=== PATIENT | male | born 1955 ===

== ENCOUNTER 2016-11-23 12:19 | Inpatient (IN) | payer OTHER ==
[~2016-11-23] VITALS: Ht 167.6 cm; Wt 62.6 kg
[2016-11-23] VITALS (8 sets, daily range): BP systolic 105–144; BP diastolic 29–99; PULSE 47–83; RESP 11–23; O2SAT 96–100
[2016-11-23] MEDS ORDERED: 0.9% Sodium Chloride 1,000 ML IV SCH (12:45)
[2016-11-23] MEDS ORDERED: 0.9% Sodium Chloride 1,000 ML IV ONE (12:45)
[2016-11-23 12:49] LABS: BASOPHILS % (AUTO) 0.2 % (0-3); EOSINOPHILS % (AUTO) 1.6 % (0-5); MONOCYTES % (AUTO) 9.6 % (4-12); Mean Corpuscular Hemoglobin 26.5 pg (27.0-35.0); Mean Corpuscular Volume 84.8 fL (81-100); NEUTROPHILS % (AUTO) 58.6 % (40-74); Platelet Count 324 bil/L (150-400)
[2016-11-23] MEDS ORDERED: Alum-Mag Hydrox-Simeth 30 mL Suspension PO PRN (12:50)
--- NOTE | 2016-11-23 12:51 | ED.REPORT ---
HPI-General Illness Date of Service Nov 23, 2016 ED Provider: Jose Manuel Gray MD Patient is a 61 year old male with a cardiac pacemaker and history of atrial fibrillation on Warfarin, chronic kidney disease, coronary artery disease, hypertension, and hyperlipidemia who presents to the ED via EMS from [facility] with altered mental status onset today at lunch. Per [facility] staff, the patient is usually able to transfer from the bed on his own and interact with staff. However, today he was unable to transfer and had decreased level of consciousness. Patient did not respond on EMS arrival. There is no staff from the facility or paperwork explaining why the patient presents to the ED. The patient is unable to provide any history due to his altered mental status. CPR with limited interventions, see POL. Nursing Notes Stated Complaint: DECREASED LOC Chief Complaint: General Complaint Nursing Notes Reviewed: Yes Allergies: Coded Allergies: atorvastatin (Verified Allergy, Mild, UNKNOWN, 11/23/16) Scheduled Amlodipine (Amlodipine) 5 Mg Tablet 10 MG PO DAILY Ascorbate Calcium (Vitamin C) 500 Mg Tablet 500 MG PO DAILYWM Baclofen (Baclofen) 10 Mg Tablet 20 MG PO BID Cholecalciferol (Vitamin D3) (Vitamin D) 1,000 Unit Tablet 5,000 UNIT PO DAILY Ferrous Sulfate (Iron) 325 Mg Tablet 325 MG PO DAILYWM Folic Acid (Folic Acid) 1 Mg Tablet 1 MG PO DAILY Gabapentin (Gabapentin) 100 Mg Capsule 200 MG PO TID Levothyroxine (Levothyroxine) 50 Mcg Tablet 50 MCG PO DAILY Losartan Potassium (Losartan Potassium) 25 Mg Tablet 25 MG PO DAILY Metoprolol Tartrate (Metoprolol Tartrate) 100 Mg Tablet 100 MG PO BID Morphine Sulfate ER (MS Contin) 15 Mg Tablet.er 45 MG PO BID Multivitamin with Minerals (Totalday Multiple) 1 Each Tablet.er 1 EACH PO DAILY Omeprazole (Omeprazole) 20 Mg Capsule.dr 20 MG PO DAILY Pravastatin (Pravastatin) 40 Mg Tablet 40 MG PO HS Warfarin Sodium (Coumadin) 4 Mg Tablet 4 MG PO DAILY Scheduled PRN Acetaminophen (Acetaminophen) 325 Mg Tablet 650 MG PO QID PRN PRN For Pain Albuterol Sulfate (Ventolin HFA Inhaler) 200 Puff/18 Gm Inhaler 2 PUFF INH QID PRN PRN For Wheezing Bisacodyl (Dulcolax Rectal) 10 Mg Supp.rect 10 MG RC ONCE PRN PRN For Constipation Magnesium Hydroxide (Milk of Magnesia) 400 Mg/5 Ml Oral.susp 30 ML PO ONCE PRN PRN For Constipation Na Phos,M-B/Na Phos,Di-Ba (Fleet Enema) 133 Ml Enema 133 ML RC ONCE PRN PRN For Constipation Nicotine 14 mg/24 hr Patch (Nicotine 14 mg/24 hr Patch) 1 Each Patch.td24 1 PATCH TRANSDERM DAILY PRN PRN smoking cessasion Ondansetron (Zofran) 4 Mg Tablet 4 MG PO TID PRN PRN For Nausea Oxycodone (Roxicodone) 15 Mg Tablet 15 MG PO Q4H PRN PRN For Severe Pain Polyethylene Glycol 3350 (Miralax) 17 Gm Powd.pack 17 GM PO DAILY PRN PRN For Constipation General Time Seen by MD: 12:29 Chief Complaint Altered mental status Hx Obtained From: EMS Unable to Obtain Hx: Mental status Arrived By: Ambulance Sudden in Onset?: No Onset Occurred: 1 - 4 hours ago Symptom Duration: Since onset Recent Healthcare: No recent hospitalization Past Medical History Past Medical History Atrial fibrillation on Warfarin chronic kidney disease, stage 3 hypertension Coronary artery disease hypothyroidism GERD hyperlipidemia cardiac pacemaker peripheral vascular disease atherosclerosis of left leg anemia Past Surgical History Reports: Pacemaker insertion Smoking History Unknown if Ever Smoker Social History Lives at [facility] Other Social History: Lives in [facility], Local resident Ambulatory Status Wheelchair Review of Systems Unable to Obtain ROS Patient condition, Mental status Physical Exam Vital Signs Vital Signs Date Time Temp Pulse Resp B/P Pulse Ox O2 Delivery O2 Flow Rate FiO2 11/23/16 13:30 54 14 133/51 100 Room Air 11/23/16 13:14 51 14 115/50 100 Room Air 11/23/16 12:19 36.6 47 11 105/29 100 Room Air Initial VS: Reviewed Alertness: Positive: Responds to pain stimuli (opens eyes and groans to sternal rub), Somnolent Appearance / Presentation: Positive: Cachectic unable to provide history due to altered mental status appears dehydrated ENT: Airway patent Respiratory / Chest: Breath sounds NL, Breath sounds = bilat, No respiratory distress, No rales, No rhonchi, No wheezing Cardiovascular: Regular rhythm, Heart sounds NL, No gallop, No murmurs, No rubs , Pulses = bilaterally (palpable distal pulses) Heart Rate / Rhythm: Positive: Bradycardia (40-50s) Abdomen: Soft, Non-tender, No guarding Tenderness/Guarding/Rebound: Negative: Rigid to palpation Upper Extremities Upper Extremity / MS: No deformity, Vascular intact Lower Extremity / Pelvis / MS: No deformity, Vascular intact erythematous patches to the bilateral thighs, perfectly rectangular in shape, consistent with contact dermatitis. toes are well perfused. Skin: Warm, Dry Color / Condition: Positive: Jaundice present Rash / Lesion Notes: purpuric rash, nonblanching, to the bilateral lower extremities. overlying bandages. Male Genitourinary: Penis NL (circumcised), No penile discharge, Testes NL (no swelling) Mental Status: Positive: Responds to painful stim, Somnolent no lateralizing posture or neurological deficits. withdraws to painful stimuli bilateral upper extremities. exam limited due to AMS. Interpretation & Diagnostics Interpretation & Diagnostics: Urine Tox: Positive for opiates and oxycodone Lab Results Interpretation Result Diagram: 11/23/16 1244 11/23/16 1244 Test 11/23/16 12:44 11/23/16 12:50 11/23/16 13:26 White Blood Count 9.4th/mm3 (3.8-10.1) Red Blood Count 4.00mil/mm3 (4.40-5.80) Hemoglobin 10.6g/dL (13.8-17.2) Hematocrit 33.9% (41.0-50.0) Mean Corpuscular Volume 84.8fL (81-100) Mean Corpuscular Hemoglobin 26.5pg (27.0-35.0) Mean Corpuscular Hemoglobin Concent 31.3% (32.0-37.0) Red Cell Distribution Width 16.2% (12.3-15.4) Platelet Count 324bil/L (150-400) Neutrophils (%) (Auto) 58.6% (40-74) Lymphocytes (%) (Auto) 29.7% (14-46) Monocytes (%) (Auto) 9.6% (4-12) Eosinophils (%) (Auto) 1.6% (0-5) Basophils (%) (Auto) 0.2% (0-3) Prothrombin Time 23.3sec (8.1-12.5) Prothromb Time International Ratio 2.14ratio Activated Partial Thromboplast Time 32.0sec (22.8-33.0) Sodium Level 141mEq/L (134-144) Potassium Level 4.9mEq/L (3.5-5.2) Chloride Level 102mEq/L (97-108) Carbon Dioxide Level 25mmol/L (18-29) Blood Urea Nitrogen 40mg/dL (8-27) Creatinine 2.33mg/dL (0.76-1.27) Estimat Glomerular Filtration Rate 30mL/min (>59) Glucose Level 99mg/dL (60-99) Calcium Level 9.8mg/dL (8.5-10.1) Magnesium Level 2.0mg/dL (1.6-2.6) Total Bilirubin 0.4mg/dL (0.0-1.2) Aspartate Amino Transf (AST/SGOT) 23U/L (0-50) Alanine Aminotransferase (ALT/SGPT) 16U/L (0-44) Alkaline Phosphatase 87U/L (25-160) Ammonia 19ug/dL (18-53) Troponin T 0.025ug/L (0.0-0.011) Total Protein 6.6g/dL (6.4-8.4) Albumin 3.2g/dL (3.4-5.0) Alcohol, Quantitative < 10mg/dL (0-10) Lactic Acid Level 0.9mmol/L (0.4-2.0) Urine Opiates Screen Positive Urine Methadone Screen Negative Urine Barbiturates Screen Negative Urine Amphetamines Screen Negative Urine Benzodiazepines Screen Negative Urine Cocaine Metabolite Screen Negative Urine Cannabinoids Screen Negative ECG Interpretation ECG Interpretation: Sinus bradycardia, rate 47 normal axis nonspecific IVCD occasional PACs no ST segment elevation no T wave abnormalities no prior EKG for comparison Time: 12:31 Interpreted by: ED physician X-Ray Chest Interpretation Chest Xray Interpretation: IMPRESSION: No acute pulmonary process. Dictated by: Flora Zavala M.D. on 11/23/2016 at 13:18 Approved by: Flora Zavala M.D. on 11/23/2016 at 13:18 View: Portable Interpretation / Wet Read by: Interpret - Radiologist CT Head Interpretation IMPRESSION: No acute intracranial abnormality. Dictated by: Vijay Hatfield M.D. on 11/23/2016 at 13:56 Approved by: Vijay Hatfield M.D. on 11/23/2016 at 13:56 Study: Head CT no contrast Interpretation / Wet Read by: Interpret - Radiologist Re-Eval/Medical Decision Med Decision/Clinical Course Patient is a 61 year old male with a pacemaker and history of atrial fibrillation on Warfarin, chronic kidney disease, coronary artery disease, hypertension, and hyperlipidemia who presents to the ED via EMS from [facility] with altered mental status onset today at lunch. Upon arrival the patient is borderline bradycardic with a heart rate in the high 40s to low 50s with stable blood pressure and mild respiratory depression. He is noted to have pinpoint pupils. Initially he is not accompanied by much information is unclear what his baseline mental status is. CT scan was obtained of the head demonstrated no acute intracranial process. CXR: Obtained, reviewed and interpreted by myself shows no evidence of acute infiltrates, effusions or pneumothorax. Cardiac and mediastinal silhouette normal. No bony or soft tissue abnormalities. Lab studies were notable as below: Urine Tox: Positive for opiates and oxycodone Hematocrit of 33.9. No leukocytosis. Bun of 40 and creatine of 2.3 Troponin of .025. Hypoalbuminemia. No electrolyte abnormalities. Lactate 0.9. Alcohol negative. Opiates positive in Urine drug screen. INR 2.14 Spoke with Michael, the patient's sister [phone] She was able to provide the following detail. History of bad peripheral vascular disease, with open sores, failed surgeries, and skin grafts. He has severe pain associated with legs and may need an amputation. Able to hold a conversation at baseline. Yesterday states that he "thought he was dying". Found unresponsive at lunch. Oxycodone recently increased. Started Gabapentin recently. Given this information and negative workup thus far I opted to administer 0.2 mg of IV Narcan. Thereafter the patient was noted to be significantly more awake and able to hold a conversation. At this time I see no evidence for acute infectious process and his overall presentation seems most consistent with opiate overdose. I considered several causes of the alteration of mental status. We considered major head trauma, intracranial hemorrhage, subdural hematoma, epidural hematoma, brain tumor, cerebral mass lesion, cerebral contusion or stroke. For that reason, we obtained a CT of the head which showed no bleeding or brain abnormalities. We considered electrolyte or metabolic abnormality including hepatic encephalopathy, hyponatremia, acidosis, hypokalemia, hyperkalemia, hyperglycemia, hypoglycemia, and acute renal failure. For that reason, we obtained a bedside glucose test and a metabolic panel which did not show abnormalities that explain the alteration of mental status. We considered infectious etiologies, but the patient has no fever, and the lab tests are not compatible. In addition, there is no evidence of cellulitis, pneumonia, or intra-abdominal infection. Given the patient's acute kidney injury, significant comorbidities and need for monitoring he was admitted to the hospitalist service for close observation overnight. He was transferred in stable condition. Source of Hx: Old records (From [facility]) Time of Eval: 14:16 Patient Status: Condition improved Re-Evaluation/Progress Note: Patient is now awake in the ED after Narcan. Informed the patient of plan for hospital admission. Consultation #1: Call Returned at: 13:43 Note: Spoke with Michael, the patient's sister. See MDM for detail. Informed her of pending hospital admission. All questions addressed. Consultation #2: Referral / Consult Name: Valentino Anna MD Consulted With: Hospitalist Call Returned at: 13:55 Supervisor [employer]: Will see patient, Agrees with eval, Agrees with plan, Accepts admit Note: Spoke with Dr. Anna, hospitalist, about the patient's case. Suggests trying Narcan due to recent Oxycodone increase. He agrees to accept admit. Counseled Regarding: Diagnosis, Lab results, Need for admission Discharge & Departure Primary Impression: Altered mental state Altered mental status type: unspecified Qualified Code: R41.82 - Altered mental status, unspecified Additional Impressions: Dehydration Opiate overdose Encounter type: initial encounter Injury intent: undetermined intent Qualified Code: T40.604A - Poisoning by unspecified narcotics, undetermined, initial encounter Bradycardia Respiratory depression Acute kidney injury Peripheral vascular disease Disposition: ADMITTED TO HOSPITAL Discharge Condition All VS Reviewed: Yes Condition: Stable Crit Care Except Billable Proc Time Spent: 135-164 minutes Services Performed: Patient management by me, Time spent at bedside, Reviewing test results, Reviewing imaging, Discussing patient care, Documentation in record, Time with fam/surrogate Scribe Attestation Portions of this note were transcribed by Candice Bennett. I, Dr. Gray personally performed the history, physical exam and medical decision-making; I reviewed and confirmed the accuracy of the information in the transcribed note. Signed by: Rodo Gamble, 11/23/2016 0255 Jose Manuel Gray MD Nov 23, 2016 12:51 Candice Bennett Nov 23, 2016 12:59
[2016-11-23 13:04] LABS: INR 2.14 ratio
[2016-11-23 13:09] LABS: TROPONIN T 0.025 ug/L (0.0-0.011)
[2016-11-23 13:15] LABS: Ammonia 19 ug/dL (18-53)
--- NOTE | 2016-11-23 13:20 | DRSVH ---
PROCEDURE: X-RAY CHEST ONE VIEW, PORTABLE ([id number]) INDICATIONS: WEAKNESS TECHNIQUE: One view of the chest was acquired. COMPARISON: None. FINDINGS: Surgical changes and devices: Pacemaker. Lungs and pleura: No pleural effusions or pneumothorax. Lungs are clear. Mediastinum: Mediastinal contours appear normal. Heart size is normal. Bones and chest wall: No suspicious bony lesions. Overlying soft tissues appear unremarkable. IMPRESSION: No acute pulmonary process. Dictated by: Flora Zavala M.D. on 11/23/2016 at 13:18 Approved by: Flora Zavala M.D. on 11/23/2016 at 13:18
[2016-11-23] MEDS ORDERED: OXYC15TA45 PO (13:36)
[2016-11-23] MEDS ORDERED: ACET325T51 PO (13:36)
[2016-11-23] MEDS ORDERED: LOSA25TA21 PO (13:36)
[2016-11-23] MEDS ORDERED: POLY17PO6 PO (13:36)
[2016-11-23] MEDS ORDERED: FOLI1TAB18 PO (13:36)
[2016-11-23] MEDS ORDERED: FERR325T39 PO (13:36)
[2016-11-23] MEDS ORDERED: PRAV40TA PO (13:36)
[2016-11-23] MEDS ORDERED: WARF4TAB PO (13:36)
[2016-11-23] MEDS ORDERED: ASCO-294 PO (13:36)
[2016-11-23] MEDS ORDERED: METO100T3 PO (13:36)
[2016-11-23] MEDS ORDERED: AMLO5TAB2 PO (13:36)
[2016-11-23] MEDS ORDERED: GABA-500 PO (13:36)
[2016-11-23] MEDS ORDERED: MAGN400O4 PO (13:36)
[2016-11-23] MEDS ORDERED: ALBU18HF INH (13:36)
[2016-11-23] MEDS ORDERED: MULT-620 PO (13:36)
[2016-11-23] MEDS ORDERED: LEVO50TA6 PO (13:36)
[2016-11-23] MEDS ORDERED: BISA10SU61 RC (13:36)
[2016-11-23] MEDS ORDERED: ONDA4TAB6 PO (13:36)
[2016-11-23] MEDS ORDERED: MS15TCR PO (13:36)
[2016-11-23] MEDS ORDERED: CHOL100043 PO (13:36)
[2016-11-23] MEDS ORDERED: NICO1PAT5 TRANSDERM (13:36)
[2016-11-23] MEDS ORDERED: OMEP20CA11 PO (13:36)
[2016-11-23] MEDS ORDERED: NA P133E23 RC (13:36)
[2016-11-23] MEDS ORDERED: BACL10TA PO (13:36)
[2016-11-23] MEDS ORDERED: Albuterol HFA 60 Puff 8 Gm Inhaler INHALATION PRN (13:55)
[2016-11-23] MEDS ORDERED: Polyethylene Glycol (PEG) 17 Gm Powder PO PRN (13:55)
[2016-11-23] MEDS ORDERED: D5 0.45% NaCl + KCl 20 mEq/L 1,000 ML IV SCH (13:55)
--- NOTE | 2016-11-23 13:57 | DRSVH ---
PROCEDURE: CT BRAIN WITHOUT CONTRAST ([id number]) INDICATIONS: ams TECHNIQUE: Noncontrast 4.5 mm thick angled axial sections acquired from the foramen magnum to the vertex, with c oronal reformats. COMPARISON: None. FINDINGS: Image quality: Excellent. CSF spaces: Basal cisterns are patent. No extra-axial fluid collections. The ventricles are symmet haley in size and shape. Brain: No intracranial bleeds or masses. There is cerebral volume loss for age, with resultant vent ricular and sulcal prominence. There are periventricular and deep white matter chronic small vessel ischemic changes. There is intracranial internal carotid artery atherosclerosis. Skull and face: Calvarium and visualized facial bones appear intact, without suspicious lesions. Sinuses: Visualized sinuses and mastoids are clear. IMPRESSION: No acute intracranial abnormality. Dictated by: Vijay Hatfield M.D. on 11/23/2016 at 13:56 Approved by: Vijay Hatfield M.D. on 11/23/2016 at 13:56
--- NOTE | 2016-11-23 14:01 | PCM.HPMED ---
Subjective Date of Service Nov 23, 2016 Primary Provider: Admitting Physician: Primary Care Physician: Attending Physician: Chief Complaint: Decreased level of consciousness History of Present Illness: Patient is a 61 year old male with a cardiac pacemaker and history of atrial fibrillation on Warfarin, chronic kidney disease, coronary artery disease, hypertension, and hyperlipidemia who presents to the ED via EMS from [facility] with altered mental status onset today. Per [facility] staff, the patient is usually able to transfer from the bed on his own and interact with staff. However, today he was unable to transfer and had decreased level of consciousness. Patient did not respond on EMS arrival. There is no staff from the facility or paperwork explaining why the patient presents to the ED. The patient is unable to provide any history due to his altered mental status. Review of Systems: Even when the patient woke up he could provide no relevant information. When asked about the wounds on his legs did not know he had any. He is oriented 1 Gen.: No fevers chills weight loss weight gain Eyes: no visual disturbances or blurring vision HEENT: No nose/throat drainage, no pain in ears or throat, no hearing loss Lymph: No lymph nodes noted Cardiac: No chest pain, orthopnea, PND, palpitations , pedal edema or dyspnea on exertion Pulmonary: no cough, wheezing or bringing up of sputum GI: No anorexia nausea vomiting blood or black in the stool : no dysuria hematuria urinary frequency or decrease in urine output Musculoskeletal: Joint swelling no joint pain no new muscle aches or back pain Neuro: No syncope, seizures no loss of consciousness no new focal weakness, numbness or tingling Psychiatric: New new anxiety insomnia or depression Endocrine: No new heat or cold intolerances polyuria or polydipsia Hematology: No lymphadenopathy or easy bleeding or bruising noted skin: No new rashes, stasis dermatitis Allergies Coded Allergies: atorvastatin (Verified Allergy, Mild, UNKNOWN, 11/23/16) Home Medications atorvastatin (Verified Allergy, Mild, UNKNOWN, 11/23/16) Scheduled Amlodipine (Amlodipine) 5 Mg Tablet 10 MG PO DAILY Ascorbate Calcium (Vitamin C) 500 Mg Tablet 500 MG PO DAILYWM Baclofen (Baclofen) 10 Mg Tablet 20 MG PO BID Cholecalciferol (Vitamin D3) (Vitamin D) 1,000 Unit Tablet 5,000 UNIT PO DAILY Ferrous Sulfate (Iron) 325 Mg Tablet 325 MG PO DAILYWM Folic Acid (Folic Acid) 1 Mg Tablet 1 MG PO DAILY Gabapentin (Gabapentin) 100 Mg Capsule 200 MG PO TID Levothyroxine (Levothyroxine) 50 Mcg Tablet 50 MCG PO DAILY Losartan Potassium (Losartan Potassium) 25 Mg Tablet 25 MG PO DAILY Metoprolol Tartrate (Metoprolol Tartrate) 100 Mg Tablet 100 MG PO BID Morphine Sulfate ER (MS Contin) 15 Mg Tablet.er 45 MG PO BID Multivitamin with Minerals (Totalday Multiple) 1 Each Tablet.er 1 EACH PO DAILY Omeprazole (Omeprazole) 20 Mg Capsule.dr 20 MG PO DAILY Pravastatin (Pravastatin) 40 Mg Tablet 40 MG PO HS Warfarin Sodium (Coumadin) 4 Mg Tablet 4 MG PO DAILY Scheduled PRN Acetaminophen (Acetaminophen) 325 Mg Tablet 650 MG PO QID PRN PRN For Pain Albuterol Sulfate (Ventolin HFA Inhaler) 200 Puff/18 Gm Inhaler 2 PUFF INH QID PRN PRN For Wheezing Bisacodyl (Dulcolax Rectal) 10 Mg Supp.rect 10 MG RC ONCE PRN PRN For Constipation Magnesium Hydroxide (Milk of Magnesia) 400 Mg/5 Ml Oral.susp 30 ML PO ONCE PRN PRN For Constipation Na Phos,M-B/Na Phos,Di-Ba (Fleet Enema) 133 Ml Enema 133 ML RC ONCE PRN PRN For Constipation Nicotine 14 mg/24 hr Patch (Nicotine 14 mg/24 hr Patch) 1 Each Patch.td24 1 PATCH TRANSDERM DAILY PRN PRN smoking cessasion Ondansetron (Zofran) 4 Mg Tablet 4 MG PO TID PRN PRN For Nausea Oxycodone (Roxicodone) 15 Mg Tablet 15 MG PO Q4H PRN PRN For Severe Pain Polyethylene Glycol 3350 (Miralax) 17 Gm Powd.pack 17 GM PO DAILY PRN PRN For Constipation PMH Review of systems and past medical history is obtained from chart and lifted from the emergency room notes as patient can provide no relevant information. Atrial fibrillation on Warfarin chronic kidney disease, stage 3 hypertension Coronary artery disease hypothyroidism GERD hyperlipidemia cardiac pacemaker peripheral vascular disease atherosclerosis of left leg anemia Past Surgical History Reports: Pacemaker insertion Some sort of skin grafting on legs unknown patient cannot tell us Smoking History Unknown if Ever Smoker Social History Lives at [facility] Other Social History: Lives in [facility], Local resident Ambulatory Status Wheelchair Social History Smoking Status: Unknown if Ever Smoker Exam Vital Signs Vital Sign - Last Date Time Temp Pulse Resp B/P Pulse Ox O2 Delivery O2 Flow Rate FiO2 11/23/16 13:14 51 14 115/50 100 Room Air 11/23/16 12:19 36.6 Exam Gen.- A+ O 1 no apparent distress. Thin male unresponsive in [place] wheezes his eyes closed when I try and pry them open to examine them. But otherwise is unresponsive until we gave him Narcan at which point in time he became more responsive Eyes- open conjunctiva clear, pupils equal nonicteric, pupils were pinpoint bilaterally ENT- ears normal, nose normal Mouth: Patient would not open his mouth Neck- supple/trach midline CVS- RRR no murmur or gallop Lungs CTA, diminished breath sounds GI- NABS/NT soft, flat Musc- moving 4 no obvious deformity Neuro- cranial nerves II through XII intact to gross examination, nonfocal Skin- warm and dry patient has dressings on his legs with evidence of wound healing and scarring from some sort of procedure Psych- patient went from unresponsive and uncooperative in that he would not even open his eyes to opening his eyes and complaining about pain but not knowing where he was or why or anything about his medical history Lab and Diagnostics Result Diagram: 11/23/16 1244 11/23/16 1244 Assessment & Plan First-time visit from 61-year-old male from [facility] comes and obtunded. He gets 0.2 mg of Narcan promptly woke up and was extremely confused and complaining of pain in his ears. Metabolic encephalopathy-likely medication induced combination of opiates he woke up from Narcan, and gabapentin in the setting of renal failure will hold both for now. WISAM/CKD3-if PMH is to be believed he needs a little bit of rehydration and will follow-up creatinine in the morning Anemia-again this is chronic and in the setting of renal failure is already on iron I will pursue this any further other than a hemoglobin in the morning Chronic pain with chronic continuous opiate dependence-as patient wakes up we can resume his MS Contin 45 mg twice a day but at a lesser dose along with his oxycodone 15 mg every 4. I am holding gabapentin as well for now. afib/CAD/HTN/lipid/pacemaker, peripheral vascular disease atherosclerosis of the left leg-continuing warfarin, metoprolol, holding losartan renal failure, continuing atorvastatin, patient subtherapeutic on warfarin pharmacy to manage GERD-continue PPI Hypothyroid-continue Levoxyl at outpatient dose Prophylaxis-DVT -we will place this patient on regular heparin as low molecular weight contraindicated in setting of renal failure until he started therapeutic on warfarin, SCDs are contraindicated. GI patient has ppi Disposition- patient is a full code with limited interventions there is a polst in the chart and comes from [facility] I am not sure how long this patient has been in the critical access hospital but I am sure he will be back given his multiple comorbidities and proximity to this hospital. So at this point in time we are going have admitting him, getting a speech eval for cognition PT just to get his abilities and a wound care evaluation and we will reassess his meds and check labs in the morning and likely he will discharge back there tomorrow unless something comes up. Valentino Anna MD Nov 23, 2016 14:00
--- NOTE | 2016-11-23 15:52 | PCM.CONPHA ---
Subjective Date of Service: Nov 23, 2016 Decreased level of consciousness Reason for Pharmacy Consult: Anticoagulation Management Objective Vital Signs Date Time Temp Pulse Resp B/P Pulse Ox O2 Delivery O2 Flow Rate FiO2 11/23/16 15:21 36.6 83 23 144/99 97 Room Air 11/23/16 15:10 83 23 144/99 97 Room Air 11/23/16 14:15 81 17 122/46 96 Room Air 11/23/16 13:30 54 14 133/51 100 Room Air 11/23/16 13:14 51 14 115/50 100 Room Air 11/23/16 12:19 36.6 47 11 105/29 100 Room Air Weight (Kilograms): 69.09 Height (Feet): 5 Height (Inches): 6 Test 11/23/16 12:44 11/23/16 12:50 11/23/16 13:26 White Blood Count 9.4th/mm3 (3.8-10.1) Red Blood Count 4.00mil/mm3 (4.40-5.80) Hemoglobin 10.6g/dL (13.8-17.2) Hematocrit 33.9% (41.0-50.0) Mean Corpuscular Volume 84.8fL (81-100) Mean Corpuscular Hemoglobin 26.5pg (27.0-35.0) Mean Corpuscular Hemoglobin Concent 31.3% (32.0-37.0) Red Cell Distribution Width 16.2% (12.3-15.4) Platelet Count 324bil/L (150-400) Neutrophils (%) (Auto) 58.6% (40-74) Lymphocytes (%) (Auto) 29.7% (14-46) Monocytes (%) (Auto) 9.6% (4-12) Eosinophils (%) (Auto) 1.6% (0-5) Basophils (%) (Auto) 0.2% (0-3) Prothrombin Time 23.3sec (8.1-12.5) Prothromb Time International Ratio 2.14ratio Activated Partial Thromboplast Time 32.0sec (22.8-33.0) Sodium Level 141mEq/L (134-144) Potassium Level 4.9mEq/L (3.5-5.2) Chloride Level 102mEq/L (97-108) Carbon Dioxide Level 25mmol/L (18-29) Blood Urea Nitrogen 40mg/dL (8-27) Creatinine 2.33mg/dL (0.76-1.27) Estimat Glomerular Filtration Rate 30mL/min (>59) Glucose Level 99mg/dL (60-99) Calcium Level 9.8mg/dL (8.5-10.1) Magnesium Level 2.0mg/dL (1.6-2.6) Total Bilirubin 0.4mg/dL (0.0-1.2) Aspartate Amino Transf (AST/SGOT) 23U/L (0-50) Alanine Aminotransferase (ALT/SGPT) 16U/L (0-44) Alkaline Phosphatase 87U/L (25-160) Ammonia 19ug/dL (18-53) Troponin T 0.025ug/L (0.0-0.011) Total Protein 6.6g/dL (6.4-8.4) Albumin 3.2g/dL (3.4-5.0) Alcohol, Quantitative < 10mg/dL (0-10) Lactic Acid Level 0.9mmol/L (0.4-2.0) Urine Opiates Screen Positive Urine Methadone Screen Negative Urine Barbiturates Screen Negative Urine Amphetamines Screen Negative Urine Benzodiazepines Screen Negative Urine Cocaine Metabolite Screen Negative Urine Cannabinoids Screen Negative Assessment/Plan Assessment/Plan Metabolic encephalopathy, WISAM on CKD; Therapeutic INR 2.14; will continue home dose of 4mg; Daily INR x 7 days Ceasar Altamirano PharmD Nov 23, 2016 15:51
[2016-11-23] MEDS ORDERED: Albuterol 2.5 mg/3 mL Inhalation Solution NEB PRN (16:31)
--- NOTE | 2016-11-23 19:11 | NUR ---
Arrival to 1023 Pt arrival to 1023 at 1645. At this time pt was minimally responsive, only to pain and nonverbal. At 1700 pt was completely nonresponsive despite sternal rubs; 0.2 mg Narcan given at 1700, pt woke up and was agitated and screaming at staff in pain; he looks like he is convulsing; he quickly calmed back down to sleeping. MD notified and aware. Per Dr. Anna, "he can be drowsy and nonresponsive as long as his oxygen saturations are okay". Placed on CPOx, 96% on RA. No tele orders at this time. Pt has wrapped wounds from knee to foot on BLE from previous vascular surgeries. Solano patent and draining to gravity.
--- NOTE | 2016-11-23 19:20 | NUR ---
Contacts Pt has sister Michael Joy listed as contact. Friend Fracisco Fam at bedside attempting to visit pt and requesting pt information. Discussed with Fracisco and Michael that we could not give information until Tigre is alert and oriented and can give permission. Both were agreeable to this.
[2016-11-24 00:20] LABS: APPEARANCE,URINE CLEAR (CLEAR,HAZY); COLOR,URINE STRAW (YELLOW); OCCULT BLOOD,URINE MODERATE (NEGATIVE); PH,URINE 5.5 (5.0-8.0); UROBILINOGEN,URINE NORMAL (NORMAL)
[2016-11-24] MEDS ORDERED: Acetaminophen IV 1,000 MG in IV Premix 1 EACH IV ONE (03:50)
--- NOTE | 2016-11-24 04:20 | NUR ---
Confusion Pt noted be waking up more this am. He is confuse and not able to follow command. He speaks of confused conversation most of the times. Patient c/o pain but not able to use pain score or rate pain. Feldt scale used. Pt gets agitated at times. Md made aware. Po meds are held since pt has been drowsy most of the night and not able to follow command appropriately. Tylenol IV x1 given this am. Md made aware of 1st trop level 0.25 with no new orders noted. No noted c/o chest pain/discomfort or pain. 02sat in high 90s on RA. Continuos pulse oximeter on but pt keeps removing probe often. No desaturations noted.
[2016-11-24] MEDS: Pantoprazole 40 mg ER24 Tablet PO SCH (05:40)
[2016-11-24 06:07] VITALS: BP 124/58; PULSE 100; RESP 17; O2SAT 96
[2016-11-24 07:18] LABS: BASOPHILS % (AUTO) 0.3 % (0-3); EOSINOPHILS % (AUTO) 0.6 % (0-5); MONOCYTES % (AUTO) 6.6 % (4-12); Mean Corpuscular Hemoglobin 26.6 pg (27.0-35.0); Mean Corpuscular Volume 84.6 fL (81-100); NEUTROPHILS % (AUTO) 70.8 % (40-74); Platelet Count 251 bil/L (150-400)
[2016-11-24 07:33] LABS: INR 2.61 ratio
[2016-11-24] MEDS: Ascorbic Acid 500 mg Tablet PO SCH (08:30)
[2016-11-24] MEDS: Acetaminophen IV 1,000 MG in IV Premix 1 EACH IV PRN ×2 (09:27→19:04)
--- NOTE | 2016-11-24 09:31 | NUR ---
Medications Pt is alert to self only this AM and has declined all medications other than IV Tylenol stating "I bet not take anything I'm not sure about." Will notify MD. Continue to monitor pt.
[2016-11-24 09:42] VITALS: BP 133/64; PULSE 74; RESP 20; O2SAT 98
--- NOTE | 2016-11-24 12:10 | PCM.PHAPRO ---
Progress Decreased level of consciousness WARFARIN DOSING PER PHARMACY Indication: A-fib Home dose: 4 mg INR Goal: 2-3 Admit Dx: Metabolic encephalopathy, anemia Lab Date Result Dose INR 11/23/16 2.14 4 mg INR 11/24/16 2.61 Plan: - Pt is currently within therapeutic range - Will give one dose of warfarin 3 mg PO tonight - Pharmacy will continue to monitor INR/CBC/Signs and symptoms of bleeding Maryanne Mclain PharmD Nov 24, 2016 12:10
[2016-11-24 12:42] VITALS: BP 155/69; PULSE 74; RESP 18; O2SAT 100
[2016-11-24] MEDS: HYDROmorphone 1 mg/mL Inj IVPUSH PRN (14:52)
--- NOTE | 2016-11-24 15:14 | PCM.PNMED ---
Subjective Date of Service Nov 24, 2016 Subjective pt still poor historian, oriented to himself, although alert noted severe BLE ulcers s/p debridement, s/p grafts harvested from bilateral anterior thigh pt was mourning intermittently due to pain Exam Vital Signs Vital Sign - Last Date Time Temp Pulse Resp B/P Pulse Ox O2 Delivery O2 Flow Rate FiO2 11/24/16 12:42 36.5 74 18 155/69 100 Room Air 11/23/16 19:35 2.00 11/23/16 17:20 96 Intake and Output 11/23/16 11/23/16 11/24/16 Cumulative From/Thru 15:00 23:00 07:00 11/23/16 12:19 - 11/24/16 06:07 Intake Total 2000 ml 0 ml 1246 ml 3246 ml Output Total 675 ml 800 ml 1475 ml Balance 2000 ml -675 ml 446 ml 1771 ml Intake Oral 0 ml 0 ml 0 ml IV Total 2000 ml 1246 ml 3246 ml Output Urine Total 675 ml 800 ml 1475 ml Exam cachetic middle aged male, distressed due to pain no JVD, MMM, no LAD RRR, nl s1, s2 no mrg CTAB, no w,c S,ND,NT,normoactive BS+ EXT- grafted skin BLE, exposed rt anterior tibial tendon-necrotic, scattered beefy granulation tissues on RLE/LLE pulses 1/2, motor intact on toes IVs and Medications Medications Reviewed: Medications were reviewed in detail Lab and Diagnostics Result Diagram: 11/24/1655 11/24/16 0655 Assessment & Plan 61-year-old male from [facility] p/w being obtunded, He gets 0.2 mg of Narcan promptly woke up and was extremely confused and complaining of pain in his ears. Acute, active #acute encephalopathy, POA, secondary to opioid given for leg pain, reported rapid improvement after Narcan. CTH negative for acute findings. no reported seizure/focal neurologic deficit. -as per sister, pt was AAOx3, observe for now, minimizing opioid -frequent neurocheck, will resume gabapentin small dose given uncontrolled pain -continue 1/2 ns 100cc/hr given poor oral intake #WISAM vs WISAM on CKD, POA, Cr2.33 on adm, today 1.75, improved with hydration, likely prerenal from dehydration -i/ol daily wt, renally adjust meds, avoid renal toxin #severe PVD w/ hx of BLE ulcers s/p debridement, s/p grafts in , followed by plastic surgery at [place]. Last seen 11/16, recommended amputation. As per sister, pt refused it.Unclear interval progression since til this admission, -wound care service recommended podiatry consult. appreciate input, once pt is consentable, likely require amputation per previous recommendation -dressing per wound care service -pain control with tylenol iv standing, dilaudid 0.5mg q4h prn, avoid given concern for AMS Chronic, stable microcytic/hypochromic anemia, unclear onset, h/h stable, transfuse target >7, FU iron panal, close obs for GIB given systemic AC afib, rate controlled, continue coumadin, metoprolol hx of CAD, s/p PPM, not active, HTN/HLD, held losartan, continue statin GERD continue PPI dispo: 2-3more days or more depending on necessity of surgery, likely back to SNF diet:general dvt ppx:systemic AC Full code angus, sister next of kin, will consider palliative care input Time spent 35min Abelardo Cook MD Nov 24, 2016 15:14
[2016-11-24 16:15] LABS: Unsaturated Iron Binding 132.1 ug/dL
--- NOTE | 2016-11-24 16:21 | NUR ---
Confusion Pt continuing to have confusion and increasing agitation over shift. Pt alert to self only and is confused about why he is in pain. Obtained order for IV pain meds for leg pain and one dose given. MD advised to only give if pt is in severe pain because of hx of confusion and decreased kidney function. Pt able to follow simple commands, but will swear and call staff names. Continuing to orient pt to why he is in pain and floating legs. Continue to monitor. Addendum: 11/24/16 at 1732 by FLORA KAMARA RN 1645 Pt having increased agitation and pain, but is confused and refusing IV Tylenol. Crying out in pain, but swearing and making statements like "freaks, you're all freaks and are trying to hurt me." Obtained verbal order for Haldol 5mg PRN agitation, because wound care was coming back. Pt calmed down and would take PO medications and follow commands, so held Haldol for now. Continue to monitor. Addendum: 11/24/16 at 1916 by FLORA KAMARA RN Pt having increased agitation, tried to feed dinner and reached out to grab my air and scratched my wrist. States "you're all out to hurt me and break my arms." When I went back into room with night RN, pt had fork in hand and was trying to stab at us. Security called and Haldol given. Pt calmed down and was apologetic.
[2016-11-24] MEDS ORDERED: Haloperidol 5 mg/mL Inj IV PRN (17:00)
[2016-11-24 17:40] VITALS: BP 158/74; PULSE 93; RESP 18; O2SAT 99
--- NOTE | 2016-11-24 17:40 | NUR ---
Wound Care Wound evaluation received, pt seen at bedside. 61 yo confused male, s/p split thickness skin grafts (STGS) bilateral anterior lower legs and feet performed in [place] by Dr Dubon of plastic surgery in the end of September 2016. Admitted from [facility] with altered mental status onset on 11/23/16. Of note pt also has an unstageable Pressure injury at his right heel (POA) that is 3.5 cm in diameter. STGS harvest sites Left 26 cm x 12 cm Right 25 cm x 25 cm. He has had failure of his STSGs at both left and right leg. Right leg has two anterior failures both with visible tendon in the beds Inferior wound is 9cm x 8cm with a 9cm length of necrotic anterior tibialis tendon protruding from it. Superior wound is 4.5 cm x 4.5cm with 2 cm of exposed possibly viable tendon in the base. Left leg has 2 anterior nunn failures of the STSG. Superior wound is 5cm x 3 cm and hypergranular. Inferior wound is 3cm x 2 cm and hypergranular. Pulses are dopplered at DP on both feet and are biphasic. Redressed all exposed tendon with hydrogel copiously applied, adaptic, Kerlix wrapped and Coban each leg foot to knee. Podiatry consult recommended. Will follow as needed. Keep heels floated, reposition often.
[2016-11-24 19:15] VITALS: BP 168/81; PULSE 85; RESP 20; O2SAT 99
[2016-11-24 19:50] VITALS: PULSE 101; RESP 18; O2SAT 98
--- NOTE | 2016-11-24 21:52 | NUR ---
Confusion Pt. let this RN listen to lung, heart, and bowel sounds, and to look at legs. However, pt. is still on edge, and is still declining turns, and to do a full skin assessment. Pt. is definitely still only alert and oriented to self only. Will continue to monitor.
[2016-11-25] VITALS (7 sets, daily range): BP systolic 170–192; BP diastolic 71–89; PULSE 45–99; RESP 15–18; O2SAT 94–99
[2016-11-25] MEDS: Acetaminophen IV 1,000 MG in IV Premix 1 EACH IV PRN ×2 (02:09→11:36)
--- NOTE | 2016-11-25 03:30 | NUR ---
Confusion is still ongoing Pt. has not slept all night, and has been restless. Pt. is less agitated than earlier. Pt. is still having some auditory hallucinations. For example, this RN came into the room during hourly rounding, and the pt. stated "the IV pump is telling me to lose weight". Will continue to monitor.
[2016-11-25] MEDS: HYDROmorphone 1 mg/mL Inj IVPUSH PRN ×2 (05:41→11:14)
[2016-11-25] MEDS: Pantoprazole 40 mg ER24 Tablet PO SCH (05:46)
[2016-11-25 06:47] LABS: BASOPHILS % (AUTO) 0.1 % (0-3); EOSINOPHILS % (AUTO) 1.3 % (0-5); MONOCYTES % (AUTO) 7.1 % (4-12); Mean Corpuscular Hemoglobin 26.6 pg (27.0-35.0); Mean Corpuscular Volume 81.9 fL (81-100); Platelet Count 261 bil/L (150-400)
[2016-11-25 07:13] LABS: Magnesium 1.6 mg/dL (1.6-2.6); Phosphorus 3.2 mg/dL (2.5-4.9)
[2016-11-25 07:21] LABS: INR 4.49 ratio
[2016-11-25] MEDS: Ascorbic Acid 500 mg Tablet PO SCH (08:36)
--- NOTE | 2016-11-25 14:12 | PCM.CHPPOD ---
Subjective Date of service Nov 25, 2016 History of Present Illness 61-year-old male evaluated at bedside in no apparent distress. This patient is unable to provide any significant medical history however is responsive to conversation. The patient does not remember any previous intervention and states "that he does not know what is going on" when questioned about his medical history. Review of previous surgical notes from [facility] reveals that this patient has undergone full-thickness skin grafts for bilateral lower extremity ulcerations. The patient was sent to schedule the hospital from his local care facility due to mental status change. Allergy Allergies: Coded Allergies: atorvastatin (Verified Allergy, Mild, UNKNOWN, 11/23/16) Medications Acetaminophen (Acetaminophen) 325 Mg Tablet 650 MG PO QID PRN PRN For Pain Albuterol Sulfate (Ventolin HFA Inhaler) 200 Puff/18 Gm Inhaler 2 PUFF INH QID PRN PRN For Wheezing Amlodipine (Amlodipine) 5 Mg Tablet 10 MG PO DAILY Ascorbate Calcium (Vitamin C) 500 Mg Tablet 500 MG PO DAILYWM Baclofen (Baclofen) 10 Mg Tablet 20 MG PO BID Bisacodyl (Dulcolax Rectal) 10 Mg Supp.rect 10 MG RC ONCE PRN PRN For Constipation Cholecalciferol (Vitamin D3) (Vitamin D) 1,000 Unit Tablet 5,000 UNIT PO DAILY Ferrous Sulfate (Iron) 325 Mg Tablet 325 MG PO DAILYWM Folic Acid (Folic Acid) 1 Mg Tablet 1 MG PO DAILY Gabapentin (Gabapentin) 100 Mg Capsule 200 MG PO TID Levothyroxine (Levothyroxine) 50 Mcg Tablet 50 MCG PO DAILY Losartan Potassium (Losartan Potassium) 25 Mg Tablet 25 MG PO DAILY Magnesium Hydroxide (Milk of Magnesia) 400 Mg/5 Ml Oral.susp 30 ML PO ONCE PRN PRN For Constipation Metoprolol Tartrate (Metoprolol Tartrate) 100 Mg Tablet 100 MG PO BID Morphine Sulfate ER (MS Contin) 15 Mg Tablet.er 45 MG PO BID Multivitamin with Minerals (Totalday Multiple) 1 Each Tablet.er 1 EACH PO DAILY Na Phos,M-B/Na Phos,Di-Ba (Fleet Enema) 133 Ml Enema 133 ML RC ONCE PRN PRN For Constipation Nicotine 14 mg/24 hr Patch (Nicotine 14 mg/24 hr Patch) 1 Each Patch.td24 1 PATCH TRANSDERM DAILY PRN PRN smoking cessasion Omeprazole (Omeprazole) 20 Mg Capsule.dr 20 MG PO DAILY Ondansetron (Zofran) 4 Mg Tablet 4 MG PO TID PRN PRN For Nausea Oxycodone (Roxicodone) 15 Mg Tablet 15 MG PO Q4H PRN PRN For Severe Pain Polyethylene Glycol 3350 (Miralax) 17 Gm Powd.pack 17 GM PO DAILY PRN PRN For Constipation Pravastatin (Pravastatin) 40 Mg Tablet 40 MG PO HS Warfarin Sodium (Coumadin) 4 Mg Tablet 4 MG PO DAILY Past Medical History Surgeries: Yes (AICD, embolectomy, stent placement) Medical History: Surgical History: Social History Smoking Status: Unknown if Ever Smoker Podiatry Consult Exam Vital Signs Vital Sign - Last Date Time Temp Pulse Resp B/P Pulse Ox O2 Delivery O2 Flow Rate FiO2 11/25/16 10:36 36.6 76 16 183/87 99 Room Air 11/23/16 19:35 2.00 11/23/16 17:20 96 Intake and Output 11/24/16 11/24/16 11/25/16 Cumulative From/Thru 15:00 23:00 07:00 11/23/16 12:19 - 11/25/16 05:50 Intake Total 1732 ml 1537 ml 6515 ml Output Total 850 ml 1200 ml 3525 ml Balance 882 ml 337 ml 2990 ml Intake Oral 450 ml 472 ml 922 ml IV Total 1282 ml 1065 ml 5593 ml Output Urine Total 850 ml 1200 ml 3525 ml # Bowel Movements 0 0 0 Result Diagram: 11/25/16 0618 11/25/16 0618 Lab Test 11/23/16 12:44 11/23/16 12:50 11/23/16 13:26 11/23/16 23:30 Activated Partial Thromboplast Time 32.0sec (22.8-33.0) Ammonia 19ug/dL (18-53) Troponin T 0.025ug/L (0.0-0.011) Prealbumin 10mg/dL (20-40) Alcohol, Quantitative < 10mg/dL (0-10) Lactic Acid Level 0.9mmol/L (0.4-2.0) Urine Opiates Screen Positive Urine Methadone Screen Negative Urine Barbiturates Screen Negative Urine Amphetamines Screen Negative Urine Benzodiazepines Screen Negative Urine Cocaine Metabolite Screen Negative Urine Cannabinoids Screen Negative Urine Color Straw (YELLOW) Urine Appearance Clear (CLEAR,HAZY) Urine pH 5.5 (5.0-8.0) Urine Specific Sunray 1.020 (1.003-1.035) Urine Protein Negativemg/dL (NEG,TRACE) Urine Glucose (UA) Negativemg/dL (NEGATIVE) Urine Ketones Negativemg/dL (NEGATIVE) Urine Occult Blood Moderate (NEGATIVE) Urine Nitrite Negative (NEGATIVE) Urine Bilirubin Negative (NEGATIVE) Urine Urobilinogen Normalmg/dL (NORMAL) Urine Leukocyte Esterase Small (NEGATIVE) Urine RBC 0-2/hpf (0-2) Urine WBC 0-5/hpf (0-5) Urine Epithelial Cells Occasional/hpf (NONE-MOD) Urine Crystals None seen (NONE SEEN) Urine Bacteria None/hpf (NONE-FEW) Urine Hyaline Casts None/lpf (NONE) Urine Granular Casts None seen (NONE SEEN) Urine Waxy Casts None seen (NONE SEEN) Urine Red Blood Cell Casts None seen (NONE SEEN) Urine White Blood Cell Casts None seen (NONE SEEN) Urine Mucus Present (None Seen) Urine Trichomonas None seen (NONE SEEN) Urine Yeast None (NONE SEEN) Urine Culture Reflexed Indicated Test 11/24/16 06:55 11/25/16 06:18 Reticulocyte Count,Calculated 1.0% (0.6-2.6) Total Iron Binding Capacity 162ug/dL (250-450) Percent Iron Saturation 19%sat (15-50) Unsaturated Iron Binding 132.1ug/dL Ferritin 475ng/mL (30-400) Thyroid Stimulating Hormone (TSH) 1.190uIU/mL (0.450-4.500) Free Thyroxine 1.38ng/dL (0.82-1.77) White Blood Count 8.7th/mm3 (3.8-10.1) Red Blood Count 3.98mil/mm3 (4.40-5.80) Hemoglobin 10.6g/dL (13.8-17.2) Hematocrit 32.6% (41.0-50.0) Mean Corpuscular Volume 81.9fL (81-100) Mean Corpuscular Hemoglobin 26.6pg (27.0-35.0) Mean Corpuscular Hemoglobin Concent 32.5% (32.0-37.0) Red Cell Distribution Width 15.5% (12.3-15.4) Platelet Count 261bil/L (150-400) Neutrophils (%) (Auto) 69.0% (40-74) Lymphocytes (%) (Auto) 22.4% (14-46) Monocytes (%) (Auto) 7.1% (4-12) Eosinophils (%) (Auto) 1.3% (0-5) Basophils (%) (Auto) 0.1% (0-3) Prothrombin Time 49.5sec (8.1-12.5) Prothromb Time International Ratio 4.49ratio Sodium Level 137mEq/L (134-144) Potassium Level 3.3mEq/L (3.5-5.2) Chloride Level 101mEq/L (97-108) Carbon Dioxide Level 21mmol/L (18-29) Blood Urea Nitrogen 22mg/dL (8-27) Creatinine 1.31mg/dL (0.76-1.27) Estimat Glomerular Filtration Rate 59mL/min (>59) Glucose Level 100mg/dL (60-99) Calcium Level 8.5mg/dL (8.5-10.1) Phosphorus Level 3.2mg/dL (2.5-4.9) Magnesium Level 1.6mg/dL (1.6-2.6) Total Bilirubin 0.4mg/dL (0.0-1.2) Aspartate Amino Transf (AST/SGOT) 19U/L (0-50) Alanine Aminotransferase (ALT/SGPT) 14U/L (0-44) Alkaline Phosphatase 86U/L (25-160) Total Protein 5.8g/dL (6.4-8.4) Albumin 2.9g/dL (3.4-5.0) Exam General: Alert, Oriented X3, Cooperative, No Acute Distress Lower Extremities: Bilateral: Extremity warm Lower Extremity Pulses: Palpable: Left Dorsalis Pedis Left Posterior Tibal Right Dorsalis Pedis Right Posterior Tibal Podiatry WOUND : Wound Location/Description This patient has multiple ulcerations bilateral lower extremity Right proximal anterior nunn ulceration full-thickness to subcutaneous tissue with exposed tibialis anterior tendon. This wound measures 4.5 cm x 4.5 cm and is mostly hyper-granular with a 2 cm exposed portion of the tibialis anterior tendon which is of normal color. There is no surrounding erythema no signs of infection Right anterior ankle ulceration full-thickness to subcutaneous tissue with exposed tibialis anterior tendon this wound measures 9 cm x 8 cm with mostly hyper-granular surrounding tissue however the exposed tendon measures approximately 5 cm and appears necrotic there is no surrounding erythema and no malodor no signs of acute infection Multiple areas of healed anterior leg and foot split-thickness skin grafts of the right lower extremity Significant muscular atrophy bilateral lower extremity The left lower extremity has a proximal open nunn ulceration measuring 5 cm x 3 cm and is significantly granular there is no surrounding erythema and no signs of acute infection There is an additional anterior left leg ulceration measuring 3 cm x 2 cm which is also hyper-granular there are no signs of acute infection Assessment & Plan Assessment Bilateral lower extremity ulcerations without notable infection Problems: Plan Detailed examination was performed today of bilateral lower extremity. This patient has severe ulcerations of the right lower extremity which has recently undergone a split-thickness skin graft as well as placement of an Integra bilayer. This patient has multiple areas of exposed tibialis anterior tendon of the right lower extremity. The tibialis anterior tendon overlying his ankle ulceration appears necrotic. However there are no signs of acute infection. The left ankle ulcerations or hyper granular. Continue to follow wound care recommendations and dressing change recommendations provided by the wound care service. This patient would benefit from further debridements of his bilateral lower extremity ulcerations with potential excision of his tibialis anterior tendon of the right lower extremity However due to this patient's current mental status he is unable to provide informed consent at this time to move forward for surgical intervention. We will continue conservative care by the wound care service until such time that his mental status has improved and he Provided consent to proceed with surgery or we can verify that he has transfer power of disability attorney for medical decisions to another individual that me may obtain consent from. If any of his ulcerations appear to become infected this issue will be considered emergent and we will proceed with surgical intervention. Suggest potential vascular consultation, this patient has minimally palpable pulses and severe atrophy of both his legs which is indicative of peripheral arterial disease. I will reevaluate this patient December 08. Please contact podiatry service with any questions or concerns regarding his leg wounds. Rosas Crisostomo DPM Nov 25, 2016 14:12
[2016-11-25 15:14] LABS: INR 4.94 ratio
--- NOTE | 2016-11-25 16:52 | PCM.PNMED ---
Subjective Date of Service Nov 25, 2016 Subjective pt is remarkably lucid, AAOx3, thinks that confusion was from his pain meds controlled pain with tylenol, 0.5mg dilaudid prn seen by today Exam Vital Signs Vital Sign - Last Date Time Temp Pulse Resp B/P Pulse Ox O2 Delivery O2 Flow Rate FiO2 11/25/16 10:36 36.6 76 16 183/87 99 Room Air 11/23/16 19:35 2.00 11/23/16 17:20 96 Intake and Output 11/24/16 11/24/16 11/25/16 Cumulative From/Thru 15:00 23:00 07:00 11/23/16 12:19 - 11/25/16 05:50 Intake Total 1732 ml 1537 ml 6515 ml Output Total 850 ml 1200 ml 3525 ml Balance 882 ml 337 ml 2990 ml Intake Oral 450 ml 472 ml 922 ml IV Total 1282 ml 1065 ml 5593 ml Output Urine Total 850 ml 1200 ml 3525 ml # Bowel Movements 0 0 0 Exam cachetic middle aged male, distressed due to pain no JVD, MMM, no LAD RRR, nl s1, s2 no mrg CTAB, no w,c S,ND,NT,normoactive BS+ EXT- grafted skin BLE, exposed rt anterior tibial tendon-necrotic, scattered beefy granulation tissues on RLE/LLE pulses 1/2, motor intact on toes IVs and Medications Medications Reviewed: Medications were reviewed in detail Lab and Diagnostics Result Diagram: 11/25/1618 11/25/16 0618 Assessment & Plan 61-year-old male from [facility] p/w being obtunded, He gets 0.2 mg of Narcan promptly woke up and was extremely confused and complaining of pain in his ears. Acute, active #acute encephalopathy, POA, secondary to opioid given for leg pain, reported rapid improvement after Narcan. CTH negative for acute findings. no reported seizure/focal neurologic deficit, improved with intermittent delirium. -as per sister, baseline pt was AAOx3, it seems pt is reaching to baseline -frequent neurocheck, will resume gabapentin small dose given uncontrolled pain -continue 1/2 ns 100cc/hr given poor oral intake, s/s eval given poor swallowing reported by RN. #WISAM vs WISAM on CKD, POA, Cr2.33 on adm, today 1.31, improved with hydration, likely prerenal from dehydration -i/ol daily wt, renally adjust meds, avoid renal toxin #severe PVD w/ hx of BLE ulcers s/p debridement, s/p grafts in , followed by plastic surgery at [place]. Last seen 11/16, recommended amputation. As per sister, pt refused it.Unclear interval progression since til this admission, -Appreciate input, no urgent Ix for surgery now -dressing per wound care service -pain control with tylenol iv standing, dilaudid 0.5mg q4h prn, avoid given concern for AMS Chronic, stable microcytic/hypochromic anemia, unclear onset, h/h stable, transfuse target >7, FU iron panal, close obs for GIB given systemic AC afib, rate controlled, continue coumadin, metoprolol hx of CAD, s/p PPM, not active, HTN/HLD, held losartan, continue statin GERD continue PPI dispo: if no urgent surgical indication, stable LE ulcers, likely to d/c back to SNF within 1-2days diet:general dvt ppx:systemic AC Full code angus, sister next of kin, Time spent 35min Abelardo Cook MD Nov 25, 2016 16:51
--- NOTE | 2016-11-25 16:54 | NUR ---
Wound Care Pt will need dressings changed 11/26/16 by nursing. Wound Care will reassess on 11/28/16. Dressing instructions in nursing interventions.
[2016-11-25] MEDS ORDERED: hydrALAZINE 20 mg/mL Inj IV ONE (18:50)
--- NOTE | 2016-11-25 19:18 | NUR ---
Swallowing Difficulty, Elevated Blood Pressure, Mentation Patient had some difficulty with swallowing during the morning med pass and during lunch, with patient gagging and having some emesis. MD made aware, order for swallow evaluation obtained. Patient continues to have elevated blood pressures. MD paged, orders for PRN blood pressure medication given, dose given just prior to change of shift. Patient mostly appropriate during shift, able to answer questions appropriately but often required statements to be repeated. The patient did have occasional nonsensical remarks. Care is ongoing.
[2016-11-26] MEDS: Ondansetron 2 mg/mL 2 mL Inj IVPUSH PRN ×2 (01:33→05:47)
--- NOTE | 2016-11-26 04:13 | NUR ---
Mentation/ Pain Pt. is still confused at times, and may be having visual hallucinations. Pt. has had no complaints of pain so far this shift. Will continue to monitor.
[2016-11-26 05:10] VITALS: BP 188/85; PULSE 87; RESP 16; O2SAT 98
[2016-11-26] MEDS: hydrALAZINE 20 mg/mL Inj IV PRN (05:40)
[2016-11-26] MEDS: Pantoprazole 40 mg ER24 Tablet PO SCH (06:19)
[2016-11-26 06:48] LABS: BASOPHILS % (AUTO) 0 % (0-3); EOSINOPHILS % (AUTO) 0 % (0-5); Mean Corpuscular Hemoglobin 26.7 pg (27.0-35.0); Mean Corpuscular Volume 79.7 fL (81-100); NEUTROPHILS % (AUTO) 79.8 % (40-74); Platelet Count 367 bil/L (150-400)
[2016-11-26 06:57] LABS: INR 3.86 ratio
[2016-11-26 07:03] LABS: Magnesium 1.6 mg/dL (1.6-2.6); Phosphorus 3.7 mg/dL (2.5-4.9)
[2016-11-26] MEDS ORDERED: Magnesium Sulf 2 Gm/50mL Water 2 GM in IV Premix 1 EACH IV ONE (07:20)
[2016-11-26] MEDS ORDERED: Potassium Chloride 20 mEq/15 mL 15mL Oral Soln PO ONE (07:20)
--- NOTE | 2016-11-26 08:56 | PCM.PHAPRO ---
Progress Warfarin Management: -inr is supratherapeutic today at 3.86. will hold dose this evening and monitor daily Magui Franco [facility] Nov 26, 2016 08:56
[2016-11-26] MEDS: Ascorbic Acid 500 mg Tablet PO SCH (09:23)
--- NOTE | 2016-11-26 12:18 | PCM.PNMED ---
Subjective Date of Service Nov 26, 2016 Subjective pt had VH overnight, still mildly confused this morning, but reoriented easily AAOx3 denied pain Exam Vital Signs Vital Sign - Last Date Time Temp Pulse Resp B/P Pulse Ox O2 Delivery O2 Flow Rate FiO2 11/26/16 05:10 36.3 87 16 188/85 98 Room Air 11/23/16 19:35 2.00 11/23/16 17:20 96 Intake and Output 11/25/16 11/25/16 11/26/16 Cumulative From/Thru 15:00 23:00 07:00 11/23/16 12:19 - 11/26/16 06:40 Intake Total 822 ml 1304 ml 8641 ml Output Total 2900 ml 2500 ml 8925 ml Balance -2078 ml -1196 ml -284 ml Intake Oral 822 ml 200 ml 1944 ml IV Total 1104 ml 6697 ml Output Urine Total 2900 ml 2400 ml 8825 ml Emesis 100 ml 100 ml # Bowel Movements 0 0 Exam NAD, comfortable no JVD, MMM, no LAD RRR, nl s1, s2 no mrg coarsBS, diffuse crackles, no wheezing S,ND,NT,normoactive BS+ EXT-dressed bilaterally pulses 1/2, motor intact on toes IVs and Medications Medications Reviewed: Medications were reviewed in detail Lab and Diagnostics Result Diagram: 11/26/16 0611 11/26/16 0611 Assessment & Plan 61-year-old male from [facility] p/w being obtunded, He gets 0.2 mg of Narcan promptly woke up and was extremely confused and complaining of pain in his ears. Acute, active #acute encephalopathy, POA, secondary to opioid given for leg pain, reported rapid improvement after Narcan. CTH negative for acute findings. no reported seizure/focal neurologic deficit, improved with intermittent delirium. -as per sister, baseline pt was AAOx3, it seems pt is reaching to baseline -frequent neurocheck, will resume gabapentin small dose given uncontrolled pain -stopped IVF given lung exam, sounds wet. #severe PVD w/ hx of BLE ulcers s/p debridement, s/p grafts in , followed by plastic surgery at [place]. Last seen 11/16, recommended amputation. As per sister, pt refused it.Unclear interval progression since til this admission, -Appreciate input, no urgent Ix for surgery now -dressing per wound care service -pain control with tylenol iv standing, dilaudid 0.5mg q4h prn, avoid given concern for AMS -wbc increased today, afebrile, yet no other signs of infection, trends wbc for now #HTN/HLD, held losartan on admission, [id number], continue statin, resumed losartan, start HCTZ12.5, hydralazine prn Chronic, stable #WISAM, POA, Cr2.33 on adm, resolved with hydration, likely prerenal from dehydration -i/ol daily wt, renally adjust meds, avoid renal toxin microcytic/hypochromic anemia, unclear onset, likely ACD, h/h stable, transfuse target >7, close obs for GIB given systemic AC afib, rate controlled, continue coumadin, metoprolol hx of CAD, s/p PPM, not active, GERD continue PPI dispo: given no urgent surgical indication, stable LE ulcers, d/c back to SNF tomorrow if MS remains stable diet:general dvt ppx:systemic AC Full code angus, sister next of kin, Time spent 35min Abelardo Cook MD Nov 26, 2016 12:18
[2016-11-26 13:09] VITALS: BP 179/81; PULSE 75
[2016-11-26 15:07] LABS: Transferrin 122 mg/dL (.)
--- NOTE | 2016-11-26 15:52 | NUR ---
NUTRITION ASSESSMENT: ASSESS:61 YO male admitted with acute encephalopathy related to WISAM / dehydration. Pt. with severe PVD w/ hx of BLE ulcers s/p debridement, s/p grafts in , followed by plastic surgery at [place]. Last seen 11/16, recommended amputation. As per sister, pt refused it.Unclear interval progression since 11/16 til this admission. Per surgery, no urgent Ix for surgery now. He has an unstageable pressure injury at his right heel (POA) that is 3.5 cm in diameter. PMHx:Severe PVD, atrial fibrillation on Warfarin, chronic kidney disease stage 3, hypertension, coronary artery disease, hypothyroidism, GERD, hyperlipidemia, cardiac pacemaker, atherosclerosis of left leg, anemia. DIET:General. PO intake 50% trays. LABS: Reviewed. K+ 3.3, Glu 130, PAB 13. MEDICATIONS: Reviewed. Vitamin D3, folate, vitamin C, MVI, synthroid, lopressor. NUTRITION FOCUSED PHYSICAL ASSESSMENT: GI symptoms / stool: No stool.Edward: 17 Skin Integrity: Significant issues related to PVD> ANTHROPOMETRICS: Current Wt: 69.09 kgBMI: 24.0 kg/m2. IBW: 64.55 kg (107% IBW) ESTIMATED NEEDS (WOUNDS): Calories: 2073 - 2418 kcal (30 - 35 kcal / kg BW) Protein: 83 - 104 g protein (1.2 - 1.5 g / kg BW) NUTRITION DIAGNOSIS: 1)Increased nutrient needs related to wounds, as evidenced by recent surgery. INTERVENTION: 1) Will add Ensure to trays to enhance calorie / protein intake. MONITOR/EVALUATE: Diet tolerance, PO intake, labs, GI/nutrition status. Follow up per moderate nutrition risk guidelines.
[2016-11-26 16:15] VITALS: BP 174/88; PULSE 89; RESP 16; O2SAT 98
--- NOTE | 2016-11-26 18:58 | NUR ---
Dressing Change, Mentation, Elevated WBC Dressing changed as directed. No purulent discharge noted. Patient tolerated the dressing change well. Patient continues to have altered mental status. Patient mostly appropriate, but had occasions of answers not appropriate to questions asked. WBC noted to be elevated. MD paged, care is ongoing.
[2016-11-26 19:50] VITALS: BP 177/96; PULSE 93; RESP 20; O2SAT 99
--- NOTE | 2016-11-27 02:13 | NUR ---
AMS Pt continues to be confused and AMS. Questions have to be repeated several times in order for pt to respond. When he does respond he mostly answers "OK". Pt does not answer if he is asked a complex question or a question other than a yes or no. Pt was able to state month and day he was born but not year. When giving medications crushed in applesauce RN had to give pt the spoon which prompted him to take the medication. Although pt would only take two spoonfuls(all of meds) then refused anymore. Pt also refused to turn on backside or turn for Q2 turns. Refused to deep breath for lung sounds. Pt refused to open eyes when asked. Otherwise pt has not attempted to get out of bed and has been appropriate for care. CPOx in use 96-99% on RA. Bilateral LE Dressings in tact and clean. Care continues.
[2016-11-27 05:01] VITALS: BP 178/102; PULSE 82; RESP 20; O2SAT 97
--- NOTE | 2016-11-27 05:18 | NUR ---
BP Paged regarding BP this morning 178/102. HR low 90s.
[2016-11-27 07:17] LABS: BASOPHILS % (AUTO) 0.1 % (0-3); EOSINOPHILS % (AUTO) 0 % (0-5); MONOCYTES % (AUTO) 7.2 % (4-12); Mean Corpuscular Hemoglobin 26.9 pg (27.0-35.0); NEUTROPHILS % (AUTO) 79.9 % (40-74); Platelet Count 358 bil/L (150-400)
[2016-11-27 07:24] LABS: INR 2.64 ratio
[2016-11-27 07:39] LABS: Magnesium 2.1 mg/dL (1.6-2.6); Phosphorus 2.7 mg/dL (2.5-4.9)
--- NOTE | 2016-11-27 09:34 | NUR ---
Patient is tolerating his current general diet without s/s aspiration. Continues to have some confusion secondary to his encephalopathy. ONCOLOGY PHYSICIAN to sign off acutely. May need ONCOLOGY PHYSICIAN services in next level of care for cognitive therapy if confusion does not clear. Please refer to ONCOLOGY PHYSICIAN with new or worsening condition. Addendum: 11/27/16 at 1401 by ANDREAS MAHMOOD Spoke with RN this afternoon. Patient seen by ONCOLOGY PHYSICIAN. See speech note. Downgrade to thin/pureed. No overt s/s aspiration with any texture at this time. Requires 1:1 feed do to lethargy and cognition. ONCOLOGY PHYSICIAN to continue to follow 2-3x a week for diet toleration and cognition
[2016-11-27] MEDS: Ascorbic Acid 500 mg Tablet PO SCH (10:15)
[2016-11-27 10:16] VITALS: BP 173/109; PULSE 95; RESP 18; O2SAT 99
[2016-11-27] MEDS: Pantoprazole 40 mg ER24 Tablet PO SCH (10:17)
--- NOTE | 2016-11-27 11:38 | NUR ---
Social Work: Initial Assessment: Data & Assessment: EMR reviewed. See Initial Assessment. Patient is a 61 y/o male that admitted due to AMS and Dehydration. SW attempted to complete initial assessment with patient but he was unable to hold a conversation due to AMS. central supply worker completed Initial assessment with patient's sister, Michael Joy [phone]. Patient's sister lives in [place]. Patient PCP is TJ Cummins. Patient's insurance is [employer]. Patient's re-admit score is high at 3. Patient does not have VA benefits and does not have Assisted Care Insurance. Prior to admission patient was at [facility]. Patient has a WC. Patient sister states that the patient wants to discharge to a facility in [facility] or near [facility] that is in network with his insurance. Drum Operator notified patient's sister that the patient has a podiatry consult pending tomorrow and he may discharge tomorrow after the evaluation. She voiced understanding. Drum Operator will continue to follow patient. Plan: Patient will discharge when medically ready. Patient has a podiatry consult pending for 11/28/16. It is anticipated that patient will discharge to a SNF in or near [facility] in network with his [employer] insurance. central supply worker will continue to follow. Jamee Koo LMSW, [facility] Addendum: 11/27/16 at 1158 by JAMEE KOO Amended: Links added.
[2016-11-27 14:53] VITALS: BP 166/95; PULSE 80; RESP 17; O2SAT 98
--- NOTE | 2016-11-27 15:55 | DRSVH ---
PROCEDURE: X-RAY CHEST ONE VIEW, PORTABLE ([id number]) INDICATIONS: rule out pneumonia TECHNIQUE: One view of the chest was acquired. COMPARISON: None. FINDINGS: Surgical changes and devices: Pacer defibrillator from the left side is present. Lungs and pleura: No pleural effusions or pneumothorax. Lungs are clear. Mediastinum: Mediastinal contours appear normal. Heart size is normal. Bones and chest wall: No suspicious bony lesions. Overlying soft tissues appear unremarkable. IMPRESSION: Acute disease is not seen in this semiupright portable chest. No changes to suggest pneum onia are seen. Dictated by: Alvin Pierre M.D. on 11/27/2016 at 15:53 Approved by: Alvin Pierre M.D. on 11/27/2016 at 15:53
[2016-11-27 16:23] LABS: APPEARANCE,URINE CLEAR (CLEAR,HAZY); COLOR,URINE YELLOW (YELLOW)
[2016-11-27 16:24] LABS: OCCULT BLOOD,URINE LARGE (NEGATIVE); UROBILINOGEN,URINE NORMAL (NORMAL)
[2016-11-27] MEDS ORDERED: cefTRIAXone Inj 1,000 MG in IV Premix 1 EACH IV ONE (16:40)
--- NOTE | 2016-11-27 16:40 | PCM.PNMED ---
Subjective Date of Service Nov 27, 2016 Subjective 61-year-old resident of [facility] with history of peripheral vascular disease presents with acute encephalopathy seemingly related to opioid analgesia. The patient was minimally verbally responsive. He gave appropriate responses but seems uninterested in talking. He voices no complaints. Exam Vital Signs Vital Sign - Last Date Time Temp Pulse Resp B/P Pulse Ox O2 Delivery O2 Flow Rate FiO2 11/27/16 14:53 37.2 80 17 166/95 98 Room Air 11/23/16 19:35 2.00 11/23/16 17:20 96 Intake and Output 11/26/16 11/26/16 11/27/16 Cumulative From/Thru 15:00 23:00 07:00 11/23/16 12:19 - 11/27/16 06:02 Intake Total 1658 ml 1265 ml 03034 ml Output Total 900 ml 1050 ml 88104 ml Balance 758 ml 215 ml 689 ml Intake Oral 440 ml 200 ml 2584 ml IV Total 1218 ml 1065 ml 8980 ml Output Urine Total 900 ml 1050 ml 13441 ml Emesis 100 ml # Bowel Movements 0 0 Exam General: Chronically ill slightly cachectic but no acute distress HEENT: sclerae anicteric, oral mucosa moist Neck: no apparent JVD Chest: clear to auscultation Cardiac: S1S2, no murmur Abdomen: BS normal, non-tender Extremities: No edema; bilateral bandage stasis dermatitis and ulcerations of lower legs Neuro: Not fully oriented, cranial nerves generally symmetric, uncooperative with motor and coordination exam IVs and Medications Medications Reviewed: Medications were reviewed in detail Lab and Diagnostics Result Diagram: 11/27/1633 11/27/1633 Assessment & Plan 61-year-old male from [facility] p/w being obtunded, He gets 0.2 mg of Narcan promptly woke up and was extremely confused and complaining of pain in his ears. Acute, active # acute encephalopathy, POA, secondary to opioid given for leg pain, reported rapid improvement after Narcan. CT HEAD negative for acute findings. no reported seizure/focal neurologic deficit, improved with intermittent delirium. - per sister, baseline pt was AAOx3, it seems pt is reaching to baseline - frequent neurocheck, - resume gabapentin # Leukocytosis, acute. The patient has had only low-grade fever 37.3. WBC count has risen from 7.9-18.1. No acute eosinophils. No localizing symptoms. No diarrhea. UA after indwelling Solano obtained on 11/27 suggest mild pyuria with significant bacteriuria. Chest x-ray on 11/27 is unremarkable. Blood cultures ordered on 11/27. - Start ceftriaxone for presumed UTI - Follow-up urinary cultures # severe PVD w/ hx of BLE ulcers s/p debridement, s/p grafts in , followed by plastic surgery at [place]. Last seen 11/16, recommended amputation. As per sister, pt refused it.Unclear interval progression since til this admission, -Appreciate input, no urgent Ix for surgery now - dressing per wound care service - pain control with tylenol, gabapentin - Discontinue dilaudid 0.5mg q4h prn, avoid given concern admission for opioid- induced encephalopathy #Poorly controlled hypertension. Held losartan on admission, [id number], continue statin, - resumed losartan, - start HCTZ12.5, changed to Maxzide - hydralazine prn Chronic, stable #WISAM, POA, Cr2.33 on adm, resolved with hydration, likely prerenal from dehydration. Now resolved to 0.97 -i/ol daily wt, renally adjust meds, avoid renal toxin microcytic/hypochromic anemia, unclear onset, likely ACD, h/h stable, transfuse target >7, close obs for GIB given systemic AC afib, rate controlled, continue coumadin, metoprolol hx of CAD, s/p PPM, not active, GERD continue PPI dispo: given no urgent surgical indication, stable LE ulcers, d/c back to SNF switch to appropriate oral antibiotics for urinary tract infection; likely 1 days diet:general dvt ppx:systemic AC Full code angus, sister next of kin, Pain Evaluation: Pain not Controlled Resuscitation Status: CPR: Attempt Resuscitation Time spent 35 minutes Fermin Cobian MD Nov 27, 2016 16:40
--- NOTE | 2016-11-27 17:46 | NUR ---
Patient has not be responsive to questions or cues this shift and yelling to "get away" when attempting to talk to him. RN is aware of his current demeanor. Addendum: 11/27/16 at 1747 by SHELDON OWENS CNA Amended: Links added.
[2016-11-27 18:15] VITALS: BP 161/93; PULSE 61
--- NOTE | 2016-11-27 19:36 | NUR ---
Mentation/Meds Pt sleepy throughout shift and agitated when attempting to wake him up; responds with 'yes' or 'okay'. Responded with okay this AM when asked about medications, pt setup and then irritated that RN was trying to give him meds; wanting to sleep. Most meds crushed in applesauce with ER pills whole - pt playing with whole med and refusing to spit it out or swallow began to swing arm and tell rn to 'go to hell.' call to charge and [employer] CLERK who assisted with getting med out. Pt agitated and saying 'go away and quit it' Pt finally aware enough to understand the command to spit it out and that if he did staff would leave him alone. Pt spit it out. Meds placed in drawer and reattempted to give meds - pt took half bite and then refusing/getting agitated. Unknown as to what exactly pt did take or not as they were crushed or had eventually dissolved in applesauce. MD aware. BP elevated throughout shift, PRN IV Hydralazine ordered. Care continues.
[2016-11-27 19:41] VITALS: BP 176/96; PULSE 88; RESP 20; O2SAT 98
--- NOTE | 2016-11-28 03:52 | NUR ---
Mentation Pt continues to be very somnolent, wakes only with repeated efforts and resists efforts to engage. Able to take and swallow warfarin and blood pressure med at bedtime, crushed in applesauce. Difficult to get pt to swallow this bite, eventually it was observed being swallowed; pt got very agitated and swung with arms at staff, telling staff to leave him alone; withheld other meds. Later, pt did open eyes and engage somewhat more. Solano catheter was removed before shift change, pt is incontinent of urine, voiding adequate amounts. Resists efforts to clean up skin, wearing brief but it does not always stay in place. Hourly rounding ongoing.
[2016-11-28 05:07] VITALS: BP 180/104; PULSE 89; RESP 20; O2SAT 99
[2016-11-28] MEDS: hydrALAZINE 20 mg/mL Inj IV PRN (05:13)
[2016-11-28 06:23] LABS: BASOPHILS % (AUTO) 0.1 % (0-3); EOSINOPHILS % (AUTO) 0 % (0-5); MONOCYTES % (AUTO) 7.4 % (4-12); Mean Corpuscular Volume 80.5 fL (81-100); Platelet Count 323 bil/L (150-400)
[2016-11-28 06:33] VITALS: BP 158/84; PULSE 98
[2016-11-28 06:44] LABS: INR 2.93 ratio
--- NOTE | 2016-11-28 09:04 | NUR ---
Respiratory Pt found laying in bed breathing RA. Sat 100%, HR 98, RR 18, BS clear bilaterally. Pt did not understand availability of Tx. No indications of need at this time.
[2016-11-28] MEDS: cefTRIAXone Inj 1,000 MG in IV Premix 1 EACH IV SCH (09:37)
[2016-11-28] MEDS: Pantoprazole 40 mg ER24 Tablet PO SCH (11:19)
[2016-11-28] MEDS: Ascorbic Acid 500 mg Tablet PO SCH (11:19)
--- NOTE | 2016-11-28 11:26 | PCM.PHAPRO ---
Progress Warfarin Management by Pharmacy: -Indication: afib -Home dose: warfarin 4mg -Goal: 2-3 -Plan: doses of warfarin were held on 11/25 and 11/26. Warfarin 2.5mg was resumed yesterday. Inr increased overnight to 2.93 from 2.64 yesterday. Will hold the dose this evening and re-evaluate in the morning Magui Franco [facility] Nov 28, 2016 11:26
--- NOTE | 2016-11-28 13:23 | NUR ---
Wound Care Pt seen at bedside with Dr Crisostomo today, dressings taken down from francoise ranjith's. Exposed tendon at the right lower leg continue to be desiccated although patient does have active dorsiflexion of the foot yet. All skin grafting is otherwise intact at the left and right lower legs with the exception of 2 open areas at his left ant nunn and the open areas of granulation around the tendon on the right. Some tissue was mechanically debrided from the right lower leg wound today during dressing change. Redressed both legs using hydrogel over all open areas and covering with vaseline gauze then wrapped with webril and coban. Will change dressings in 48 hrs 11/30/16.
[2016-11-28 14:53] VITALS: BP 150/73; PULSE 81; RESP 20; O2SAT 100
--- NOTE | 2016-11-28 14:57 | PCM.PNPOD ---
Subjective Date of Service: Nov 28, 2016 Date of Service: Nov 28, 2016 Visit Information: Reason for Visit Altered Mental Status,Severe Dehydration Surgery/Surgery Date Post-Op Day # Date of Admission: Nov 23, 2016 at 14:10 Hospital Day # Subjective: 61-year-old male evaluated resting comfortably in bed. The patient appears to be more lucid today and is openly conversing regarding his lower extremity ulcerations. This is a significant improvement from his previous evaluation last week. Patient is still a poor historian. He has no new complaints regarding his legs today. Postop General: No Complaints Objective Vital Sign - Last Date Time Temp Pulse Resp B/P Pulse Ox O2 Delivery O2 Flow Rate FiO2 11/28/16 13:59 Room Air 11/28/16 06:33 98 158/84 11/28/16 05:07 37.3 20 99 11/23/16 19:35 2.00 11/23/16 17:20 96 Intake and Output 11/27/16 11/27/16 11/28/16 Cumulative From/Thru 15:00 23:00 07:00 11/23/16 12:19 - 11/28/16 06:20 Intake Total 1064 ml 371 ml 70886 ml Output Total 600 ml 88985 ml Balance 464 ml 371 ml 1524 ml Intake Oral 0 ml 100 ml 2684 ml IV Total 1064 ml 271 ml 81470 ml Output Urine Total 600 ml 94459 ml Emesis 100 ml # Voids 3 3 # Bowel Movements 0 0 Result Diagram: 11/28/16 0600 11/28/16 0600 Lab Test 11/23/16 12:44 11/23/16 12:50 11/23/16 13:26 11/24/16 06:55 Activated Partial Thromboplast Time 32.0sec (22.8-33.0) Ammonia 19ug/dL (18-53) Troponin T 0.025ug/L (0.0-0.011) Alcohol, Quantitative < 10mg/dL (0-10) Lactic Acid Level 0.9mmol/L (0.4-2.0) Urine Opiates Screen Positive Urine Methadone Screen Negative Urine Barbiturates Screen Negative Urine Amphetamines Screen Negative Urine Benzodiazepines Screen Negative Urine Cocaine Metabolite Screen Negative Urine Cannabinoids Screen Negative Reticulocyte Count,Calculated 1.0% (0.6-2.6) Iron Level 30ug/dL (.) Total Iron Binding Capacity 162ug/dL (250-450) Percent Iron Saturation 19%sat (15-50) Unsaturated Iron Binding 132.1ug/dL Transferrin 122mg/dL (.) Transferrin % Saturation 18 (.) Ferritin 475ng/mL (30-400) Thyroid Stimulating Hormone (TSH) 1.190uIU/mL (0.450-4.500) Free Thyroxine 1.38ng/dL (0.82-1.77) Test 11/26/16 06:11 11/27/16 06:33 11/27/16 15:42 11/28/16 06:00 Prealbumin 13mg/dL (20-40) Phosphorus Level 2.7mg/dL (2.5-4.9) Magnesium Level 2.1mg/dL (1.6-2.6) Total Bilirubin 0.6mg/dL (0.0-1.2) Aspartate Amino Transf (AST/SGOT) 13U/L (0-50) Alanine Aminotransferase (ALT/SGPT) 8U/L (0-44) Alkaline Phosphatase 90U/L (25-160) Total Protein 6.4g/dL (6.4-8.4) Albumin 2.9g/dL (3.4-5.0) Urine Color Yellow (YELLOW) Urine Appearance Clear (CLEAR,HAZY) Urine pH 6.0 (5.0-8.0) Urine Specific [place] 1.020 (1.003-1.035) Urine Protein 100mg/dL (NEG,TRACE) Urine Glucose (UA) 100mg/dL (NEGATIVE) Urine Ketones Negativemg/dL (NEGATIVE) Urine Occult Blood Large (NEGATIVE) Urine Nitrite Positive (NEGATIVE) Urine Bilirubin Negative (NEGATIVE) Urine Urobilinogen Normalmg/dL (NORMAL) Urine Leukocyte Esterase Trace (NEGATIVE) Urine RBC >50/hpf (0-2) Urine WBC 6-10/hpf (0-5) Urine Epithelial Cells Few/hpf (NONE-MOD) Urine Crystals None seen (NONE SEEN) Urine Bacteria Many/hpf (NONE-FEW) Urine Hyaline Casts None/lpf (NONE) Urine Granular Casts None seen (NONE SEEN) Urine Waxy Casts None seen (NONE SEEN) Urine Red Blood Cell Casts None seen (NONE SEEN) Urine White Blood Cell Casts None seen (NONE SEEN) Urine Mucus None seen (None Seen) Urine Trichomonas None seen (NONE SEEN) Urine Yeast None (NONE SEEN) Urinalysis Comment None Urine Culture Reflexed Indicated White Blood Count 23.8th/mm3 (3.8-10.1) Red Blood Count 4.82mil/mm3 (4.40-5.80) Hemoglobin 13.0g/dL (13.8-17.2) Hematocrit 38.8% (41.0-50.0) Mean Corpuscular Volume 80.5fL (81-100) Mean Corpuscular Hemoglobin 27.0pg (27.0-35.0) Mean Corpuscular Hemoglobin Concent 33.5% (32.0-37.0) Red Cell Distribution Width 16.2% (12.3-15.4) Platelet Count 323bil/L (150-400) Neutrophils (%) (Auto) 81.0% (40-74) Lymphocytes (%) (Auto) 10.8% (14-46) Monocytes (%) (Auto) 7.4% (4-12) Eosinophils (%) (Auto) 0% (0-5) Basophils (%) (Auto) 0.1% (0-3) Prothrombin Time 32.1sec (8.1-12.5) Prothromb Time International Ratio 2.93ratio Sodium Level 135mEq/L (134-144) Potassium Level 3.4mEq/L (3.5-5.2) Chloride Level 97mEq/L (97-108) Carbon Dioxide Level 22mmol/L (18-29) Blood Urea Nitrogen 23mg/dL (8-27) Creatinine 1.04mg/dL (0.76-1.27) Estimat Glomerular Filtration Rate 77mL/min (>59) Glucose Level 96mg/dL (60-99) Calcium Level 8.7mg/dL (8.5-10.1) Exam General: Alert, Oriented X3, Cooperative, No Acute Distress Lower Extremities: Bilateral: Extremity warm Lower Extremity Pulses: Palpable: Left Dorsalis Pedis Left Posterior Tibal Right Dorsalis Pedis Right Posterior Tibal Podiatry WOUND : Wound Location/Description Full-thickness ulcerations right lower extremity with exposed tendon and Hyper granular surrounding tissue there is no surrounding erythema no malodor minimal serous drainage noted no purulent drainage is noted and there are no signs of acute infection. The left lower extremity dressing is clean dry and intact Assessment & Plan Impression Stable bilateral lower extremity ulcerations without signs of acute infection Problems: Plan Wounds inspected today. I have discussed with the patient that he would benefit from a debridement of his bilateral lower extremity ulcerations with potential debridement of his exposed tibialis anterior tendon. His ankle was placed through range of motion today and the majority of the tendon appears healthy with the exception of the most superficial fibers. We have discussed potential debridement of his tendon and surrounding tissue with a potential wound graft placement. I am going to tentatively schedule him for surgical intervention tomorrow provided he is medically cleared by the hospitalist service to undergo surgical intervention. This patient's acute leukocytosis is most likely unrelated to bilateral lower extremity ulcerations which show no clinical sign of infection. Following surgical debridement of bilateral lower extremity ulcerations this patient will likely be stable for discharge from a podiatry standpoint to outpatient care. Please make nothing by mouth after midnight tonight for surgical intervention tomorrow Podiatry will continue to follow daily while admitted. Rosas Crisostomo DPM Nov 28, 2016 14:57
--- NOTE | 2016-11-28 15:34 | PCM.PNMED ---
Subjective Date of Service Nov 28, 2016 Subjective Pt seen and examined this morning. Patient is arousable and will communicate briefly before becoming non verbal and not following directions. Patient will gradually restart all his medications and possible interactions will be monitored. Exam Vital Signs Vital Sign - Last Date Time Temp Pulse Resp B/P Pulse Ox O2 Delivery O2 Flow Rate FiO2 11/28/16 14:53 36.5 81 20 150/73 100 Room Air 11/23/16 19:35 2.00 11/23/16 17:20 96 Intake and Output 11/27/16 11/27/16 11/28/16 Cumulative From/Thru 15:00 23:00 07:00 11/23/16 12:19 - 11/28/16 06:20 Intake Total 1064 ml 371 ml 92506 ml Output Total 600 ml 38586 ml Balance 464 ml 371 ml 1524 ml Intake Oral 0 ml 100 ml 2684 ml IV Total 1064 ml 271 ml 98426 ml Output Urine Total 600 ml 26224 ml Emesis 100 ml # Voids 3 3 # Bowel Movements 0 0 Exam General: Chronically ill slightly cachectic but no acute distress HEENT: sclerae anicteric, oral mucosa moist Neck: no apparent JVD Chest: clear to auscultation Cardiac: S1S2, no murmur Abdomen: BS normal, non-tender Extremities: No edema; bilateral bandage stasis dermatitis and ulcerations of lower legs Neuro: Not fully oriented, cranial nerves generally symmetric, uncooperative with motor and coordination exam IVs and Medications Medications Reviewed: Medications were reviewed in detail Lab and Diagnostics Result Diagram: 11/28/16 0600 11/28/16 0600 Assessment & Plan 61-year-old male from [facility] p/w being obtunded, He gets 0.2 mg of Narcan promptly woke up and was extremely confused and complaining of pain in his ears. Acute, active # acute encephalopathy, POA, secondary to opioid given for leg pain, reported rapid improvement after Narcan. CT HEAD negative for acute findings. no reported seizure/focal neurologic deficit, improved with intermittent delirium. - per sister, baseline pt was AAOx3, it seems pt is reaching to baseline - frequent neurocheck, - resume gabapentin today # Leukocytosis, acute. The patient has had only low-grade fever 37.3. WBC count has risen from 7.9-18.1. No acute eosinophils. No localizing symptoms. No diarrhea. UA after indwelling Solano obtained on 11/27 suggest mild pyuria with significant bacteriuria. Chest x-ray on 11/27 is unremarkable. Blood cultures ordered on 11/27. - Start ceftriaxone for presumed UTI - Follow-up urinary cultures # severe PVD w/ hx of BLE ulcers s/p debridement, s/p grafts in , followed by plastic surgery at [facility]. Last seen 11/16, recommended amputation. As per sister, pt refused it.Unclear interval progression since til this admission, - dressing per wound care service - pain control with tylenol, gabapentin - Discontinue dilaudid 0.5mg q4h prn, avoid given concern admission for opioid- induced encephalopathy - pt going for debridement tomorrow, will keep npo after midnight #Poorly controlled hypertension. Held losartan on admission, [id number], continue statin, - resumed losartan, - start HCTZ12.5, changed to Maxzide - hydralazine prn Chronic, stable #WISAM, POA, Cr2.33 on adm, resolved with hydration, likely prerenal from dehydration. Now resolved to 0.97 -i/ol daily wt, renally adjust meds, avoid renal toxin microcytic/hypochromic anemia, unclear onset, likely ACD, h/h stable, transfuse target >7, close obs for GIB given systemic AC afib, rate controlled, continue coumadin, metoprolol hx of CAD, s/p PPM, not active, GERD continue PPI dispo: given no urgent surgical indication, stable LE ulcers, d/c back to SNF switch to appropriate oral antibiotics for urinary tract infection; likely 1 days diet:general dvt ppx:systemic AC Full code angus, sister next of kin, Resuscitation Status: CPR: Attempt Resuscitation Dillan Lewis MD Nov 28, 2016 15:34
--- NOTE | 2016-11-28 16:04 | NUR ---
Social Work Continued Discharge Plannning D: EMR reviewed. Pt is on day 5 of hospitalization. Pt is not medically stable at this time. Pt comes from [facility] with Dr. Pineda. SW spoke with Pt's sister, Michael Joy [phone] who reports Pt would like to transfer to a SNF in [place] or the surrounding area to be closer to home and friends. Pt has AMS at this time and unable to communicate. SW explained to Pt's sister that Audit Intern would provide referrals to SNF in the [facility] that are contracted with [facility]. Sister also informed if there are no other accepting facilities at time Pt is ready for discharge he will need to return to [facility]. Sister verbalized understanding. SW will continue to follow. A: Pt who comes from [facility], would like placement in [facility] P: SW anticipates Pt to discharge to SNF, preference for [facility] but Pt's family aware Pt will need to return to [facility] if no other placement found. SW following. MARIIA Bro
--- NOTE | 2016-11-28 17:29 | PCM.HPANE ---
Patient Data Date of Service: Nov 29, 2016 Surgeon Admitting Provider:Valentino Anna MD Attending Provider:Valentino Anna MD Primary Care Physician:Betty Other Provider: Reason for Visit Altered Mental Status,Severe Dehydration Ht/WT & BMI Height (Feet): 5 Height (Inches): 6 Weight (Kilograms): 69.09 Body Mass Index 24.6 Allergies Coded Allergies: atorvastatin (Verified Allergy, Mild, UNKNOWN, 11/23/16) Diabetes History Hx Diabetes?: No MRSA MRSA: No Medications Blood Thinner: Coumadin Hypertension Medication: Yes Home Meds Incl Beta Yazmin: Yes Reported Medications Oxycodone (Roxicodone)15 Mg Zaimnc60 Mg PO Q4H PRN For Severe Pain 11/23/16 Ondansetron (Zofran)4 Mg Tablet4 Mg PO TID PRN For Nausea 11/23/16 Albuterol Sulfate (Ventolin HFA Inhaler)200 Puff/18 Gm Inhaler2 Puff INH QID PRN For Wheezing 11/23/16 Polyethylene Glycol 3350 (Miralax)17 Gm Powd.pack17 Gm PO DAILY PRN For Constipation 11/23/16 Nicotine 14 mg/24 hr Patch 1 Each Patch.td241 Patch TRANSDERM DAILY PRN smoking cessasion 11/23/16 Acetaminophen 325 Mg Aviisa217 Mg PO QID PRN For Pain 11/23/16 Na Phos,M-B/Na Phos,Di-Ba (Fleet Enema)133 Ml Tqrhh552 Ml RC ONCE PRN For Constipation 11/23/16 Bisacodyl (Dulcolax Rectal)10 Mg Supp.rect10 Mg RC ONCE PRN For Constipation 11/23/16 Magnesium Hydroxide (Milk of Magnesia)400 Mg/5 Ml Oral.susp30 Ml PO ONCE PRN For Constipation 11/23/16 Warfarin Sodium (Coumadin)4 Mg Tablet4 Mg PO DAILY 11/23/16 Baclofen 10 Mg Heoswb71 Mg PO BID 11/23/16 Omeprazole 20 Mg Capsule.dr20 Mg PO DAILY 11/23/16 Multivitamin with Minerals (Totalday Multiple)1 Each Tablet.er1 Each PO DAILY 11/23/16 Pravastatin 40 Mg Sgwjwt01 Mg PO HS 11/23/16 Folic Acid 1 Mg Tablet1 Mg PO DAILY 11/23/16 Metoprolol Tartrate 100 Mg Tszxkc272 Mg PO BID 11/23/16 Cholecalciferol (Vitamin D3) (Vitamin D)1,000 Unit Tablet5,000 Unit PO DAILY 11/23/16 Losartan Potassium 25 Mg Ityhoa08 Mg PO DAILY 11/23/16 Amlodipine 5 Mg Isuqux92 Mg PO DAILY 11/23/16 Ascorbate Calcium (Vitamin C)500 Mg Fgriwu214 Mg PO DAILYWM 11/23/16 Ferrous Sulfate (Iron)325 Mg Tdzxqp243 Mg PO DAILYWM 11/23/16 Morphine Sulfate ER (MS Contin)15 Mg Tablet.er45 Mg PO BID 11/23/16 Levothyroxine 50 Mcg Bvldlj59 Mcg PO DAILY 11/23/16 Gabapentin 100 Mg Bndjtjw372 Mg PO TID 11/23/16 History History of ENT Problems?: No Denture Type: Partial- Upper Hx of Heart Problems?: Yes Cardiovascular History: Positive for:: Chest Pain Edema Hypertension Irregular Heartbeat (afib, on coumadin) Pacemaker (AICD defibrillator) Denies:: Congestive Heart Failure Other Cardiac History: CAD, PVD, HLD Hx of Respiratory Problem?: No Respiratory History: Denies:: Tuberculosis Hx Neurologic Problems?: Yes Other Neurological Pertinent: paresthesia of fingers Hx of GI Problems?: Yes Gastrointestinal History: Positive for:: Gastroesphageal Reflux Hiatal Hernia (s/p hernia repair) Hx of Problems?: Yes Genitourinary History: Positive for:: Urinary Tract Infection Other Pertinent History: CKD, stage 3 Male Hx: Denies:: Prostate Problems Scrotal Mass Testicular Surgery Other Skin Pertinent History: also currently present: "redness patches" on bilateral thighs, "pruritic rash" with overlying bandages on bilateral LE Hx Musculoskeletal Problems?: Yes Musculoskeletal History: Positive for:: Back Injury (cervical DDD, chronic back pain) Hx of Psycho/Social Problems?: No Hx Surgeries?: Yes (AICD, embolectomy, stent placement) Hx Any Other Health Problems?: Yes Other History: Positive for:: Hospitalization Thyroid Disease (hypothyroidism) Denies:: Cancer Hx Diabetes: No Smoking Status: Unknown if Ever Smoker Stop/Bang Treated for Sleep Apnea?: No Do You Have a CPAP Machine?: No S-Snoring: Do You Snore Loudly: No T-Tired: feel tired, fatigued: Yes O-Obsered: Observed not breath: No P-Blood Pressure: treated: Yes B- Body Mass Index > 35 kg/m2: No A- Age over 50: Yes N- Neck Large Circumference: No G- Gender Male: Yes LAN Total Score: 3 LAN Risk Assessment: High Risk, =/>3 Yes LAN Category 2: Yes Risk Assessment Category Category 1A: Patient has history of documented sleep apnea, and HAS NOT received any narcotic, sedative or anesthesia administration during this stay. Category 1B: Patient has history of documented sleep apnea, and HAS received any narcotic , sedative or anesthesia administration during this stay Category 2: Patient has SUSPECTED Obstructive Sleep Apnea, and HAS received any narcotic , sedative or anesthesia administration during this stay. Category 3: Patient has SUSPECTED Obstructive Sleep Apnea and HAS NOT received narcotic, sedative or anesthesia administration during this stay. Category 4: Outpatient in Procedural Areas with known sleep apnea or who screen positive for High Risk via the STOP/BANG questionnaire. Exam Exam Vital Signs Vital Signs Date Time Temp Pulse Resp B/P Pulse Ox O2 Delivery O2 Flow Rate FiO2 11/28/16 14:53 36.5 81 20 150/73 100 Room Air 11/28/16 13:59 Room Air Meds/Labs/Diagnostics Admission Meds Current Medications Ceftriaxone Sodium/Dextrose/ Premix (Rocephin Inj/IV Premix) 50 ml @ 100 mls/ hr Q24 IV Last administered on 11/28/16 09:37; Start 11/28/16 at 08:30 Triamterene/HCTZ (Dyazide-25) 1 capsule DAILY PO Last administered on 11/28/16 11:09; Start 11/28/16 at 08:30 Labs Test 11/23/16 12:44 11/23/16 12:50 11/23/16 13:26 11/24/16 06:55 Activated Partial Thromboplast Time 32.0sec (22.8-33.0) Ammonia 19ug/dL (18-53) Troponin T 0.025ug/L (0.0-0.011) Alcohol, Quantitative < 10mg/dL (0-10) Lactic Acid Level 0.9mmol/L (0.4-2.0) Urine Opiates Screen Positive Urine Methadone Screen Negative Urine Barbiturates Screen Negative Urine Amphetamines Screen Negative Urine Benzodiazepines Screen Negative Urine Cocaine Metabolite Screen Negative Urine Cannabinoids Screen Negative Reticulocyte Count,Calculated 1.0% (0.6-2.6) Iron Level 30ug/dL (.) Total Iron Binding Capacity 162ug/dL (250-450) Percent Iron Saturation 19%sat (15-50) Unsaturated Iron Binding 132.1ug/dL Transferrin 122mg/dL (.) Transferrin % Saturation 18 (.) Ferritin 475ng/mL (30-400) Thyroid Stimulating Hormone (TSH) 1.190uIU/mL (0.450-4.500) Free Thyroxine 1.38ng/dL (0.82-1.77) Test 11/26/16 06:11 11/27/16 06:33 11/27/16 15:42 11/28/16 06:00 Prealbumin 13mg/dL (20-40) Phosphorus Level 2.7mg/dL (2.5-4.9) Magnesium Level 2.1mg/dL (1.6-2.6) Total Bilirubin 0.6mg/dL (0.0-1.2) Aspartate Amino Transf (AST/SGOT) 13U/L (0-50) Alanine Aminotransferase (ALT/SGPT) 8U/L (0-44) Alkaline Phosphatase 90U/L (25-160) Total Protein 6.4g/dL (6.4-8.4) Albumin 2.9g/dL (3.4-5.0) Urine Color Yellow (YELLOW) Urine Appearance Clear (CLEAR,HAZY) Urine pH 6.0 (5.0-8.0) Urine Specific [place] 1.020 (1.003-1.035) Urine Protein 100mg/dL (NEG,TRACE) Urine Glucose (UA) 100mg/dL (NEGATIVE) Urine Ketones Negativemg/dL (NEGATIVE) Urine Occult Blood Large (NEGATIVE) Urine Nitrite Positive (NEGATIVE) Urine Bilirubin Negative (NEGATIVE) Urine Urobilinogen Normalmg/dL (NORMAL) Urine Leukocyte Esterase Trace (NEGATIVE) Urine RBC >50/hpf (0-2) Urine WBC 6-10/hpf (0-5) Urine Epithelial Cells Few/hpf (NONE-MOD) Urine Crystals None seen (NONE SEEN) Urine Bacteria Many/hpf (NONE-FEW) Urine Hyaline Casts None/lpf (NONE) Urine Granular Casts None seen (NONE SEEN) Urine Waxy Casts None seen (NONE SEEN) Urine Red Blood Cell Casts None seen (NONE SEEN) Urine White Blood Cell Casts None seen (NONE SEEN) Urine Mucus None seen (None Seen) Urine Trichomonas None seen (NONE SEEN) Urine Yeast None (NONE SEEN) Urinalysis Comment None Urine Culture Reflexed Indicated White Blood Count 23.8th/mm3 (3.8-10.1) Red Blood Count 4.82mil/mm3 (4.40-5.80) Hemoglobin 13.0g/dL (13.8-17.2) Hematocrit 38.8% (41.0-50.0) Mean Corpuscular Volume 80.5fL (81-100) Mean Corpuscular Hemoglobin 27.0pg (27.0-35.0) Mean Corpuscular Hemoglobin Concent 33.5% (32.0-37.0) Red Cell Distribution Width 16.2% (12.3-15.4) Platelet Count 323bil/L (150-400) Neutrophils (%) (Auto) 81.0% (40-74) Lymphocytes (%) (Auto) 10.8% (14-46) Monocytes (%) (Auto) 7.4% (4-12) Eosinophils (%) (Auto) 0% (0-5) Basophils (%) (Auto) 0.1% (0-3) Prothrombin Time 32.1sec (8.1-12.5) Prothromb Time International Ratio 2.93ratio Sodium Level 135mEq/L (134-144) Potassium Level 3.4mEq/L (3.5-5.2) Chloride Level 97mEq/L (97-108) Carbon Dioxide Level 22mmol/L (18-29) Blood Urea Nitrogen 23mg/dL (8-27) Creatinine 1.04mg/dL (0.76-1.27) Estimat Glomerular Filtration Rate 77mL/min (>59) Glucose Level 96mg/dL (60-99) Calcium Level 8.7mg/dL (8.5-10.1) Plan Impression Patient chart reviewed, patient interviewed and anesthestic plan with risks, benefits, and alternatives discussed, and informed consent obtained. ASA Physical Status: ASA3 Severe Disease Anesthetic Plan: GA Other Case postponed and will be staffed with different anesthesiologist. Víctor Aragon MD Nov 28, 2016 17:29 Víctor Aragon MD Nov 28, 2016 17:29
[2016-11-28 19:53] VITALS: PULSE 92; RESP 18; O2SAT 99
--- NOTE | 2016-11-28 20:08 | NUR ---
Mentation On morning meet and greet, pt awake and speaking to staff. Throughout day, pt alert and remembering what staffing/MDs had told patient, asking about family/friends. Pt irritated this AM with having to take medications, but was grudgingly accepting of them - no issues with medications this shift. Pt pleasant, still moments of confusion - difficulty following pt thoughts, but stating and stating what procedure was going to take place, stated his sheet was wet and wanted it changed. In comparison to 11/27/16 where pt wanted to sleep all day and was difficult with his care/meds, pt improved. Pt worked with PT and was up in chair for few hours. Care continues.
[2016-11-28 20:11] VITALS: BP 128/72; PULSE 81; RESP 18; O2SAT 95
[2016-11-29] VITALS (10 sets, daily range): BP systolic 109–160; BP diastolic 59–93; PULSE 50–144; RESP 16–23; O2SAT 98–100
--- NOTE | 2016-11-29 04:44 | NUR ---
Mentation/NPO Per previous shift report patient is more oriented than he has been, this continues through the shift as he does recall conversations with family and doctors. His cousin Fracisco is present at bedside and agrees he is more like his normal self. Pain managed with APAP this shift, NPO at midnight and LR infusion started at 0440 for upcoming debridement surgery. Patient does not sleep well this shift; 20 minutes at a time- Restless and perseverating on upcoming treatments. Will continue to monitor
[2016-11-29] MEDS ORDERED: Lactated Ringer's 1,000 ML IV SCH ×2 (05:00→19:11)
[2016-11-29] MEDS: Pantoprazole 40 mg ER24 Tablet PO SCH (06:30)
[2016-11-29 07:18] LABS: INR 1.83 ratio
--- NOTE | 2016-11-29 08:23 | PCM.PHAPRO ---
Progress Warfarin Management by Pharmacy: -Indication: afib -Home Dose: 4mg -Coag Trends: -Nov 24-Nov 25-Nov 26-Nov 27-Nov 28-Nov 29-Nov 2.14 2.61 4.49 3.86 2.64 2.93 1.83 0.47 1.88 -0.63 -1.22 0.29 -1.1 4 3 HOLD HOLD 2.5 HOLD 2.5MG -Plan: Upon reviewing pt's profile, it appears he did not receive the 4mg dose on 11/23 (not charted). Lab values have been very erratic from supratherapeutic levels for 1 dose of 3mg on 11/24 to subtherapeutic level today of 1.83. Will give a 2.5mg dose of warfarin this evening and continue to follow closely Magui Franco [facility] Nov 29, 2016 08:23
[2016-11-29] MEDS: Ascorbic Acid 500 mg Tablet PO SCH (08:30)
[2016-11-29] MEDS: cefTRIAXone Inj 1,000 MG in IV Premix 1 EACH IV SCH (10:07)
[2016-11-29] MEDS ORDERED: fentaNYL-PF 50 mCg/mL 2 mL Inj ONE (11:09)
--- NOTE | 2016-11-29 11:18 | NUR ---
Faxed referral to [facility], Called and left a message at Mamie @ [place] to get fax #. Also called [facility] they are not currently accepting patient's. Updated [employer]
--- NOTE | 2016-11-29 12:00 | NUR ---
Metoprolol held prior to surgery anesthesia notified, HR 50
[2016-11-29] MEDS ORDERED: SODIUM CHLORIDE PHA MIX 0.9% IV ONE (13:25)
[2016-11-29] MEDS ORDERED: PHYTONADIONE IV ONE (13:25)
[2016-11-29] MEDS ORDERED: Propofol 10,000 mCg/mL 20 mL Inj ONE (14:31)
--- NOTE | 2016-11-29 16:10 | NUR ---
Social Work Continued Discharge Planning D: EMR reviewed. Pt is on day 6 of hospitalization. Pt is not medically stable at this time. Pt comes from [facility] with Dr. Pineda. DIONICIO spoke with Pt's sister, Michael Joy [phone] who reports Pt would like to transfer to a SNF in [place] or the surrounding area to be closer to home and friends. Pt's AMS has improved today and Pt's sister requesting SW speak with Pt directly.. SW explained to Pt's sister that Business Practices Officer would provide referrals to SNF in the [facility] that are contracted with [facility]. SW met with Pt at bedside to discuss d/c planning. Pt's preference is to return home with Home Health Nursing/PT. Pt reports he has a wheelchair, wheelchair accessible van, walker and shower chair. Pt lives with rommmates who can provide support. SW discussed PT's continued recommendation for SNF. SW informed Pt that referrals have been sent to SNF's in the [facility] and they are referring. Pt to undergo surgery this evening with likely another 2-3 day hospital stay. SW will continue to follow for Pt progress and PT recommendation. [facility] has access to Pt at this time. Pt does not have preference for HH and due to Pt's location, SW will make referral to [facility] RN/PT. SW anticipates Pt to discharge home with HH or SNF in [facility] or [facility]. SW following A: Pt who comes from [facility], would like placement in [facility] or Return Home with HH P: DIONICIO met with Pt at bedside to discuss d/c planning. Pt's preference is to return home with Home Health Nursing/PT. Pt reports he has a wheelchair, wheelchair accessible van, walker and shower chair. Pt lives with rommmates who can provide support. SW discussed PT's continued recommendation for SNF. SW informed Pt that referrals have been sent to SNF's in the [facility] and they are referring. Pt to undergo surgery this evening with likely another 2-3 day hospital stay. SW will continue to follow for Pt progress and PT recommendation. [facility] has access to Pt at this time. Pt does not have preference for HH and due to Pt's location, SW will make referral to [facility] RN/PT. SW anticipates Pt to discharge home with HH or SNF in [facility] or [facility]. SW following MARIIA Bro
--- NOTE | 2016-11-29 17:06 | PCM.HPANE ---
Patient Data Surgeon Admitting Provider:Valentino Anna MD Attending Provider:Valentino Anna MD Primary Care Physician:Nopcp Other Provider: Reason for Visit Altered Mental Status,Severe Dehydration Ht/WT & BMI Height (Feet): 5 Height (Inches): 6 Weight (Kilograms): 69.09 Body Mass Index Allergies Coded Allergies: atorvastatin (Verified Allergy, Mild, UNKNOWN, 11/23/16) Diabetes History Hx Diabetes?: No MRSA MRSA: No Medications Blood Thinner: Coumadin Hypertension Medication: Yes Home Meds Incl Beta Yazmin: Yes Reported Medications Oxycodone (Roxicodone)15 Mg Zyvuvg51 Mg PO Q4H PRN For Severe Pain 11/23/16 Ondansetron (Zofran)4 Mg Tablet4 Mg PO TID PRN For Nausea 11/23/16 Albuterol Sulfate (Ventolin HFA Inhaler)200 Puff/18 Gm Inhaler2 Puff INH QID PRN For Wheezing 11/23/16 Polyethylene Glycol 3350 (Miralax)17 Gm Powd.pack17 Gm PO DAILY PRN For Constipation 11/23/16 Nicotine 14 mg/24 hr Patch 1 Each Patch.td241 Patch TRANSDERM DAILY PRN smoking cessasion 11/23/16 Acetaminophen 325 Mg Ndrjqd182 Mg PO QID PRN For Pain 11/23/16 Na Phos,M-B/Na Phos,Di-Ba (Fleet Enema)133 Ml Whhir009 Ml RC ONCE PRN For Constipation 11/23/16 Bisacodyl (Dulcolax Rectal)10 Mg Supp.rect10 Mg RC ONCE PRN For Constipation 11/23/16 Magnesium Hydroxide (Milk of Magnesia)400 Mg/5 Ml Oral.susp30 Ml PO ONCE PRN For Constipation 11/23/16 Warfarin Sodium (Coumadin)4 Mg Tablet4 Mg PO DAILY 11/23/16 Baclofen 10 Mg Ferpfe01 Mg PO BID 11/23/16 Omeprazole 20 Mg Capsule.dr20 Mg PO DAILY 11/23/16 Multivitamin with Minerals (Totalday Multiple)1 Each Tablet.er1 Each PO DAILY 11/23/16 Pravastatin 40 Mg Ncfveq76 Mg PO HS 11/23/16 Folic Acid 1 Mg Tablet1 Mg PO DAILY 11/23/16 Metoprolol Tartrate 100 Mg Ihydnj422 Mg PO BID 11/23/16 Cholecalciferol (Vitamin D3) (Vitamin D)1,000 Unit Tablet5,000 Unit PO DAILY 11/23/16 Losartan Potassium 25 Mg Bgbbge62 Mg PO DAILY 11/23/16 Amlodipine 5 Mg Afkdgd36 Mg PO DAILY 11/23/16 Ascorbate Calcium (Vitamin C)500 Mg Qjkfxz144 Mg PO DAILYWM 11/23/16 Ferrous Sulfate (Iron)325 Mg Zhzfug761 Mg PO DAILYWM 11/23/16 Morphine Sulfate ER (MS Contin)15 Mg Tablet.er45 Mg PO BID 11/23/16 Levothyroxine 50 Mcg Miecxh39 Mcg PO DAILY 11/23/16 Gabapentin 100 Mg Pufobls536 Mg PO TID 11/23/16 History History of ENT Problems?: No Denture Type: Full- Upper Partial- Lower Hx of Heart Problems?: Yes Cardiovascular History: Positive for:: Chest Pain Edema Hypertension Irregular Heartbeat (afib, on coumadin) Pacemaker (AICD defibrillator) Denies:: Congestive Heart Failure Other Cardiac History: CAD, PVD, HLD Hx of Respiratory Problem?: No Respiratory History: Denies:: Tuberculosis Hx Neurologic Problems?: Yes Other Neurological Pertinent: paresthesia of fingers Hx of GI Problems?: Yes Gastrointestinal History: Positive for:: Gastroesphageal Reflux Hiatal Hernia (s/p hernia repair) Hx of Problems?: Yes Genitourinary History: Positive for:: Urinary Tract Infection Other Pertinent History: CKD, stage 3 Male Hx: Denies:: Prostate Problems Scrotal Mass Testicular Surgery Other Skin Pertinent History: also currently present: "redness patches" on bilateral thighs, "pruritic rash" with overlying bandages on bilateral LE Hx Musculoskeletal Problems?: Yes Musculoskeletal History: Positive for:: Back Injury (cervical DDD, chronic back pain) Hx of Psycho/Social Problems?: No Hx Surgeries?: Yes (AICD, embolectomy, stent placement) Hx Any Other Health Problems?: Yes Other History: Positive for:: Hospitalization Thyroid Disease (hypothyroidism) Denies:: Cancer Hx Diabetes: No Smoking Status: Unknown if Ever Smoker Stop/Bang Treated for Sleep Apnea?: No Do You Have a CPAP Machine?: No S-Snoring: Do You Snore Loudly: No T-Tired: feel tired, fatigued: Yes O-Obsered: Observed not breath: No P-Blood Pressure: treated: Yes B- Body Mass Index > 35 kg/m2: No A- Age over 50: Yes N- Neck Large Circumference: No G- Gender Male: Yes LAN Total Score: 3 LAN Risk Assessment: High Risk, =/>3 Yes LAN Category 2: Yes Risk Assessment Category Category 1A: Patient has history of documented sleep apnea, and HAS NOT received any narcotic, sedative or anesthesia administration during this stay. Category 1B: Patient has history of documented sleep apnea, and HAS received any narcotic , sedative or anesthesia administration during this stay Category 2: Patient has SUSPECTED Obstructive Sleep Apnea, and HAS received any narcotic , sedative or anesthesia administration during this stay. Category 3: Patient has SUSPECTED Obstructive Sleep Apnea and HAS NOT received narcotic, sedative or anesthesia administration during this stay. Category 4: Outpatient in Procedural Areas with known sleep apnea or who screen positive for High Risk via the STOP/BANG questionnaire. High Risk, =/>3 Yes Exam Exam Vital Signs Vital Signs Date Time Temp Pulse Resp B/P Pulse Ox O2 Delivery O2 Flow Rate FiO2 11/29/16 13:31 Room Air 11/29/16 12:49 36.5 93 18 116/72 100 Room Air General Appearance: Alert, Oriented X3, Cooperative, No Acute Distress HEENT/AIRWAY: MP 2 Lungs: Clear to Auscultation, Normal Air Movement Heart: Exam Unremarkable, Regular Rate/Rhythm, No Murmurs/Rubs/Gallops Meds/Labs/Diagnostics Admission Meds Current Medications Lactated Ringer's 1,000 ml @ 120 mls/hr Q8H20M IV Last administered on 04:36; Start 11/29/16 at 05:00; Stop 11/29/16 at 13:19; Status DC Phytonadione/ Sodium Chloride (Vitamin K (Adult)/Normal Saline PHARMACY TO MIX) 50.25 ml @ 100.5 mls/ hr ONCE ONCE IV Last administered on 11/29/16 14:25; Start 11/29/16 at 13:25; Stop 11/29/16 at 13:54; Status DC Labs Test 11/23/16 12:44 11/23/16 12:50 11/23/16 13:26 11/24/16 06:55 Activated Partial Thromboplast Time 32.0sec (22.8-33.0) Ammonia 19ug/dL (18-53) Troponin T 0.025ug/L (0.0-0.011) Alcohol, Quantitative < 10mg/dL (0-10) Lactic Acid Level 0.9mmol/L (0.4-2.0) Urine Opiates Screen Positive Urine Methadone Screen Negative Urine Barbiturates Screen Negative Urine Amphetamines Screen Negative Urine Benzodiazepines Screen Negative Urine Cocaine Metabolite Screen Negative Urine Cannabinoids Screen Negative Reticulocyte Count,Calculated 1.0% (0.6-2.6) Iron Level 30ug/dL (.) Total Iron Binding Capacity 162ug/dL (250-450) Percent Iron Saturation 19%sat (15-50) Unsaturated Iron Binding 132.1ug/dL Transferrin 122mg/dL (.) Transferrin % Saturation 18 (.) Ferritin 475ng/mL (30-400) Thyroid Stimulating Hormone (TSH) 1.190uIU/mL (0.450-4.500) Free Thyroxine 1.38ng/dL (0.82-1.77) Test 11/26/16 06:11 11/27/16 06:33 11/27/16 15:42 11/28/16 06:00 Prealbumin 13mg/dL (20-40) Phosphorus Level 2.7mg/dL (2.5-4.9) Magnesium Level 2.1mg/dL (1.6-2.6) Total Bilirubin 0.6mg/dL (0.0-1.2) Aspartate Amino Transf (AST/SGOT) 13U/L (0-50) Alanine Aminotransferase (ALT/SGPT) 8U/L (0-44) Alkaline Phosphatase 90U/L (25-160) Total Protein 6.4g/dL (6.4-8.4) Albumin 2.9g/dL (3.4-5.0) Urine Color Yellow (YELLOW) Urine Appearance Clear (CLEAR,HAZY) Urine pH 6.0 (5.0-8.0) Urine Specific [place] 1.020 (1.003-1.035) Urine Protein 100mg/dL (NEG,TRACE) Urine Glucose (UA) 100mg/dL (NEGATIVE) Urine Ketones Negativemg/dL (NEGATIVE) Urine Occult Blood Large (NEGATIVE) Urine Nitrite Positive (NEGATIVE) Urine Bilirubin Negative (NEGATIVE) Urine Urobilinogen Normalmg/dL (NORMAL) Urine Leukocyte Esterase Trace (NEGATIVE) Urine RBC >50/hpf (0-2) Urine WBC 6-10/hpf (0-5) Urine Epithelial Cells Few/hpf (NONE-MOD) Urine Crystals None seen (NONE SEEN) Urine Bacteria Many/hpf (NONE-FEW) Urine Hyaline Casts None/lpf (NONE) Urine Granular Casts None seen (NONE SEEN) Urine Waxy Casts None seen (NONE SEEN) Urine Red Blood Cell Casts None seen (NONE SEEN) Urine White Blood Cell Casts None seen (NONE SEEN) Urine Mucus None seen (None Seen) Urine Trichomonas None seen (NONE SEEN) Urine Yeast None (NONE SEEN) Urinalysis Comment None Urine Culture Reflexed Indicated White Blood Count 23.8th/mm3 (3.8-10.1) Red Blood Count 4.82mil/mm3 (4.40-5.80) Hemoglobin 13.0g/dL (13.8-17.2) Hematocrit 38.8% (41.0-50.0) Mean Corpuscular Volume 80.5fL (81-100) Mean Corpuscular Hemoglobin 27.0pg (27.0-35.0) Mean Corpuscular Hemoglobin Concent 33.5% (32.0-37.0) Red Cell Distribution Width 16.2% (12.3-15.4) Platelet Count 323bil/L (150-400) Neutrophils (%) (Auto) 81.0% (40-74) Lymphocytes (%) (Auto) 10.8% (14-46) Monocytes (%) (Auto) 7.4% (4-12) Eosinophils (%) (Auto) 0% (0-5) Basophils (%) (Auto) 0.1% (0-3) Sodium Level 135mEq/L (134-144) Potassium Level 3.4mEq/L (3.5-5.2) Chloride Level 97mEq/L (97-108) Carbon Dioxide Level 22mmol/L (18-29) Blood Urea Nitrogen 23mg/dL (8-27) Creatinine 1.04mg/dL (0.76-1.27) Estimat Glomerular Filtration Rate 77mL/min (>59) Glucose Level 96mg/dL (60-99) Calcium Level 8.7mg/dL (8.5-10.1) Test 11/29/16 06:30 Prothrombin Time 19.8sec (8.1-12.5) Prothromb Time International Ratio 1.83ratio Plan Impression Patient chart reviewed, patient interviewed and anesthestic plan with risks, benefits, and alternatives discussed, and informed consent obtained. ASA Physical Status: ASA2 Mod Systemic Disease Anesthetic Plan: GA Bene/Risks/Altern/Consents: Yes HP Complete Prior to Induction: Yes Morgan Murrell MD Nov 29, 2016 17:06
--- NOTE | 2016-11-29 17:28 | PCM.PNMED ---
Subjective Date of Service Nov 29, 2016 Subjective Pt seen and examined, patients mentation is much more improved than previously. Patient is currently alert and oriented and able to converse normally. Patient will be going to the OR today. Exam Vital Signs Vital Sign - Last Date Time Temp Pulse Resp B/P Pulse Ox O2 Delivery O2 Flow Rate FiO2 11/29/16 13:31 Room Air 11/29/16 12:49 36.5 93 18 116/72 100 11/23/16 19:35 2.00 11/23/16 17:20 96 Intake and Output 11/28/16 11/28/16 11/29/16 Cumulative From/Thru 15:00 23:00 07:00 11/23/16 12:19 - 11/29/16 06:53 Intake Total 87 ml 636 ml 491 ml 06978 ml Output Total 650 ml 40907 ml Balance 87 ml 636 ml -159 ml 2088 ml Intake Oral 636 ml 237 ml 3557 ml IV Total 87 ml 254 ml 77977 ml Output Urine Total 650 ml 15159 ml Emesis 100 ml # Voids 3 6 # Bowel Movements 0 0 Lab and Diagnostics Result Diagram: 11/28/16 0600 11/28/16 0600 Assessment & Plan 61-year-old male from [facility] p/w being obtunded, He gets 0.2 mg of Narcan promptly woke up and was extremely confused and complaining of pain in his ears. Acute, active # acute encephalopathy, POA, secondary to opioid given for leg pain, reported rapid improvement after Narcan. CT HEAD negative for acute findings. no reported seizure/focal neurologic deficit, improved with intermittent delirium. - per sister, baseline pt was AAOx3, it seems pt is reaching to baseline - frequent neurocheck, - resume gabapentin today # Leukocytosis, acute. The patient has had only low-grade fever 37.3. WBC count has risen from 7.9-18.1. No acute eosinophils. No localizing symptoms. No diarrhea. UA after indwelling [place] obtained on 11/27 suggest mild pyuria with significant bacteriuria. Chest x-ray on 11/27 is unremarkable. Blood cultures ordered on 11/27. - Start ceftriaxone for presumed UTI - Follow-up urinary cultures # severe PVD w/ hx of BLE ulcers s/p debridement, s/p grafts in Nov/16, followed by plastic surgery at [place]. Last seen 11/16, recommended amputation. As per sister, pt refused it.Unclear interval progression since til this admission, - dressing per wound care service - pain control with tylenol, gabapentin - Discontinue dilaudid 0.5mg q4h prn, avoid given concern admission for opioid- induced encephalopathy - pt going for debridement tomorrow, will keep npo after midnight #Poorly controlled hypertension. Held losartan on admission, [id number], continue statin, - resumed losartan, - start HCTZ12.5, changed to Maxzide - hydralazine prn Chronic, stable #WISAM, POA, Cr2.33 on adm, resolved with hydration, likely prerenal from dehydration. Now resolved to 0.97 -i/ol daily wt, renally adjust meds, avoid renal toxin microcytic/hypochromic anemia, unclear onset, likely ACD, h/h stable, transfuse target >7, close obs for GIB given systemic AC afib, rate controlled, continue coumadin, metoprolol hx of CAD, s/p PPM, not active, GERD continue PPI dispo: given no urgent surgical indication, stable LE ulcers, d/c back to SNF switch to appropriate oral antibiotics for urinary tract infection; likely 1 days diet:general dvt ppx:systemic AC Full code angus, sister next of kin, Resuscitation Status: CPR: Attempt Resuscitation Dillan Lewis MD Nov 29, 2016 17:27
[2016-11-29] MEDS ORDERED: Lactated Ringer's 500 ML IV PRN (19:11)
[2016-11-29] MEDS ORDERED: Phenylephrine 10,000 mCg/mL Inj IVPUSH PRN (19:15)
[2016-11-29] MEDS ORDERED: hydrALAZINE 20 mg/mL Inj IVPUSH PRN (19:15)
[2016-11-29] MEDS ORDERED: Dexamethasone 4 mg/mL Inj IVPUSH PRN (19:15)
[2016-11-29] MEDS ORDERED: Labetalol 5 mg/mL 4 mL Inj IV PRN (19:15)
[2016-11-29] MEDS ORDERED: MetoCLOpramide 5 mg/mL 2 mL Inj IVPUSH PRN (19:15)
[2016-11-29] MEDS ORDERED: EPHEDrine Sulfate 50 mg/mL Inj IVPUSH PRN (19:15)
[2016-11-29] MEDS ORDERED: Ondansetron 2 mg/mL 2 mL Inj IVPUSH PRN (19:15)
[2016-11-29] MEDS ORDERED: Atropine 0.4 mg/mL Inj IVPUSH PRN (19:15)
[2016-11-29] MEDS ORDERED: fentaNYL-PF 50 mCg/mL 2 mL Inj IVPUSH PRN (19:15)
[2016-11-29] MEDS ORDERED: HYDROmorphone 1 mg/mL Inj IVPUSH PRN (19:15)
[2016-11-29] MEDS ORDERED: Bupivacaine-MPF 0.5% W/EPI 30 mL Inj INFILTRATE ONE (19:21)
--- NOTE | 2016-11-29 20:05 | PCM.PODPO ---
Podiatry Operative Report Date of Service: Nov 29, 2016 Date of Service Nov 29, 2016 Pre Operative Diagnosis Bilateral lower extremity ulceration with exposed tendon right lower extremity Post Operative Diagnosis Same as preoperative diagnoses with exposed bone left lower extremity and tendon right lower extremity Procedure Debridement bilateral lower extremity ulceration with application of wound graft right lower extremity Surgeon Surgeon: Rosas Crisostomo DPM Assistants: None Indication for Procedure Full-thickness ulceration with exposed tendon right lower extremity, full- thickness ulceration with exposed bone left lower extremity Findings Exposed bone proximal tibial shaft ulceration left lower extremity healthy underlying tendon deep to superficial necrosis of the right tibialis anterior tendon Details of Procedure Patient was identified in the preoperative holding area and all preoperative comorbidities and allergies were thoroughly discussed. The patient was transported into the operating room and placed on the operating room table in the normal supine position. This patient was then prepped and draped in the normal aseptic technique. A preoperative local block consisting of 18 mL percent Marcaine with epinephrine was given around the proximal right and left anterior leg. Attention was first paid to the anterior nunn of the left leg. The hyper granular wound was noted full-thickness excisional debridement with a large curette and a #10 blade was performed excising tissue down to the level of bone as proximal anterior tibia was exposed in the most superior portion of this ulceration. Following debridement of the anterior left proximal tibial wound the ulceration measured 5 cm x 2 cm x 0.2 cm in depth with exposed bone. Attention was then paid to the distal left anterior tibial wound a large curette was utilized to debride all hyper granular soft tissue down to the level of subcutaneous tissue. No exposed bone was noted in this area. This wound post debridement measured 3 cm x 1.3 cm x 0.2 cm in depth. These wounds were then thoroughly flushed with normal saline. A dressing consisting of Adaptic sterile 4 x 4 gauze soaked with normal saline Kerlix and a Quinten bandage under mild compression was applied to the left lower extremity. Attention was then paid to the right lower extremity. Inspection of the right proximal anterior tibial wound reveals exposed tibialis anterior tendon. A fresh #10 blade was utilized to sharply debride surrounding hyper granular tissue and the superficial necrotic area of the tibialis anterior tendon. Underlying tendon appeared of normal color and was freely mobile when the ankle was placed through range of motion. Full thickness excisional debridement of the ulceration was performed to the level of tendon. Post-debridement this ulceration measures 5 cm x 3.5 cm x 0.3 cm in depth. This wound was copiously flushed with large amounts of normal saline. This wound was then dressed with an [place] ultra tri-layer wound graft covered with Adaptic and fixated in place utilizing large Steri-Strips. Attention was then paid to the distal aspect of the right lower extremity anterior ankle ulceration. Inspection of this ulceration revealed a full- thickness ulcer to the level of tendon with exposed tibialis anterior tendon. The superficial portion of the tendon was necrotic. The remainder of the ulceration appeared hyper granular in nature. Large curette was utilized to remove all hyper granular tissue and healthy bleeding subcutaneous tissue was exposed. A fresh #10 blade was utilized to debride the most superficial portions of the tibialis anterior tendon exposing healthy underlying tendinous tissue. This tendon was freely mobile when the ankle was placed through range of motion. This wound was copiously flushed with large amounts of normal saline the wound was dressed utilizing an [place] tri-layer ultra wound graft which was fixated in place utilizing Adaptic and large Steri-Strips. This wound was then dressed with mineral oil soaked gauze dry sterile gauze Kerlix and a mildly compressive Quinten bandage to the entirety of the right lower extremity. This patient was awoken by anesthesia. No complications occurred during this procedure. The patient was transported out of the operating room into the postanesthesia care unit. Plan of care will be to return to the hospital floors when stable. Grafts, Implants: Grafts-See Implant Record Complications There were no periprocedural complications identified. Condition Stable Anesthetic Administered: GA Catheters: None Output, Estimated Blood Loss: 20 Blood Admin during surgery: No Surgical Cast or Splint: None Surgical Specimen Removed: No Specimen sent to Pathology: No Post Operative Plan Elevate bilateral lower extremity Weightbearing as tolerated bilateral lower extremity with assistance per physical therapy recommendation Restart inpatient medications per hospitalist service recommendation Advance diet as tolerated per hospitalist service recommendation Keep dressings clean dry and intact, dressings are to be changed by podiatry or wound care service only. At no point is the Adaptic layer to be removed as to maintain integrity of the underlying wound graft Patient will likely be stable for discharge within 24-48 hours to outpatient therapy and care. Rosas Crisostomo DPM Nov 29, 2016 20:05
--- NOTE | 2016-11-29 20:07 | PCM.ANEP1 ---
Post Anesthesia Phase 1 PACU Phase 1 Assessment Date of Service: Nov 29, 2016 Vital Signs Vital Signs Date Time Temp Pulse Resp B/P Pulse Ox O2 Delivery O2 Flow Rate FiO2 11/29/16 20:04 108 23 134/93 100 Simple Mask 8 11/29/16 19:59 36.1 144 20 160/84 100 Simple Mask 8 11/29/16 13:31 Room Air 11/29/16 12:49 36.5 93 18 116/72 100 Room Air Anesthetic Administered: GA Level of Alertness: Awake, talking CARRIZALES's with Equal Strength: Yes Pain: No (No c/o ) Pain Scale Score: 7 Nausea or Vomiting: No Oxygen Delivery: Simple Mask Lungs: Clear to Auscultation, Normal Air Movement Morgan Murrell MD Nov 29, 2016 20:07
--- NOTE | 2016-11-29 20:41 | PCM.ANEP2 ---
Post Anesthesia Evaluation ASA/CMS Post Anesthesia VS in Patient's Normal Range?: Yes Resp Stable; Airway Patent?: Yes CV Function & Hydration Stable: Yes Mental Status Recovered?: Yes Pain control Satisfactory?: Yes N/V Control Satisfactory?: Yes Morgan Murrell MD Nov 29, 2016 20:41
--- NOTE | 2016-11-29 23:01 | NUR ---
Return to Unit Repot received at 2023 from [place] 2034 pt back on unit. AOx3, VSS on 2L nc. Report of Afib/flutter, pt has pacer/AICD, IV infusing LR. Pt reports no N/V, SOB, chest pain, dizziness, numbness. BLE wrapped. Pt states he is hungry and ready for dinner, "popeyes chicken". Given tray of pureed foods per diet order, meal is well tolerated and he states this is "the best food he's had here". Pt tolerates PO meds whole 1xtime with H20. Given ensure shake. Pt states he feels well, APAP for pain prevention. Will continue to monitor
[2016-11-30 00:26] VITALS: BP 111/63; PULSE 80; RESP 18; O2SAT 100
[2016-11-30 04:56] VITALS: BP 155/73; PULSE 56; RESP 16; O2SAT 99
[2016-11-30 06:45] LABS: INR 1.18 ratio
[2016-11-30] MEDS: cefTRIAXone Inj 1,000 MG in IV Premix 1 EACH IV SCH (09:08)
[2016-11-30] MEDS: Ascorbic Acid 500 mg Tablet PO SCH (10:24)
[2016-11-30] MEDS: Pantoprazole 40 mg ER24 Tablet PO SCH (10:26)
--- NOTE | 2016-11-30 11:25 | NUR ---
Medications Pt groaned in pain during repositioning. When asked if he was in pain, he stated "yes". Asked if he wanted some tylenol for pain, and pt stated 'yes'. 975 mg APAP obtained and crushed and mixed with applesauce [as pt having difficultly swallowing whole pills]. When spoonful put up to his mouth, he waved it away, stating 'I don't want any". RN informed pt that his pain medications were crushed up in the sauce, pt acknowledged this, but still refused to take meds. Will continue to assess pain and treat as needed.
[2016-11-30 14:43] VITALS: BP 144/79; PULSE 95; RESP 16; O2SAT 100
--- NOTE | 2016-11-30 16:05 | NUR ---
NUTRITION FOLLOW UP: ASSESS: 61 YO male admitted with acute encephalopathy related to WISAM / dehydration. Pt. with severe PVD w/ hx of BLE ulcers. Pt underwent surgery yesterday (11/29) for debridement of wounds. Pressure injury being followed by [facility]. Per notes, pt is more alert and oriented. Pt seen by ST on 11/27, and downgraded diet from general to pureed. PMHx: Severe PVD, atrial fibrillation, CKD stage 3, HTN, CAD, hypothyroidism, GERD, HLD, cardiac pacemaker, atherosclerosis of left leg, anemia. DIET: Pureed per ST (11/27) PO Refused-50%. LABS: K 3.4, Alb 2.9 MEDICATIONS: Vitamin D3, Folate, Vitamin C, MVI, Ferrous Sulfate, Synthroid, Lopressor GI: BMx1 (11/30) SKIN INTEGRITY: Edward 14; unstageable pressure injury on right heal; chronic BLE ulcers ANTHROPOMETRICS: Current Wt: 69.09 kg BMI: 24.6 kg/m2 IBW: 64.55 kg ESTIMATED NEEDS (WOUNDS): Calories: 2075 - 2425 kcal (30 - 35 kcal / kg BW) Protein: 83 - 104 g (1.2 - 1.5 g / kg BW) NUTRITION DIAGNOSIS: 1) Increased nutrient needs related to increased demand for nutrients per disease process as evidenced by current skin issues. ---PERSISTS INTERVENTION: 1) Will continue Ensure on B tray. 2) Will add Magic Cups on L&D trays. MONITOR/EVALUATE: Diet adv/karishma, PO intake, labs, GI/nutrition status. Follow up per moderate nutrition risk guidelines. Addendum: 11/30/16 at [address] Auxiliary student documentation reviewed. I agree with above documentation. Charlotte De La Rosa, TAMIKO, CD
--- NOTE | 2016-11-30 18:05 | PCM.PNMED ---
Subjective Date of Service Nov 30, 2016 Subjective Patient seen and examined. Patient has no complaints today. Patient tolerated the procedure well, and has had no complications surrounding it. Exam Vital Signs Vital Sign - Last Date Time Temp Pulse Resp B/P Pulse Ox O2 Delivery O2 Flow Rate FiO2 11/30/16 14:43 36.0 95 16 144/79 100 Room Air 11/29/16 20:44 2.00 Intake and Output 11/29/16 11/29/16 11/30/16 Cumulative From/Thru 15:00 23:00 07:00 11/23/16 12:19 - 11/30/16 06:04 Intake Total 825 ml 840 ml 83587 ml Output Total 120 ml 49589 ml Balance 705 ml 840 ml 3633 ml Intake Oral 0 ml 3557 ml IV Total 825 ml 840 ml 12709 ml Output Urine Total 100 ml 85212 ml Emesis 100 ml Estimated Blood Loss 20 ml 20 ml # Voids 4 10 # Bowel Movements 0 0 Exam General: Generally well appearing male HEENT: sclerae anicteric, oral mucosa moist Neck: no apparent JVD Chest: clear to auscultation Cardiac: S1S2, no murmur Abdomen: BS active, non-tender, not bloated or tympanitic Extremities: No edema Neuro: A&O, cranial nerves symmetric, motor strength and coordination normal Lab and Diagnostics Result Diagram: 11/28/16 0600 11/28/16 0600 Assessment & Plan 61-year-old male from [facility] p/w being obtunded, He gets 0.2 mg of Narcan promptly woke up and was extremely confused and complaining of pain in his ears. Acute, active # acute encephalopathy, POA, secondary to opioid given for leg pain, reported rapid improvement after Narcan. CT HEAD negative for acute findings. no reported seizure/focal neurologic deficit, improved with intermittent delirium. - per sister, baseline pt was AAOx3, it seems pt is reaching to baseline - frequent neurocheck, - resume gabapentin today # Leukocytosis, acute. The patient has had only low-grade fever 37.3. WBC count has risen from 7.9-18.1. No acute eosinophils. No localizing symptoms. No diarrhea. UA after indwelling Solano obtained on 11/27 suggest mild pyuria with significant bacteriuria. Chest x-ray on 11/27 is unremarkable. Blood cultures ordered on 11/27. - Start ceftriaxone for presumed UTI - Follow-up urinary cultures # severe PVD w/ hx of BLE ulcers s/p debridement, s/p grafts in , followed by plastic surgery at [place]. Last seen 11/16, recommended amputation. As per sister, pt refused it.Unclear interval progression since til this admission, - dressing per wound care service - pain control with tylenol, gabapentin - Discontinue dilaudid 0.5mg q4h prn, avoid given concern admission for opioid- induced encephalopathy - pt going for debridement tomorrow, will keep npo after midnight #Poorly controlled hypertension. Held losartan on admission, [id number], continue statin, - resumed losartan, - start HCTZ12.5, changed to Maxzide - hydralazine prn Chronic, stable #WISAM, POA, Cr2.33 on adm, resolved with hydration, likely prerenal from dehydration. Now resolved to 0.97 -i/ol daily wt, renally adjust meds, avoid renal toxin microcytic/hypochromic anemia, unclear onset, likely ACD, h/h stable, transfuse target >7, close obs for GIB given systemic AC afib, rate controlled, continue coumadin, metoprolol hx of CAD, s/p PPM, not active, GERD continue PPI dispo: given no urgent surgical indication, stable LE ulcers, d/c back to SNF switch to appropriate oral antibiotics for urinary tract infection; likely 1 days diet:general dvt ppx:systemic AC Full code angus, sister next of kin, Resuscitation Status: CPR: Attempt Resuscitation Dillan Lewis MD Nov 30, 2016 18:05
[2016-11-30 19:50] VITALS: BP 98/64; PULSE 71; RESP 20; O2SAT 96
[2016-11-30 20:59] VITALS: BP 123/74
[2016-12-01 04:23] VITALS: BP 132/77; PULSE 66; RESP 18; O2SAT 99
[2016-12-01] MEDS: Pantoprazole 40 mg ER24 Tablet PO SCH (05:54)
[2016-12-01 06:18] LABS: INR 1.05 ratio
--- NOTE | 2016-12-01 06:42 | NUR ---
Mentation Remains alert and confused but cooperative with care. Has not appeared to be sedated and responds to questions but not always with the appropriate response.
[2016-12-01] MEDS ORDERED: 0.9% Sodium Chloride 250 ML ONE (08:12)
[2016-12-01] MEDS: cefTRIAXone Inj 1,000 MG in IV Premix 1 EACH IV SCH (08:15)
--- NOTE | 2016-12-01 08:26 | NUR ---
Discussed with RN this am and visualized patient. Patient has cleared and is safe for thin/regular diet. Downgrade as needed per RN judgement. BONE WORKER to sign off as patient has normal swallowing function. Please reconsult if needed.
[2016-12-01] MEDS: Ascorbic Acid 500 mg Tablet PO SCH ×2 (08:30→14:28)
[2016-12-01 08:45] VITALS: PULSE 77; RESP 18; O2SAT 99
[2016-12-01 08:48] LABS: BASOPHILS % (AUTO) 0.1 % (0-3); EOSINOPHILS % (AUTO) 1.3 % (0-5); MONOCYTES % (AUTO) 7.7 % (4-12); Mean Corpuscular Hemoglobin 26.7 pg (27.0-35.0); Mean Corpuscular Volume 84.6 fL (81-100); NEUTROPHILS % (AUTO) 71.8 % (40-74); Platelet Count 309 bil/L (150-400)
--- NOTE | 2016-12-01 11:18 | PCM.PHAPRO ---
Progress Warfarin Management by Pharmacy: -Indication: afib -Inr Goal: 2-3 -Home Dose: warfarin 4mg daily -Drug Interaction: pt has been started on Cipro 500mg bid for uti -Plt 309, Inr 1.05, H/H 10.9/34.5 on 12/01 today -Plan: warfarin is being resumed this evening. last dose was given on 11/27, warfarin 2.5mg. doses were held for debridement that occured on 11/29. will begin with 4mg dose this evening and close monitoring as pt's inr values have been erratic and cipro has been started Magui Franco [facility] Dec 01, 2016 11:18
--- NOTE | 2016-12-01 11:51 | NUR ---
Social Work Continued Discharge Planning: SW met with patient at bedside to discuss discharge plan. Patient advised of no other SNF acceptance and need to reconsider SNF transfer back to [facility]. Patient aware and in agreement to transfer back to [facility] today if INR therapeutic. [facility] who states that patient accepted back and bed to be available today pending medical clearance. SW catalog library assistant aware to follow up with [facility] for authorization. SW to follow. PLAN: Transfer back to [facility], pending INR and clinical course. SW to follow. Bed available for return Marina CHIANG Addendum: 12/01/16 at 1629 by MARIA ELENA SKAGGS Patient insurance termed Nov 20 and patient has no payer at this time. SW contacted patient sister Michael regarding above. SW left message for RCA regarding possible Medicaid assistance. [facility] updated and states she to discuss with clinical director regarding alterative plans. SW to follow. Marina CHIANG
--- NOTE | 2016-12-01 12:01 | NUR ---
Called Noemí Sandoval CM at [facility] and she is now reviewing for transfer back to [facility]. Updated PARTS INTERPRETER
[2016-12-01 13:08] VITALS: BP 176/94; PULSE 85; RESP 15; O2SAT 98
--- NOTE | 2016-12-01 14:06 | PCM.PNPOD ---
Subjective Date of Service: Dec 01, 2016 Date of Service: Dec 01, 2016 Visit Information: Reason for Visit Altered Mental Status,Severe Dehydration Surgery/Surgery Date Post-Op Day # Date of Admission: Nov 23, 2016 at 14:10 Hospital Day # Subjective: 61-year-old male evaluated while resting comfortably at bedside. Patient is 2 days status post washout and debridement and bilateral lower extremity ulceration with application of wound graft to the right lower extremity. Patient is lucid today and states that he has no new complaints. His dressings are clean dry and intact Postop General: No Complaints Gastrointestinal: Good Appetite Objective Vital Sign - Last Date Time Temp Pulse Resp B/P Pulse Ox O2 Delivery O2 Flow Rate FiO2 12/01/16 13:08 36.5 85 15 176/94 98 Room Air 11/29/16 20:44 2.00 Intake and Output 11/30/16 11/30/16 12/01/16 Cumulative From/Thru 15:00 23:00 07:00 11/23/16 12:19 - 12/01/16 06:04 Intake Total 300 ml 233 ml 400 ml 76364 ml Output Total 500 ml 21920 ml Balance -200 ml 233 ml 400 ml 4066 ml Intake Oral 200 ml 233 ml 400 ml 4390 ml IV Total 100 ml 0 ml 62107 ml Output Urine Total 500 ml 32386 ml Emesis 100 ml Estimated Blood Loss 20 ml # Voids 3 3 3 19 # Bowel Movements 1 1 2 Result Diagram: 12/01/16 0800 11/28/16 0600 Lab Test 11/23/16 12:44 11/23/16 12:50 11/23/16 13:26 11/24/16 06:55 Activated Partial Thromboplast Time 32.0sec (22.8-33.0) Ammonia 19ug/dL (18-53) Troponin T 0.025ug/L (0.0-0.011) Alcohol, Quantitative < 10mg/dL (0-10) Lactic Acid Level 0.9mmol/L (0.4-2.0) Urine Opiates Screen Positive Urine Methadone Screen Negative Urine Barbiturates Screen Negative Urine Amphetamines Screen Negative Urine Benzodiazepines Screen Negative Urine Cocaine Metabolite Screen Negative Urine Cannabinoids Screen Negative Reticulocyte Count,Calculated 1.0% (0.6-2.6) Iron Level 30ug/dL (.) Total Iron Binding Capacity 162ug/dL (250-450) Percent Iron Saturation 19%sat (15-50) Unsaturated Iron Binding 132.1ug/dL Transferrin 122mg/dL (.) Transferrin % Saturation 18 (.) Ferritin 475ng/mL (30-400) Thyroid Stimulating Hormone (TSH) 1.190uIU/mL (0.450-4.500) Free Thyroxine 1.38ng/dL (0.82-1.77) Test 11/26/16 06:11 11/27/16 06:33 11/27/16 15:42 11/28/16 06:00 Prealbumin 13mg/dL (20-40) Phosphorus Level 2.7mg/dL (2.5-4.9) Magnesium Level 2.1mg/dL (1.6-2.6) Total Bilirubin 0.6mg/dL (0.0-1.2) Aspartate Amino Transf (AST/SGOT) 13U/L (0-50) Alanine Aminotransferase (ALT/SGPT) 8U/L (0-44) Alkaline Phosphatase 90U/L (25-160) Total Protein 6.4g/dL (6.4-8.4) Albumin 2.9g/dL (3.4-5.0) Urine Color Yellow (YELLOW) Urine Appearance Clear (CLEAR,HAZY) Urine pH 6.0 (5.0-8.0) Urine Specific [place] 1.020 (1.003-1.035) Urine Protein 100mg/dL (NEG,TRACE) Urine Glucose (UA) 100mg/dL (NEGATIVE) Urine Ketones Negativemg/dL (NEGATIVE) Urine Occult Blood Large (NEGATIVE) Urine Nitrite Positive (NEGATIVE) Urine Bilirubin Negative (NEGATIVE) Urine Urobilinogen Normalmg/dL (NORMAL) Urine Leukocyte Esterase Trace (NEGATIVE) Urine RBC >50/hpf (0-2) Urine WBC 6-10/hpf (0-5) Urine Epithelial Cells Few/hpf (NONE-MOD) Urine Crystals None seen (NONE SEEN) Urine Bacteria Many/hpf (NONE-FEW) Urine Hyaline Casts None/lpf (NONE) Urine Granular Casts None seen (NONE SEEN) Urine Waxy Casts None seen (NONE SEEN) Urine Red Blood Cell Casts None seen (NONE SEEN) Urine White Blood Cell Casts None seen (NONE SEEN) Urine Mucus None seen (None Seen) Urine Trichomonas None seen (NONE SEEN) Urine Yeast None (NONE SEEN) Urinalysis Comment None Urine Culture Reflexed Indicated Sodium Level 135mEq/L (134-144) Potassium Level 3.4mEq/L (3.5-5.2) Chloride Level 97mEq/L (97-108) Carbon Dioxide Level 22mmol/L (18-29) Blood Urea Nitrogen 23mg/dL (8-27) Creatinine 1.04mg/dL (0.76-1.27) Estimat Glomerular Filtration Rate 77mL/min (>59) Glucose Level 96mg/dL (60-99) Calcium Level 8.7mg/dL (8.5-10.1) Test 12/01/16 05:45 12/01/16 08:00 Prothrombin Time 11.3sec (8.1-12.5) Prothromb Time International Ratio 1.05ratio White Blood Count 10.3th/mm3 (3.8-10.1) Red Blood Count 4.08mil/mm3 (4.40-5.80) Hemoglobin 10.9g/dL (13.8-17.2) Hematocrit 34.5% (41.0-50.0) Mean Corpuscular Volume 84.6fL (81-100) Mean Corpuscular Hemoglobin 26.7pg (27.0-35.0) Mean Corpuscular Hemoglobin Concent 31.6% (32.0-37.0) Red Cell Distribution Width 16.0% (12.3-15.4) Platelet Count 309bil/L (150-400) Neutrophils (%) (Auto) 71.8% (40-74) Lymphocytes (%) (Auto) 18.6% (14-46) Monocytes (%) (Auto) 7.7% (4-12) Eosinophils (%) (Auto) 1.3% (0-5) Basophils (%) (Auto) 0.1% (0-3) Exam General: Alert, Oriented X3, Cooperative, No Acute Distress Lungs: Clear to Auscultation, Normal Air Movement Lower Extremities: Bilateral: Extremity warm Lower Extremity Pulses: Palpable: Left Dorsalis Pedis Left Posterior Tibal Right Dorsalis Pedis Right Posterior Tibal Podiatry WOUND : Wound Location/Description Full-thickness ulcerations right lower extremity with intact wound graft no exposed bone or tendon no surrounding erythema no malodor no signs of acute infection Left lower extremity dressing is clean dry and intact without noted strikethrough. Surgical Cast or Splint: None Assessment & Plan Impression Stable status post bilateral lower extremity washout debridement with right lower extremity wound graft. Problems: Plan Patient appears to be stable at this time. Wet-to-dry sterile gauze dressing was applied and bilateral lower extremity these dressings are to remain clean dry and intact and to be changed by the wound care service or podiatry only. This patient is stable for discharge to outpatient care. He will necessitate wound care follow-up within 1 week of discharge. No antibiotics are necessary for treatment of his lower extremity ulcerations. Podiatry will continue to follow this patient while he is admitted every 48-72 hours for dressing changes. Rosas Crisostomo DPM Dec 01, 2016 14:06
--- NOTE | 2016-12-01 17:40 | PCM.PNMED ---
Subjective Date of Service Dec 01, 2016 Subjective Patient seen and examined. Wound examined with podiatry. Patient has no complaints today, however patient is having acute mental status changes again that wax and wane. Patient was in good spirits however patient would repeat the same sentence over and over again. Patient answers questions appropriately however does not have coherent line of thought. Exam Vital Signs Vital Sign - Last Date Time Temp Pulse Resp B/P Pulse Ox O2 Delivery O2 Flow Rate FiO2 12/01/16 13:08 36.5 85 15 176/94 98 Room Air 11/29/16 20:44 2.00 Intake and Output 11/30/16 11/30/16 12/01/16 Cumulative From/Thru 15:00 23:00 07:00 11/23/16 12:19 - 12/01/16 06:04 Intake Total 300 ml 233 ml 400 ml 90916 ml Output Total 500 ml 39841 ml Balance -200 ml 233 ml 400 ml 4066 ml Intake Oral 200 ml 233 ml 400 ml 4390 ml IV Total 100 ml 0 ml 22268 ml Output Urine Total 500 ml 95780 ml Emesis 100 ml Estimated Blood Loss 20 ml # Voids 3 3 3 19 # Bowel Movements 1 1 2 Exam General: Somewhat ill-appearing man in no acute distress HEENT: sclerae anicteric, oral mucosa moist Neck: no JVD Chest: clear to auscultation Cardiac: S1S2, II/ SE murmur with prosthetic S2 Abdomen: BS normal, non-tender, incision line with minimal tenderness Extremities: No acute asymmetry or focal swelling Neuro: A&O, cranial nerves symmetric, motor strength and coordination grossly normal Lab and Diagnostics Result Diagram: 12/01/16 0800 11/28/16 0600 Assessment & Plan 61-year-old male from [facility] p/w being obtunded, He gets 0.2 mg of Narcan promptly woke up and was extremely confused and complaining of pain in his ears. Acute, active # acute encephalopathy, POA, secondary to opioid given for leg pain, reported rapid improvement after Narcan. CT HEAD negative for acute findings. no reported seizure/focal neurologic deficit, improved with intermittent delirium. - per sister, baseline pt was AAOx3, it seems pt is reaching to baseline - frequent neurocheck, - avoid sedating medication and use narcotics infrequently # Leukocytosis, acute. The patient has had only low-grade fever 37.3. WBC count has risen from 7.9-18.1. No acute eosinophils. No localizing symptoms. No diarrhea. UA after indwelling Solano obtained on 11/27 suggest mild pyuria with significant bacteriuria. Chest x-ray on 11/27 is unremarkable. Blood cultures ordered on 11/27. - Start cipro for presumed uti # severe PVD w/ hx of BLE ulcers s/p debridement, s/p grafts in , followed by plastic surgery at [place]. Last seen 11/16, recommended amputation. As per sister, pt refused it.Unclear interval progression since til this admission, - dressing per wound care service - pain control with tylenol, gabapentin - Discontinue dilaudid 0.5mg q4h prn, avoid given concern admission for opioid- induced encephalopathy - pt tolerated the procedure well - wound changes by podiatry only #Poorly controlled hypertension. Held losartan on admission, [id number], continue statin, - resumed losartan, - start HCTZ12.5, changed to Maxzide - hydralazine prn #afib on coumadin - restared the coumadin today -currently awaiting for therapeutic inr Chronic, stable #WISAM, POA, Cr2.33 on adm, resolved with hydration, likely prerenal from dehydration. Now resolved to 0.97 -i/ol daily wt, renally adjust meds, avoid renal toxin microcytic/hypochromic anemia, unclear onset, likely ACD, h/h stable, transfuse target >7, close obs for GIB given systemic AC afib, rate controlled, continue coumadin, metoprolol hx of CAD, s/p PPM, not active, GERD continue PPI dispo: given no urgent surgical indication, stable LE ulcers, d/c back to SNF diet:general dvt ppx:systemic AC Full code angus, sister next of kin, Resuscitation Status: CPR: Attempt Resuscitation Dillan Lewis MD Dec 01, 2016 17:40
[2016-12-01 20:08] VITALS: BP 166/95; PULSE 74; RESP 16; O2SAT 100
[2016-12-02 04:14] VITALS: BP 127/78; PULSE 60; RESP 16; O2SAT 98
--- NOTE | 2016-12-02 04:48 | NUR ---
LOC Patient alert to self, however answers questions inappropriately. Appetite inadequate, ate less than 50% of dinner tray. Appears comfortable. Bed in low position, wheels locked. Call light within reach, intentional rounding every hour.
[2016-12-02 06:39] LABS: INR 1.08 ratio
[2016-12-02 08:07] LABS: BASOPHILS % (AUTO) 0.2 % (0-3); EOSINOPHILS % (AUTO) 1.4 % (0-5); MONOCYTES % (AUTO) 9.1 % (4-12); Mean Corpuscular Hemoglobin 26.8 pg (27.0-35.0); Mean Corpuscular Volume 84.1 fL (81-100); NEUTROPHILS % (AUTO) 68.4 % (40-74); Platelet Count 401 bil/L (150-400)
[2016-12-02] MEDS: Pantoprazole 40 mg ER24 Tablet PO SCH (09:01)
[2016-12-02] MEDS: Ascorbic Acid 500 mg Tablet PO SCH (10:41)
--- NOTE | 2016-12-02 12:42 | NUR ---
COGNITION Patient would not answer questions to assess orientation or LOC. Took 2 attempts for AM medications to be taken with applesauce. Full bed change done with help of WATCH REPAIR TECHNICIAN. Ate 25% of breakfast with set up assistance, WATCH REPAIR TECHNICIAN present in room during meal for safety, patient would close eyes with food in mouth. Bilateral anival wrap compression dressings in place to BLE, C/D/I. Continue to monitor.
--- NOTE | 2016-12-02 13:24 | NUR ---
Checked account notes and RCA is aware of patient and is screening for LILLIAN. Updated WEB DESIGN INTERN and WEB DESIGN INTERN detail supervisor.
[2016-12-02 13:30] VITALS: BP 160/84; PULSE 72; RESP 15; O2SAT 99
--- NOTE | 2016-12-02 14:49 | NUR ---
NUTRITION FOLLOW UP: ASSESS: 61 YO male admitted with acute encephalopathy related to WISAM / dehydration. Pt. with severe PVD w/ hx of BLE ulcers. Pt underwent surgery (11/29) for debridement of wounds. Pressure injury being followed by [facility]. Pt continues to have AMS. ST has placed pt on General, non-select diet and have signed off. Pts PO intake continues to vary due to mentation. PO 0-75%. Pt has not had a new wt since admit. PMHx: Severe PVD, atrial fibrillation, CKD stage 3, HTN, CAD, hypothyroidism, GERD, HLD, cardiac pacemaker, atherosclerosis of left leg, anemia. DIET: General. PO 0-75% LABS: Reviewed. Bun 30, metallurgical specialist 1.29, Glu 114 MEDICATIONS: Reviewed. Vitamin D3, Folate, Vitamin C, MVI, Ferrous Sulfate, Synthroid, Lopressor GI: BMx1 (12/02) SKIN INTEGRITY: Edward 14; unstageable pressure injury on right heal; chronic BLE ulcers ANTHROPOMETRICS: Current Wt: 69.09 kg BMI: 24.6 kg/m2 IBW: 64.55 kg. No new wt since admit. ESTIMATED NEEDS (WOUNDS): Calories: 2075 - 2425 kcal (30 - 35 kcal / kg BW) Protein: 83 - 104 g (1.2 - 1.5 g / kg BW) NUTRITION DIAGNOSIS: 1) Increased nutrient needs related to increased demand for nutrients per disease process as evidenced by current skin issues. ---PERSISTS 2) Inadequate oral intake related in AMS as evidence by variable PO intake of 0-75% of meals and RN reporting that pt is falling asleep while eating. INTERVENTION: 1) Will continue Ensure on B tray and Magic cup on L and D tray 2) New wt was requested per RN MONITOR/EVALUATE: Diet karishma, PO intake, new wt, labs, GI/nutrition status. Follow up per moderate nutrition risk guidelines.
--- NOTE | 2016-12-02 14:54 | NUR ---
Weight was obtained by using the Doc lift scale, bed was zeroed at that time without the scd machine on. Addendum: 12/02/16 at 1456 by SHELDON OWENS CNA Amended: Links added.
--- NOTE | 2016-12-02 17:06 | PCM.PNMED ---
Subjective Date of Service Dec 02, 2016 Subjective denies any pain or discomfort Exam Vital Signs Vital Sign - Last Date Time Temp Pulse Resp B/P Pulse Ox O2 Delivery O2 Flow Rate FiO2 12/02/16 13:30 36.7 72 15 160/84 99 Room Air 11/29/16 20:44 2.00 Intake and Output 12/01/16 12/01/16 12/02/16 Cumulative From/Thru 15:00 23:00 07:00 11/23/16 12:19 - 12/02/16 06:32 Intake Total 72 ml 454 ml 200 ml 26022 ml Output Total 09017 ml Balance 72 ml 454 ml 200 ml 4792 ml Intake Oral 454 ml 200 ml 5044 ml IV Total 72 ml 07615 ml Output Urine Total 09794 ml Emesis 100 ml Estimated Blood Loss 20 ml # Voids 1 2 22 # Bowel Movements 1 1 4 Exam pleasantly confused and disoriented x 3 General: Alert, Cooperative, No Acute Distress Eyes: PERRLA, EOMI, Scleral Anicteric Mouth: Mucous Membr Moist/[place] Neck: Supple Chest & Lungs: Clear to auscultation & percussion Cardiovascular: Regular Rate/Rhythm Abdomen: Non-tender, Non-distended, Normoactive bowel tones, Soft Extremities: No cyanosis/clubbing/edma bilat Neurological: Grossly Neurologically Intact, Normal Speech IVs and Medications Medications Reviewed: Medications were reviewed in detail Lab and Diagnostics Result Diagram: 12/02/16 0545 12/02/16 0545 Assessment & Plan 61-year-old male from [facility] p/w being obtunded, He gets 0.2 mg of Narcan promptly woke up and was extremely confused and complaining of pain in his ears. Acute, active # acute encephalopathy, POA, suspected secondary to opioid given for leg pain, reported rapid improvement after Narcan. - CT HEAD negative for acute findings. - no reported seizure/focal neurologic deficit, improved with intermittent delirium. - per sister, baseline pt was AAOx3 - check MRI brain to r/o other etiology for ongoing confusion and if MRI negative consider official neurology consult. - avoid sedating medication and use narcotics infrequently - c/w supportive care # Leukocytosis, acute sin 11/26/16. no present on admission. - UA after indwelling Solano obtained on 11/27 positive for pseudomonas UTI. - c/w Cipro started on 11/30 after pt initially treated with Ceftriaxone # severe PVD w/ hx of BLE ulcers s/p debridement, s/p grafts in , followed by plastic surgery at [place]. Last seen 11/16, recommended amputation. As per sister, pt refused it. Unclear interval progression since till this admission, - dressing per wound care service - pain control with tylenol, gabapentin - Discontinue dilaudid 0.5mg q4h prn, avoid given concern admission for opioid- induced encephalopathy - pt tolerated the procedure well - wound changes by podiatry only # Poorly controlled hypertension. Held losartan on admission, [id number] - resumed losartan, - start HCTZ12.5, changed to Maxzide - hydralazine prn # a-fib on Coumadin - c/w Coumadin and metoprolol - f/u daily INR (currently sub-therapeutic) - will start heparin SC today (12/02/16) for DVT prophylaxis while INR subtherapeutic. pt reportedly has not been on any anticoagulation since admission! #WISAM, POA, Cr 2.33 on adm, resolved with hydration but now worse today - give IVF and f/u - avoid renal toxin # Stable bilateral lower extremity ulcerations without signs of acute infection. poa - appreciate podiatry consult. will f/u w/ recs Chronic, stable # microcytic/hypochromic anemia, unclear onset, likely ACD, h/h stable, - transfuse target >7, close obs for GIB given systemic AC hx of CAD, s/p PPM, not active, GERD continue PPI Dispo: several days pending insurance issues and other medical issues noted above Resuscitation Status: CPR: Attempt Resuscitation Time spent 35 min Sean Bassett Dec 02, 2016 17:06
--- NOTE | 2016-12-02 18:04 | NUR ---
MRI UNABLE TO BE COMPLETED Due to pacemaker present. notified by Lexity.
[2016-12-02 20:31] VITALS: BP 175/80; PULSE 74; RESP 16; O2SAT 100
[2016-12-03 00:17] VITALS: BP 127/93; PULSE 74; RESP 16; O2SAT 99
[2016-12-03] MEDS: Heparin 5,000 Unit/mL Inj SUBQ SCH ×3 (00:35→18:31)
--- NOTE | 2016-12-03 00:52 | NUR ---
IV ACCESS Patient pulled out IV, notified. Per , no need to replace IV at this time, will reassess need for IV access with abimael WILDER.
[2016-12-03 05:06] VITALS: BP 137/92; PULSE 99; RESP 16; O2SAT 100
[2016-12-03 07:30] LABS: Mean Corpuscular Hemoglobin 26.6 pg (27.0-35.0); Mean Corpuscular Volume 83.2 fL (81-100)
[2016-12-03 07:35] LABS: INR 1.07 ratio
[2016-12-03 07:46] VITALS: PULSE 97; RESP 16; O2SAT 99
[2016-12-03 09:06] VITALS: BP 154/89; PULSE 93; RESP 15; O2SAT 100
[2016-12-03] MEDS: Ascorbic Acid 500 mg Tablet PO SCH (12:16)
[2016-12-03] MEDS: Pantoprazole 40 mg ER24 Tablet PO SCH (12:17)
[2016-12-03 13:58] VITALS: BP 131/78; PULSE 78; RESP 18; O2SAT 99
--- NOTE | 2016-12-03 14:12 | NUR ---
COGNITION Patient's level of alertness is much different than yesterday. Alert and oriented to person and knows he's in the hospital but unsure of exact location and time. Asked appropriate questions about type of medications and his blood pressure. Took medications without difficulty today in applesauce, had to spread AM medications out. Was able to use call light and ask for bedpan and urinal. Eating independently with set up assistance only. Bedrest in place and mejia alarm. BLE compression wraps in place, C/D/I.
--- NOTE | 2016-12-03 18:06 | PCM.PNMED ---
Subjective Date of Service Dec 03, 2016 Subjective improved mentation from yesterday per RN worse Cr dark diarrhea soiled the bed able to read talk on the phone answer most questions appropirately Exam Vital Signs Vital Sign - Last Date Time Temp Pulse Resp B/P Pulse Ox O2 Delivery O2 Flow Rate FiO2 12/03/16 13:58 36.8 78 18 131/78 99 Room Air 11/29/16 20:44 2.00 Intake and Output 12/02/16 12/02/16 12/03/16 Cumulative From/Thru 15:00 23:00 07:00 11/23/16 12:19 - 12/03/16 05:07 Intake Total 220 ml 17066 ml Output Total 40090 ml Balance 220 ml 5012 ml Intake Oral 220 ml 5264 ml IV Total 83738 ml Output Urine Total 30706 ml Emesis 100 ml Estimated Blood Loss 20 ml # Voids 2 24 # Bowel Movements 2 6 Exam NAD A andO to place CTAB RRR soft +BS wrapped legs diarrhea soiled the bed Lab and Diagnostics Result Diagram: 12/03/16 0629 12/03/16 0629 Assessment & Plan 61-year-old male from [facility] p/w being obtunded, He gets 0.2 mg of Narcan promptly woke up and was extremely confused and complaining of pain in his ears, found to have pseudomonas UTI also, treated w/ ciprofloxacin. Acute, active new diarrhea, dark --pending cdiff, and fecal occult on cipro for uti # acute encephalopathy, resolved POA, suspected secondary to opioid given for leg pain, reported rapid improvement after Narcan. waxes and wanes per staffing associate - CT HEAD negative for acute findings. no MRI due to pacer - no reported seizure/focal neurologic deficit, improved with intermittent delirium. - per sister, baseline pt was AAOx3 # pseudomonas UTI. Leukocytosis, resolved 12/03/2016. . - indwelling [place] 11/27 UA positive - Cipro started 11/30 after initial Ceftriaxone # Poorly controlled hypertension. resolved recurrent WISAM due to antiHTN, initial WISAM had resolved with hydration - resumed losartan, - started HCTZ12.5, changed to Maxzide, then stopped on12/03/2016 due to rising Cr - hydralazine prn # severe PVD w/ hx of BLE ulcers s/p debridement, s/p grafts in , followed by plastic surgery at [place]. Last seen 11/16, recommended amputation. As per sister, pt refused it. Unclear interval progression since till this admission, - dressing per wound care service - pain control with tylenol, gabapentin - Discontinue dilaudid 0.5mg q4h prn, avoid given concern admission for opioid- induced encephalopathy - wound changes by podiatry only # a-fib on Coumadin - c/w Coumadin and metoprolol - f/u daily INR (currently sub-therapeutic) - started heparin SC (12/02/16) for DVT prophylaxis while INR subtherapeutic. # Stable bilateral lower extremity ulcerations without signs of acute infection. poa - appreciate podiatry consult. will f/u w/ recs Chronic, stable # microcytic/hypochromic anemia, unclear onset, likely ACD, h/h stable, - transfuse target >7, close obs for GIB given systemic AC hx of CAD, s/p PPM, not active, GERD continue PPI Dispo: several days pending insurance issues and other medical issues noted above Resuscitation Status: CPR: Attempt Resuscitation Jj Carey MD Dec 03, 2016 18:06
[2016-12-03 19:52] VITALS: BP 185/89; PULSE 100; RESP 18; O2SAT 99
[2016-12-04] VITALS (9 sets, daily range): BP systolic 152–184; BP diastolic 93–101; PULSE 70–102; RESP 16–20; O2SAT 98–100
--- NOTE | 2016-12-04 00:15 | NUR ---
PSYCH; appropriate. Took meds with applesauce without problems.
[2016-12-04] MEDS: Heparin 5,000 Unit/mL Inj SUBQ SCH ×3 (00:30→18:06)
--- NOTE | 2016-12-04 01:58 | NUR ---
PSYCH; numerous requests this night. C/o nausea but refused offer of more nausea rx. States feels restless. No specific c/o voiced.
[2016-12-04 02:17] LABS: APPEARANCE,URINE CLEAR (CLEAR,HAZY); COLOR,URINE YELLOW (YELLOW); OCCULT BLOOD,URINE SMALL (NEGATIVE); PH,URINE 6.5 (5.0-8.0); UROBILINOGEN,URINE NORMAL (NORMAL)
[2016-12-04] MEDS: Pantoprazole 40 mg ER24 Tablet PO SCH (04:06)
[2016-12-04 08:04] LABS: INR 1.06 ratio
[2016-12-04] MEDS: Ascorbic Acid 500 mg Tablet PO SCH (08:04)
--- NOTE | 2016-12-04 08:53 | PCM.PNMED ---
Subjective Date of Service Dec 04, 2016 Subjective Patient resting in bed and has no complaints. He denies loose stool today. Denies any nausea today. Exam Vital Signs Vital Sign - Last Date Time Temp Pulse Resp B/P Pulse Ox O2 Delivery O2 Flow Rate FiO2 12/04/16 08:16 99 179/101 12/04/16 06:19 36.4 20 100 Room Air 11/29/16 20:44 2.00 Intake and Output 12/03/16 12/03/16 12/04/16 Cumulative From/Thru 15:00 23:00 07:00 11/23/16 12:19 - 12/04/16 06:19 Intake Total 1547 ml 550 ml 59802 ml Output Total 200 ml 810 ml 47530 ml Balance 1347 ml -260 ml 6099 ml Intake Oral 1547 ml 550 ml 7361 ml IV Total 15449 ml Output Urine Total 200 ml 660 ml 01698 ml Emesis 150 ml 250 ml Estimated Blood Loss 20 ml # Voids 3 4 31 # Bowel Movements 4 2 12 Exam Constitutional: Middle-aged man in no acute distress. Does have significantly blunted affect however Head: Normocephalic atraumatic Chest: Clear to auscultation Cor: Regular rate and rhythm S1-S2 Abdomen: Soft nontender bowel sounds present Extremities: Bilateral lower extremities have dressings present secondary to chronic ulcers IVs and Medications Medications Reviewed: Medications were reviewed in detail Lab and Diagnostics Laboratory Tests 72 Hours Test 12/02/16 05:45 12/03/16 06:29 12/04/16 01:40 12/04/16 06:23 White Blood Count 11.8th/mm3 (3.8-10.1) 9.6th/mm3 (3.8-10.1) Red Blood Count 4.22mil/mm3 (4.40-5.80) 4.59mil/mm3 (4.40-5.80) Hemoglobin 11.3g/dL (13.8-17.2) 12.2g/dL (13.8-17.2) Hematocrit 35.5% (41.0-50.0) 38.2% (41.0-50.0) Mean Corpuscular Volume 84.1fL (81-100) 83.2fL (81-100) Mean Corpuscular Hemoglobin 26.8pg (27.0-35.0) 26.6pg (27.0-35.0) Mean Corpuscular Hemoglobin Concent 31.8% (32.0-37.0) 31.9% (32.0-37.0) Red Cell Distribution Width 15.6% (12.3-15.4) 15.6% (12.3-15.4) Platelet Count 401bil/L (150-400) 417bil/L (150-400) Neutrophils (%) (Auto) 68.4% (40-74) Lymphocytes (%) (Auto) 20.5% (14-46) Monocytes (%) (Auto) 9.1% (4-12) Eosinophils (%) (Auto) 1.4% (0-5) Basophils (%) (Auto) 0.2% (0-3) Prothrombin Time 11.6sec (8.1-12.5) 11.5sec (8.1-12.5) 11.4sec (8.1-12.5) Prothromb Time International Ratio 1.08ratio 1.07ratio 1.06ratio Sodium Level 138mEq/L (134-144) 136mEq/L (134-144) 134mEq/L (134-144) Potassium Level 3.5mEq/L (3.5-5.2) 4.1mEq/L (3.5-5.2) 4.2mEq/L (3.5-5.2) Chloride Level 98mEq/L (97-108) 96mEq/L (97-108) 92mEq/L (97-108) Carbon Dioxide Level 26mmol/L (18-29) 24mmol/L (18-29) 25mmol/L (18-29) Blood Urea Nitrogen 30mg/dL (8-27) 34mg/dL (8-27) 48mg/dL (8-27) Creatinine 1.29mg/dL (0.76-1.27) 1.54mg/dL (0.76-1.27) 2.12mg/dL (0.76-1.27) Estimat Glomerular Filtration Rate 60mL/min (>59) 49mL/min (>59) 34mL/min (>59) Glucose Level 114mg/dL (60-99) 160mg/dL (60-99) 122mg/dL (60-99) Calcium Level 9.1mg/dL (8.5-10.1) 9.5mg/dL (8.5-10.1) 9.9mg/dL (8.5-10.1) Magnesium Level 2.0mg/dL (1.6-2.6) Procalcitonin 0.11ng/mL (See Comment) Urine Color Yellow (YELLOW) Urine Appearance Clear (CLEAR,HAZY) Urine pH 6.5 (5.0-8.0) Urine Specific [place] 1.020 (1.003-1.035) Urine Protein 30mg/dL (NEG,TRACE) Urine Glucose (UA) Negativemg/dL (NEGATIVE) Urine Ketones Negativemg/dL (NEGATIVE) Urine Occult Blood Small (NEGATIVE) Urine Nitrite Negative (NEGATIVE) Urine Bilirubin Negative (NEGATIVE) Urine Urobilinogen Normalmg/dL (NORMAL) Urine Leukocyte Esterase Negative (NEGATIVE) Urine RBC 11-50/hpf (0-2) Urine WBC 6-10/hpf (0-5) Urine Epithelial Cells Occasional/hpf (NONE-MOD) Urine Crystals None seen (NONE SEEN) Urine Bacteria None/hpf (NONE-FEW) Urine Hyaline Casts None/lpf (NONE) Urine Granular Casts None seen (NONE SEEN) Urine Waxy Casts None seen (NONE SEEN) Urine Red Blood Cell Casts None seen (NONE SEEN) Urine White Blood Cell Casts None seen (NONE SEEN) Urine Mucus None seen (None Seen) Urine Trichomonas None seen (NONE SEEN) Urine Yeast None (NONE SEEN) Urine Culture Reflexed Indicated Result Diagram: 12/03/16 0629 12/04/16 0623 Assessment & Plan 61-year-old male from [facility] p/w being obtunded, He gets 0.2 mg of Narcan promptly woke up and was extremely confused and complaining of pain in his ears, found to have pseudomonas UTI also, treated w/ ciprofloxacin. Acute, active new diarrhea, dark --pending cdiff, and fecal occult on cipro for uti # acute encephalopathy, resolved POA, suspected secondary to opioid given for leg pain, reported rapid improvement after Narcan. waxes and wanes per residential treatment staff - CT HEAD negative for acute findings. no MRI due to pacer - no reported seizure/focal neurologic deficit, improved with intermittent delirium. - per sister, baseline pt was AAOx3 # pseudomonas UTI. Leukocytosis, resolved 12/03/2016. . - indwelling [place] 11/27 UA positive - Cipro started 11/30 after initial Ceftriaxone # Poorly controlled hypertension. resolved recurrent WISAM due to antiHTN, initial WISAM had resolved with hydration - resumed losartan, - started HCTZ12.5, changed to Maxzide, then stopped on12/03/2016 due to rising Cr,Cr still rising so will DC losartan today and monitor - hydralazine prn,norvasc 10 mg daily # severe PVD w/ hx of BLE ulcers s/p debridement, s/p grafts in , followed by plastic surgery at [place]. Last seen 11/16, recommended amputation. As per sister, pt refused it. Unclear interval progression since till this admission, - dressing per wound care service - pain control with tylenol, gabapentin - Discontinue dilaudid 0.5mg q4h prn, avoid given concern admission for opioid- induced encephalopathy - wound changes by podiatry only - Note from podiatry: Impression Stable status post bilateral lower extremity washout debridement with right lower extremity wound graft. Problems: Plan Patient appears to be stable at this time. Wet-to-dry sterile gauze dressing was applied and bilateral lower extremity these dressings are to remain clean dry and intact and to be changed by the wound care service or podiatry only. This patient is stable for discharge to outpatient care. He will necessitate wound care follow-up within 1 week of discharge. No antibiotics are necessary for treatment of his lower extremity ulcerations. Podiatry will continue to follow this patient while he is admitted every 48-72 hours for dressing changes. Rosas Crisostomo DPM Dec 01, 2016 14:06 <Electronically signed by Rosas Crisostomo DPM> 12/01/16 1406 # a-fib on Coumadin - c/w Coumadin and metoprolol - f/u daily INR (currently sub-therapeutic) - started heparin SC (12/02/16) for DVT prophylaxis while INR subtherapeutic. # Diarrhea ,acute -Had loose stool yesterday as documented in progress note -C Diff screen pending -Will add probiotics to regimen # Stable bilateral lower extremity ulcerations without signs of acute infection. poa - appreciate podiatry consult. will f/u w/ recs Chronic, stable # microcytic/hypochromic anemia, unclear onset, likely ACD, h/h stable, - transfuse target >7, close obs for GIB given systemic AC hx of CAD, s/p PPM, not active, GERD continue PPI Dispo: several days pending insurance issues and other medical issues noted above Pain Evaluation: Adequate Pain Control Resuscitation Status: CPR: Attempt Resuscitation Time spent 30 minutes Gail Mauricio MD Dec 04, 2016 08:53
--- NOTE | 2016-12-04 14:29 | NUR ---
Social Work: Continued Discharge Planning D: Pt discussed in morning rounds. Pt is not medically stable at this time. Pt with new diarrhea with a CDIFF culture pending. Pt continues to be treated for UTI. Per bedside RN, pt's mentation waxes and wanes with periods of complete lucidity and others with orientation to location or situation. Per EMR review, pt came from [facility] however per notes pt's insurance has termed as of the 20 of November. [employer] referenced [employer] notes, per Registration's communication with , notes do not suggest pt's insurance has lapsed. Pt was admitted on 11/23/2016. UR RN spoke with [facility] who still see's that the pt still has an active policy. A: Pt who will require SNF for improved mobility and training along with wound care. P: Case Management to follow up with [facility] and [facility] [place] on Monday to discuss insurance coverage for skilled rehab. [facility] previously accepted pt. Pt will likely need new PT order/evaluation for Authorization. MARIIA Haider
--- NOTE | 2016-12-04 17:14 | PCM.PNPOD ---
Subjective Date of Service: Dec 04, 2016 Date of Service: Dec 04, 2016 Visit Information: Reason for Visit Altered Mental Status,Severe Dehydration Surgery/Surgery Date Post-Op Day # Date of Admission: Nov 23, 2016 at 14:10 Hospital Day # Subjective: 61 year old male status post bilateral wound debridement with wound graft placement right anterior leg and ankle. Patient denies any new issues or complaints. dressing are clean dry and intact without any noted strikethrough. Postop General: No Complaints Gastrointestinal: Good Appetite Objective Vital Sign - Last Date Time Temp Pulse Resp B/P Pulse Ox O2 Delivery O2 Flow Rate FiO2 12/04/16 16:37 36.5 87 18 160/98 99 Room Air 11/29/16 20:44 2.00 Intake and Output 12/03/16 12/03/16 12/04/16 Cumulative From/Thru 15:00 23:00 07:00 11/23/16 12:19 - 12/04/16 06:19 Intake Total 1547 ml 550 ml 04700 ml Output Total 200 ml 810 ml 84487 ml Balance 1347 ml -260 ml 6099 ml Intake Oral 1547 ml 550 ml 7361 ml IV Total 52714 ml Output Urine Total 200 ml 660 ml 64283 ml Emesis 150 ml 250 ml Estimated Blood Loss 20 ml # Voids 3 4 31 # Bowel Movements 4 2 12 Result Diagram: 12/03/16 0629 12/04/16 0623 Lab Test 11/23/16 12:44 11/23/16 12:50 11/23/16 13:26 11/24/16 06:55 Activated Partial Thromboplast Time 32.0sec (22.8-33.0) Ammonia 19ug/dL (18-53) Troponin T 0.025ug/L (0.0-0.011) Alcohol, Quantitative < 10mg/dL (0-10) Lactic Acid Level 0.9mmol/L (0.4-2.0) Urine Opiates Screen Positive Urine Methadone Screen Negative Urine Barbiturates Screen Negative Urine Amphetamines Screen Negative Urine Benzodiazepines Screen Negative Urine Cocaine Metabolite Screen Negative Urine Cannabinoids Screen Negative Reticulocyte Count,Calculated 1.0% (0.6-2.6) Iron Level 30ug/dL (.) Total Iron Binding Capacity 162ug/dL (250-450) Percent Iron Saturation 19%sat (15-50) Unsaturated Iron Binding 132.1ug/dL Transferrin 122mg/dL (.) Transferrin % Saturation 18 (.) Ferritin 475ng/mL (30-400) Thyroid Stimulating Hormone (TSH) 1.190uIU/mL (0.450-4.500) Free Thyroxine 1.38ng/dL (0.82-1.77) Test 11/26/16 06:11 11/27/16 06:33 11/27/16 15:42 12/02/16 05:45 Prealbumin 13mg/dL (20-40) Phosphorus Level 2.7mg/dL (2.5-4.9) Total Bilirubin 0.6mg/dL (0.0-1.2) Aspartate Amino Transf (AST/SGOT) 13U/L (0-50) Alanine Aminotransferase (ALT/SGPT) 8U/L (0-44) Alkaline Phosphatase 90U/L (25-160) Total Protein 6.4g/dL (6.4-8.4) Albumin 2.9g/dL (3.4-5.0) Urinalysis Comment None Neutrophils (%) (Auto) 68.4% (40-74) Lymphocytes (%) (Auto) 20.5% (14-46) Monocytes (%) (Auto) 9.1% (4-12) Eosinophils (%) (Auto) 1.4% (0-5) Basophils (%) (Auto) 0.2% (0-3) Magnesium Level 2.0mg/dL (1.6-2.6) Test 12/03/16 06:29 12/04/16 01:40 12/04/16 06:23 White Blood Count 9.6th/mm3 (3.8-10.1) Red Blood Count 4.59mil/mm3 (4.40-5.80) Hemoglobin 12.2g/dL (13.8-17.2) Hematocrit 38.2% (41.0-50.0) Mean Corpuscular Volume 83.2fL (81-100) Mean Corpuscular Hemoglobin 26.6pg (27.0-35.0) Mean Corpuscular Hemoglobin Concent 31.9% (32.0-37.0) Red Cell Distribution Width 15.6% (12.3-15.4) Platelet Count 417bil/L (150-400) Procalcitonin 0.11ng/mL (See Comment) Urine Color Yellow (YELLOW) Urine Appearance Clear (CLEAR,HAZY) Urine pH 6.5 (5.0-8.0) Urine Specific [place] 1.020 (1.003-1.035) Urine Protein 30mg/dL (NEG,TRACE) Urine Glucose (UA) Negativemg/dL (NEGATIVE) Urine Ketones Negativemg/dL (NEGATIVE) Urine Occult Blood Small (NEGATIVE) Urine Nitrite Negative (NEGATIVE) Urine Bilirubin Negative (NEGATIVE) Urine Urobilinogen Normalmg/dL (NORMAL) Urine Leukocyte Esterase Negative (NEGATIVE) Urine RBC 11-50/hpf (0-2) Urine WBC 6-10/hpf (0-5) Urine Epithelial Cells Occasional/hpf (NONE-MOD) Urine Crystals None seen (NONE SEEN) Urine Bacteria None/hpf (NONE-FEW) Urine Hyaline Casts None/lpf (NONE) Urine Granular Casts None seen (NONE SEEN) Urine Waxy Casts None seen (NONE SEEN) Urine Red Blood Cell Casts None seen (NONE SEEN) Urine White Blood Cell Casts None seen (NONE SEEN) Urine Mucus None seen (None Seen) Urine Trichomonas None seen (NONE SEEN) Urine Yeast None (NONE SEEN) Urine Culture Reflexed Indicated Prothrombin Time 11.4sec (8.1-12.5) Prothromb Time International Ratio 1.06ratio Sodium Level 134mEq/L (134-144) Potassium Level 4.2mEq/L (3.5-5.2) Chloride Level 92mEq/L (97-108) Carbon Dioxide Level 25mmol/L (18-29) Blood Urea Nitrogen 48mg/dL (8-27) Creatinine 2.12mg/dL (0.76-1.27) Estimat Glomerular Filtration Rate 34mL/min (>59) Glucose Level 122mg/dL (60-99) Calcium Level 9.9mg/dL (8.5-10.1) Exam General: Alert, Oriented X3, Cooperative, No Acute Distress Lungs: Clear to Auscultation, Normal Air Movement Lower Extremities: Bilateral: Extremity warm Lower Extremity Pulses: Palpable: Left Dorsalis Pedis Left Posterior Tibal Right Dorsalis Pedis Right Posterior Tibal Podiatry WOUND : Wound Location/Description left anterior proximal leg ulceration full thickness to subcutaneous tissue, expose anterior tibia, surrounding tissue is granular. no mal odor. no signs of infection. wound measures 4.5 cm x 3cm x .2 cm distal left anterior leg ulcer without exposed bone or tendon. no mal odor. no signs of infection. wound is 100% granular. right anterior leg wound with graft intact and in place. no surrounding erythema no signs of infection. Surgical Cast or Splint: None Assessment & Plan Impression Bilateral anterior leg ulcer without signs of infection. Problems: Plan Wound dressings changed today. no signs of infection no mal odor. Wound dressing applied consisting of moist to dry sterile saline, ABD pads, Kerlix and a mildly compressive anival bandage. Stable for discharge to outpatient care from podiatric standpoint. podiatry will continue to follow every 48-72 hrs while admitted. if discharged patient will need to follow up within 5 days at the wound care center. Rosas Crisostomo DPM Dec 04, 2016 17:14
--- NOTE | 2016-12-04 19:33 | NUR ---
Mentation Pt alert to self only during shift and became agitated when questioned about what year it is stating "aren't we pretending it's 1965, so just write that on the board." Pt was able to take all medications crushed in applesauce and eat meals without coughing. All other behavior appropriate.
[2016-12-05] MEDS: Heparin 5,000 Unit/mL Inj SUBQ SCH ×4 (00:46→17:40)
[2016-12-05 00:50] VITALS: BP 143/84; PULSE 95; RESP 16; O2SAT 99
--- NOTE | 2016-12-05 03:04 | NUR ---
Mental status Patient oriented to self only. Patient confused about where he is. Patient taking PO medications crushed with applesauce. Has trouble swallowing pills whole. Patient has had three large BM's so far this shift. Patient has been compliant with care.
[2016-12-05 05:00] VITALS: BP 137/90; PULSE 94; RESP 16; O2SAT 100
[2016-12-05] MEDS: Pantoprazole 40 mg ER24 Tablet PO SCH ×2 (06:06→06:24)
--- NOTE | 2016-12-05 06:30 | NUR ---
Medication refusal Patient refused his 0630 Protonix 40mg and 0700 Ciprofloxacin 500mg this morning. Tried multiple times to explain the importance of the medications to the patient and tried to give patient time to see if he might change his mind, but patient continued to refuse medication after several attempts.
[2016-12-05 06:46] LABS: INR 1.21 ratio
[2016-12-05] MEDS: Ascorbic Acid 500 mg Tablet PO SCH ×2 (08:30→09:27)
[2016-12-05 09:02] LABS: BASOPHILS % (AUTO) 0.1 % (0-3); EOSINOPHILS % (AUTO) 0.3 % (0-5); MONOCYTES % (AUTO) 7.6 % (4-12); Mean Corpuscular Hemoglobin 26.5 pg (27.0-35.0); Mean Corpuscular Volume 83.6 fL (81-100); NEUTROPHILS % (AUTO) 78.5 % (40-74); Platelet Count 490 bil/L (150-400)
--- NOTE | 2016-12-05 10:36 | NUR ---
Refused Medications Patient refused all morning medications after nurse informed patient of all medications, scanned and crushed medications. Nurse explained the importance of morning medications. Patient still refused. Call light and tray table within reach. Will continue to monitor patient hourly.
--- NOTE | 2016-12-05 11:39 | PCM.PHAPRO ---
Progress Warfarin Management by Pharmacy: -Indication: afib -Home Dose: warfarin 4mg -Inr Goal: 2-3 -Plan: pt refused dose on 12/02 but did take warfarin 3mg on 12/03 and 4mg on . inr remains subtherapeutic today at 1.21 pt is still receiving cipro 500mg po bid which can increase the inr. will give dose of warfarin 4mg this evening and follow Magui Franco [facility] Dec 05, 2016 11:38
--- NOTE | 2016-12-05 12:15 | PCM.PNMED ---
Subjective Date of Service Dec 05, 2016 Subjective Patient, confused, flat affect but denies pain or discomfort. Continues to therapy with ciprofloxacin, had been refusing medications today. Saw podiatry for wound care of anterior lower extremity lesions yesterday Exam Vital Signs Vital Sign - Last Date Time Temp Pulse Resp B/P Pulse Ox O2 Delivery O2 Flow Rate FiO2 12/05/16 05:00 36.9 94 16 137/90 100 Room Air 11/29/16 20:44 2.00 Intake and Output 12/04/16 12/04/16 12/05/16 Cumulative From/Thru 15:00 23:00 07:00 11/23/16 12:19 - 12/05/16 06:52 Intake Total 520 ml 50 ml 53310 ml Output Total 510 ml 73726 ml Balance 10 ml 50 ml 6159 ml Intake Oral 520 ml 50 ml 7931 ml IV Total 80595 ml Output Urine Total 510 ml 37498 ml Emesis 250 ml Estimated Blood Loss 20 ml # Voids 4 2 37 # Bowel Movements 4 3 19 Exam Constitutional: Middle-aged man in no acute distress. Does have significantly blunted affect however Head: Normocephalic atraumatic Chest: Clear to auscultation Cor: Regular rate and rhythm S1-S2 Abdomen: Soft nontender bowel sounds present Extremities: Bilateral lower extremities have dressings present secondary to chronic ulcers IVs and Medications Medications Reviewed: Medications were reviewed in detail Lab and Diagnostics Result Diagram: 12/05/1652712/05/16527 Assessment & Plan 61-year-old male from [facility] p/w being obtunded, He gets 0.2 mg of Narcan promptly woke up and was extremely confused and complaining of pain in his ears, found to have pseudomonas UTI also, treated w/ ciprofloxacin. # Acute, active new diarrhea, dark - Hemoccult positive Negative cdiff, on cipro for uti # acute encephalopathy, resolved POA, suspected secondary to opioid given for leg pain, reported rapid improvement after Narcan. waxes and wanes per staff anesthetist - CT HEAD negative for acute findings. no MRI due to pacer - no reported seizure/focal neurologic deficit, improved with intermittent delirium. - per sister, baseline pt was AAOx3 # pseudomonas UTI. Leukocytosis, resolved 12/03/2016 --> now increased to 18, afebrile without active etiology of infection - Negative C. difficile, will repeat UA and order chest x-ray - indwelling [place] 11/27 UA positive - Cipro started 11/30 after initial Ceftriaxone, patient refused dose today December 05, will try to convince patient # Poorly controlled hypertension. resolved recurrent WISAM due to antiHTN, initial WISAM had resolved with hydration - resumed losartan, - started HCTZ12.5, changed to Maxzide, then stopped on12/03/2016 due to rising Cr,Cr still rising so will DC losartan today and monitor - hydralazine prn,norvasc 10 mg daily # severe PVD w/ hx of BLE ulcers s/p debridement, s/p grafts in , followed by plastic surgery at [place]. Last seen 11/16, recommended amputation. As per sister, pt refused it. Unclear interval progression since till this admission, - dressing per wound care service - pain control with tylenol, gabapentin - Discontinue dilaudid 0.5mg q4h prn, avoid given concern admission for opioid- induced encephalopathy - wound changes by podiatry only - Note from podiatry: Impression Stable status post bilateral lower extremity washout debridement with right lower extremity wound graft. Problems: Plan Patient appears to be stable at this time. Wet-to-dry sterile gauze dressing was applied and bilateral lower extremity these dressings are to remain clean dry and intact and to be changed by the wound care service or podiatry only. This patient is stable for discharge to outpatient care. He will necessitate wound care follow-up within 1 week of discharge. No antibiotics are necessary for treatment of his lower extremity ulcerations. Podiatry will continue to follow this patient while he is admitted every 48-72 hours for dressing changes. # a-fib on Coumadin - c/w Coumadin and metoprolol - f/u daily INR (currently sub-therapeutic) - started heparin SC (12/02/16) for DVT prophylaxis while INR subtherapeutic. Chronic, stable # microcytic/hypochromic anemia, unclear onset, likely ACD, h/h stable, - transfuse target >7, close obs for GIB given systemic AC hx of CAD, s/p PPM, not active, GERD continue PPI Dispo: several days pending insurance issues and other medical issues noted above Pain Evaluation: Adequate Pain Control VTE Prophylaxis: Sub-Q Heparin (Unfractionated) Resuscitation Status: CPR: Attempt Resuscitation Time spent 35 minutes spent evaluation and management including [id number] counseling greater than 50% a time. Ortiz Garcia DO Dec 05, 2016 12:15
[2016-12-05 12:55] VITALS: BP 168/99; PULSE 107; RESP 16; O2SAT 100
--- NOTE | 2016-12-05 12:55 | DRSVH ---
PROCEDURE: X-RAY CHEST ONE VIEW, PORTABLE ([id number]) INDICATIONS: leukocytosis, encephalopathy TECHNIQUE: One view of the chest was acquired. COMPARISON: [facility], CR, XR CHEST 1VW (PORTABLE), 11/27/2016, 15:17. FINDINGS: Surgical changes and devices: Stable positioning of left chest AICD. Lungs and pleura: No pleural effusions or pneumothorax. Lungs are clear. Mediastinum: Mediastinal contours appear normal. Heart size is normal. Bones and chest wall: No suspicious bony lesions. Overlying soft tissues appear unremarkable. IMPRESSION: No acute cardiopulmonary disease. Dictated by: Migel Dunaway RR Interpreted: Alvin Pierre MD on 12/05/2016 at 12:54 Transcribed by: CARRIE on 12/05/2016 at 12:54 Approved by: Alvin Pierre M.D. on 12/09/2016 at 11:34
--- NOTE | 2016-12-05 14:59 | NUR ---
Social Work Continued Discharge Planning: SW spoke to RCA kelly Marks regarding patient insurance. Per RCA, patient insurance has termed and patient active with [facility] from 11/20/16-02/17/19. DIONICIO spoke to [facility] of [place] rep Collins who was advised of active insurance with [facility]. Per Karina, she to verify with director to determine if insurance accepted. If accepted, [facility] to accept patient back upon discharge. Per report in rounds, repeat labs to take place. SW to follow. PLAN: Return back to [facility] under [facility], pending clinical course Marina CHIANG
[2016-12-05 20:20] VITALS: BP 138/78; PULSE 74; RESP 18; O2SAT 96
[2016-12-06] MEDS: Heparin 5,000 Unit/mL Inj SUBQ SCH ×2 (00:58→21:07)
--- NOTE | 2016-12-06 04:49 | NUR ---
Restlessness and unable/unwilling to cooperate w/ nursing care. Refused all medications orally this shift. Was able to admin the SQ heparin ordered Q8/hrs. Refused to take any PO at all. Continue incontinent. [place] w/ her and updated as able. Note to APPLICATIONS TRAINER re; transfer to SNF and family need to discuss prior. Note to MD to call re; pt. condition and update. Continue current care plan.
[2016-12-06 04:56] VITALS: BP 149/81; PULSE 56; RESP 20; O2SAT 99
[2016-12-06 06:02] LABS: BASOPHILS % (AUTO) 0.2 % (0-3); EOSINOPHILS % (AUTO) 0.1 % (0-5); MONOCYTES % (AUTO) 7.6 % (4-12); Mean Corpuscular Volume 83.7 fL (81-100); NEUTROPHILS % (AUTO) 72.6 % (40-74); Platelet Count 377 bil/L (150-400)
[2016-12-06 06:10] LABS: INR 1.24 ratio
[2016-12-06] MEDS: Pantoprazole 40 mg ER24 Tablet PO SCH (06:30)
[2016-12-06] MEDS: Ascorbic Acid 500 mg Tablet PO SCH (08:30)
--- NOTE | 2016-12-06 08:54 | PCM.PHAPRO ---
Progress Warfarin Management by Pharmacy: -Indication: afib -Home Dose: warfarin 4mg -Inr Goal: 2-3 -Plan: pt refused dose on 12/02 but did take warfarin 3mg on 12/03 and 4mg on . Again, pt refused last evening's dose on 12/05 for warfarin 4mg. difficult to manage with refusals. inr today is 1.24. will give warfarin 4mg this evening and follow. pt still receiving cipro that can increase the inr. H/H 11.3/35, PLT 377 Magui Franco [facility] Dec 06, 2016 08:54
--- NOTE | 2016-12-06 09:54 | PCM.PNMED ---
Subjective Date of Service Dec 06, 2016 Subjective Patient remains confused but alert. Does not answer questions appropriately. Denies any nausea vomiting or pain. Exam Vital Signs Vital Sign - Last Date Time Temp Pulse Resp B/P Pulse Ox O2 Delivery O2 Flow Rate FiO2 12/06/16 04:56 37.1 56 20 149/81 99 Room Air Intake and Output 12/05/16 12/05/16 12/06/16 Cumulative From/Thru 15:00 23:00 07:00 11/23/16 12:19 - 12/06/16 04:56 Intake Total 100 ml 200 ml 56416 ml Output Total 616 ml 51151 ml Balance 100 ml -416 ml 5843 ml Intake Oral 100 ml 200 ml 8231 ml IV Total 07224 ml Output Urine Total 616 ml 75676 ml Emesis 250 ml Estimated Blood Loss 20 ml # Voids 1 4 42 # Bowel Movements 2 2 23 Exam Constitutional: Alert and confused middle-aged male Head: Normocephalic atraumatic Chest: Clear to auscultation Cor: Regular rate and rhythm S1-S2 without murmur Abdomen: Soft nontender bowel sounds present Extremities: Lower legs and feet are bilaterally covered with dressings per podiatry Lab and Diagnostics Laboratory Tests 72 Hours Test 12/04/16 01:40 12/04/16 06:23 12/05/16 05:28 12/06/16 05:40 Urine Color Yellow (YELLOW) Urine Appearance Clear (CLEAR,HAZY) Urine pH 6.5 (5.0-8.0) Urine Specific [place]wood 1.020 (1.003-1.035) Urine Protein 30mg/dL (NEG,TRACE) Urine Glucose (UA) Negativemg/dL (NEGATIVE) Urine Ketones Negativemg/dL (NEGATIVE) Urine Occult Blood Small (NEGATIVE) Urine Nitrite Negative (NEGATIVE) Urine Bilirubin Negative (NEGATIVE) Urine Urobilinogen Normalmg/dL (NORMAL) Urine Leukocyte Esterase Negative (NEGATIVE) Urine RBC 11-50/hpf (0-2) Urine WBC 6-10/hpf (0-5) Urine Epithelial Cells Occasional/hpf (NONE-MOD) Urine Crystals None seen (NONE SEEN) Urine Bacteria None/hpf (NONE-FEW) Urine Hyaline Casts None/lpf (NONE) Urine Granular Casts None seen (NONE SEEN) Urine Waxy Casts None seen (NONE SEEN) Urine Red Blood Cell Casts None seen (NONE SEEN) Urine White Blood Cell Casts None seen (NONE SEEN) Urine Mucus None seen (None Seen) Urine Trichomonas None seen (NONE SEEN) Urine Yeast None (NONE SEEN) Urine Culture Reflexed Indicated Prothrombin Time 11.4sec (8.1-12.5) 13.0sec (8.1-12.5) 13.3sec (8.1-12.5) Prothromb Time International Ratio 1.06ratio 1.21ratio 1.24ratio Sodium Level 134mEq/L (134-144) 139mEq/L (134-144) 139mEq/L (134-144) Potassium Level 4.2mEq/L (3.5-5.2) 5.1mEq/L (3.5-5.2) 4.5mEq/L (3.5-5.2) Chloride Level 92mEq/L (97-108) 97mEq/L (97-108) 99mEq/L (97-108) Carbon Dioxide Level 25mmol/L (18-29) 27mmol/L (18-29) 25mmol/L (18-29) Blood Urea Nitrogen 48mg/dL (8-27) 48mg/dL (8-27) 58mg/dL (8-27) Creatinine 2.12mg/dL (0.76-1.27) 1.96mg/dL (0.76-1.27) 2.72mg/dL (0.76-1.27) Estimat Glomerular Filtration Rate 34mL/min (>59) 37mL/min (>59) 25mL/min (>59) Glucose Level 122mg/dL (60-99) 112mg/dL (60-99) 105mg/dL (60-99) Calcium Level 9.9mg/dL (8.5-10.1) 10.5mg/dL (8.5-10.1) 10.0mg/dL (8.5-10.1) White Blood Count 18.4th/mm3 (3.8-10.1) 16.3th/mm3 (3.8-10.1) Red Blood Count 5.06mil/mm3 (4.40-5.80) 4.18mil/mm3 (4.40-5.80) Hemoglobin 13.4g/dL (13.8-17.2) 11.3g/dL (13.8-17.2) Hematocrit 42.3% (41.0-50.0) 35.0% (41.0-50.0) Mean Corpuscular Volume 83.6fL (81-100) 83.7fL (81-100) Mean Corpuscular Hemoglobin 26.5pg (27.0-35.0) 27.0pg (27.0-35.0) Mean Corpuscular Hemoglobin Concent 31.7% (32.0-37.0) 32.3% (32.0-37.0) Red Cell Distribution Width 15.9% (12.3-15.4) 15.8% (12.3-15.4) Platelet Count 490bil/L (150-400) 377bil/L (150-400) Neutrophils (%) (Auto) 78.5% (40-74) 72.6% (40-74) Lymphocytes (%) (Auto) 13.1% (14-46) 18.8% (14-46) Monocytes (%) (Auto) 7.6% (4-12) 7.6% (4-12) Eosinophils (%) (Auto) 0.3% (0-5) 0.1% (0-5) Basophils (%) (Auto) 0.1% (0-3) 0.2% (0-3) Result Diagram: 12/06/16 0540 12/06/16 0540 Assessment & Plan 61-year-old male from [facility] p/w being obtunded, He gets 0.2 mg of Narcan promptly woke up and was extremely confused and complaining of pain in his ears, found to have pseudomonas UTI also, treated w/ ciprofloxacin. # Acute, active new diarrhea, dark - Hemoccult positive Negative cdiff, on cipro for uti```````````````` # acute encephalopathy, resolved POA, suspected secondary to opioid given for leg pain, reported rapid improvement after Narcan. waxes and wanes per director of staff development - CT HEAD negative for acute findings. no MRI due to pacer - no reported seizure/focal neurologic deficit, improved with intermittent delirium. - per sister, baseline pt was AAOx3 # pseudomonas UTI. Leukocytosis, resolved 12/03/2016 --> now increased to 18, afebrile without active etiology of infection - Negative C. difficile, will repeat UA and order chest x-ray - indwelling [place] 11/27 UA positive - Cipro started 11/30 after initial Ceftriaxone, patient refused dose today December 05, will try to convince patient # Poorly controlled hypertension. resolved recurrent WISAM due to antiHTN, initial WISAM had resolved with hydration - resumed losartan, - started HCTZ12.5, changed to Maxzide, then stopped on12/03/2016 due to rising Cr,Cr still rising so will DC losartan today and monitor - hydralazine prn,norvasc 10 mg daily # severe PVD w/ hx of BLE ulcers s/p debridement, s/p grafts in , followed by plastic surgery at [place]. Last seen 11/16, recommended amputation. As per sister, pt refused it. Unclear interval progression since till this admission, - dressing per wound care service - pain control with tylenol, gabapentin - Discontinue dilaudid 0.5mg q4h prn, avoid given concern admission for opioid- induced encephalopathy - wound changes by podiatry only - Note from podiatry: Impression Stable status post bilateral lower extremity washout debridement with right lower extremity wound graft. Problems: Plan Patient appears to be stable at this time. Wet-to-dry sterile gauze dressing was applied and bilateral lower extremity these dressings are to remain clean dry and intact and to be changed by the wound care service or podiatry only. This patient is stable for discharge to outpatient care. He will necessitate wound care follow-up within 1 week of discharge. No antibiotics are necessary for treatment of his lower extremity ulcerations. Podiatry will continue to follow this patient while he is admitted every 48-72 hours for dressing changes. # a-fib on Coumadin - c/w Coumadin and metoprolol - f/u daily INR (currently sub-therapeutic) - started heparin SC (12/02/16) for DVT prophylaxis while INR subtherapeutic. Chronic, stable # microcytic/hypochromic anemia, unclear onset, likely ACD, h/h stable, - transfuse target >7, close obs for GIB given systemic AC hx of CAD, s/p PPM, not active, GERD continue PPI Dispo: several days pending insurance issues and other medical issues noted above VTE Prophylaxis: Sub-Q Heparin (Unfractionated) Resuscitation Status: CPR: Attempt Resuscitation Time spent 30 minutes Gail Mauricio MD Dec 06, 2016 09:54
--- NOTE | 2016-12-06 13:05 | NUR ---
Social Work Continued Discharge Planning: DIONICIO spoke to [facility] rep Karina, who states that patient accepted with newly established insurance of [employer] . Per RCA, patient current with [facility] until 02-17-19. Patient no longer active with [employer] insurance at this time. [facility] of KRYSTLE Collins states that she to begin initiation of insurance auth for return back. DIONICIO spoke to patient sister Michael, and updated her on discharge plan of care. SW to follow. PLAN: Accepted back for return to [facility] of , pending insurance auth from [employer] (auth initiated). DIONICIO to follow. Marina CHIANG
[2016-12-06 14:13] VITALS: BP 121/81; PULSE 90; RESP 18; O2SAT 98
--- NOTE | 2016-12-06 19:52 | NUR ---
Mentation, Refusal of Medications, Turning Patient continues to have fluctuating mental status, with confusion alternating with appropriate conversation. Patient continues to refuse most medications and declines turning attempts by staff. Patient is able to reposition on own and does so frequently. Care is ongoing.
[2016-12-06 20:30] VITALS: BP 145/89; PULSE 104; RESP 16; O2SAT 100
[2016-12-06 20:50] VITALS: PULSE 86; RESP 16; O2SAT 98
--- NOTE | 2016-12-07 04:15 | NUR ---
Activity Pt Alert/oriented to self only. Able and willing to follow commands, however pt does go off on tangents where he makes no sense, for example talking about knowing this nurse's family (whom he has not met) and different jobs they have etc. Pt continues to be incontinent of urine, wearing brief and allowing turning. Redness on bottom blanches, calmoseptine applied. Quinten wrap dressings bilaterally to LE are CDI. Pt was able to take his HS meds with applesauce. Per pharmacy, Bacid not available housewide and they should have more later today. Pt has been awake most of the night and talking on his personal cell phone. Addendum: 12/07/16 at 0424 by GETACHEW MENJIVAR RN [place] alarm on for safety
[2016-12-07 05:00] VITALS: BP 152/96; PULSE 92; RESP 16; O2SAT 99
[2016-12-07] MEDS: Pantoprazole 40 mg ER24 Tablet PO SCH (05:58)
[2016-12-07 06:43] LABS: BASOPHILS % (AUTO) 0.1 % (0-3); EOSINOPHILS % (AUTO) 0.3 % (0-5); MONOCYTES % (AUTO) 7.1 % (4-12); Mean Corpuscular Hemoglobin 26.6 pg (27.0-35.0); NEUTROPHILS % (AUTO) 72.4 % (40-74); Platelet Count 362 bil/L (150-400)
[2016-12-07 06:56] LABS: INR 1.31 ratio
[2016-12-07] MEDS ORDERED: 0.9% Sodium Chloride 500 ML IV ONE (07:20)
--- NOTE | 2016-12-07 07:26 | PCM.PNMED ---
Subjective Date of Service Dec 07, 2016 Subjective Patient is in bed watching TV currently. Has no complaints. Exam Vital Signs Vital Sign - Last Date Time Temp Pulse Resp B/P Pulse Ox O2 Delivery O2 Flow Rate FiO2 12/07/16 05:00 36.8 92 16 152/96 99 Room Air Intake and Output 12/06/16 12/06/16 12/07/16 Cumulative From/Thru 15:00 23:00 07:00 11/23/16 12:19 - 12/06/16 18:38 Intake Total 640 ml 42557 ml Output Total 70623 ml Balance 640 ml 6483 ml Intake Oral 640 ml 8871 ml IV Total 16598 ml Output Urine Total 14830 ml Emesis 250 ml Estimated Blood Loss 20 ml # Voids 2 44 # Bowel Movements 23 Exam Constitutional: Alert and confused middle-aged male Head: Normocephalic atraumatic Chest: Clear to auscultation Cor: Regular rate and rhythm S1-S2 without murmur Abdomen: Soft nontender bowel sounds present Extremities: Lower legs and feet are bilaterally covered with dressings per podiatry Lab and Diagnostics Laboratory Tests 72 Hours Test 12/05/16 05:28 12/06/16 05:40 12/07/16 06:00 White Blood Count 18.4th/mm3 (3.8-10.1) 16.3th/mm3 (3.8-10.1) 12.2th/mm3 (3.8-10.1) Red Blood Count 5.06mil/mm3 (4.40-5.80) 4.18mil/mm3 (4.40-5.80) 4.43mil/mm3 (4.40-5.80) Hemoglobin 13.4g/dL (13.8-17.2) 11.3g/dL (13.8-17.2) 11.8g/dL (13.8-17.2) Hematocrit 42.3% (41.0-50.0) 35.0% (41.0-50.0) 37.2% (41.0-50.0) Mean Corpuscular Volume 83.6fL (81-100) 83.7fL (81-100) 84.0fL (81-100) Mean Corpuscular Hemoglobin 26.5pg (27.0-35.0) 27.0pg (27.0-35.0) 26.6pg (27.0-35.0) Mean Corpuscular Hemoglobin Concent 31.7% (32.0-37.0) 32.3% (32.0-37.0) 31.7% (32.0-37.0) Red Cell Distribution Width 15.9% (12.3-15.4) 15.8% (12.3-15.4) 16.1% (12.3-15.4) Platelet Count 490bil/L (150-400) 377bil/L (150-400) 362bil/L (150-400) Neutrophils (%) (Auto) 78.5% (40-74) 72.6% (40-74) 72.4% (40-74) Lymphocytes (%) (Auto) 13.1% (14-46) 18.8% (14-46) 19.7% (14-46) Monocytes (%) (Auto) 7.6% (4-12) 7.6% (4-12) 7.1% (4-12) Eosinophils (%) (Auto) 0.3% (0-5) 0.1% (0-5) 0.3% (0-5) Basophils (%) (Auto) 0.1% (0-3) 0.2% (0-3) 0.1% (0-3) Prothrombin Time 13.0sec (8.1-12.5) 13.3sec (8.1-12.5) 14.1sec (8.1-12.5) Prothromb Time International Ratio 1.21ratio 1.24ratio 1.31ratio Sodium Level 139mEq/L (134-144) 139mEq/L (134-144) Potassium Level 5.1mEq/L (3.5-5.2) 4.5mEq/L (3.5-5.2) Chloride Level 97mEq/L (97-108) 99mEq/L (97-108) Carbon Dioxide Level 27mmol/L (18-29) 25mmol/L (18-29) Blood Urea Nitrogen 48mg/dL (8-27) 58mg/dL (8-27) Creatinine 1.96mg/dL (0.76-1.27) 2.72mg/dL (0.76-1.27) Estimat Glomerular Filtration Rate 37mL/min (>59) 25mL/min (>59) Glucose Level 112mg/dL (60-99) 105mg/dL (60-99) Calcium Level 10.5mg/dL (8.5-10.1) 10.0mg/dL (8.5-10.1) Result Diagram: 12/07/16 0600 12/06/16 0540 Assessment & Plan 61-year-old male from [facility] p/w being obtunded, He gets 0.2 mg of Narcan promptly woke up and was extremely confused and complaining of pain in his ears, found to have pseudomonas UTI also, treated w/ ciprofloxacin. # Acute, activenew diarrhea, dark - Hemoccult positive Negative cdiff, on cipro for uti``` No further evidence of loose stool. # History of recent dehydration There does appear to be a trend of increasing BUN and creatinine over the past 2 days and today's labs are pending. We will go ahead and give him a bolus of IV 500 mils of normal saline and readdress after that goes in. # acute encephalopathy, resolved POA, suspected secondary to opioid given for leg pain, reported rapid improvement after Narcan. waxes and wanes per balance staff inspector - CT HEAD negative for acute findings. no MRI due to pacer - no reported seizure/focal neurologic deficit, improved with intermittent delirium. - per sister, baseline pt was AAOx3 # pseudomonas UTI. Leukocytosis, resolved 12/03/2016 --> now increased to 18, afebrile without active etiology of infection - Negative C. difficile, will repeat UA and order chest x-ray - indwelling [place] 11/27 UA positive - Cipro started 11/30 after initial Ceftriaxone, patient refused dose today December 05, will try to convince patient # Poorly controlled hypertension. resolved recurrent WISAM due to antiHTN, initial WISAM had resolved with hydration - resumed losartan, - started HCTZ12.5, changed to Maxzide, then stopped on12/03/2016 due to rising Cr,Cr still rising so will DC losartan today and monitor - hydralazine prn,norvasc 10 mg daily # severe PVD w/ hx of BLE ulcers s/p debridement, s/p grafts in , followed by plastic surgery at [place]. Last seen 11/16, recommended amputation. As per sister, pt refused it. Unclear interval progression since till this admission, - dressing per wound care service - pain control with tylenol, gabapentin - Discontinue dilaudid 0.5mg q4h prn, avoid given concern admission for opioid- induced encephalopathy - wound changes by podiatry only - Note from podiatry: Impression Stable status post bilateral lower extremity washout debridement with right lower extremity wound graft. Problems: Plan Patient appears to be stable at this time. Wet-to-dry sterile gauze dressing was applied and bilateral lower extremity these dressings are to remain clean dry and intact and to be changed by the wound care service or podiatry only. This patient is stable for discharge to outpatient care. He will necessitate wound care follow-up within 1 week of discharge. No antibiotics are necessary for treatment of his lower extremity ulcerations. Podiatry will continue to follow this patient while he is admitted every 48-72 hours for dressing changes. # a-fib on Coumadin - c/w Coumadin and metoprolol - f/u daily INR (currently sub-therapeutic) - started heparin SC (12/02/16) for DVT prophylaxis while INR subtherapeutic. Chronic, stable # microcytic/hypochromic anemia, unclear onset, likely ACD, h/h stable, - transfuse target >7, close obs for GIB given systemic AC hx of CAD, s/p PPM, not active, GERD continue PPI Dispo: several days pending insurance issues and other medical issues noted above VTE Prophylaxis: Sub-Q Heparin (Unfractionated) Resuscitation Status: CPR: Attempt Resuscitation Time spent 30 minutes Gail Mauricio MD Dec 07, 2016 07:26
--- NOTE | 2016-12-07 08:55 | PCM.CONPHA ---
Assessment/Plan Assessment/Plan Warfarin Management by Pharmacy: -Indication: afib -Home Dose: warfarin 4mg -Inr Goal: 2-3 -Plan: will continue with warfarin 4mg this evening. pt has been sporadic taking the medication but inr is slowly progressing and is 1.31 this morning. still receiving cipro that can increase inr Magui Franco [facility] Dec 07, 2016 08:55
[2016-12-07] MEDS: Heparin 5,000 Unit/mL Inj SUBQ SCH ×2 (10:27→21:06)
[2016-12-07] MEDS: Ascorbic Acid 500 mg Tablet PO SCH (10:29)
[2016-12-07] MEDS: 0.9% Sodium Chloride 1,000 ML IV SCH ×2 (13:24→21:07)
[2016-12-07 13:57] LABS: APPEARANCE,URINE HAZY (CLEAR,HAZY); COLOR,URINE STRAW (YELLOW)
[2016-12-07 13:58] LABS: OCCULT BLOOD,URINE MODERATE (NEGATIVE); UROBILINOGEN,URINE NORMAL (NORMAL)
--- NOTE | 2016-12-07 14:01 | NUR ---
NUTRITION FOLLOW UP: ASSESS: 61 YO male admitted with acute encephalopathy related to WISAM / dehydration. Pt. with severe PVD w/ hx of BLE ulcers. Pt underwent surgery (11/29) for debridement of wounds. Pt continues to have fluctuating mental status and pt PO intake continues to vary due to mentation. PMHx: Severe PVD, atrial fibrillation, CKD stage 3, HTN, CAD, hypothyroidism, GERD, HLD, cardiac pacemaker, atherosclerosis of left leg, anemia. DIET: General. PO 0-100% of meals with PO avg of 33% x 5 days. LABS: Reviewed. BUN 57, Cr 2.56, Alb 3.4. MEDICATIONS: Reviewed. GI: BM x 1 (12/06) SKIN INTEGRITY: Edward 14; unstageable pressure injury on right heel; chronic BLE ulcers ANTHROPOMETRICS: Current Wt: 51.7 kg. kg Admit wt: 69 kg. However, pt bed was zeroed and pt was weighed in a bed sling on 12/02 and wt was 54.3 kg so likely current wt is more accurate than admit wt. IBW: 64.55 kg. RE-ESTIMATED NEEDS BASED OF NEW WTS: (WOUNDS, BMI 18.4, STAGE III CKD): Calories: 1518-2055 kcal (30-40 kcal / kg BW of 54.3 kg.) Protein: 55-80 g (1.0-1.5 g/kg BW of 54.3 kg) NUTRITION DIAGNOSIS: 1) Increased nutrient needs related to increased demand for nutrients per disease process as evidenced by current skin issues. ---PERSISTS 2) Inadequate oral intake related in fluctuating mental status as evidence by variable PO intake of 0-100% (PO intake AVG 33% x 5 days) of meals and RN reporting that pt is falling asleep while eating--PERSISTS. INTERVENTION: 1) Will continue to send Ensure on all trays and Magic cup on L and D tray. MONITOR/EVALUATE: Diet karishma, PO intake, labs, GI/nutrition status. Follow per moderate nutrition risk guidelines.
--- NOTE | 2016-12-07 14:05 | NUR ---
Behavior Pt alert and oriented x3 with moments of confusion and stating things that have not happened; random; Correctly stated birthday, date, place. Pt pleasant this morning. Pt with hx of being difficult, uncooperative with care - ie refusing medications. Received order for NS bolus - pt without IV access. Pt took AM medications without issue - did not refuse any medication. Spoke with pt re: need to have IV access in place d/t dehydration. Pt spoke about being dehydrated when he first came in and was willing to have IV placed - pleasant and seemed unphased to have IV placed. Pt received 500ml NS bolus - received order for continuous IVF, pt agreeable. Liu mejia sleeve over top. Pt also took post meal Bacid without issue. This RN stated, "thank you sir," to which he replied, "thank you helen." No issues thus far - pt wanting to go home, stating wanting to work with PT. Awaiting PT this afternoon. Care continues.
[2016-12-07 15:08] VITALS: BP 113/73; PULSE 84; RESP 17; O2SAT 98
--- NOTE | 2016-12-07 18:40 | NUR ---
Social Work Continued Discharge Planning: DIONICIO spoke to [facility] rep Karina, who states that patient accepted with newly established insurance of [employer] . Patient current with [facility] until 02-17-19. Patient no longer active with [employer] insurance at this time. [facility] of rep Karina aware of potential discharge for tomorrow and auth pending. DIONICIO spoke to patient sister Michael, and updated her on discharge plan of care for preperation tomorrow for transfer pending auth. SW to follow. PLAN: Accepted back for return to [facility] of , pending insurance auth from [facility] (auth initiated and pending). DIONICIO to follow. Marina CHIANG
[2016-12-07 20:35] VITALS: BP 112/74; PULSE 90; RESP 18; O2SAT 100
[2016-12-08 05:10] VITALS: BP 120/77; PULSE 65; RESP 18; O2SAT 99
[2016-12-08] MEDS: 0.9% Sodium Chloride 1,000 ML IV SCH ×3 (05:25→20:45)
--- NOTE | 2016-12-08 05:42 | NUR ---
Pain/Mentation pt denies pain but keeps yelling out occasionally, swearing and rubbing his legs, Tylenol given x2, effective, pt calm afterwards. Pt is able to have conversation which is not always meaningful, but is mostly pleasant and cooperative.
[2016-12-08 07:19] LABS: BASOPHILS % (AUTO) 0.2 % (0-3); EOSINOPHILS % (AUTO) 0.6 % (0-5); MONOCYTES % (AUTO) 6.8 % (4-12); Mean Corpuscular Volume 85.7 fL (81-100); NEUTROPHILS % (AUTO) 67.8 % (40-74); Platelet Count 266 bil/L (150-400)
[2016-12-08 07:26] LABS: INR 1.41 ratio
[2016-12-08 08:00] VITALS: PULSE 70; RESP 16; O2SAT 98
--- NOTE | 2016-12-08 08:34 | PCM.PHAPRO ---
Progress Warfarin Management by Pharmacy: -Indication: afib -Home Dose: warfarin 4mg -Inr Goal: 2-3 -Coag Trends: Inr 12/05 1.21 warfarin 4mg ordered but pt refused Inr 12/06 1.24 warfarin 4mg Inr 12/07 1.31 warfarin 4mg Inr 12/08 1.41 -Plan: will continue with warfarin 4mg this evening. pt has been sporadic taking the medication, but is progressing H/H 09/19.8 and Platelets 266. still receiving cipro 500mg po bid Magui Franco [facility] Dec 08, 2016 08:34
--- NOTE | 2016-12-08 12:40 | NUR ---
Social Work Continued Discharge Planning: SW received a call from [facility] reporting that the patient's insurance denied SNF, but gave a number for the patient's physician to call and do a [id number]. SW notified patient's physician, Dr. Mauricio, of [facility] and provided her with the number to call [phone]. SW will continue to follow for discharge planning. Ana Rosa Cannon, RACQUEL, ACM
[2016-12-08] MEDS: Pantoprazole 40 mg ER24 Tablet PO SCH (13:32)
[2016-12-08] MEDS: Ascorbic Acid 500 mg Tablet PO SCH (13:32)
[2016-12-08] MEDS: Heparin 5,000 Unit/mL Inj SUBQ SCH ×2 (13:34→22:36)
--- NOTE | 2016-12-08 13:53 | PCM.PNMED ---
Subjective Date of Service Dec 08, 2016 Subjective Patient lying in bed and physical therapy here to get patient up the bedside. He has no complaints. Flat affect. Exam Vital Signs Vital Sign - Last Date Time Temp Pulse Resp B/P Pulse Ox O2 Delivery O2 Flow Rate FiO2 12/08/16 08:00 70 16 98 Room Air 12/08/16 05:10 36.6 120/77 Intake and Output 12/07/16 12/07/16 12/08/16 Cumulative From/Thru 14:59 22:59 06:59 11/23/16 12:19 - 12/08/16 05:30 Intake Total 1121 ml 1297 ml 1399 ml 01761 ml Output Total 200 ml 600 ml 45137 ml Balance 921 ml 697 ml 1399 ml 9500 ml Intake Oral 600 ml 736 ml 48099 ml IV Total 521 ml 561 ml 1399 ml 97089 ml Output Urine Total 200 ml 600 ml 74040 ml Emesis 250 ml Estimated Blood Loss 20 ml # Voids 2 46 # Bowel Movements 0 23 Exam Head: Normocephalic atraumatic Chest: Clear to auscultation Abdomen: Soft nontender bowel sounds present Extremities exam bilateral feet are wrapped secondary to ulcers no tib-fib edema noted Lab and Diagnostics Laboratory Tests 72 Hours Test 12/06/16 05:40 12/07/16 06:00 12/07/16 12:51 12/08/16 06:40 White Blood Count 16.3th/mm3 (3.8-10.1) 12.2th/mm3 (3.8-10.1) 9.4th/mm3 (3.8-10.1) Red Blood Count 4.18mil/mm3 (4.40-5.80) 4.43mil/mm3 (4.40-5.80) 3.71mil/mm3 (4.40-5.80) Hemoglobin 11.3g/dL (13.8-17.2) 11.8g/dL (13.8-17.2) 10.0g/dL (13.8-17.2) Hematocrit 35.0% (41.0-50.0) 37.2% (41.0-50.0) 31.8% (41.0-50.0) Mean Corpuscular Volume 83.7fL (81-100) 84.0fL (81-100) 85.7fL (81-100) Mean Corpuscular Hemoglobin 27.0pg (27.0-35.0) 26.6pg (27.0-35.0) 27.0pg (27.0-35.0) Mean Corpuscular Hemoglobin Concent 32.3% (32.0-37.0) 31.7% (32.0-37.0) 31.4% (32.0-37.0) Red Cell Distribution Width 15.8% (12.3-15.4) 16.1% (12.3-15.4) 15.9% (12.3-15.4) Platelet Count 377bil/L (150-400) 362bil/L (150-400) 266bil/L (150-400) Neutrophils (%) (Auto) 72.6% (40-74) 72.4% (40-74) 67.8% (40-74) Lymphocytes (%) (Auto) 18.8% (14-46) 19.7% (14-46) 24.3% (14-46) Monocytes (%) (Auto) 7.6% (4-12) 7.1% (4-12) 6.8% (4-12) Eosinophils (%) (Auto) 0.1% (0-5) 0.3% (0-5) 0.6% (0-5) Basophils (%) (Auto) 0.2% (0-3) 0.1% (0-3) 0.2% (0-3) Prothrombin Time 13.3sec (8.1-12.5) 14.1sec (8.1-12.5) 15.2sec (8.1-12.5) Prothromb Time International Ratio 1.24ratio 1.31ratio 1.41ratio Sodium Level 139mEq/L (134-144) 140mEq/L (134-144) 144mEq/L (134-144) Potassium Level 4.5mEq/L (3.5-5.2) 4.4mEq/L (3.5-5.2) 3.7mEq/L (3.5-5.2) Chloride Level 99mEq/L (97-108) 99mEq/L (97-108) 110mEq/L (97-108) Carbon Dioxide Level 25mmol/L (18-29) 26mmol/L (18-29) 22mmol/L (18-29) Blood Urea Nitrogen 58mg/dL (8-27) 57mg/dL (8-27) 45mg/dL (8-27) Creatinine 2.72mg/dL (0.76-1.27) 2.56mg/dL (0.76-1.27) 1.99mg/dL (0.76-1.27) Estimat Glomerular Filtration Rate 25mL/min (>59) 27mL/min (>59) 36mL/min (>59) Glucose Level 105mg/dL (60-99) 95mg/dL (60-99) 91mg/dL (60-99) Calcium Level 10.0mg/dL (8.5-10.1) 9.6mg/dL (8.5-10.1) 8.6mg/dL (8.5-10.1) Total Bilirubin 0.6mg/dL (0.0-1.2) 0.4mg/dL (0.0-1.2) Aspartate Amino Transf (AST/SGOT) 22U/L (0-50) 16U/L (0-50) Alanine Aminotransferase (ALT/SGPT) 18U/L (0-44) 14U/L (0-44) Alkaline Phosphatase 93U/L (25-160) 70U/L (25-160) Total Protein 6.5g/dL (6.4-8.4) 5.0g/dL (6.4-8.4) Albumin 3.4g/dL (3.4-5.0) 2.9g/dL (3.4-5.0) Urine Color Straw (YELLOW) Urine Appearance Hazy (CLEAR,HAZY) Urine pH 6.0 (5.0-8.0) Urine Specific [place] 1.015 (1.003-1.035) Urine Protein 100mg/dL (NEG,TRACE) Urine Glucose (UA) Negativemg/dL (NEGATIVE) Urine Ketones Negativemg/dL (NEGATIVE) Urine Occult Blood Moderate (NEGATIVE) Urine Nitrite Negative (NEGATIVE) Urine Bilirubin Negative (NEGATIVE) Urine Urobilinogen Normalmg/dL (NORMAL) Urine Leukocyte Esterase Negative (NEGATIVE) Urine RBC 11-50/hpf (0-2) Urine WBC 11-50/hpf (0-5) Urine Epithelial Cells Occasional/hpf (NONE-MOD) Urine Crystals Oxalic acid crystals (NONE Urine Bacteria Few/hpf (NONE-FEW) Urine Hyaline Casts None/lpf (NONE) Urine Granular Casts None seen (NONE SEEN) Urine Waxy Casts None seen (NONE SEEN) Urine Red Blood Cell Casts None seen (NONE SEEN) Urine White Blood Cell Casts None seen (NONE SEEN) Urine Mucus Present (None Seen) Urine Trichomonas None seen (NONE SEEN) Urine Yeast None (NONE SEEN) Urinalysis Comment None Urine Culture Reflexed Indicated Result Diagram: 12/08/1663912/08/16639 Assessment & Plan 61-year-old male from [facility] p/w being obtunded, He gets 0.2 mg of Narcan promptly woke up and was extremely confused and complaining of pain in his ears, found to have pseudomonas UTI also, treated w/ ciprofloxacin. # Acute, activenew diarrhea, dark - Hemoccult positive Negative cdiff, on cipro for uti``` No further evidence of loose stool. # History of recent dehydration There does appear to be a trend of increasing BUN and creatinine over the past 2 days and today's labs are pending. We will go ahead and give him a bolus of IV 500 mils of normal saline and readdress after that goes in. # acute encephalopathy, resolved POA, suspected secondary to opioid given for leg pain, reported rapid improvement after Narcan. waxes and wanes per event staff member - CT HEAD negative for acute findings. no MRI due to pacer - no reported seizure/focal neurologic deficit, improved with intermittent delirium. - per sister, baseline pt was AAOx3 # pseudomonas UTI. Leukocytosis, resolved 12/03/2016 --> now increased to 18, afebrile without active etiology of infection - Negative C. difficile, will repeat UA and order chest x-ray - indwelling [place] 11/27 UA positive - Cipro started 11/30 after initial Ceftriaxone, patient refused dose today December 05, will try to convince patient # Poorly controlled hypertension. resolved recurrent WISAM due to antiHTN, initial WISAM had resolved with hydration - resumed losartan, - started HCTZ12.5, changed to Maxzide, then stopped on12/03/2016 due to rising Cr,Cr still rising so will DC losartan today and monitor - hydralazine prn,norvasc 10 mg daily # severe PVD w/ hx of BLE ulcers s/p debridement, s/p grafts in , followed by plastic surgery at [place]. Last seen 11/16, recommended amputation. As per sister, pt refused it. Unclear interval progression since till this admission, - dressing per wound care service - pain control with tylenol, gabapentin - Discontinue dilaudid 0.5mg q4h prn, avoid given concern admission for opioid- induced encephalopathy - wound changes by podiatry only - Note from podiatry: Impression Stable status post bilateral lower extremity washout debridement with right lower extremity wound graft. Problems: Plan Patient appears to be stable at this time. Wet-to-dry sterile gauze dressing was applied and bilateral lower extremity these dressings are to remain clean dry and intact and to be changed by the wound care service or podiatry only. This patient is stable for discharge to outpatient care. He will necessitate wound care follow-up within 1 week of discharge. No antibiotics are necessary for treatment of his lower extremity ulcerations. Podiatry will continue to follow this patient while he is admitted every 48-72 hours for dressing changes. # a-fib on Coumadin - c/w Coumadin and metoprolol - f/u daily INR (currently sub-therapeutic) - started heparin SC (12/02/16) for DVT prophylaxis while INR subtherapeutic. # Placement Put a phone call to [facility] Appe[facility] and left message for them to call me back regarding this as their way times were too long per their was message Chronic, stable # microcytic/hypochromic anemia, unclear onset, likely ACD, h/h stable, - transfuse target >7, close obs for GIB given systemic AC hx of CAD, s/p PPM, not active, GERD continue PPI Dispo: several days pending insurance issues and other medical issues noted above VTE Prophylaxis: Sub-Q Heparin (Unfractionated) Resuscitation Status: CPR: Attempt Resuscitation Time spent 30 minutes Gail Mauricio MD Dec 08, 2016 13:53
[2016-12-08 14:02] VITALS: BP 177/91; PULSE 83; RESP 18; O2SAT 93
--- NOTE | 2016-12-08 19:13 | NUR ---
late meds Reported that pt up all night until supervisor laundry, sleeping soundly, difficult to arouse; let pt sleep. Pt finally awake, visiting with friends at 1300, AM meds given at that time. Pt alert and answering most questions appropriately, but continues to state things that have not happened/are not true. Has been pleasant this shift, accepted his medications. Care continues.
[2016-12-08 19:31] VITALS: BP 147/80; PULSE 67; RESP 18; O2SAT 99
[2016-12-09] MEDS: Pantoprazole 40 mg ER24 Tablet PO SCH (06:30)
--- NOTE | 2016-12-09 06:36 | NUR ---
behavior pt took his night meds and allowed nurse to give him his heparin shot without issue. however as the night went on pt became more difficult. he refused brief changes even when soaking wet and struck out at staff when they attempt to change him. he cried out in pain and said he wanted tylenol but when the nurse brought him tylenol he said "I know you didn't crush it up enough, those peices are how they try and kill you" and he would not take the medication even though nurse assured him she had crushed the pills completely. whenever nurse checked on pt he would only answer her questions with "go away" "the savanah going to kill you better go away". he allowed minimal assessments but appears to be resting in bed in no apparent distress. VSS. care continues.
[2016-12-09 06:37] LABS: BASOPHILS % (AUTO) 0.2 % (0-3); MONOCYTES % (AUTO) 6.9 % (4-12); Mean Corpuscular Hemoglobin 26.7 pg (27.0-35.0); Mean Corpuscular Volume 85.9 fL (81-100); NEUTROPHILS % (AUTO) 61.1 % (40-74); Platelet Count 261 bil/L (150-400)
[2016-12-09 06:45] LABS: INR 1.57 ratio
[2016-12-09] MEDS: 0.9% Sodium Chloride 1,000 ML IV SCH ×2 (08:50→20:18)
[2016-12-09 09:45] VITALS: BP 154/71; PULSE 77; RESP 20; O2SAT 97
--- NOTE | 2016-12-09 11:35 | NUR ---
Spoke with Karina international marketing coordinator at [facility] and she did receive denial from [employer]. There is an opportunity for Peer to Peer by this can be done at [phone]. Updated [employer] and [employer] supervisor [employer]
--- NOTE | 2016-12-09 13:18 | PCM.PNMED ---
Subjective Date of Service Dec 09, 2016 Subjective He denies any chest pain or bowel pain nausea vomiting or diarrhea. He continues to be confused. He is not hallucinating. He cannot say what year it is, or where he is, R1 per day he has. He denies headache. Exam Vital Signs Vital Sign - Last Date Time Temp Pulse Resp B/P Pulse Ox O2 Delivery O2 Flow Rate FiO2 12/09/16 09:45 36.6 77 20 154/71 97 Room Air Intake and Output 12/08/16 12/08/16 12/09/16 Cumulative From/Thru 15:00 23:00 07:00 11/23/16 12:19 - 12/09/16 06:49 Intake Total 100 ml 2819 ml 200 ml 28819 ml Output Total 450 ml 57818 ml Balance -350 ml 2819 ml 200 ml 28218 ml Intake Oral 100 ml 1300 ml 200 ml 85157 ml IV Total 1519 ml 92674 ml Output Urine Total 450 ml 57460 ml Emesis 250 ml Estimated Blood Loss 20 ml # Voids 1 3 3 53 # Bowel Movements 2 2 27 Exam Alert, oriented 1. No acute distress. Fluent speech. Anicteric sclera Neck supple. Lungs are clear with normal effort. Heart is regular without murmur gallop or rub. Abdomen is soft nondistended Extremities are free of edema good pedal pulses. Both eyes have areas of erythema and rectangular area. She moves arms and legs spontaneously. No facial droop. IVs and Medications Medications Reviewed: Medications were reviewed in detail Lab and Diagnostics Result Diagram: 12/09/16 0512/09/16 0520 Assessment & Plan 61-year-old male from [facility] p/w being obtunded, He gets 0.2 mg of Narcan promptly woke up and was extremely confused and complaining of pain in his ears, found to have pseudomonas UTI also, treated w/ ciprofloxacin. 1. acute septic encephalopathy, POA, suspected secondary to opioid given for leg pain, reported rapid improvement after Narcan. waxes and wanes per staffing program manager. The patient continues to still have profound encephalopathy. - CT HEAD negative for acute findings. no MRI due to pacer - no reported seizure/focal neurologic deficit, improved with intermittent delirium. - per sister, baseline pt was AAOx3 2. pseudomonas UTI. Leukocytosis, resolved 12/03/2016 --> now increased to 18, afebrile without active etiology of infection - Negative C. difficile, will repeat UA and order chest x-ray - indwelling [place] 11/27 UA positive - Cipro started 11/30 after initial Ceftriaxone, patient refused dose today December 05, will try to convince patient. Continue to administer Cipro. 3. Poorly controlled hypertension. resolved recurrent WISAM due to antiHTN, initial WISAM had resolved with hydration - resumed losartan, - started HCTZ12.5, changed to Maxzide, then stopped on12/03/2016 due to rising Cr,Cr still rising so will DC losartan today and monitor - hydralazine prn,norvasc 10 mg daily 4. severe PVD w/ hx of BLE ulcers s/p debridement, s/p grafts in , followed by plastic surgery at [place]. Last seen 11/16, recommended amputation. As per sister, pt refused it. Unclear interval progression since till this admission, - dressing per wound care service - pain control with tylenol, gabapentin - Discontinue dilaudid 0.5mg q4h prn, avoid given concern admission for opioid- induced encephalopathy - wound changes by podiatry only - Note from podiatry: Impression Stable status post bilateral lower extremity washout debridement with right lower extremity wound graft. Problems: Plan Patient appears to be stable at this time. Wet-to-dry sterile gauze dressing was applied and bilateral lower extremity these dressings are to remain clean dry and intact and to be changed by the wound care service or podiatry only. This patient is stable for discharge to outpatient care. He will necessitate wound care follow-up within 1 week of discharge. No antibiotics are necessary for treatment of his lower extremity ulcerations. Podiatry will continue to follow this patient while he is admitted every 48-72 hours for dressing changes. # a-fib on Coumadin - c/w Coumadin and metoprolol - f/u daily INR (currently sub-therapeutic) - started heparin SC (12/02/16) for DVT prophylaxis while INR subtherapeutic. # Placement Put a phone call to [facility] and left message for them to call me back regarding this as their way times were too long per their was message Chronic, stable # microcytic/hypochromic anemia, unclear onset, likely ACD, h/h stable, - transfuse target >7, close obs for GIB given systemic AC hx of CAD, s/p PPM, not active, GERD continue PPI Dispo: several days pending insurance issues and other medical issues noted above Pain Evaluation: Adequate Pain Control VTE Prophylaxis: Sub-Q Heparin (Unfractionated) Resuscitation Status: CPR: Attempt Resuscitation Time spent 25 minutes Yg Burgess MD Dec 09, 2016 13:18
[2016-12-09 14:10] VITALS: BP 149/81; PULSE 83; RESP 22; O2SAT 100
[2016-12-09] MEDS: Ascorbic Acid 500 mg Tablet PO SCH (14:32)
[2016-12-09] MEDS: Heparin 5,000 Unit/mL Inj SUBQ SCH ×2 (14:33→21:20)
--- NOTE | 2016-12-09 20:03 | NUR ---
Meds/Behavior Pt Alert and oriented while also continuing to be in his own world. Answering questions correctly and then asking and stating things that are not true/have not happened. Pt alert and this RN believes he does know what he is saying, was joking and being sarcastic with staff. Pt did refuse his AM medications and stated he wanted to wait but did let this RN hang a new IVF NS bag. In afternoon, pt accepting of AM meds and also stated wanting pain medication when offered to him. Meds crushed and mixed with pudding. Pt reached out and grabbed for med cup - took medication by himself with supervision, no issue. care continues.
[2016-12-09 21:41] VITALS: BP 155/69; PULSE 68; RESP 20; O2SAT 100
--- NOTE | 2016-12-10 02:31 | NUR ---
Behavior/Incontinence Patient pleasant and mostly cooperative this shift. Accepted HS medications and took most of them, except for the last bite of meds/ left. Brief in place for B/B incontinence. Patient noted to have urinated on the floor stating, "There was no urinal and I had to go. I tried to miss the bed and get the floor to make less of a mess." Urinal at bedside and patient educated on use. [place] alarm in place for safety.
[2016-12-10 06:07] VITALS: BP 164/75; PULSE 72; RESP 20; O2SAT 97
[2016-12-10 06:48] LABS: BASOPHILS % (AUTO) 0.2 % (0-3); EOSINOPHILS % (AUTO) 0.9 % (0-5); MONOCYTES % (AUTO) 6.1 % (4-12); Mean Corpuscular Hemoglobin 26.6 pg (27.0-35.0); Mean Corpuscular Volume 85.2 fL (81-100); NEUTROPHILS % (AUTO) 65.1 % (40-74); Platelet Count 268 bil/L (150-400)
[2016-12-10 07:00] LABS: INR 1.43 ratio
--- NOTE | 2016-12-10 08:19 | NUR ---
pt states that his lower partials seem to be missing. I checked everywhere as well as all the carts on the floor and called the kitchen. Addendum: 12/10/16 at 0820 by JATIN JARAMILLO CNA Amended: Links added.
[2016-12-10 08:41] VITALS: PULSE 75; RESP 16; O2SAT 98
[2016-12-10] MEDS: Ascorbic Acid 500 mg Tablet PO SCH (11:40)
[2016-12-10] MEDS: Pantoprazole 40 mg ER24 Tablet PO SCH (11:40)
[2016-12-10] MEDS: Heparin 5,000 Unit/mL Inj SUBQ SCH ×2 (11:54→22:46)
[2016-12-10 12:10] VITALS: BP 127/74; PULSE 74
--- NOTE | 2016-12-10 12:27 | PCM.PNPOD ---
Subjective Date of Service: Dec 10, 2016 Date of Service: Dec 10, 2016 Visit Information: Reason for Visit Altered Mental Status,Severe Dehydration Surgery/Surgery Date Post-Op Day # Date of Admission: Nov 23, 2016 at 14:10 Hospital Day # Subjective: 61 year old male evaluated resting comfortably in bed in [facility]. bilateral leg dressings are clean and dry with no noted strikethrough. Postop General: No Complaints Objective Vital Sign - Last Date Time Temp Pulse Resp B/P Pulse Ox O2 Delivery O2 Flow Rate FiO2 12/10/16 12:10 74 127/74 12/10/16 08:41 16 98 Room Air 12/10/16 06:07 36.4 Intake and Output 12/09/16 12/09/16 12/10/16 Cumulative From/Thru 15:00 23:00 07:00 11/23/16 12:19 - 12/10/16 07:00 Intake Total 1413 ml 1850 ml 1162 ml 03747 ml Output Total 805 ml 33405 ml Balance 1413 ml 1850 ml 357 ml 41505 ml Intake Oral 874 ml 756 ml 23878 ml IV Total 1413 ml 976 ml 406 ml 36872 ml Output Urine Total 805 ml 98521 ml Emesis 250 ml Estimated Blood Loss 20 ml # Voids 2 6 61 # Bowel Movements 2 5 34 Result Diagram: 12/10/16 0558 12/10/16 0558 Lab Test 11/23/16 12:44 11/23/16 12:50 11/23/16 13:26 11/24/16 06:55 Activated Partial Thromboplast Time 32.0sec (22.8-33.0) Ammonia 19ug/dL (18-53) Troponin T 0.025ug/L (0.0-0.011) Alcohol, Quantitative < 10mg/dL (0-10) Lactic Acid Level 0.9mmol/L (0.4-2.0) Urine Opiates Screen Positive Urine Methadone Screen Negative Urine Barbiturates Screen Negative Urine Amphetamines Screen Negative Urine Benzodiazepines Screen Negative Urine Cocaine Metabolite Screen Negative Urine Cannabinoids Screen Negative Reticulocyte Count,Calculated 1.0% (0.6-2.6) Iron Level 30ug/dL (.) Total Iron Binding Capacity 162ug/dL (250-450) Percent Iron Saturation 19%sat (15-50) Unsaturated Iron Binding 132.1ug/dL Transferrin 122mg/dL (.) Transferrin % Saturation 18 (.) Ferritin 475ng/mL (30-400) Thyroid Stimulating Hormone (TSH) 1.190uIU/mL (0.450-4.500) Free Thyroxine 1.38ng/dL (0.82-1.77) Test 11/26/16 06:11 11/27/16 06:33 12/02/16 05:45 12/03/16 06:29 Prealbumin 13mg/dL (20-40) Phosphorus Level 2.7mg/dL (2.5-4.9) Magnesium Level 2.0mg/dL (1.6-2.6) Procalcitonin 0.11ng/mL (See Comment) Test 12/07/16 12:51 12/10/16 05:58 Urine Color Straw (YELLOW) Urine Appearance Hazy (CLEAR,HAZY) Urine pH 6.0 (5.0-8.0) Urine Specific [place] 1.015 (1.003-1.035) Urine Protein 100mg/dL (NEG,TRACE) Urine Glucose (UA) Negativemg/dL (NEGATIVE) Urine Ketones Negativemg/dL (NEGATIVE) Urine Occult Blood Moderate (NEGATIVE) Urine Nitrite Negative (NEGATIVE) Urine Bilirubin Negative (NEGATIVE) Urine Urobilinogen Normalmg/dL (NORMAL) Urine Leukocyte Esterase Negative (NEGATIVE) Urine RBC 11-50/hpf (0-2) Urine WBC 11-50/hpf (0-5) Urine Epithelial Cells Occasional/hpf (NONE-MOD) Urine Crystals Oxalic acid crystals (NONE Urine Bacteria Few/hpf (NONE-FEW) Urine Hyaline Casts None/lpf (NONE) Urine Granular Casts None seen (NONE SEEN) Urine Waxy Casts None seen (NONE SEEN) Urine Red Blood Cell Casts None seen (NONE SEEN) Urine White Blood Cell Casts None seen (NONE SEEN) Urine Mucus Present (None Seen) Urine Trichomonas None seen (NONE SEEN) Urine Yeast None (NONE SEEN) Urinalysis Comment None Urine Culture Reflexed Indicated White Blood Count 8.5th/mm3 (3.8-10.1) Red Blood Count 3.72mil/mm3 (4.40-5.80) Hemoglobin 9.9g/dL (13.8-17.2) Hematocrit 31.7% (41.0-50.0) Mean Corpuscular Volume 85.2fL (81-100) Mean Corpuscular Hemoglobin 26.6pg (27.0-35.0) Mean Corpuscular Hemoglobin Concent 31.2% (32.0-37.0) Red Cell Distribution Width 15.9% (12.3-15.4) Platelet Count 268bil/L (150-400) Neutrophils (%) (Auto) 65.1% (40-74) Lymphocytes (%) (Auto) 27.5% (14-46) Monocytes (%) (Auto) 6.1% (4-12) Eosinophils (%) (Auto) 0.9% (0-5) Basophils (%) (Auto) 0.2% (0-3) Prothrombin Time 15.4sec (8.1-12.5) Prothromb Time International Ratio 1.43ratio Sodium Level 140mEq/L (134-144) Potassium Level 4.1mEq/L (3.5-5.2) Chloride Level 106mEq/L (97-108) Carbon Dioxide Level 23mmol/L (18-29) Blood Urea Nitrogen 25mg/dL (8-27) Creatinine 1.40mg/dL (0.76-1.27) Estimat Glomerular Filtration Rate 55mL/min (>59) Glucose Level 88mg/dL (60-99) Calcium Level 8.6mg/dL (8.5-10.1) Total Bilirubin 0.4mg/dL (0.0-1.2) Aspartate Amino Transf (AST/SGOT) 16U/L (0-50) Alanine Aminotransferase (ALT/SGPT) 16U/L (0-44) Alkaline Phosphatase 66U/L (25-160) Total Protein 5.0g/dL (6.4-8.4) Albumin 2.8g/dL (3.4-5.0) Exam General: Alert, Oriented X3, Cooperative, No Acute Distress Lungs: Clear to Auscultation, Normal Air Movement Lower Extremities: Bilateral: Extremity warm Lower Extremity Pulses: Palpable: Left Dorsalis Pedis Left Posterior Tibal Right Dorsalis Pedis Right Posterior Tibal Podiatry WOUND : Wound Location/Description right proximal leg ulceration full thickness to tendon with exposed TA tendon. surrounding wound is 100% granular no mal odor no signs of infection, minimal sanguinous drainage. anterior right ankle ulceration with exposed TA tendon surrounding tissue is 100 % granular. no mal odor no signs of infection. TA tendon shows areas of superficial necrosis. minimal active rom of the right ankle. left anterior nunn ulceration with minimal exposed bone. surrounding wound is 100% granular. no mal odor. no signs of infection. Surgical Cast or Splint: None Assessment & Plan Impression stable bilateral lower extremity wounds without signs of infection. Problems: Plan Patient is doing well today. His wounds appear to be improving nicely. He will require additional debridement next week with possible resection of the TA tendon as it appears to be necrosing further. This patient has very little active motion of his right ankle. Resection of his TA tendon will lead to a drop foot however he will easily be managed with bracing and resection of the tendon will likely lead to wound healing. A moist to dry dressing was applied today. next dressing change in 5-7 days. patient is stable for transition to outpatient care from podiatry standpoint. VTE Prophylaxis: Sub-Q Heparin (Unfractionated) Rosas Crisostomo DPM Dec 10, 2016 12:27
[2016-12-10 14:52] VITALS: BP 132/77; PULSE 68; RESP 18; O2SAT 100
--- NOTE | 2016-12-10 16:02 | PCM.PNMED ---
Subjective Date of Service Dec 10, 2016 Subjective Patient stated "I do not believe your doctor" "You are here to amputate my legs" alert, not hallucinating, orientedx3 As per sister on the phone, patient does have underlying cognitive dysfunction, which has been wax and wane during hospitalization Informed with sister about current plan Exam Vital Signs Vital Sign - Last Date Time Temp Pulse Resp B/P Pulse Ox O2 Delivery O2 Flow Rate FiO2 12/10/16 14:52 36.2 68 18 132/77 100 Room Air Intake and Output 12/09/16 12/09/16 12/10/16 Cumulative From/Thru 15:00 23:00 07:00 11/23/16 12:19 - 12/10/16 07:00 Intake Total 1413 ml 1850 ml 1162 ml 27798 ml Output Total 805 ml 06195 ml Balance 1413 ml 1850 ml 357 ml 18760 ml Intake Oral 874 ml 756 ml 80729 ml IV Total 1413 ml 976 ml 406 ml 22252 ml Output Urine Total 805 ml 36003 ml Emesis 250 ml Estimated Blood Loss 20 ml # Voids 2 6 61 # Bowel Movements 2 5 34 Exam NAD, comfortably laying down on the bed no JVD, MMM, no LAD RRR, nl s1, s2 no mrg CTAB, no w,c S,ND,NT,normoactive BS+ Bilateral lower extremities, sterilely dressed IVs and Medications Medications Reviewed: Medications were reviewed in detail Lab and Diagnostics Result Diagram: 12/10/16 0558 12/10/16 0558 Assessment & Plan 61-year-old male from [facility] p/w being obtunded, He gets 0.2 mg of Narcan promptly woke up and was extremely confused and complaining of pain in his ears, found to have pseudomonas UTI also, treated w/ ciprofloxacin. Today, pt clinically remained stable, plan is to finish abx for 3more days 14days course for pseudomonas UTI, optimizing dispo: back to SNF 1. acute septic encephalopathy, POA, suspected secondary to opioid given for leg pain, reported rapid improvement after Narcan. waxes and wanes per staff psychologist. The patient continues to still have profound encephalopathy. - CT HEAD negative for acute findings. no MRI due to pacer - no reported seizure/focal neurologic deficit, improved with intermittent delirium. - per sister, baseline pt was AAOx3 2. pseudomonas UTI. Leukocytosis, resolved 12/03/2016 --> now increased to 18, afebrile without active etiology of infection - Negative C. difficile, will repeat UA and order chest x-ray - indwelling [place] 11/27 UA positive - Cipro started 11/30 after initial Ceftriaxone, patient refused dose today December 05, will try to convince patient. Continue to administer Cipro. 3. Poorly controlled hypertension. resolved recurrent WISAM due to antiHTN, initial WISAM had resolved with hydration - resumed losartan, - started HCTZ12.5, changed to Maxzide, then stopped on12/03/2016 due to rising Cr,Cr still rising so will DC losartan today and monitor - hydralazine prn,norvasc 10 mg daily 4. severe PVD w/ hx of BLE ulcers s/p debridement, s/p grafts in , followed by plastic surgery at [place]. Last seen 11/16, recommended amputation. As per sister, pt refused it. Unclear interval progression since till this admission, - dressing per wound care service - pain control with tylenol, gabapentin - Discontinue dilaudid 0.5mg q4h prn, avoid given concern admission for opioid- induced encephalopathy - wound changes by podiatry only - Note from podiatry: Impression Stable status post bilateral lower extremity washout debridement with right lower extremity wound graft. Problems: Plan Patient appears to be stable at this time. Wet-to-dry sterile gauze dressing was applied and bilateral lower extremity these dressings are to remain clean dry and intact and to be changed by the wound care service or podiatry only. This patient is stable for discharge to outpatient care. He will necessitate wound care follow-up within 1 week of discharge. No antibiotics are necessary for treatment of his lower extremity ulcerations. Podiatry will continue to follow this patient while he is admitted every 48-72 hours for dressing changes. # a-fib on Coumadin - c/w Coumadin and metoprolol - f/u daily INR (currently sub-therapeutic) - started heparin SC (12/02/16) for DVT prophylaxis while INR subtherapeutic. # Placement Put a phone call to [facility] Appe[facility] and left message for them to call me back regarding this as their way times were too long per their was message Chronic, stable # microcytic/hypochromic anemia, unclear onset, likely ACD, h/h stable, - transfuse target >7, close obs for GIB given systemic AC hx of CAD, s/p PPM, not active, GERD continue PPI Dispo: medicably stable, Likely until Monday given as pt rejected for SNF, will contact [phone] for insurance peer to peer review VTE Prophylaxis: Sub-Q Heparin (Unfractionated) Resuscitation Status: CPR: Attempt Resuscitation Time spent 35 minutes Abelardo Cook MD Dec 10, 2016 16:02
[2016-12-10] MEDS: 0.9% Sodium Chloride 1,000 ML IV SCH (17:36)
--- NOTE | 2016-12-10 17:58 | NUR ---
Activity Pt still having confusion and is alert to self and place only. Asked multiple times for things for "Fracisco, she's had 50 surgeries." Pt agreeable to care today and took all medications crushed in applesauce. Lower partial dentures missing. Pt used urinal and bedpan during shift without incidence. No c/o pain other than when checking feet during assessments. [place] in place.
[2016-12-10 22:14] VITALS: BP 140/83; PULSE 72; RESP 20; O2SAT 100
[2016-12-11] MEDS: Pantoprazole 40 mg ER24 Tablet PO SCH (04:57)
[2016-12-11 05:57] VITALS: BP 136/88; PULSE 63; RESP 21; O2SAT 99
[2016-12-11 06:31] LABS: BASOPHILS % (AUTO) 0.4 % (0-3); EOSINOPHILS % (AUTO) 1.1 % (0-5); MONOCYTES % (AUTO) 8.3 % (4-12); Mean Corpuscular Hemoglobin 26.8 pg (27.0-35.0); Mean Corpuscular Volume 84.6 fL (81-100); NEUTROPHILS % (AUTO) 54.5 % (40-74); Platelet Count 235 bil/L (150-400)
[2016-12-11 06:42] LABS: INR 1.33 ratio
--- NOTE | 2016-12-11 06:44 | NUR ---
Mentation Pt alert and oriented, answering questions correctly but then stating nonsense. Occasionally stating the wrong year and talking about historical people as though they are friends of his. Pt took medications without issue, even stated, "You don't have to smash them, I can just swallow them with water...It's only one pill, right?" I replied that it was more than just pain medication that I was giving him and counted out ~11 pills, to which pt stated, 'just smash them.' In AM, pt did swallow his extended release medication whole with water and the rest he took crushed to make it easier than taking multiple pills. Pt continues to have diarrhea but has been calling and requesting bedpan; also using urinal at bedside; one or two episodes of incontinence. Brief remains in place. With medication admin at ~0500, this RN requested pt . Pt answered correctly and then stated, "We're at [facility]. Nigel Burroughs is president." When prompted on the year, month and day, pt thought about it and replied, "November, ...and it's the , and that's! not on the board." The white board had not yet been updated. No issues with behavior this shift, pleasant and cooperative with care. Care continues.
[2016-12-11 06:50] LABS: Magnesium 1.6 mg/dL (1.6-2.6); Phosphorus 2.5 mg/dL (2.5-4.9)
--- NOTE | 2016-12-11 10:21 | NUR ---
patient refusing care reattempting frequently. Addendum: 12/11/16 at 1021 by SHELDON OWENS CNA Amended: Links added.
--- NOTE | 2016-12-11 11:07 | PCM.PNMED ---
Subjective Date of Service Dec 11, 2016 Subjective Patient is alert and oriented Stated that "You again, there is a girl who likes you Song", teasing and verbally abusive towards me, which seemed unchanged from yesterday Exam Vital Signs Vital Sign - Last Date Time Temp Pulse Resp B/P Pulse Ox O2 Delivery O2 Flow Rate FiO2 12/11/16 05:57 36.7 63 21 136/88 99 Room Air Intake and Output 12/10/16 12/10/16 12/11/16 Cumulative From/Thru 15:00 23:00 07:00 11/23/16 12:19 - 12/11/16 07:00 Intake Total 1322 ml 994 ml 43878 ml Output Total 650 ml 950 ml 20869 ml Balance 672 ml 44 ml 13545 ml Intake Oral 720 ml 400 ml 90836 ml IV Total 602 ml 594 ml 28980 ml Output Urine Total 650 ml 950 ml 41962 ml Emesis 250 ml Estimated Blood Loss 20 ml # Voids 4 65 # Bowel Movements 3 5 42 Exam NAD, comfortably laying down on the bed no JVD, MMM, no LAD RRR, nl s1, s2 no mrg CTAB, no w,c S,ND,NT,normoactive BS+ Bilateral lower extremities, sterilely dressed IVs and Medications Medications Reviewed: Medications were reviewed in detail Lab and Diagnostics Result Diagram: 12/11/1661712/11/16617 Assessment & Plan 61-year-old male from [facility] p/w being obtunded, He gets 0.2 mg of Narcan promptly woke up and was extremely confused and complaining of pain in his ears, found to have pseudomonas UTI also, treated w/ ciprofloxacin. Today, pt clinically remained stable, plan is to finish abx for 2more days 14days course for pseudomonas UTI, optimizing dispo 1. acute septic encephalopathy, POA, suspected secondary to opioid given for leg pain, reported rapid improvement after Narcan. waxes and wanes per hotel staff member. The patient continues to still have profound encephalopathy. - CT HEAD negative for acute findings. no MRI due to pacer - no reported seizure/focal neurologic deficit, improved with intermittent delirium. - per sister, baseline pt was AAOx3 2. pseudomonas UTI. Leukocytosis, resolved 12/03/2016 --> now increased to 18, afebrile without active etiology of infection - Negative C. difficile, will repeat UA and order chest x-ray - indwelling [place] 11/27 UA positive - Cipro started 11/30 after initial Ceftriaxone, patient refused dose today December 05, will try to convince patient. Continue to administer Cipro. 3. Poorly controlled hypertension. resolved recurrent WISAM due to antiHTN, initial WISAM had resolved with hydration - resumed losartan, - started HCTZ12.5, changed to Maxzide, then stopped on12/03/2016 due to rising Cr,Cr still rising so will DC losartan today and monitor - hydralazine prn,norvasc 10 mg daily 4. severe PVD w/ hx of BLE ulcers s/p debridement, s/p grafts in , followed by plastic surgery at [place]. Last seen 11/16, recommended amputation. As per sister, pt refused it. Unclear interval progression since till this admission, - dressing per wound care service - pain control with tylenol, gabapentin - Discontinue dilaudid 0.5mg q4h prn, avoid given concern admission for opioid- induced encephalopathy - wound changes by podiatry only - as per Podiatry, stable for OP follow up # a-fib on Coumadin - c/w Coumadin and metoprolol - f/u daily INR (currently sub-therapeutic) - started heparin SC (12/02/16) for DVT prophylaxis while INR subtherapeutic. # Placement Put a phone call to [facility] and left message for them to call me back regarding this as their way times were too long per their was message Chronic, stable # microcytic/hypochromic anemia, unclear onset, likely ACD, h/h stable, - transfuse target >7, close obs for GIB given systemic AC hx of CAD, s/p PPM, not active, GERD continue PPI Dispo: medicably stable,pt was rejected for custodial SNF by insurance, custodial seems like best option for patient at this point, appreciate SW input. VTE Prophylaxis: Sub-Q Heparin (Unfractionated) Resuscitation Status: CPR: Attempt Resuscitation Time spent 35min Abelardo Cook MD Dec 11, 2016 11:07
--- NOTE | 2016-12-11 11:53 | NUR ---
Care Pt less agreeable to care this AM declining to be changed when brief was wet and had BM. Sheets are loose and bunched up around him, but he tells us to "go away" when asked if he wants it fixed. Declined AM meds when asked, will attempt again later. Pt was agreeable to me assessing him. Pt alert to self only this AM. Addendum: 12/11/16 at 1605 by FLORA KAMARA RN Pt agreeable to taking meds after multiple attempts. aware.
--- NOTE | 2016-12-11 13:20 | NUR ---
IV Entered room and pt had pulled out IV and bedding was saturated around pt. Pt also had a wet and stooled brief that he had declined to be changed earlier by FRAME OPENER. Pt still didn't want to be changed and stated "I only want a warm blanket." Explained that we had to clean him up to get him warm. Pt was not happy, but let us clean him up. Bottom and scrotum both have blanchable redness and calmoseptine was applied. Paged and no new IV ordered for now. Will encourage pt to increase PO intake. Stool culture also ordered because of diarrhea pt is having. Addendum: 12/11/16 at 1325 by FLORA KAMARA RN also notified that pt would not take morning medications.
[2016-12-11] MEDS: Ascorbic Acid 500 mg Tablet PO SCH (15:54)
[2016-12-11] MEDS: Heparin 5,000 Unit/mL Inj SUBQ SCH ×2 (15:55→22:37)
[2016-12-11 16:02] VITALS: BP 166/74; PULSE 84
--- NOTE | 2016-12-11 16:35 | PCM.PHAPRO ---
Progress Date of Service: Dec 11, 2016 Warfarin Dosing Indication: Afib Home Dose: 4mg daily Anticoagulation Trends: INR 2.14 2.61 4.49 3.86 2.64 2.93 1.83 1.18 1.05 1.08 1.07 1.06 1.21 1.24 1.31 1.41 1.57 1. 43 1.33 Warf Dose 4 3 HOLD HOLD 2.5 HOLD HELD HELD 4MG 3 3 4 4MG 4MG 4MG 4MG 4MG 5MG 7.5MG GOAL INR: 2-3 Summary: INR falling, increased dose of 7.5mg today. Pharmacy will continue to follow daily. Thank you for consulting pharmacy in the care of this patient. Petros Mireles Dec 11, 2016 16:35
--- NOTE | 2016-12-11 16:41 | NUR ---
BP Pt's afternoon BP for me was 166/74 and for DUKEY RIDER 40 minutes later was 172/81. Pt took AM BP meds very late at 1600 after declining them all day. pagedarian and there are orders for meds if systolic is over 180. Will recheck BP in one hour. Addendum: 12/11/16 at 1817 by FLORA KAMARA RN New BP at 1800 was 152/80.
[2016-12-11 16:43] VITALS: BP 172/81; PULSE 78; RESP 16; O2SAT 100
[2016-12-11 18:14] VITALS: BP 152/80
[2016-12-11 20:36] VITALS: BP 145/76; PULSE 71; RESP 18; O2SAT 100
[2016-12-11] MEDS: 0.9% Sodium Chloride 1,000 ML IV SCH (23:54)
[2016-12-12 04:02] VITALS: BP 183/78; PULSE 68; RESP 18; O2SAT 94
[2016-12-12 04:43] VITALS: BP 160/88
[2016-12-12] MEDS: Pantoprazole 40 mg ER24 Tablet PO SCH (05:48)
--- NOTE | 2016-12-12 06:40 | NUR ---
Restless slept poorly, constantly on light overnight. Incont of BM - patients hands dirty from handling his stool. Cleaned and repositioned but then undresses and takes off his briefs again.
[2016-12-12 07:06] LABS: INR 1.51 ratio
[2016-12-12] MEDS: Ascorbic Acid 500 mg Tablet PO SCH (08:19)
[2016-12-12] MEDS: Heparin 5,000 Unit/mL Inj SUBQ SCH ×2 (08:20→20:25)
[2016-12-12 08:22] VITALS: BP 165/77; PULSE 73
[2016-12-12 11:15] VITALS: PULSE 64; RESP 16; O2SAT 100
[2016-12-12 11:26] VITALS: BP 149/76; PULSE 67; RESP 18; O2SAT 100
--- NOTE | 2016-12-12 13:42 | NUR ---
NUTRITION FOLLOW UP: ASSESS: 61 YO male admitted with acute encephalopathy related to WISAM / dehydration. Pt. with severe PVD w/ hx of BLE ulcers. Pt underwent surgery (11/29) for debridement of wounds. Pt po intake has improved over the past 5 days with pt eating 50-100% of most meals with a PO intake avg. of 50% x 5 days. PMHx: Severe PVD, atrial fibrillation, CKD stage 3, HTN, CAD, hypothyroidism, GERD, HLD, cardiac pacemaker, atherosclerosis of left leg, anemia. DIET: General. PO 25-100% of meals with PO avg of 50% x 5 days. LABS: Reviewed. BUN 28, Cr 1.47, Ca 8.4, Alb 2.5. MEDICATIONS: Reviewed. GI: BM x 2 (12/12) SKIN INTEGRITY: Edward 14; unstageable pressure injury on right heel; chronic BLE ulcers, wound care following. ANTHROPOMETRICS: Current Wt: 54.9 kg. kg Admit wt: 69 kg. However, pt bed was zeroed and pt was weighed in a bed sling on 12/02 and wt was 54.3 kg so likely current wt is more accurate than admit wt. IBW: 64.55 kg. RE-ESTIMATED NEEDS BASED OF NEW WTS: (WOUNDS, BMI, STAGE III CKD): Calories: 2013-5033 kcal (30-40 kcal / kg BW of 54.3 kg.) Protein: 55-80 g (1.0-1.5 g/kg BW of 54.3 kg) NUTRITION DIAGNOSIS: 1) Increased nutrient needs related to increased demand for nutrients per disease process as evidenced by current skin issues. ---PERSISTS 2) Inadequate oral intake related in fluctuating mental status as evidence by variable PO intake of 25-100% (PO intake AVG 50% x 5 days) of meals and RN reporting that pt is falling asleep while eating--PERSISTS. INTERVENTION: 1) Will continue to send Ensure on all trays and Magic cup on L and D tray. MONITOR/EVALUATE: Diet tolerance, PO intake, labs, GI/nutrition status. Follow per moderate nutrition risk guidelines.
--- NOTE | 2016-12-12 15:49 | NUR ---
Social Work: Continued discharge Planning Solution Specialist spoke with patient's sister and notified her that the patient was being referred to [facility] for possible placement to a AF. Patient's sister requested a neuro consult. SW will notify patient's attending physician. SW will continue to work with patient to assist with DC planning. Ana Rosa Cannon LMSW, ACMorgan
--- NOTE | 2016-12-12 17:08 | NUR ---
Activity Pt was a little agitated saying he needs to leave and get his hair cut and take care of bills. Re-oriented pt that he is in the hospital and that we are working on his placement for when he goes home. Pt doesn't understand and says that "everyone has money coming in but him." Asked pt if he was worried about money and he says that he "needs to go" and has "bills to pay." Asked pt to stay until we find him placement in a new home. Pt is being compliant so far. Pt is up to the chair for a bit this afternoon. Care continues.
--- NOTE | 2016-12-12 19:39 | PCM.PNMED ---
Subjective Date of Service Dec 12, 2016 Subjective denies any pain or discomfort Exam Vital Signs Vital Sign - Last Date Time Temp Pulse Resp B/P Pulse Ox O2 Delivery O2 Flow Rate FiO2 12/12/16 11:26 36.5 67 18 149/76 100 Room Air Intake and Output 12/11/16 12/11/16 12/12/16 Cumulative From/Thru 15:00 23:00 07:00 11/23/16 12:19 - 12/12/16 05:34 Intake Total 682 ml 772 ml 58476 ml Output Total 600 ml 47903 ml Balance 682 ml 172 ml 49228 ml Intake Oral 400 ml 772 ml 26007 ml IV Total 282 ml 63154 ml Output Urine Total 600 ml 57262 ml Emesis 250 ml Estimated Blood Loss 20 ml # Voids 4 69 # Bowel Movements 2 2 46 Exam General: Alert, Cooperative, No Acute Distress. Oriented x 3 Eyes: PERRLA, EOMI, Scleral Anicteric Mouth: Mucous Membr Moist/[place] Neck: Supple Chest & Lungs: Clear to auscultation bilat Cardiovascular: Regular Rate/Rhythm Abdomen: Non-tender, Non-distended, Normoactive bowel tones, Soft Extremities: No cyanosis/clubbing. both legs in dressing Neurological: Grossly Neurologically Intact, Normal Speech IVs and Medications Medications Reviewed: Medications were reviewed in detail Lab and Diagnostics Result Diagram: 12/11/1661712/11/16617 Assessment & Plan 61-year-old male from [facility] p/w being obtunded, He gets 0.2 mg of Narcan promptly woke up and was extremely confused and complaining of pain in his ears, found to have pseudomonas UTI # acute septic encephalopathy, POA, suspected secondary to opioid given for leg pain, reported rapid improvement after Narcan. waxes and wanes per staffing director. - CT HEAD negative for acute findings. no MRI due to pacer - no reported seizure/focal neurologic deficit, improved with intermittent delirium. - per sister, baseline pt was AAOx3 - currently patient is oriented x 3 # acute pseudomonas UTI. not poa. - Leukocytosis, resolved 12/03/2016 - Cipro started 11/30 after initial Ceftriaxone - Continue to administer Cipro to finish 14 day course # Poorly controlled hypertension - c/w Norvasc and metoprolol and titrate - Losartan and diuretics stopped due to WISAM - hydralazine prn # severe PVD w/ hx of BLE ulcers s/p debridement, s/p grafts in , followed by plastic surgery at [place]. Last seen 11/16, recommended amputation. As per sister, pt refused it. Unclear interval progression since till this admission - appreciate podiatry consult. will f/u w/ recs - dressing per wound care service - as per Podiatry, stable for OP follow up # a-fib on Coumadin - c/w Coumadin and metoprolol - f/u daily INR (currently sub-therapeutic) - started heparin SC (12/02/16) for DVT prophylaxis while INR subtherapeutic. # microcytic/hypochromic anemia, unclear onset, likely ACD, h/h stable, - transfuse target >7, close obs for GIB given systemic AC # history of CAD, s/p PPM, not active - meds as noted above # GERD - continue PPI Dispo: medicably stable,pt was [facility] for [facility] by insurance, intermediate seems like best option for patient at this point, appreciate SW input. VTE Prophylaxis: Sub-Q Heparin (Unfractionated) Resuscitation Status: CPR: Attempt Resuscitation Time spent 30 min Sean Bassett Dec 12, 2016 19:39
[2016-12-12 20:07] VITALS: BP 128/62; PULSE 70; RESP 20; O2SAT 100
--- NOTE | 2016-12-13 04:11 | NUR ---
Confusion/Hygiene Seems un aware of personal body function, noncompliant with anali light , confused about where he is and why he is in hospital. Non compliant with IV , non compliant on telemetry , loses track of "important " possessions, lost check book. States he will take medications but then chews the tablets before swallowing. Friends cut his hair but made a mess while doing it . Not on telemetry, on room air.
[2016-12-13 04:21] VITALS: BP 176/84; PULSE 73; RESP 18; O2SAT 95
[2016-12-13] MEDS: Pantoprazole 40 mg ER24 Tablet PO SCH (06:30)
[2016-12-13 06:52] LABS: Magnesium 1.7 mg/dL (1.6-2.6)
[2016-12-13 07:19] LABS: INR 1.87 ratio
[2016-12-13 08:30] VITALS: PULSE 77; RESP 16; O2SAT 98
[2016-12-13] MEDS: Ascorbic Acid 500 mg Tablet PO SCH (10:42)
[2016-12-13] MEDS: Heparin 5,000 Unit/mL Inj SUBQ SCH ×2 (10:43→20:57)
[2016-12-13 15:29] VITALS: BP 126/64; PULSE 70; RESP 19; O2SAT 100
--- NOTE | 2016-12-13 19:00 | PCM.PNMED ---
Subjective Date of Service Dec 13, 2016 Subjective denies any pain or discomfort Exam Vital Signs Vital Sign - Last Date Time Temp Pulse Resp B/P Pulse Ox O2 Delivery O2 Flow Rate FiO2 12/13/16 15:29 70 19 126/64 100 Room Air 12/13/16 04:21 36.0 Intake and Output 12/12/16 12/12/16 12/13/16 Cumulative From/Thru 15:00 23:00 07:00 11/23/16 12:19 - 12/13/16 06:26 Intake Total 1547 ml 450 ml 78441 ml Output Total 525 ml 300 ml 61110 ml Balance 1022 ml 150 ml 43302 ml Intake Oral 1547 ml 450 ml 95403 ml IV Total 0 ml 65502 ml Output Urine Total 525 ml 200 ml 10650 ml Urine/Stool Mix 100 ml 100 ml Emesis 250 ml Estimated Blood Loss 20 ml # Voids 69 # Bowel Movements 3 1 50 Exam General: Alert, Cooperative, No Acute Distress. Oriented x 3 Eyes: PERRLA, EOMI, Scleral Anicteric Mouth: Mucous Membr Moist/[place] Neck: Supple Chest & Lungs: Clear to auscultation bilat Cardiovascular: Regular Rate/Rhythm Abdomen: Non-tender, Non-distended, Normoactive bowel tones, Soft Extremities: No cyanosis/clubbing. both legs in dressing Neurological: Grossly Neurologically Intact, Normal Speech IVs and Medications Medications Reviewed: Medications were reviewed in detail Lab and Diagnostics Result Diagram: 12/11/1618 12/13/16 0533 Assessment & Plan 61-year-old male from [facility] p/w being obtunded, He gets 0.2 mg of Narcan promptly woke up and was extremely confused and complaining of pain in his ears, found to have pseudomonas UTI # acute septic encephalopathy, POA, suspected secondary to opioid given for leg pain, reported rapid improvement after Narcan. waxes and wanes per staffing consultant. - CT HEAD negative for acute findings. no MRI due to pacer - no reported seizure/focal neurologic deficit, improved with intermittent delirium. - per sister, baseline pt was AAOx3 - currently patient is oriented x 3 # acute pseudomonas UTI. not poa. - Leukocytosis, resolved 12/03/2016 - Cipro started 11/30 after initial Ceftriaxone - Continue to administer Cipro to finish 14 day course # Poorly controlled hypertension - c/w Norvasc and metoprolol and titrate - Losartan and diuretics stopped due to WISAM - hydralazine prn # severe PVD w/ hx of BLE ulcers s/p debridement, s/p grafts in , followed by plastic surgery at [place]. Last seen 11/16, recommended amputation. As per sister, pt refused it. Unclear interval progression since till this admission - appreciate podiatry consult. will f/u w/ recs - dressing per wound care service - as per Podiatry, stable for OP follow up # a-fib on Coumadin - c/w Coumadin and metoprolol - f/u daily INR (currently sub-therapeutic) - started heparin SC (12/02/16) for DVT prophylaxis while INR subtherapeutic. # microcytic/hypochromic anemia, unclear onset, likely ACD, h/h stable, - transfuse target >7, close obs for GIB given systemic AC # history of CAD, s/p PPM, not active - meds as noted above # GERD - continue PPI Dispo: medicably stable,pt was [facility] for [facility] by insurance, skilled nursing seems like best option for patient at this point, appreciate SW input. VTE Prophylaxis: Sub-Q Heparin (Unfractionated) Resuscitation Status: CPR: Attempt Resuscitation Sean Bassett Dec 13, 2016 18:59
[2016-12-13 19:51] VITALS: BP 137/79; PULSE 80; RESP 16; O2SAT 97
--- NOTE | 2016-12-13 19:57 | NUR ---
Behavior Pt agitated d/t not being able to find checkbook. Friend Fracisco had brought it in previously and then per NOC RN report, friend present last night and gave pt haircut - perhaps had taken checkbook back home. Pt yelling and cursing intermittently as if someone present in room with him, calling people liars and thieves. At one point accused CANOE MAKER of taking checkbook - but then stating she (Fracisco and her friends) took it. When pt agitated, was throwing blankets on floor and demanding new ones, continuously pressing call light button when he did not need anything or staff had just left room and lifting up his hips to purposely set off bed alarm. This evening, pt still irritated, but calmed at this time. Call light remains in reach, alarm on. Addendum: 12/13/16 at 2000 by JOHNNY BUSTAMANTE RN No medical issues this shift.
[2016-12-14 04:03] VITALS: BP 137/73; PULSE 64; RESP 18; O2SAT 100
--- NOTE | 2016-12-14 05:08 | NUR ---
incontinence pt was incontinent of multiple BMs this shift. he uses the urinal independently but does not call to tell staff he needs to have a BM. BMs were not as loose as they have been before, more leonor like in consistency but still very frequent. when pt has a BM he does not alert staff he instead takes off his brief and all of his blankets including his bottom sheet and pillow cases and throws them off the bed. pts bottom and michelle area is red and painful. staff does frequent rounding to check and see if pt needs changed to try and prevent stool from sitting on the skin and has been applying barrier creams. care continues
[2016-12-14] MEDS: Pantoprazole 40 mg ER24 Tablet PO SCH (06:12)
[2016-12-14 06:39] LABS: INR 1.66 ratio
[2016-12-14] MEDS: Ascorbic Acid 500 mg Tablet PO SCH (09:04)
[2016-12-14] MEDS: Heparin 5,000 Unit/mL Inj SUBQ SCH ×2 (09:07→22:45)
--- NOTE | 2016-12-14 12:53 | PCM.PHAPRO ---
Progress Date of Service: Dec 14, 2016 Warfarin Dosing Indication: Afib Home Dose: 4mg daily Anticoagulation Trends: Dec 10-Dec 11-Dec 12-Dec 13-Dec 14-Nov 1.57 1. 43 1.33 1.51 1.87 1.66 ~ ~ #VALUE! #VALUE! 0.18 0.36 -0.21 4MG 5MG 7.5MG 5 MG 5MG ~ Summary: INR falling, increased dose of 7.5mg today. Pharmacy will continue to follow daily. Thank you for consulting pharmacy in the care of this patient. THANKS! Bettie Clark PharmD Dec 14, 2016 12:53
[2016-12-14 13:37] VITALS: BP 110/63; PULSE 73; RESP 16; O2SAT 100
--- NOTE | 2016-12-14 16:41 | PCM.PNMED ---
Subjective Date of Service Dec 14, 2016 Subjective reports bilateral leg/ankle discomfort Exam Vital Signs Vital Sign - Last Date Time Temp Pulse Resp B/P Pulse Ox O2 Delivery O2 Flow Rate FiO2 12/14/16 15:35 Supplement Oxygen 12/14/16 13:37 36.6 73 16 110/63 100 Intake and Output 12/13/16 12/13/16 12/14/16 Cumulative From/Thru 15:00 23:00 07:00 11/23/16 12:19 - 12/14/16 06:16 Intake Total 600 ml 240 ml 10059 ml Output Total 400 ml 400 ml 02632 ml Balance 200 ml -160 ml 30007 ml Intake Oral 600 ml 240 ml 43111 ml IV Total 94176 ml Output Urine Total 400 ml 400 ml 85765 ml Urine/Stool Mix 100 ml Emesis 250 ml Estimated Blood Loss 20 ml # Voids 3 1 73 # Bowel Movements 4 3 57 Exam General: Alert, Cooperative, No Acute Distress. Oriented x 3 Eyes: PERRLA, EOMI, Scleral Anicteric Mouth: Mucous Membr Moist/[place] Neck: Supple Chest & Lungs: Clear to auscultation bilat Cardiovascular: Regular Rate/Rhythm Abdomen: Non-tender, Non-distended, Normoactive bowel tones, Soft Extremities: No cyanosis/clubbing. both legs in dressing Neurological: Grossly Neurologically Intact, Normal Speech IVs and Medications Medications Reviewed: Medications were reviewed in detail Lab and Diagnostics Result Diagram: 12/11/1618 12/13/16 0533 Assessment & Plan 61-year-old male from [facility] p/w being obtunded, He gets 0.2 mg of Narcan promptly woke up and was extremely confused and complaining of pain in his ears, found to have pseudomonas UTI # acute septic encephalopathy, POA, suspected secondary to opioid given for leg pain, reported rapid improvement after Narcan. waxes and wanes per catering staff member. - CT HEAD negative for acute findings. no MRI due to pacer - no reported seizure/focal neurologic deficit, improved with intermittent delirium. - per sister, baseline pt was AAOx3 - currently patient is oriented x 3 # acute pseudomonas UTI. not poa. - Leukocytosis, resolved 12/03/2016 - Cipro started 11/30 after initial Ceftriaxone - Stop Cipro after 12/14 to finish 14 day course # Poorly controlled hypertension - c/w Norvasc and metoprolol and titrate - Losartan and diuretics stopped due to WISAM - hydralazine prn # severe PVD w/ hx of BLE ulcers s/p debridement, s/p grafts in , followed by plastic surgery at [facility]. Last seen 11/16, recommended amputation. As per sister, pt refused it. Unclear interval progression since till this admission - appreciate podiatry consult. will f/u w/ recs - dressing per wound care service - as per Podiatry, stable for OP follow up - will discuss with podiatry for possible reevaluation as inpatient # a-fib on Coumadin - c/w Coumadin and metoprolol - f/u daily INR (currently sub-therapeutic) - started heparin SC (12/02/16) for DVT prophylaxis while INR subtherapeutic. # microcytic/hypochromic anemia, unclear onset, likely ACD, h/h stable, - transfuse target >7, close obs for GIB given systemic AC # history of CAD, s/p PPM, not active - meds as noted above # GERD - continue PPI Dispo: pt was rejected for [facility] by insurance, [facility] seems like best option for patient at this point, appreciate SW input. VTE Prophylaxis: Sub-Q Heparin (Unfractionated) Resuscitation Status: CPR: Attempt Resuscitation Sean Bassett Dec 14, 2016 16:41
[2016-12-14] MEDS ORDERED: Warfarin 5 MG, Warfarin 2.5 MG PO ONE ×2 (17:00)
--- NOTE | 2016-12-14 17:46 | NUR ---
RACHEL wraps bilateral legs Paged Dr Batres supervisor education r/t bilateral lower legs RAHCEL wraps and supervisor education stated," RACHEL wraps are changed by me once weekly."
[2016-12-14 19:23] VITALS: BP 125/74; PULSE 69; RESP 18; O2SAT 97
--- NOTE | 2016-12-15 | NUR ---
medical billing service pts night time medications were given late as pt refused to take them multiple times. he seemed agitated and in pain but refused to any tylenol. he was upset and swearing because he wanted someone to go get him a pizza. pt was given snacks and given space to calm down. later on nurse approached patient again and he took all of his meds including tylenol without incident
--- NOTE | 2016-12-15 03:54 | NUR ---
activity pt has had multiple loose stools. tonight patient is being very compliant with calling staff for help when he has a loose stool. he has even put himself on a bedpan several times. if he doesn't make it to the bedpan he has attempted to not make a mess with his stool or throw his brief on the ground. he said "I tried to keep it all on the mat for you and save the sheets". nurse has made sure to praise pt and express appreciate for working with staff and being complaint with calling for help. care continues
[2016-12-15 04:57] VITALS: BP 144/71; PULSE 64; RESP 16; O2SAT 98
[2016-12-15] MEDS: Pantoprazole 40 mg ER24 Tablet PO SCH (05:57)
[2016-12-15 06:15] LABS: Mean Corpuscular Hemoglobin 26.5 pg (27.0-35.0); Mean Corpuscular Volume 87.2 fL (81-100)
[2016-12-15 06:44] LABS: INR 1.72 ratio
[2016-12-15] MEDS: Ascorbic Acid 500 mg Tablet PO SCH (09:06)
[2016-12-15] MEDS: Heparin 5,000 Unit/mL Inj SUBQ SCH ×2 (09:10→20:36)
--- NOTE | 2016-12-15 11:28 | PCM.PHAPRO ---
Progress Date of Service: Dec 15, 2016 Warfarin Dosing Indication: Afib Home Dose: 4mg daily Anticoagulation Trends: Dec 13-Dec 14-Dec 15-Nov 1.51 1.87 1.66 1.72 0.18 0.36 -0.21 0.06 5 MG 5MG 7.5MG 7.5 Summary: INR rising slowly, will give another one time dose of 7.5mg today. Pharmacy will continue to follow daily. Thank you for consulting pharmacy in the care of this patient. THANKS! Betite Clark PharmD Dec 15, 2016 11:28
--- NOTE | 2016-12-15 12:06 | NUR ---
Evaluation completed. Please go to "Notes" then click on "Assessments and Notes" (bottom left corner of screen). Then select appropriate discipline tab on top of screen.
[2016-12-15 13:11] VITALS: BP 114/67; PULSE 81; RESP 18; O2SAT 100
--- NOTE | 2016-12-15 15:58 | NUR ---
Incontinence, Mentation, Refusal of Care Patient incontinent of urine this shift. Patient able to alert staff when incontinent. Patient encouraged to try to use call light when needing to void in order to have assistance with urinal/bedpan. Patient alert and oriented to self and place. Patient largely appropriate, but has occasional remarks that are not fitting with conversation. Patient declines staff skin check, offers to turn. Patient does reposition self frequently. Care is ongoing.
[2016-12-15] MEDS ORDERED: Warfarin 5 MG, Warfarin 2.5 MG PO ONE ×2 (17:00)
--- NOTE | 2016-12-15 17:12 | PCM.PNMED ---
Subjective Date of Service Dec 15, 2016 Subjective denies any new issues/complaints Exam Vital Signs Vital Sign - Last Date Time Temp Pulse Resp B/P Pulse Ox O2 Delivery O2 Flow Rate FiO2 12/15/16 13:11 36.9 81 18 114/67 100 Room Air Intake and Output 12/14/16 12/14/16 12/15/16 Cumulative From/Thru 15:00 23:00 07:00 11/23/16 12:19 - 12/15/16 05:23 Intake Total 1060 ml 565 ml 89325 ml Output Total 1000 ml 590 ml 52562 ml Balance 60 ml -25 ml 37696 ml Intake Oral 1060 ml 565 ml 10374 ml IV Total 04535 ml Output Urine Total 1000 ml 590 ml 65316 ml Urine/Stool Mix 100 ml Emesis 250 ml Estimated Blood Loss 20 ml # Voids 73 # Bowel Movements 1 7 65 Exam General: Alert, Cooperative, No Acute Distress. Oriented x 3 Eyes: PERRLA, EOMI, Scleral Anicteric Mouth: Mucous Membr Moist/[place] Neck: Supple Chest & Lungs: Clear to auscultation bilat Cardiovascular: Regular Rate/Rhythm Abdomen: Non-tender, Non-distended, Normoactive bowel tones, Soft Extremities: No cyanosis/clubbing. both legs in dressing Neurological: Grossly Neurologically Intact, Normal Speech IVs and Medications Medications Reviewed: Medications were reviewed in detail Lab and Diagnostics Result Diagram: 12/15/16 0600 12/15/16 0600 Assessment & Plan 61-year-old male from [facility] [address] p/w being obtunded, He gets 0.2 mg of Narcan promptly woke up and was extremely confused and complaining of pain in his ears, found to have pseudomonas UTI # acute septic encephalopathy, POA, suspected secondary to opioid given for leg pain, reported rapid improvement after Narcan. waxes and wanes per waitstaff. - CT HEAD negative for acute findings. no MRI due to pacer - no reported seizure/focal neurologic deficit, improved with intermittent delirium. - per sister, baseline pt was AAOx3 - currently patient is oriented x 3 # acute pseudomonas UTI. not poa. - Leukocytosis, resolved 12/03/2016 - Cipro started 11/30 after initial Ceftriaxone and stopped Cipro on 12/15/16 to finish 14 day course # Poorly controlled hypertension - c/w Norvasc and metoprolol and titrate - Losartan and diuretics stopped due to WISAM - hydralazine prn # severe PVD w/ hx of BLE ulcers s/p debridement, s/p grafts in , followed by plastic surgery at [facility]. Last seen 11/16, recommended amputation. As per sister, pt refused it. Unclear interval progression since till this admission - appreciate podiatry consult. will f/u w/ recs - dressing per podiatry - discussed with Podiatry on 12/15/16 who will f/u pt on weekly basis while in hospital # a-fib on Coumadin - c/w Coumadin and metoprolol - f/u daily INR (currently sub-therapeutic) - started heparin SC (12/02/16) for DVT prophylaxis while INR subtherapeutic. # microcytic/hypochromic anemia, unclear onset, likely ACD, h/h stable, - transfuse target >7, close obs for GIB given systemic AC # history of CAD, s/p PPM, not active - meds as noted above # GERD - continue PPI Dispo: pt was rejected for [facility] SN[facility] by insurance, [facility] seems like best option for patient at this point, appreciate SW input. VTE Prophylaxis: Sub-Q Heparin (Unfractionated) Resuscitation Status: CPR: Attempt Resuscitation Sean Bassett Dec 15, 2016 17:12
[2016-12-15 19:24] VITALS: BP 137/73; PULSE 72; RESP 16; O2SAT 100
--- NOTE | 2016-12-16 03:15 | NUR ---
Activity/Mentation Pt. refuses q2h turns despite education. Heels floated. Pt. has had one semi formed BM this evening via bedpan. Pt. has had some periods of confusion. Pt. is alert and oriented to self and place only at this time. Will continue to monitor.
[2016-12-16 04:02] VITALS: BP 168/88; PULSE 60; RESP 16; O2SAT 100
[2016-12-16 05:32] VITALS: PULSE 60; RESP 16; O2SAT 99
[2016-12-16] MEDS: Pantoprazole 40 mg ER24 Tablet PO SCH (06:10)
[2016-12-16 06:45] LABS: INR 2.34 ratio
[2016-12-16] MEDS: Ascorbic Acid 500 mg Tablet PO SCH (08:10)
[2016-12-16] MEDS: Heparin 5,000 Unit/mL Inj SUBQ SCH ×2 (08:14→21:57)
--- NOTE | 2016-12-16 09:08 | NUR ---
NUTRITION FOLLOW UP: ASSESS: 61 YO male admitted with acute encephalopathy related to WISAM / dehydration. Pt. with severe PVD w/ hx of BLE ulcers. Pt underwent surgery (11/29) for debridement of wounds. Per Podiatry, wounds are improving. Pt's PO intake continues to improve to ~75-100% of meals and his wt is increasing as well. PMHx: Severe PVD, atrial fibrillation, CKD stage 3, HTN, CAD, hypothyroidism, GERD, HLD, cardiac pacemaker, atherosclerosis of left leg, anemia. DIET: General. PO 75-100% of meals LABS: Reviewed. BUN 34, [place] [place] 1.32 MEDICATIONS: Reviewed. GI: BM x 2 (12/16) SKIN INTEGRITY: Edward 19; unstageable pressure injury on right heel; chronic BLE ulcers, wounds are improving ANTHROPOMETRICS: Current Wt: 56.5 kg. kg, BMI 20.1kg/m2 Admit wt: 69 kg. However, pt bed was zeroed and pt was weighed in a bed sling on 12/02 and wt was 54.3 kg so likely current wt is more accurate than admit wt. IBW: 64.55 kg. RE-ESTIMATED NEEDS BASED OF NEW WTS: (WOUNDS, BMI, STAGE III CKD): Calories: 1055-8377 kcal (30-40 kcal / kg BW of 54.3 kg.) Protein: 55-80 g (1.0-1.5 g/kg BW of 54.3 kg) NUTRITION DIAGNOSIS: 1) Increased nutrient needs related to increased demand for nutrients per disease process as evidenced by current skin issues. ---PERSISTS 2) Inadequate oral intake related in fluctuating mental status as evidence by variable PO intake of 25-100% (PO intake AVG 50% x 5 days) of meals and RN reporting that pt is falling asleep while eating--IMPROVING INTERVENTION: 1) Will continue to send Ensure on all trays and Magic cup on L and D tray. MONITOR/EVALUATE: Diet tolerance, PO intake, labs, GI/nutrition status. Follow per moderate nutrition risk guidelines.
--- NOTE | 2016-12-16 11:01 | NUR ---
Respiratory Pt assessed, found lying in bed, talking on phone, breathing RA. Sat 96%, HR 65, RR 16, BS clear bilaterally. No indication for Tx, Pt states never is SOB or wheezy. Pt aware Tx is available.
--- NOTE | 2016-12-16 11:02 | PCM.PHAPRO ---
Progress Date of Service: Dec 16, 2016 Warfarin Dosing Indication: Afib Home Dose: 4mg daily Anticoagulation Trends: Dec 13-Dec 14-Dec 15-Dec 16-Nov 1.51 1.87 1.66 1.72 2.34 0.18 0.36 -0.21 0.06 0.62 5 MG 5MG 7.5MG 7.5 ~ Summary: INR finally within range. Patient seems to need a higher dose on Coumadin will give a OT dose of 6 mg tonight to see how INR changes. Pharmacy will continue to follow daily. Thank you for consulting pharmacy in the care of this patient. THANKS! Bettie Clark PharmD Dec 16, 2016 11:02
[2016-12-16 13:56] VITALS: BP 118/76; PULSE 75; RESP 16; O2SAT 99
--- NOTE | 2016-12-16 13:58 | NUR ---
Social Work Continued Discharge Planning: SW following for placement. Patient payer as [employer] insurance. Patient from [facility] previous to admission. Patient attended facility under [facility], which was recently termed and switched to [facility] [employer]. [facility] has denied patient for SNF placement return back to [facility]. Patient has 8 siblings and sister Michael [phone] has been actively calling regarding plan of care. Patient has previous marriage per sister and is legally . Patient sister resides in [place]. 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 Per patient's sister, patient has no home and has always resided with individual whom he cared for. Patient was alert and oriented and functioning independently prior to admit per sister. Per patient's sister, patient mentation was normal and she has experienced a change in mental status with current hospitalization. Patient sister states that patient mental status has severely changed from prior baseline. OT completed SLUME eval and patient scored 13/30 with notation of dementia. Psych ordered and eval pending. Sw received phone call from JALEN Rowan who states that patient assigned to [facility]yle[facility] Wolfgang, who is currently off this week and to assess for [facility] placement. Patient discharged from PT services on 12/08 due to refusal to participate. Previous PT notes reflect CBA into stance and min assist to return to bed. PT notes reflect no further therapy attempt due to refusal to ambulate. Patient agitated and throwing blankets on floor. SW will continue to follow. PLAN: [facility] pending accepting facility. Psych eval pending. PT signed off due to lack of participation. From [facility] and denied by [facility]. SW to follow. Marina CHIANG
--- NOTE | 2016-12-16 18:07 | PCM.PNPOD ---
Subjective Date of Service: Dec 16, 2016 Date of Service: Dec 15, 2016 Visit Information: Reason for Visit Altered Mental Status,Severe Dehydration Surgery/Surgery Date Post-Op Day # Date of Admission: Nov 23, 2016 at 14:10 Hospital Day # Subjective: 61-year-old male evaluated resting comfortably at bedside in no acute distress. Patient recently underwent bilateral lower extremity washout and debridement with wound graft placement. Patient has no new complaints or issues today. Postop General: No Complaints Gastrointestinal: Good Appetite Pain Management: PO Objective Vital Sign - Last Date Time Temp Pulse Resp B/P Pulse Ox O2 Delivery O2 Flow Rate FiO2 12/16/16 13:56 36.2 75 16 118/76 99 Room Air Intake and Output 12/15/16 12/15/16 12/16/16 Cumulative From/Thru 15:00 23:00 07:00 11/23/16 12:19 - 12/16/16 06:46 Intake Total 800 ml 1426 ml 82158 ml Output Total 500 ml 1300 ml 25506 ml Balance 300 ml 126 ml 85049 ml Intake Oral 800 ml 1426 ml 09706 ml IV Total 04602 ml Output Urine Total 500 ml 1300 ml 17175 ml Urine/Stool Mix 100 ml Emesis 250 ml Estimated Blood Loss 20 ml # Voids 1 74 # Bowel Movements 2 1 68 Result Diagram: 12/15/16 0600 12/15/16 0600 Lab Test 11/23/16 12:44 11/23/16 12:50 11/23/16 13:26 11/24/16 06:55 Activated Partial Thromboplast Time 32.0sec (22.8-33.0) Ammonia 19ug/dL (18-53) Troponin T 0.025ug/L (0.0-0.011) Alcohol, Quantitative < 10mg/dL (0-10) Lactic Acid Level 0.9mmol/L (0.4-2.0) Urine Opiates Screen Positive Urine Methadone Screen Negative Urine Barbiturates Screen Negative Urine Amphetamines Screen Negative Urine Benzodiazepines Screen Negative Urine Cocaine Metabolite Screen Negative Urine Cannabinoids Screen Negative Reticulocyte Count,Calculated 1.0% (0.6-2.6) Iron Level 30ug/dL (.) Total Iron Binding Capacity 162ug/dL (250-450) Percent Iron Saturation 19%sat (15-50) Unsaturated Iron Binding 132.1ug/dL Transferrin 122mg/dL (.) Transferrin % Saturation 18 (.) Ferritin 475ng/mL (30-400) Thyroid Stimulating Hormone (TSH) 1.190uIU/mL (0.450-4.500) Free Thyroxine 1.38ng/dL (0.82-1.77) Test 11/26/16 06:11 12/03/16 06:29 12/07/16 12:51 12/11/16 06:18 Prealbumin 13mg/dL (20-40) Procalcitonin 0.11ng/mL (See Comment) Urine Color Straw (YELLOW) Urine Appearance Hazy (CLEAR,HAZY) Urine pH 6.0 (5.0-8.0) Urine Specific [place] 1.015 (1.003-1.035) Urine Protein 100mg/dL (NEG,TRACE) Urine Glucose (UA) Negativemg/dL (NEGATIVE) Urine Ketones Negativemg/dL (NEGATIVE) Urine Occult Blood Moderate (NEGATIVE) Urine Nitrite Negative (NEGATIVE) Urine Bilirubin Negative (NEGATIVE) Urine Urobilinogen Normalmg/dL (NORMAL) Urine Leukocyte Esterase Negative (NEGATIVE) Urine RBC 11-50/hpf (0-2) Urine WBC 11-50/hpf (0-5) Urine Epithelial Cells Occasional/hpf (NONE-MOD) Urine Crystals Oxalic acid crystals (NONE Urine Bacteria Few/hpf (NONE-FEW) Urine Hyaline Casts None/lpf (NONE) Urine Granular Casts None seen (NONE SEEN) Urine Waxy Casts None seen (NONE SEEN) Urine Red Blood Cell Casts None seen (NONE SEEN) Urine White Blood Cell Casts None seen (NONE SEEN) Urine Mucus Present (None Seen) Urine Trichomonas None seen (NONE SEEN) Urine Yeast None (NONE SEEN) Urinalysis Comment None Urine Culture Reflexed Indicated Neutrophils (%) (Auto) 54.5% (40-74) Lymphocytes (%) (Auto) 35.4% (14-46) Monocytes (%) (Auto) 8.3% (4-12) Eosinophils (%) (Auto) 1.1% (0-5) Basophils (%) (Auto) 0.4% (0-3) Phosphorus Level 2.5mg/dL (2.5-4.9) Total Bilirubin 0.3mg/dL (0.0-1.2) Aspartate Amino Transf (AST/SGOT) 17U/L (0-50) Alanine Aminotransferase (ALT/SGPT) 16U/L (0-44) Alkaline Phosphatase 57U/L (25-160) Total Protein 4.8g/dL (6.4-8.4) Albumin 2.5g/dL (3.4-5.0) Test 12/13/16 05:33 12/15/16 06:00 12/16/16 06:12 Magnesium Level 1.7mg/dL (1.6-2.6) White Blood Count 6.8th/mm3 (3.8-10.1) Red Blood Count 3.43mil/mm3 (4.40-5.80) Hemoglobin 9.1g/dL (13.8-17.2) Hematocrit 29.9% (41.0-50.0) Mean Corpuscular Volume 87.2fL (81-100) Mean Corpuscular Hemoglobin 26.5pg (27.0-35.0) Mean Corpuscular Hemoglobin Concent 30.4% (32.0-37.0) Red Cell Distribution Width 17.1% (12.3-15.4) Platelet Count 264bil/L (150-400) Sodium Level 143mEq/L (134-144) Potassium Level 3.9mEq/L (3.5-5.2) Chloride Level 107mEq/L (97-108) Carbon Dioxide Level 26mmol/L (18-29) Blood Urea Nitrogen 34mg/dL (8-27) Creatinine 1.32mg/dL (0.76-1.27) Estimat Glomerular Filtration Rate 58mL/min (>59) Glucose Level 79mg/dL (60-99) Calcium Level 8.8mg/dL (8.5-10.1) Prothrombin Time 25.5sec (8.1-12.5) Prothromb Time International Ratio 2.34ratio Exam General: Alert, Oriented X3, Cooperative, No Acute Distress Lungs: Clear to Auscultation, Normal Air Movement Lower Extremities: Bilateral: Extremity warm Lower Extremity Pulses: Palpable: Left Dorsalis Pedis Left Posterior Tibal Right Dorsalis Pedis Right Posterior Tibal Podiatry WOUND : Wound Location/Description Right anterior leg ulceration full-thickness to subcutaneous tissue with exposed tendon that there is no exposed bone no malodor no surrounding erythema. The wound bed consisted mostly hyper-granular tissue with a small area of exposed tibialis anterior tendon which is notably less exposed than previous evaluation. There is mild serosanguineous drainage no signs of acute infection. Right anterior ankle ulceration full-thickness to subcutaneous tissue with exposed tibialis anterior tendon extending from the proximal extensor retinaculum to its insertion. The superficial portion of the extensor tendon is appearing necrotic however there is no malodor and no signs of acute infection the patient has minimal range of motion of his right ankle to approximately 5 of dorsiflexion and the tendon is noted to be working with range of motion. The majority of this wound that is hyper-granular there is no surrounding erythema no malodoror acute infection there is a minimal amount of serosanguineous drainage. Right posterior heel ulceration full-thickness to subcutaneous tissue without exposed bone or tendon the wound is 100% fibrotic no surrounding erythema no signs of infection. This wound measures 1.5 cm x 1.5 cm x 0.2 cm Left anterior leg ulceration full-thickness to subcutaneous tissue without exposed bone or tendon there is no malodor no signs of acute infection no surrounding erythema the majority of this wound is hyper-granular in nature. This wound measures 3.5 cm x 2.8 cm x 0.1 cm in depth Surgical Cast or Splint: None Assessment & Plan Impression Stable bilateral lower extremity ulcerations without signs of infection Problems: Plan Dressings changed today and wounds were inspected. At this time the patient appears to be very stable. Silver Aquasol was applied with Adaptic 4 x 4's and an Unnas boot. Patient appears to be doing quite stable. At some point this patient would benefit from additional debridement however this can be performed on an outpatient basis or at bedside and does not require repeat surgical intervention. This patient will likely require complete excision of his distal tibialis anterior tendon as it is superficially necrotic and surrounding muscular atrophy without extensive fatty tissue is going to make it very difficult to heal this tenting tendon prior to it becoming completely necrotic. This patient is stable for transition to outpatient therapy with visits at the wound care center weekly No antibiotics necessary for lower extremity wounds Continue dressing changes per wound care service every 5-7 days Podiatry will continue to follow weekly as necessary. VTE Prophylaxis: Sub-Q Heparin (Unfractionated) Rosas Crisostomo DPM Dec 16, 2016 18:07
--- NOTE | 2016-12-16 18:20 | PCM.PNMED ---
Subjective Date of Service Dec 16, 2016 Subjective denies any new issues/complaints Exam Vital Signs Vital Sign - Last Date Time Temp Pulse Resp B/P Pulse Ox O2 Delivery O2 Flow Rate FiO2 12/16/16 13:56 36.2 75 16 118/76 99 Room Air Intake and Output 12/15/16 12/15/16 12/16/16 Cumulative From/Thru 15:00 23:00 07:00 11/23/16 12:19 - 12/16/16 06:46 Intake Total 800 ml 1426 ml 17505 ml Output Total 500 ml 1300 ml 31859 ml Balance 300 ml 126 ml 27144 ml Intake Oral 800 ml 1426 ml 46130 ml IV Total 46435 ml Output Urine Total 500 ml 1300 ml 69184 ml Urine/Stool Mix 100 ml Emesis 250 ml Estimated Blood Loss 20 ml # Voids 1 74 # Bowel Movements 2 1 68 Exam General: Alert, Cooperative, No Acute Distress. Oriented x 3 Eyes: PERRLA, EOMI, Scleral Anicteric Mouth: Mucous Membr Moist/[place] Neck: Supple Chest & Lungs: Clear to auscultation bilat Cardiovascular: Regular Rate/Rhythm Abdomen: Non-tender, Non-distended, Normoactive bowel tones, Soft Extremities: No cyanosis/clubbing. both legs in dressing Neurological: Grossly Neurologically Intact, Normal Speech IVs and Medications Medications Reviewed: Medications were reviewed in detail Lab and Diagnostics Result Diagram: 12/15/16 0600 12/15/16 0600 Assessment & Plan 61-year-old male from [facility] p/w being obtunded, He gets 0.2 mg of Narcan promptly woke up and was extremely confused and complaining of pain in his ears, found to have pseudomonas UTI # acute septic encephalopathy, POA, suspected secondary to opioid given for leg pain, reported rapid improvement after Narcan. waxes and wanes per housekeeping staff. - CT HEAD negative for acute findings. no MRI due to pacer - no reported seizure/focal neurologic deficit, improved with intermittent delirium. - per sister, baseline pt was AAOx3 - currently patient is oriented x 3 # acute pseudomonas UTI. not poa. - Leukocytosis, resolved 12/03/2016 - Cipro started 11/30 after initial Ceftriaxone and stopped Cipro on 12/15/16 to finish 14 day course # Poorly controlled hypertension - c/w Norvasc and metoprolol and titrate - Losartan and diuretics stopped due to WISAM - hydralazine prn # severe PVD w/ hx of BLE ulcers s/p debridement, s/p grafts in , followed by plastic surgery at [place]. Last seen 11/16, recommended amputation. As per sister, pt refused it. Unclear interval progression since till this admission - appreciate podiatry consult. will f/u w/ recs - dressing per podiatry - discussed with Podiatry on 12/15/16 who will f/u pt on weekly basis while in hospital # a-fib on Coumadin - c/w Coumadin and metoprolol - f/u daily INR (currently sub-therapeutic) - started heparin SC (12/02/16) for DVT prophylaxis while INR subtherapeutic. # microcytic/hypochromic anemia, unclear onset, likely ACD, h/h stable, - transfuse target >7, close obs for GIB given systemic AC # history of CAD, s/p PPM, not active - meds as noted above # GERD - continue PPI Dispo: pt was rejected for assisted SNF by insurance, [facility] for patient at this point, appreciate SW input. VTE Prophylaxis: Sub-Q Heparin (Unfractionated) Resuscitation Status: CPR: Attempt Resuscitation Sean Bassett Dec 16, 2016 18:20
[2016-12-16 19:40] VITALS: BP 128/76; PULSE 78; RESP 16; O2SAT 100
--- NOTE | 2016-12-16 19:52 | NUR ---
Mentation, Bowel Movement Patient continues to be mostly appropriate, with some confused moments of speech inappropriate to conversation. Patient able to use urinal and bedpan today, with one soft formed stool. Patient declines Q2 turns, preferring to turn self. Heels floated as patient allows. Care is ongoing.
[2016-12-17 05:17] VITALS: BP 146/67; PULSE 65; RESP 16; O2SAT 100
[2016-12-17 06:20] LABS: INR 2.85 ratio
--- NOTE | 2016-12-17 06:51 | NUR ---
Mentation / Incontinence Periods of confusion with orientation. Pt has been oriented to self and place throughout the night. At times answers questions in no regards to what the subject is about. Using urinal most of the time although is incontinent at times. BMs are loose but formed. Care continues
[2016-12-17] MEDS: Ascorbic Acid 500 mg Tablet PO SCH (07:54)
[2016-12-17] MEDS: Pantoprazole 40 mg ER24 Tablet PO SCH (07:57)
[2016-12-17] MEDS: Heparin 5,000 Unit/mL Inj SUBQ SCH ×2 (08:00→23:31)
--- NOTE | 2016-12-17 08:21 | PCM.PHAPRO ---
Progress Warfarin Dosing Dec 16-Dec 17-Nov INR 1.72 2.34 2.85 CHANGE 0.06 0.62 0.51 DOSE 7.5 6 mg 3 mg Baldo Espinoza Dec 17, 2016 08:21
[2016-12-17 08:32] VITALS: PULSE 67; RESP 16; O2SAT 99
[2016-12-17 15:27] VITALS: BP 126/78; PULSE 70; RESP 16; O2SAT 100
--- NOTE | 2016-12-17 16:16 | PCM.PNMED ---
Subjective Date of Service Dec 17, 2016 Subjective denies any new issues/complaints Exam Vital Signs Vital Sign - Last Date Time Temp Pulse Resp B/P Pulse Ox O2 Delivery O2 Flow Rate FiO2 12/17/16 15:27 36.6 70 16 126/78 100 Room Air Intake and Output 12/16/16 12/16/16 12/17/16 Cumulative From/Thru 15:00 23:00 07:00 11/23/16 12:19 - 12/17/16 06:03 Intake Total 400 ml 237 ml 14810 ml Output Total 875 ml 500 ml 99537 ml Balance -475 ml -263 ml 53121 ml Intake Oral 400 ml 237 ml 14859 ml IV Total 30088 ml Output Urine Total 875 ml 500 ml 63503 ml Urine/Stool Mix 100 ml Emesis 250 ml Estimated Blood Loss 20 ml # Voids 74 # Bowel Movements 1 2 71 Exam General: Alert, Cooperative, No Acute Distress. Oriented x 3 Eyes: PERRLA, EOMI, Scleral Anicteric Mouth: Mucous Membr Moist/[place] Neck: Supple Chest & Lungs: Clear to auscultation bilat Cardiovascular: Regular Rate/Rhythm Abdomen: Non-tender, Non-distended, Normoactive bowel tones, Soft Extremities: No cyanosis/clubbing. both legs in dressing Neurological: Grossly Neurologically Intact, Normal Speech IVs and Medications Medications Reviewed: Medications were reviewed in detail Lab and Diagnostics Result Diagram: 12/15/16 0600 12/15/16 0600 Assessment & Plan 61-year-old male from [facility] p/w being obtunded, He gets 0.2 mg of Narcan promptly woke up and was extremely confused and complaining of pain in his ears, found to have pseudomonas UTI # acute septic encephalopathy, POA, suspected secondary to opioid given for leg pain, reported rapid improvement after Narcan. waxes and wanes per staff services manager. - CT HEAD negative for acute findings. no MRI due to pacer - no reported seizure/focal neurologic deficit, improved with intermittent delirium. - per sister, baseline pt was AAOx3 - currently patient is oriented x 3 # acute pseudomonas UTI. not poa. - Leukocytosis, resolved 12/03/2016 - Cipro started 11/30 after initial Ceftriaxone and stopped Cipro on 12/15/16 to finish 14 day course # Poorly controlled hypertension - c/w Norvasc and metoprolol and titrate - Losartan and diuretics stopped due to WISAM - hydralazine prn # severe PVD w/ hx of BLE ulcers s/p debridement, s/p grafts in , followed by plastic surgery at [place]. Last seen 11/16, recommended amputation. As per sister, pt refused it. Unclear interval progression since till this admission - appreciate podiatry consult. will f/u w/ recs - dressing per podiatry - discussed with Podiatry on 12/15/16 who will f/u pt on weekly basis while in hospital # a-fib on Coumadin - c/w Coumadin and metoprolol - f/u daily INR (currently sub-therapeutic) - started heparin SC (12/02/16) for DVT prophylaxis while INR subtherapeutic. # microcytic/hypochromic anemia, unclear onset, likely ACD, h/h stable, - transfuse target >7, close obs for GIB given systemic AC # history of CAD, s/p PPM, not active - meds as noted above # GERD - continue PPI Dispo: pt was [facility] for [facility] by insurance, [facility] seems like best option for patient at this point, appreciate SW input. VTE Prophylaxis: Sub-Q Heparin (Unfractionated) Resuscitation Status: CPR: Attempt Resuscitation Sean Bassett Dec 17, 2016 16:16
[2016-12-17 21:55] VITALS: BP 131/79; PULSE 86; RESP 16; O2SAT 100
--- NOTE | 2016-12-18 02:44 | NUR ---
mentation asked patient "where are you?" patient unsure. reoriented to time and place. denies pain at this time. reviewed fall precautions care ongoing.
[2016-12-18 04:42] VITALS: BP 154/70; PULSE 70; RESP 18; O2SAT 94
[2016-12-18 07:59] LABS: INR 2.25 ratio
[2016-12-18] MEDS: Heparin 5,000 Unit/mL Inj SUBQ SCH ×2 (08:23→20:30)
[2016-12-18] MEDS: Ascorbic Acid 500 mg Tablet PO SCH (08:25)
[2016-12-18] MEDS: Pantoprazole 40 mg ER24 Tablet PO SCH (08:27)
--- NOTE | 2016-12-18 08:45 | PCM.PHAPRO ---
Progress Warfarin Dosing DATE Dec 15-Dec 16-Dec 17-Dec 18-Nov INR 1.66 1.72 2.34 2.85 2.25 CHANGE -0.21 0.06 0.62 0.51 -0.6 DOSE 7.5MG 7.5 6 mg 3 mg 6 Baldo Espinoza Dec 18, 2016 08:45
[2016-12-18 15:11] VITALS: BP 109/70; PULSE 80; RESP 18; O2SAT 99
--- NOTE | 2016-12-18 16:01 | PCM.PNMED ---
Subjective Date of Service Dec 18, 2016 Subjective denies any new issues/complaints Exam Vital Signs Vital Sign - Last Date Time Temp Pulse Resp B/P Pulse Ox O2 Delivery O2 Flow Rate FiO2 12/18/16 15:11 36.5 80 18 109/70 99 Room Air Intake and Output 12/17/16 12/17/16 12/18/16 Cumulative From/Thru 15:00 23:00 07:00 11/23/16 12:19 - 12/18/16 04:42 Intake Total 300 ml 200 ml 43750 ml Output Total 400 ml 19220 ml Balance -100 ml 200 ml 69945 ml Intake Oral 300 ml 200 ml 39275 ml IV Total 41170 ml Output Urine Total 400 ml 86118 ml Urine/Stool Mix 100 ml Emesis 250 ml Estimated Blood Loss 20 ml # Voids 2 76 # Bowel Movements 1 Exam General: Alert, Cooperative, No Acute Distress. Oriented x 3 Eyes: PERRLA, EOMI, Scleral Anicteric Mouth: Mucous Membr Moist/[place] Neck: Supple Chest & Lungs: Clear to auscultation bilat Cardiovascular: Regular Rate/Rhythm Abdomen: Non-tender, Non-distended, Normoactive bowel tones, Soft Extremities: No cyanosis/clubbing. both legs in dressing Neurological: Grossly Neurologically Intact, Normal Speech IVs and Medications Medications Reviewed: Medications were reviewed in detail Lab and Diagnostics Result Diagram: 12/15/16 0600 12/15/16 0600 Assessment & Plan 61-year-old male from [facility] p/w being obtunded, He gets 0.2 mg of Narcan promptly woke up and was extremely confused and complaining of pain in his ears, found to have pseudomonas UTI # acute septic encephalopathy, POA, suspected secondary to opioid given for leg pain, reported rapid improvement after Narcan. waxes and wanes per cruise staff member. - CT HEAD negative for acute findings. no MRI due to pacer - no reported seizure/focal neurologic deficit, improved with intermittent delirium. - per sister, baseline pt was AAOx3 - currently patient is oriented x 3 # ? underlying psychiatric disorder - psych consulted. will f/u w/ recs # acute pseudomonas UTI. not poa. - Leukocytosis, resolved 12/03/2016 - Cipro started 11/30 after initial Ceftriaxone and stopped Cipro on 12/15/16 to finish 14 day course # Poorly controlled hypertension - c/w Norvasc and metoprolol and titrate - Losartan and diuretics stopped due to WISAM - hydralazine prn # severe PVD w/ hx of BLE ulcers s/p debridement, s/p grafts in , followed by plastic surgery at [place]. Last seen 11/16, recommended amputation. As per sister, pt refused it. Unclear interval progression since till this admission - appreciate podiatry consult. will f/u w/ recs - dressing per podiatry - discussed with Podiatry on 12/15/16 who will f/u pt on weekly basis while in hospital # a-fib on Coumadin - c/w Coumadin and metoprolol - f/u daily INR (currently sub-therapeutic) - started heparin SC (12/02/16) for DVT prophylaxis while INR subtherapeutic. # microcytic/hypochromic anemia, unclear onset, likely ACD, h/h stable, - transfuse target >7, close obs for GIB given systemic AC # history of CAD, s/p PPM, not active - meds as noted above # GERD - continue PPI Dispo: pt was rejected for half-way SNF by insurance, longterm seems like best option for patient at this point, appreciate SW input. VTE Prophylaxis: Sub-Q Heparin (Unfractionated) Resuscitation Status: CPR: Attempt Resuscitation Sean Bassett Dec 18, 2016 16:01
--- NOTE | 2016-12-18 18:20 | NUR ---
Mentation LOC improved from yesterday. patient able to identify his name, location and the current month. he's been using the call rausch effectively making his needs known. still has episodes of confusion, forgetfulness. still incontinent to bowel and bladder. Appetite good, eating the majority of every meal. continue to monitor.
[2016-12-18 20:01] VITALS: PULSE 89; RESP 16; O2SAT 100
[2016-12-18 21:25] VITALS: BP 113/69; PULSE 82; RESP 16; O2SAT 99
--- NOTE | 2016-12-18 23:40 | NUR ---
mentation alert this shift. communicating but confused about his status. repositioned q 2 h. no c/o
[2016-12-19 05:00] VITALS: BP 131/76; PULSE 67; RESP 16; O2SAT 100
[2016-12-19 06:46] LABS: INR 2.13 ratio
[2016-12-19 07:50] VITALS: PULSE 70; RESP 16; O2SAT 99
[2016-12-19] MEDS: Ascorbic Acid 500 mg Tablet PO SCH (07:57)
[2016-12-19] MEDS: Heparin 5,000 Unit/mL Inj SUBQ SCH (07:58)
[2016-12-19] MEDS: Pantoprazole 40 mg ER24 Tablet PO SCH (08:07)
--- NOTE | 2016-12-19 11:29 | PCM.PHAPRO ---
Progress Warfarin Management by Pharmacy: -Indication: afib -Home Dose: warfarin 4mg -Inr Goal: 2-3 -Plan: Inr remains therapeutic at 2.13. Will dc the heparin subq now and continue with a dose of warfarin 5mg this evening Magui Franco [facility] Dec 19, 2016 11:29
[2016-12-19 13:28] VITALS: BP 112/69; PULSE 55; RESP 17; O2SAT 100
--- NOTE | 2016-12-19 16:45 | NUR ---
Social Work: Continued discharge planning SW spoke with patient's sister to discuss discharge planning. SW notified patient sister that patient had a pending JALEN evaluation and a pending psych. evaluation. Patient's sister voiced understanding and stated that she wasn't sure if she wanted the patient to discharge to a AFH, but she needed to discuss the option of the patient moving into a home of his own with a 24-hour caregiver. Patient sister will follow uip with patient and other siblings and notify SW of the outcome. Patient JALEN worker Rylee will evaluate him on 12/20/16 @ 1pm. SW will continue to follow. Davis Oseguera, RACQUEL,ACM
--- NOTE | 2016-12-19 18:00 | NUR ---
Mentation patient more alert this morning. able to answer questions related to person, place and time. then this afternoon he thought he was in [place] and talked about leaving to go "buy an house and boat so I can [place]". able to reorient. patient has been using call light appropriately. continue with plan of care.
--- NOTE | 2016-12-19 18:33 | PCM.PNMED ---
Subjective Date of Service Dec 19, 2016 Subjective denies any new issues/complaints Exam Vital Signs Vital Sign - Last Date Time Temp Pulse Resp B/P Pulse Ox O2 Delivery O2 Flow Rate FiO2 12/19/16 13:28 36.8 55 17 112/69 100 Room Air Intake and Output 12/18/16 12/18/16 12/19/16 Cumulative From/Thru 15:00 23:00 07:00 11/23/16 12:19 - 12/19/16 06:52 Intake Total 600 ml 0 ml 39784 ml Output Total 250 ml 1000 ml 60250 ml Balance 350 ml -1000 ml 66631 ml Intake Oral 600 ml 0 ml 50380 ml IV Total 57378 ml Output Urine Total 250 ml 1000 ml 92694 ml Urine/Stool Mix 100 ml Emesis 250 ml Estimated Blood Loss 20 ml # Voids 1 77 # Bowel Movements 2 1 76 Exam General: Alert, Cooperative, No Acute Distress. Oriented x 3 Eyes: PERRLA, EOMI, Scleral Anicteric Mouth: Mucous Membr Moist/[place] Neck: Supple Chest & Lungs: Clear to auscultation bilat Cardiovascular: Regular Rate/Rhythm Abdomen: Non-tender, Non-distended, Normoactive bowel tones, Soft Extremities: No cyanosis/clubbing. both legs in dressing Neurological: Grossly Neurologically Intact, Normal Speech IVs and Medications Medications Reviewed: Medications were reviewed in detail Lab and Diagnostics Result Diagram: 12/15/16 0600 12/19/16 0530 Assessment & Plan 61-year-old male from [facility] p/w being obtunded, He gets 0.2 mg of Narcan promptly woke up and was extremely confused and complaining of pain in his ears, found to have pseudomonas UTI # acute septic encephalopathy, POA, suspected secondary to opioid given for leg pain, reported rapid improvement after Narcan. waxes and wanes per staff genetic counselor. - CT HEAD negative for acute findings. no MRI due to pacer - no reported seizure/focal neurologic deficit, improved with intermittent delirium. - per sister, baseline pt was AAOx3 # ? underlying psychiatric disorder - psych consulted. will f/u w/ recs # acute pseudomonas UTI. not poa. - Leukocytosis, resolved 12/03/2016 - Cipro started 11/30 after initial Ceftriaxone and stopped Cipro on 12/15/16 to finish 14 day course # Poorly controlled hypertension - c/w Norvasc and metoprolol and titrate - Losartan and diuretics stopped due to WISAM - hydralazine prn # severe PVD w/ hx of BLE ulcers s/p debridement, s/p grafts in , followed by plastic surgery at [place]. Last seen 11/16, recommended amputation. As per sister, pt refused it. Unclear interval progression since till this admission - appreciate podiatry consult. will f/u w/ recs - dressing per podiatry - discussed with Podiatry on 12/15/16 who will f/u pt on weekly basis while in hospital # a-fib on Coumadin - c/w Coumadin and metoprolol - f/u daily INR (currently sub-therapeutic) - started heparin SC (12/02/16) for DVT prophylaxis while INR subtherapeutic. # microcytic/hypochromic anemia, unclear onset, likely ACD, h/h stable, - transfuse target >7, close obs for GIB given systemic AC # history of CAD, s/p PPM, not active - meds as noted above # GERD - continue PPI Dispo: pt was rejected for [facility] SNF by insurance, long-term seems like best option for patient at this point, appreciate SW input. VTE Prophylaxis: Sub-Q Heparin (Unfractionated) Resuscitation Status: CPR: Attempt Resuscitation Sean Bassett Dec 19, 2016 18:33
[2016-12-19 20:20] VITALS: PULSE 74; RESP 16; O2SAT 100
[2016-12-19 20:40] VITALS: BP 115/70; PULSE 88; RESP 20; O2SAT 96
--- NOTE | 2016-12-20 06:29 | NUR ---
Activity No significant mentation changes overnight, pt complained of ankle pain 7/10 and took Tylenol per eMAR. No further complaints. Pt turned with brief changes. Pt able to use urinal at times.
[2016-12-20 07:21] VITALS: BP 162/73; PULSE 64; RESP 16; O2SAT 100
[2016-12-20 07:49] LABS: INR 2.04 ratio
--- NOTE | 2016-12-20 08:00 | PCM.PHAPRO ---
Progress Warfarin Management: -Inr remains therapeutic today, 2.04. Will give warfarin 7mg this evening and follow Magui Franco [facility] Dec 20, 2016 08:00
[2016-12-20 08:19] VITALS: PULSE 81; RESP 16; O2SAT 97
[2016-12-20] MEDS: Pantoprazole 40 mg ER24 Tablet PO SCH (08:24)
[2016-12-20] MEDS: Ascorbic Acid 500 mg Tablet PO SCH (09:41)
--- NOTE | 2016-12-20 14:11 | PCM.PNMED ---
Subjective Date of Service Dec 20, 2016 Subjective Has no complaints. Has a blunted affect. Exam Vital Signs Vital Sign - Last Date Time Temp Pulse Resp B/P Pulse Ox O2 Delivery O2 Flow Rate FiO2 12/20/16 08:19 81 16 97 Room Air 12/20/16 07:21 36.9 162/73 Intake and Output 12/19/16 12/19/16 12/20/16 Cumulative From/Thru 15:00 23:00 07:00 11/23/16 12:19 - 12/19/16 20:48 Intake Total 1120 ml 67561 ml Output Total 600 ml 51115 ml Balance 520 ml 73938 ml Intake Oral 1120 ml 49085 ml IV Total 99287 ml Output Urine Total 600 ml 31170 ml Urine/Stool Mix 100 ml Emesis 250 ml Estimated Blood Loss 20 ml # Voids 1 78 # Bowel Movements 2 78 Exam Head: Normocephalic atraumatic Chest: Clear to auscultation Cor: Regular rate and rhythm S1-S2 Abdomen: Soft nontender bowel sounds present Extremities: Currently has lower extremities wrapped postoperatively Lab and Diagnostics Laboratory Tests 72 Hours Test 12/18/16 07:21 12/19/16 05:30 12/20/16 07:15 Prothrombin Time 24.5sec (8.1-12.5) 23.1sec (8.1-12.5) 22.2sec (8.1-12.5) Prothromb Time International Ratio 2.25ratio 2.13ratio 2.04ratio Sodium Level 144mEq/L (134-144) Potassium Level 4.5mEq/L (3.5-5.2) Chloride Level 104mEq/L (97-108) Carbon Dioxide Level 26mmol/L (18-29) Blood Urea Nitrogen 46mg/dL (8-27) Creatinine 1.43mg/dL (0.76-1.27) Estimat Glomerular Filtration Rate 53mL/min (>59) Glucose Level 93mg/dL (60-99) Calcium Level 9.0mg/dL (8.5-10.1) Result Diagram: 12/15/16 0600 12/19/16 0530 Assessment & Plan 61-year-old male from [facility] p/w being obtunded, He gets 0.2 mg of Narcan promptly woke up and was extremely confused and complaining of pain in his ears, found to have pseudomonas UTI # acute septic encephalopathy, POA, suspected secondary to opioid given for leg pain, reported rapid improvement after Narcan. waxes and wanes per staff scientist. - CT HEAD negative for acute findings. no MRI due to pacer - no reported seizure/focal neurologic deficit, improved with intermittent delirium. - per sister, baseline pt was AAOx3 -Appreciate psychiatry consultation. We will check vitamin B12 and folate and RPR as they recommended. # ? underlying psychiatric disorder - psych consulted. will f/u w/ recs -See above. Does not appear to be any obvious psychiatric disorder. Cool a possible Korsakoff's but patient has no history of EtOH abuse. # acute pseudomonas UTI. not poa. - Leukocytosis, resolved 12/03/2016 - Cipro started 11/30 after initial Ceftriaxone and stopped Cipro on 12/15/16 to finish 14 day course -Currently resolved # Poorly controlled hypertension - c/w Norvasc and metoprolol and titrate - Losartan and diuretics stopped due to WISAM - hydralazine prn # severe PVD w/ hx of BLE ulcers s/p debridement, s/p grafts in , followed by plastic surgery at [place]. Last seen 11/16, recommended amputation. As per sister, pt refused it. Unclear interval progression since till this admission - appreciate podiatry consult. will f/u w/ recs - dressing per podiatry - discussed with Podiatry on 12/15/16 who will f/u pt on weekly basis while in hospital # a-fib on Coumadin - c/w Coumadin and metoprolol - f/u daily INR (currently sub-therapeutic) - started heparin SC (12/02/16) for DVT prophylaxis while INR subtherapeutic. -Currently off of subcutaneous heparin and is currently therapeutic with INR and is managed by pharmacy. # microcytic/hypochromic anemia, unclear onset, likely ACD, h/h stable, - transfuse target >7, close obs for GIB given systemic AC # history of CAD, s/p PPM, not active - meds as noted above # GERD - continue PPI Dispo: pt was rejected for [facility] SNF by insurance, long term seems like best option for patient at this point, appreciate SW input. VTE Prophylaxis: Sub-Q Heparin (Unfractionated) VTE Mechanical Devices: Venous Foot Pump Resuscitation Status: CPR: Attempt Resuscitation Time spent 30 minutes Gail Mauricio MD Dec 20, 2016 14:11
[2016-12-20 14:33] VITALS: BP 118/69; PULSE 78; RESP 16; O2SAT 96
--- NOTE | 2016-12-20 14:33 | NUR ---
Social Work Continued Discharge Planning: SW met with [facility] JALEN rep Rylee Goss, who states that she assessed patient at bedside but patient refused to sign consent to initiate assessment for AFH placement. Rep states that she will initiate assessment with information provided by sister Michael. [facility] rep Rylee provided SW with AFH list in addition. Rylee discussed difficulties in placement and determining a home to accept patient due to current clinical status. Pych eval pending at this time. [place] [facility] SW to follow. PLAN: Difficult discharge placement. DIONICIO following. JALEN following for AFH placement. Marina CHIANG
--- NOTE | 2016-12-20 17:19 | NUR ---
PAIN C/o pain with movement or touch to bilateral LE Medicated with tylenol 975mg, crushed with pudding. Worked well for pain relief, patient resting/dosing off in between meals
--- NOTE | 2016-12-20 19:34 | CONS ---
[address] [address] CONSULTATION REPORT PATIENT: NICOL HURT : 1955 MR#: [id number] ADMIT: 11/23/2016 JOB ID: [id number] DATE OF SERVICE: 12/20/2016 IDENTIFYING DATA: The patient is a 61-year-old male with a cardiac pacemaker and history of atrial fibrillation on warfarin with chronic kidney disease, coronary artery disease, hypertension, hyperlipidemia, reflux, peripheral vascular disease, atherosclerosis, and anemia, who presented to the emergency department on November 23, 2016, from [facility] with altered mental status. It was suspected that he had opioids given for leg pain causing acute septic encephalopathy. REFERRAL INFORMATION: The patient refer was referred by Dr. Bassett due to concern for possible underlying psychiatric issue given waxing and waning level of consciousness and mental status. CHIEF COMPLAINT: "I am a little under the weather." HISTORY OF PRESENT ILLNESS: The patient has had multiple medical issues primarily related to atherosclerosis and peripheral vascular disease as well as atrial fibrillation. Laboratory studies were notable for a brain CT on November 23, 2016 that showed cerebral volume loss for age with resultant ventricular and sulcal prominence. There were also noted periventricular and deep white matter chronic small vessel ischemic changes. They also noted intracranial internal carotid artery atherosclerosis. He is still presenting with anemia and elevated BUN and creatinine. His admission urine tox screen was positive for opiates, but otherwise negative, and alcohol was less than 10. A urinalysis from December 07, 2016 was within normal limits except for urine RBCs and WBCs of 11-50 and occasional epithelial cells and oxalic acid crystals with few bacteria. There is urine mucus present. Culture was indicated but showed no growth. The patient reports that he is feeling "pretty good now." He states that he would like to "go sailing along [facility]." He believes he is currently in his home in [facility] [place] and when asked where he might be, in a bedroom, kitchen, or dining room, he stated, "both." He denies a history of mental health, in particular depression, mynor, obsessive-compulsive symptoms, symptoms of panic or anxiety disorder. He reports his sleep as "real good." His appetite is good, although he ate a minimal portion of his meal, and his energy is "real good." PAST PSYCHIATRIC HISTORY: The patient denies a history of inpatient or outpatient psychiatric treatment or psychiatric medications. He denies a past history of suicide attempt, self-injurious behavior, or family psychiatric history of mental illness, suicide, substance abuse, or medical illnesses. SUBSTANCE USE HISTORY: The patient denies alcohol, marijuana, cocaine, amphetamines, or heroin use. SOCIAL HISTORY: The patient reports he was born in [place], [place] and raised in [place], [place]. He has 11 siblings and is the 6th child. He has a 12th grade education and no college. He is once and reports being for 30 or 40 years. He reports having one child age 20-something and is unclear when they were born and does not know when he was or last saw his . He reports having a good childhood. He reports being in the [employer] for six years and was an E4, but was dishonorably discharged, but cannot explain why. 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 He currently states he is living on [facility] in his house. He is currently actually residing at [facility]. He denies a history of physical, sexual, or emotional abuse. He denies any legal history. PAST MEDICAL HISTORY: According to the most recent progress notes, acute encephalopathy, history of acute Pseudomonas UTI now resolved, poorly controlled hypertension, severe peripheral vascular disease, atrial fibrillation on Coumadin, microcytic hypochromic anemia, history of CAD status post PPM not active, and gastroesophageal reflux disease. CURRENT MEDICATIONS: 1. Lactobacillus acidophilus two tablets p.c. and h.s. 2. Vitamin D3 5000 units p.o. daily. 3. Folic acid 1 mg daily. 4. Ascorbic acid 500 mg daily. 5. Multivitamin with mineral daily. 6. Acetaminophen 975 mg q.6 h. for pain. 7. Amlodipine 10 mg daily. 8. Metoprolol 100 mg twice a day. 9. Baclofen 20 mg twice a day. 10. Ferrous sulfate 325 mg daily with meal. 11. Levothyroxine 50 mcg at 6:30. 12. Pantoprazole 40 mg at 6:30. 13. Pravastatin sodium 40 mg at bedtime. 14. Ondansetron 4 mg as needed for nausea. The patient has not used since December 03, 2016. 15. Haldol lactate 5 mg q.8 h. p.r.n. anxiety or agitation. Not used since November 24, 2016. ALLERGIES: Atorvastatin. LABORATORY FINDINGS: CBC with RBC of 3.43, hemoglobin 9.1, hematocrit 29.9, MCH 36.5, MCHC 30.4, RDW 17.1 on December 15, 2016. Basic metabolic panel from December 19, 2016 within normal limits except for a BUN of 46 and creatinine of 1.43. Liver function tests within normal limits December 11, 2016. Ammonia level 19 from November 23, 2016. TSH 1.190 and free T4 1.38 from November 24, 2016. Urine tox screen positive for opiates. Negative otherwise, with negative alcohol. Coagulation screen: PT of 22.2, INR 2.04. Last urine as noted above. MENTAL STATUS EXAMINATION: Appearance: The patient is a somewhat unkempt appearing male wearing hospital issue clothing. Behavior: The patient is somewhat cooperative, although appears distracted during the interview and requires repeat questions. He demonstrates psychomotor retardation. Mood: "Good." Affect: "Flat." Speech with some latency and poverty of speech noted. Content of thought: He denies suicidal or homicidal ideation, auditory or visual hallucinations, telepathy, anxiety, or depression. Thought processes: Demonstrates poverty of speech but responds to questions in a linear fashion. Insight: Poor. Judgment: Poor. Memory: Patient unable to repeat three objects at 0 minutes. The patient did have 2/3 object recall at 0 minutes. The patient was unable to proceed further with neurocognitive testing stating "don't really matter" and stopped answering questions. Intelligence: Appears to be in the average range based upon history and current vocabulary, but difficult to assess due to cognitive impairment. He was alert and oriented to Tuesday, 1955. He reported it was springtime and the president was [employer]. Sensorium: Overall impaired, with evidence of cognitive impairment. IMPRESSION: The patient is a 61-year-old male with multiple medical issues with cognitive impairment and apparent waxing and waning level of impairment, although it appears that he has presented with confabulation prior to this interview. He is exhibiting significant confabulation and does appear to have some form of neurocognitive disorder in the absence of any acute medical illness explaining the current findings. He does demonstrate findings on his head CT which would suggest a vascular form of neurocognitive disorder, particularly in the presence of the decreased level of consciousness. Although he has been receiving multivitamins and folate, reversible forms of dementia should be assessed including RPR, B12 and folate levels. His last urinalysis was December 07, 2016, and this could be recheck to that whether he has had any return of urinary tract infection. If his entire workup is negative, he may benefit from amantadine. He does not appear to be currently exhibiting psychotic symptoms and no other acute psychiatric symptoms. PROVISIONAL DIAGNOSES: [place] I: Neurocognitive disorder, major, vascular, provisional. [place] II: Deferred. [place] III: See past medical history. [place] IV: Unclear. [place] V: Global Assessment of Functioning 35. PLAN: 1. Would check RPR, folate and B12 levels, and consider rechecking a UA. 2. If the workup is negative the patient may benefit from memantine for vascular major neurocognitive disorder, provisional. 3. The patient does not appear to have acute agitation at this time, although should this occur he would likely benefit from perhaps a lower dose of antipsychotic such as Risperdal 0.5 mg, although this is not indicated at this time. Appreciate this consultation. Please feel free to contact Psychiatry for further recommendations. HEMALATHAD
[2016-12-20 21:18] VITALS: BP 146/81; PULSE 90; RESP 16; O2SAT 99
[2016-12-21 05:32] VITALS: BP 156/83; PULSE 64; RESP 22; O2SAT 100
--- NOTE | 2016-12-21 05:35 | NUR ---
Activity Pt reporting increased pain to legs bilaterally 6-06/29, taking Tylenol 975 mg PO x2 this shift. Pt oriented to self and time, not always place and alert, only dozing off for an hour at the beginning of shift and has been awake since. Using call liqht appropriately, had medium soft formed BM with bedpan and using urinal.
[2016-12-21] MEDS: Pantoprazole 40 mg ER24 Tablet PO SCH (06:14)
[2016-12-21 07:24] LABS: INR 2.15 ratio
[2016-12-21 07:46] VITALS: PULSE 70; RESP 20; O2SAT 98
[2016-12-21 08:12] LABS: Vitamin B12 593 pg/mL (211-946)
--- NOTE | 2016-12-21 08:22 | PCM.PHAPRO ---
Progress Warfarin Management: -inr remains therapeutic at 2.15. will give warfarin 6mg this evening and follow Magui Franco [facility] Dec 21, 2016 08:22
[2016-12-21] MEDS: Ascorbic Acid 500 mg Tablet PO SCH (10:14)
--- NOTE | 2016-12-21 10:24 | PCM.PNMED ---
Subjective Date of Service Dec 21, 2016 Subjective Patient is currently resting in bed and is quite alert and asking questions. Exam Vital Signs Vital Sign - Last Date Time Temp Pulse Resp B/P Pulse Ox O2 Delivery O2 Flow Rate FiO2 12/21/16 07:46 70 20 98 Room Air 12/21/16 05:32 36.8 156/83 Intake and Output 12/20/16 12/20/16 12/21/16 Cumulative From/Thru 15:00 23:00 07:00 11/23/16 12:19 - 12/21/16 05:32 Intake Total 626 ml 840 ml 1080 ml 30358 ml Output Total 750 ml 500 ml 800 ml 09950 ml Balance -124 ml 340 ml 280 ml 00057 ml Intake Oral 626 ml 840 ml 1080 ml 50804 ml IV Total 23930 ml Output Urine Total 750 ml 500 ml 800 ml 07666 ml Urine/Stool Mix 100 ml Emesis 250 ml Estimated Blood Loss 20 ml # Voids 2 1 81 # Bowel Movements 3 1 1 83 Exam Exam Head: Normocephalic atraumatic Chest: Clear to auscultation Cor: Regular rate and rhythm S1-S2 Abdomen: Soft nontender bowel sounds present Extremities: Currently has lower extremities wrapped postoperatively Lab and Diagnostics Laboratory Tests 72 Hours Test 12/19/16 05:30 12/20/16 07:15 12/20/16 14:30 12/21/16 06:37 Prothrombin Time 23.1sec (8.1-12.5) 22.2sec (8.1-12.5) 23.4sec (8.1-12.5) Prothromb Time International Ratio 2.13ratio 2.04ratio 2.15ratio Sodium Level 144mEq/L (134-144) Potassium Level 4.5mEq/L (3.5-5.2) Chloride Level 104mEq/L (97-108) Carbon Dioxide Level 26mmol/L (18-29) Blood Urea Nitrogen 46mg/dL (8-27) Creatinine 1.43mg/dL (0.76-1.27) Estimat Glomerular Filtration Rate 53mL/min (>59) Glucose Level 93mg/dL (60-99) Calcium Level 9.0mg/dL (8.5-10.1) Vitamin B12 Level 593pg/mL (211-946) Folate > 19.9ng/mL (>3.0) Rapid Plasma Reagin Non reactive (Non Reactive) Result Diagram: 12/15/16 0600 12/19/16 0530 Assessment & Plan 61-year-old male from [facility] p/w being obtunded, He gets 0.2 mg of Narcan promptly woke up and was extremely confused and complaining of pain in his ears, found to have pseudomonas UTI # acute septic encephalopathy, POA, suspected secondary to opioid given for leg pain, reported rapid improvement after Narcan. waxes and wanes per staff antisubmarine officer. - CT HEAD negative for acute findings. no MRI due to pacer - no reported seizure/focal neurologic deficit, improved with intermittent delirium. - per sister, baseline pt was AAOx3 -Appreciate psychiatry consultation. We will check vitamin B12 and folate and RPR as they recommended. These did return this morning and are normal. # ? underlying psychiatric disorder - psych consulted. will f/u w/ recs -See above. Does not appear to be any obvious psychiatric disorder. [place] a possible Korsakoff's but patient has no history of EtOH abuse. # acute pseudomonas UTI. not poa. - Leukocytosis, resolved 12/03/2016 - Cipro started 11/30 after initial Ceftriaxone and stopped Cipro on 12/15/16 to finish 14 day course -Currently resolved # Poorly controlled hypertension - c/w Norvasc and metoprolol and titrate - Losartan and diuretics stopped due to WISAM - hydralazine prn # severe PVD w/ hx of BLE ulcers s/p debridement, s/p grafts in , followed by plastic surgery at [place]. Last seen 11/16, recommended amputation. As per sister, pt refused it. Unclear interval progression since till this admission - appreciate podiatry consult. will f/u w/ recs - dressing per podiatry - discussed with Podiatry on 12/15/16 who will f/u pt on weekly basis while in hospital # a-fib on Coumadin - c/w Coumadin and metoprolol - f/u daily INR (currently sub-therapeutic) - started heparin SC (12/02/16) for DVT prophylaxis while INR subtherapeutic. -Currently off of subcutaneous heparin and is currently therapeutic with INR and is managed by pharmacy. # microcytic/hypochromic anemia, unclear onset, likely ACD, h/h stable, - transfuse target >7, close obs for GIB given systemic AC # history of CAD, s/p PPM, not active - meds as noted above # GERD - continue PPI Dispo: pt was rejected for alf SNF by insurance, prison seems like best option for patient at this point, appreciate SW input. VTE Prophylaxis: Sub-Q Heparin (Unfractionated) VTE Mechanical Devices: Venous Foot Pump Resuscitation Status: CPR: Attempt Resuscitation Time spent 30 minutes Gail Mauricio MD Dec 21, 2016 10:24
[2016-12-21 13:16] VITALS: BP 130/78; PULSE 65; RESP 18; O2SAT 97
[2016-12-21] MEDS ORDERED: Alum-Mag Hydrox-Simeth 30 mL Suspension PO PRN (14:00)
[2016-12-21] MEDS ORDERED: Polyethylene Glycol (PEG) 17 Gm Powder PO PRN (14:00)
--- NOTE | 2016-12-21 15:15 | NUR ---
NUTRITION FOLLOW UP: ASSESS: 61 YO male admitted with UTI, acute encephalopathy related to WISAM / dehydration. Pt. with severe PVD w/ hx of BLE ulcers. Pt underwent surgery (11/29) for debridement of wounds. Per Podiatry, wounds are improving. Pt continues to have good PO intake. PMHx: Severe PVD, atrial fibrillation, CKD stage 3, HTN, CAD, hypothyroidism, GERD, HLD, cardiac pacemaker, atherosclerosis of left leg, anemia. DIET: Heart healthy. PO 75-100% of meals LABS: Reviewed. MEDICATIONS: Reviewed. GI: BM x 1 (12/21) SKIN INTEGRITY: Edward 19; unstageable pressure injury on right heel; chronic BLE ulcers, wounds are improving ANTHROPOMETRICS: Current Wt: 57.6kg. kg. Admit wt: 69 kg. However, pt bed was zeroed and pt was weighed in a bed sling on 12/02 and wt was 54.3 kg so likely current wt is more accurate than admit wt. IBW: 64.55 kg. RE-ESTIMATED NEEDS BASED OF NEW WTS: (WOUNDS, BMI, STAGE III CKD): Calories: 9963-2511 kcal (30-40 kcal / kg BW of 54.3 kg.) Protein: 55-80 g (1.0-1.5 g/kg BW of 54.3 kg) NUTRITION DIAGNOSIS: 1) Increased nutrient needs related to increased demand for nutrients per disease process as evidenced by current skin issues. ---PERSISTS 2) Inadequate oral intake related in fluctuating mental status as evidence by variable PO intake of 25-100% (PO intake AVG 50% x 5 days) of meals and RN reporting that pt is falling asleep while eating--RESOLVED. INTERVENTION: 1) Will continue to send Ensure on all trays and Magic cup on L and D tray. MONITOR/EVALUATE: Diet tolerance, PO intake, labs, GI/nutrition status. Follow per low nutrition risk guidelines.
[2016-12-21 20:14] VITALS: BP 123/78; PULSE 81; RESP 20; O2SAT 99
[2016-12-21 20:20] VITALS: PULSE 75; RESP 18; O2SAT 98
[2016-12-22 04:18] VITALS: BP 160/81; PULSE 64; RESP 18; O2SAT 100
--- NOTE | 2016-12-22 05:27 | NUR ---
Activity/ BM Pt. had 3 large semiformed BMs so far this shift. Pt. declines q2 turns, except lets turning for brief changes. Pt.'s heels are floated. Will continue to monitor.
[2016-12-22] MEDS: Pantoprazole 40 mg ER24 Tablet PO SCH (06:14)
[2016-12-22 08:06] VITALS: PULSE 63; RESP 16; O2SAT 98
[2016-12-22] MEDS: Ascorbic Acid 500 mg Tablet PO SCH (10:27)
[2016-12-22 15:10] VITALS: BP 153/83; PULSE 81; RESP 14; O2SAT 100
--- NOTE | 2016-12-22 15:20 | PCM.PNMED ---
Subjective Date of Service Dec 22, 2016 Subjective Patient resting comfortably. Exam Vital Signs Vital Sign - Last Date Time Temp Pulse Resp B/P Pulse Ox O2 Delivery O2 Flow Rate FiO2 12/22/16 15:10 36.5 81 14 153/83 100 Room Air Intake and Output 12/21/16 12/21/16 12/22/16 Cumulative From/Thru 15:00 23:00 07:00 11/23/16 12:19 - 12/22/16 06:23 Intake Total 1080 ml 637 ml 29776 ml Output Total 1100 ml 875 ml 23447 ml Balance -20 ml -238 ml 83630 ml Intake Oral 1080 ml 637 ml 46004 ml IV Total 48102 ml Output Urine Total 1100 ml 875 ml 66422 ml Urine/Stool Mix 100 ml Emesis 250 ml Estimated Blood Loss 20 ml # Voids 1 82 # Bowel Movements 2 3 88 Exam Constitutional: Middle-aged man who looks older than his stated age in no acute distress Head: Normocephalic dramatic Chest: Clear to auscultation Cor: Regular rate and rhythm S1-S2 Abdomen: Soft nontender bowel sounds present Lab and Diagnostics Result Diagram: 12/19/16 0530 Assessment & Plan 61-year-old male from [facility] p/w being obtunded, He gets 0.2 mg of Narcan promptly woke up and was extremely confused and complaining of pain in his ears, found to have pseudomonas UTI # acute septic encephalopathy, POA, suspected secondary to opioid given for leg pain, reported rapid improvement after Narcan. waxes and wanes per staffing recruiter. - CT HEAD negative for acute findings. no MRI due to pacer - no reported seizure/focal neurologic deficit, improved with intermittent delirium. - per sister, baseline pt was AAOx3 -Appreciate psychiatry consultation. We will check vitamin B12 and folate and RPR as they recommended. These did return this morning and are normal. # ? underlying psychiatric disorder - psych consulted. will f/u w/ recs -See above. Does not appear to be any obvious psychiatric disorder. [place] a possible Korsakoff's but patient has no history of EtOH abuse. # acute pseudomonas UTI. not poa. - Leukocytosis, resolved 12/03/2016 - Cipro started 11/30 after initial Ceftriaxone and stopped Cipro on 12/15/16 to finish 14 day course -Currently resolved # Poorly controlled hypertension - c/w Norvasc and metoprolol and titrate - Losartan and diuretics stopped due to WISAM - hydralazine prn # severe PVD w/ hx of BLE ulcers s/p debridement, s/p grafts in , followed by plastic surgery at [place]. Last seen 11/16, recommended amputation. As per sister, pt refused it. Unclear interval progression since till this admission - appreciate podiatry consult. will f/u w/ recs - dressing per podiatry - discussed with Podiatry on 12/15/16 who will f/u pt on weekly basis while in hospital # a-fib on Coumadin - c/w Coumadin and metoprolol - f/u daily INR (currently sub-therapeutic) - started heparin SC (12/02/16) for DVT prophylaxis while INR subtherapeutic. -Currently off of subcutaneous heparin and is currently therapeutic with INR and is managed by pharmacy. 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 VTE Prophylaxis: Sub-Q Heparin (Unfractionated) VTE Mechanical Devices: Venous Foot Pump Resuscitation Status: CPR: Attempt Resuscitation Time spent 20 minutes Gail Mauricio MD Dec 22, 2016 15:20
[2016-12-22 16:46] LABS: INR 2.3 ratio
--- NOTE | 2016-12-22 17:25 | PCM.PHAPRO ---
Progress Date of Service: Dec 22, 2016 Warfarin management per pharmacy Indication: atrial fibrillation INR goal: 2-3 Home dose: 4 mg daily INR 1.66 1.72 2.34 2.85 2.25 2.13 2.04 2.15 2.3 CHANGE -0.21 0.06 0.62 0.51 -0.6 -0.12 -0.09 0.11 0.15 DOSE 7.5MG 7.5 6 mg 3 mg 6 5MG 7MG 6mg XXX INR is therapeutic. Give warfarin 6 mg PO today. Pharmacy to continue to monitor. Thank you, Eric Xie Pharmacist Eric Xie Dec 22, 2016 17:25
--- NOTE | 2016-12-22 18:33 | NUR ---
Skin P: Previously blanchable redness on coccyx appears to be non blanchable as of 12/21. Mepilex in place and pt active in bed. Message relayed to wound care and no changes made for dressing. Pt wiggles out of q2hr turns which have proven to be ineffective. I: Pt transferred to P500/SPRING bed to prevent further breakdown of skin. E: Pt is now comfortable in bed and tolerated transfer well. Message left for Tigre Serrano with WC to follow up tomorrow. Addendum: 12/22/16 at 1909 by SANDRO SIM RN Afshin alarm Wheeler bed alarm not used with transfer to specialty bed. Metal sensors are hard and defeat the purpose of the specialty bed. Bed alarm in use, [employer] DEVELOPER's and charge weigher notified
--- NOTE | 2016-12-22 19:09 | NUR ---
Lab PT/INR not drawn by lab at 0500 per orders. Pharmacy following up for Warfarin dosing and requested new draw at lunch. Lab arrived during pt care around 1500 and was asked by me to wait as we were almost done. Lab was not outside the room afterwards. Pharmacy again called to follow up and was told that on both occasions the pt had refused. RN was not notified of this. A final call from pharmacy and RN to lab before 1700 resulted in RN receiving consent from pt and lab successfully getting lab draw. Warfarin dose will be late this evening waiting for results and pharmacy to do their part. NOC RN aware.
[2016-12-22 19:52] VITALS: BP 145/79; PULSE 88; RESP 16; O2SAT 100
[2016-12-23 03:49] VITALS: BP 177/81; PULSE 85; RESP 18; O2SAT 100
--- NOTE | 2016-12-23 05:24 | NUR ---
Activity Pt. is still incontinent at times. Pt. uses call light for needs. Will continue to monitor.
[2016-12-23] MEDS: Pantoprazole 40 mg ER24 Tablet PO SCH (06:15)
[2016-12-23 07:47] LABS: INR 2.43 ratio
[2016-12-23 08:18] VITALS: BP 171/97; PULSE 96; RESP 16; O2SAT 99
[2016-12-23] MEDS: Ascorbic Acid 500 mg Tablet PO SCH (08:36)
--- NOTE | 2016-12-23 10:16 | PCM.PHAPRO ---
Progress Date of Service: Dec 23, 2016 Warfarin dosing A/ INR is therapeutic at 2.43 P/ Continue with 6mg today and follow daily. Petros Mireles Dec 23, 2016 10:16
--- NOTE | 2016-12-23 12:11 | PCM.PNMED ---
Subjective Date of Service Dec 23, 2016 Subjective Patient alert and resting in bed. He says he feels hungry. Exam Vital Signs Vital Sign - Last Date Time Temp Pulse Resp B/P Pulse Ox O2 Delivery O2 Flow Rate FiO2 12/23/16 08:18 36.8 96 16 171/97 99 Room Air Intake and Output 12/22/16 12/22/16 12/23/16 Cumulative From/Thru 15:00 23:00 07:00 11/23/16 12:19 - 12/23/16 05:40 Intake Total 874 ml 647 ml 06300 ml Output Total 650 ml 460 ml 08077 ml Balance 224 ml 187 ml 33064 ml Intake Oral 874 ml 647 ml 33823 ml IV Total 71539 ml Output Urine Total 650 ml 460 ml 67744 ml Urine/Stool Mix 100 ml Emesis 250 ml Estimated Blood Loss 20 ml # Voids 82 # Bowel Movements 2 1 91 Exam Constitutional: Middle-aged man who looks older than his stated age. Head: Normocephalic atraumatic Chest: Clear to auscultation Cor: Regular rate and rhythm S1-S2 Abdomen: Soft nontender bowel sounds present Extremities bilateral lower extremities are dressed area Lab and Diagnostics Laboratory Tests 72 Hours Test 12/20/16 14:30 12/21/16 06:37 12/22/16 16:27 12/23/16 06:30 Vitamin B12 Level 593pg/mL (211-946) Folate > 19.9ng/mL (>3.0) Rapid Plasma Reagin Non reactive (Non Reactive) Prothrombin Time 23.4sec (8.1-12.5) 25.0sec (8.1-12.5) 26.5sec (8.1-12.5) Prothromb Time International Ratio 2.15ratio 2.30ratio 2.43ratio Result Diagram: 12/19/16 0530 Assessment & Plan 61-year-old male from [facility] p/w being obtunded, He gets 0.2 mg of Narcan promptly woke up and was extremely confused and complaining of pain in his ears, found to have pseudomonas UTI # acute septic encephalopathy, POA, suspected secondary to opioid given for leg pain, reported rapid improvement after Narcan. waxes and wanes per staffing coordinator. - CT HEAD negative for acute findings. no MRI due to pacer - no reported seizure/focal neurologic deficit, improved with intermittent delirium. - per sister, baseline pt was AAOx3 -Appreciate psychiatry consultation. We will check vitamin B12 and folate and RPR as they recommended. These did return normal. # ? underlying psychiatric disorder - psych consulted. will f/u w/ recs -See above. Does not appear to be any obvious psychiatric disorder. [place] a possible Korsakoff's but patient has no history of EtOH abuse. # acute pseudomonas UTI. not poa. - Leukocytosis, resolved 12/03/2016 - Cipro started 11/30 after initial Ceftriaxone and stopped Cipro on 12/15/16 to finish 14 day course -Currently resolved # Poorly controlled hypertension - c/w Norvasc and metoprolol and titrate - Losartan and diuretics stopped due to WISAM - hydralazine prn -We will initiate amlodipine 5 mg by mouth daily # severe PVD w/ hx of BLE ulcers s/p debridement, s/p grafts in , followed by plastic surgery at [place]. Last seen 11/16, recommended amputation. As per sister, pt refused it. Unclear interval progression since till this admission - appreciate podiatry consult. will f/u w/ recs - dressing per podiatry - discussed with Podiatry on 12/15/16 who will f/u pt on weekly basis while in hospital # a-fib on Coumadin - c/w Coumadin and metoprolol - f/u daily INR (currently sub-therapeutic) - started heparin SC (12/02/16) for DVT prophylaxis while INR subtherapeutic. -Currently off of subcutaneous heparin and is currently therapeutic with INR and is managed by pharmacy. # microcytic/hypochromic anemia, unclear onset, likely ACD, h/h stable, - transfuse target >7, close obs for GIB given systemic AC # history of CAD, s/p PPM, not active - meds as noted above # GERD - continue PPI Dispo: pt was rejected for long term care social worker SNF by insurance, [facility] seems like best option for patient at this point, appreciate SW input. VTE Prophylaxis: Sub-Q Heparin (Unfractionated) VTE Mechanical Devices: Venous Foot Pump Resuscitation Status: CPR: Attempt Resuscitation Time spent 30 minutes Gail Mauricio MD Dec 23, 2016 12:11
[2016-12-23 12:58] VITALS: BP 143/79; PULSE 118; RESP 18; O2SAT 98
[2016-12-23 16:05] VITALS: BP 145/72; PULSE 104; RESP 18; O2SAT 98
--- NOTE | 2016-12-23 19:23 | NUR ---
BP/SKIN/BM P-Patient am BP 176/67. Reported non blanching Coccyx. Patient experiencing diarrhea yesterday. I- MD made aware of BP and new orders received. Mepilex removed and coccyx assessed. Probiotic given, Bedpan used for BM's. E-Patient last two BP's 140's/80's. Coccyx now blanchable and new Mepilex applied. Patient had BM x5 soft and loose today.
[2016-12-23 20:45] VITALS: BP 118/71; PULSE 97; RESP 20; O2SAT 98
--- NOTE | 2016-12-24 01:46 | NUR ---
Update on BP/BM BP is doing good this shift. Last one 118/71. Pt. has at least had one BM using bedpan. Pt. is able to stay continent so far, and use the urinal. Pt. is still refusing q2 turns at this time. However, pt. is allowing heels to be floated. Will continue to monitor.
[2016-12-24 05:19] VITALS: BP 130/86; PULSE 93; RESP 20; O2SAT 98
[2016-12-24] MEDS: Pantoprazole 40 mg ER24 Tablet PO SCH (06:42)
[2016-12-24 07:27] LABS: INR 2.41 ratio
--- NOTE | 2016-12-24 07:59 | PCM.PHAPRO ---
Progress Warfarin Management by Pharmacy: -Inr remains therapeutic today at 2.41. will continue with warfarin 6mg this evening Magui Franco [facility] Dec 24, 2016 07:59
--- NOTE | 2016-12-24 10:48 | PCM.PNMED ---
Subjective Date of Service Dec 24, 2016 Subjective - Pt is resting comfortably in bed. - No new complaints. Exam Vital Signs Vital Sign - Last Date Time Temp Pulse Resp B/P Pulse Ox O2 Delivery O2 Flow Rate FiO2 12/24/16 05:19 36.7 93 20 130/86 98 Room Air Intake and Output 12/23/16 12/23/16 12/24/16 Cumulative From/Thru 14:59 22:59 06:59 11/23/16 12:19 - 12/24/16 04:43 Intake Total 1124 ml 84391 ml Output Total 1000 ml 29748 ml Balance 124 ml 58909 ml Intake Oral 1124 ml 27803 ml IV Total 42370 ml Output Urine Total 1000 ml 26657 ml Urine/Stool Mix 100 ml Emesis 250 ml Estimated Blood Loss 20 ml # Voids 82 # Bowel Movements 4 95 Exam Constitutional: Middle-aged man who looks older than his stated age. Head: Normocephalic atraumatic Chest: Clear to auscultation Cor: Regular rate and rhythm S1-S2 Abdomen: Soft nontender bowel sounds present Extremities bilateral lower extremities are dressed area IVs and Medications Medications Reviewed: Medications were reviewed in detail Lab and Diagnostics Result Diagram: 12/19/16 0530 Assessment & Plan 61-year-old male from [facility] p/w being obtunded, He gets 0.2 mg of Narcan promptly woke up and was extremely confused and complaining of pain in his ears, found to have pseudomonas UTI acute septic encephalopathy, POA, suspected secondary to opioid given for leg pain, reported rapid improvement after Narcan. waxes and wanes per staff pharmacist hospital. - CT HEAD negative for acute findings. no MRI due to pacer - no reported seizure/focal neurologic deficit, improved with intermittent delirium. - per sister, baseline pt was AAOx3 -Appreciate psychiatry consultation. We will check vitamin B12 and folate and RPR as they recommended. These did return normal. ? underlying psychiatric disorder - psych consulted. will f/u w/ recs -See above. Does not appear to be any obvious psychiatric disorder. [place] a possible Korsakoff's but patient has no history of EtOH abuse. acute pseudomonas UTI. not poa. - Leukocytosis, resolved 12/03/2016 - Cipro started 11/30 after initial Ceftriaxone and stopped Cipro on 12/15/16 to finish 14 day course -Currently resolved Poorly controlled hypertension - c/w Norvasc and metoprolol and titrate - Losartan and diuretics stopped due to WISAM - hydralazine prn - on amlodipine 5 mg by mouth daily severe PVD w/ hx of BLE ulcers s/p debridement, s/p grafts in , followed by plastic surgery at [place]. Last seen 11/16, recommended amputation. As per sister, pt refused it. Unclear interval progression since till this admission - appreciate podiatry consult. will f/u w/ recs - dressing per podiatry - discussed with Podiatry on 12/15/16 who will f/u pt on weekly basis while in hospital a-fib on Coumadin - c/w Coumadin and metoprolol - f/u daily INR (currently sub-therapeutic) - started heparin SC (12/02/16) for DVT prophylaxis while INR subtherapeutic. -Currently off of subcutaneous heparin and is currently therapeutic with INR and is managed by pharmacy. microcytic/hypochromic anemia, unclear onset, likely ACD, h/h stable, - transfuse target >7, close obs for GIB given systemic AC history of CAD, s/p PPM, not active - meds as noted above GERD - continue PPI Dispo: pt was rejected for retirement SNF by insurance, [facility] seems like best option for patient at this point, appreciate SW input. VTE Prophylaxis: Sub-Q Heparin (Unfractionated) VTE Mechanical Devices: Venous Foot Pump Resuscitation Status: CPR: Attempt Resuscitation Júnior Evans MD Dec 24, 2016 10:48
[2016-12-24 12:41] VITALS: BP 127/78; PULSE 95; RESP 20; O2SAT 100
--- NOTE | 2016-12-24 17:58 | NUR ---
Shift: Pt refuses offered turns, does reposition self in bed some. VSS, RA O2 sats 98%. Reports generalized pain, but declines offered tylenol. Anticipate discharge after placement issues resolved. Care ongoing.
[2016-12-24 20:48] VITALS: BP 134/81; PULSE 88; RESP 18; O2SAT 99
--- NOTE | 2016-12-25 04:07 | NUR ---
Activity Patient refuses Q2hour turns, but does move around somewhat independently in bed. Cooperative with assessments and medication administrations. No c/o or s/sx of pain or discomfort. Will continue Q1hour rounding.
[2016-12-25 04:50] VITALS: BP 132/78; PULSE 86; RESP 18; O2SAT 99
[2016-12-25] MEDS: Pantoprazole 40 mg ER24 Tablet PO SCH (05:35)
--- NOTE | 2016-12-25 09:20 | PCM.PNMED ---
Subjective Date of Service Dec 25, 2016 Subjective - Pt seen and examined this morning. - He is resting comfortable in bed. Denies any complaints. Exam Vital Signs Vital Sign - Last Date Time Temp Pulse Resp B/P Pulse Ox O2 Delivery O2 Flow Rate FiO2 12/25/16 04:50 37.0 86 18 132/78 99 Room Air Intake and Output 12/24/16 12/24/16 12/25/16 Cumulative From/Thru 15:00 23:00 07:00 11/23/16 12:19 - 12/25/16 06:19 Intake Total 937 ml 796 ml 1100 ml 62730 ml Output Total 2125 ml 600 ml 775 ml 29961 ml Balance -1188 ml 196 ml 325 ml 22856 ml Intake Oral 937 ml 796 ml 1100 ml 62216 ml IV Total 36510 ml Output Urine Total 2125 ml 600 ml 775 ml 30956 ml Urine/Stool Mix 100 ml Emesis 250 ml Estimated Blood Loss 20 ml # Voids 9 4 95 # Bowel Movements 2 1 98 Exam Constitutional: Middle-aged man who looks older than his stated age. Head: Normocephalic atraumatic Chest: Clear to auscultation Cor: Regular rate and rhythm S1-S2 Abdomen: Soft nontender bowel sounds present Extremities bilateral lower extremities are dressed area IVs and Medications Medications Reviewed: Medications were reviewed in detail Lab and Diagnostics Result Diagram: 12/19/16 0530 Assessment & Plan 61-year-old male from [facility] p/w being obtunded, He gets 0.2 mg of Narcan promptly woke up and was extremely confused and complaining of pain in his ears, found to have pseudomonas UTI acute septic encephalopathy, POA, suspected secondary to opioid given for leg pain, reported rapid improvement after Narcan. waxes and wanes per entry level staff accountant. - CT HEAD negative for acute findings. no MRI due to pacer - no reported seizure/focal neurologic deficit, improved with intermittent delirium. - per sister, baseline pt was AAOx3 - Appreciate psychiatry consultation. We will check vitamin B12 and folate and RPR as they recommended. These did return normal. ? underlying psychiatric disorder - psych consulted. will f/u w/ recs - See above. Does not appear to be any obvious psychiatric disorder. [place] a possible Korsakoff's but patient has no history of EtOH abuse. acute pseudomonas UTI. not poa. - Leukocytosis, resolved 12/03/2016 - Cipro started 11/30 after initial Ceftriaxone and stopped Cipro on 12/15/16 to finish 14 day course - Currently resolved Poorly controlled hypertension - c/w Norvasc and metoprolol and titrate - Losartan and diuretics stopped due to WISAM - hydralazine prn - on amlodipine 5 mg by mouth daily severe PVD w/ hx of BLE ulcers s/p debridement, s/p grafts in , followed by plastic surgery at [place]. Last seen 11/16, recommended amputation. As per sister, pt refused it. Unclear interval progression since till this admission - appreciate podiatry consult. will f/u w/ recs - dressing per podiatry - discussed with Podiatry on 12/15/16 who will f/u pt on weekly basis while in hospital a-fib on Coumadin - c/w Coumadin and metoprolol - f/u daily INR (currently sub-therapeutic) - started heparin SC (12/02/16) for DVT prophylaxis while INR subtherapeutic. - Currently off of subcutaneous heparin and is currently therapeutic with INR and is managed by pharmacy. microcytic/hypochromic anemia, unclear onset, likely ACD, h/h stable, - transfuse target >7, close obs for GIB given systemic AC history of CAD, s/p PPM, not active - meds as noted above GERD - continue PPI Dispo: [facility], [facility] seems like best option for patient at this point, appreciate SW input. VTE Prophylaxis: Sub-Q Heparin (Unfractionated) VTE Mechanical Devices: Venous Foot Pump Resuscitation Status: CPR: Attempt Resuscitation Júnior Evans MD Dec 25, 2016 09:20
[2016-12-25 09:51] LABS: INR 2.46 ratio
[2016-12-25 12:47] VITALS: BP 135/57; PULSE 98; RESP 18; O2SAT 98
--- NOTE | 2016-12-25 14:43 | NUR ---
Mentation Patient alert but is forgetful , not always oriented. patient asking if Eugene received his breakfast also this am. Pt is using call been appropriately asking to use bedpan and has had bm x2 thus far. meplilex noted to sacral area. Pt moves self around bed so refuses for staff to turn him q 2 otherwise patient has been cooperative with care.
[2016-12-25 19:49] VITALS: BP 154/68; PULSE 105; RESP 20; O2SAT 99
[2016-12-26 04:30] VITALS: BP 135/63; PULSE 79; RESP 18; O2SAT 99
--- NOTE | 2016-12-26 05:50 | NUR ---
Pain/activity Pt reported 8/10 pain to legs and Tylenol 975 mg PO given. Pt with no other complaints throughout the shift. Pt has been A/O x3 overnight, using bedpan and urinal. Reminding pt to turn himself and pt allowed staff to turn him on his side as well. Mepilex intact, redness blanches underneath.
[2016-12-26 06:21] LABS: INR 2.4 ratio
[2016-12-26] MEDS: Pantoprazole 40 mg ER24 Tablet PO SCH (08:04)
--- NOTE | 2016-12-26 10:17 | PCM.PNPOD ---
Subjective Date of Service: Dec 26, 2016 Date of Service: Dec 26, 2016 Visit Information: Reason for Visit Altered Mental Status,Severe Dehydration Surgery/Surgery Date Post-Op Day # Date of Admission: Nov 23, 2016 at 14:10 Hospital Day # Subjective: 61-year-old male evaluated while resting comfortably in bed in no acute distress. Patient has a history of bilateral lower extremity ulcerations with exposed bone and tendon. Patient appears alert awake and orientated 3 today he denies any new issues at this time. Postop General: No Complaints Gastrointestinal: Good Appetite Objective Vital Sign - Last Date Time Temp Pulse Resp B/P Pulse Ox O2 Delivery O2 Flow Rate FiO2 12/26/16 04:30 36.7 79 18 135/63 99 Room Air Intake and Output 12/25/16 12/25/16 12/26/16 Cumulative From/Thru 15:00 23:00 07:00 11/23/16 12:19 - 12/26/16 05:18 Intake Total 1436 ml 826 ml 39310 ml Output Total 1225 ml 1025 ml 16750 ml Balance 211 ml -199 ml 58320 ml Intake Oral 1436 ml 826 ml 08639 ml IV Total 02076 ml Output Urine Total 1225 ml 1025 ml 72165 ml Urine/Stool Mix 100 ml Emesis 250 ml Estimated Blood Loss 20 ml # Voids 95 # Bowel Movements 2 1 101 Lab Test 11/23/16 12:44 11/23/16 12:50 11/23/16 13:26 11/24/16 06:55 Activated Partial Thromboplast Time 32.0sec (22.8-33.0) Ammonia 19ug/dL (18-53) Troponin T 0.025ug/L (0.0-0.011) Alcohol, Quantitative < 10mg/dL (0-10) Lactic Acid Level 0.9mmol/L (0.4-2.0) Urine Opiates Screen Positive Urine Methadone Screen Negative Urine Barbiturates Screen Negative Urine Amphetamines Screen Negative Urine Benzodiazepines Screen Negative Urine Cocaine Metabolite Screen Negative Urine Cannabinoids Screen Negative Reticulocyte Count,Calculated 1.0% (0.6-2.6) Iron Level 30ug/dL (.) Total Iron Binding Capacity 162ug/dL (250-450) Percent Iron Saturation 19%sat (15-50) Unsaturated Iron Binding 132.1ug/dL Transferrin 122mg/dL (.) Transferrin % Saturation 18 (.) Ferritin 475ng/mL (30-400) Thyroid Stimulating Hormone (TSH) 1.190uIU/mL (0.450-4.500) Free Thyroxine 1.38ng/dL (0.82-1.77) Test 11/26/16 06:11 12/03/16 06:29 12/07/16 12:51 12/11/16 06:18 Prealbumin 13mg/dL (20-40) Procalcitonin 0.11ng/mL (See Comment) Urine Color Straw (YELLOW) Urine Appearance Hazy (CLEAR,HAZY) Urine pH 6.0 (5.0-8.0) Urine Specific [place] 1.015 (1.003-1.035) Urine Protein 100mg/dL (NEG,TRACE) Urine Glucose (UA) Negativemg/dL (NEGATIVE) Urine Ketones Negativemg/dL (NEGATIVE) Urine Occult Blood Moderate (NEGATIVE) Urine Nitrite Negative (NEGATIVE) Urine Bilirubin Negative (NEGATIVE) Urine Urobilinogen Normalmg/dL (NORMAL) Urine Leukocyte Esterase Negative (NEGATIVE) Urine RBC 11-50/hpf (0-2) Urine WBC 11-50/hpf (0-5) Urine Epithelial Cells Occasional/hpf (NONE-MOD) Urine Crystals Oxalic acid crystals (NONE Urine Bacteria Few/hpf (NONE-FEW) Urine Hyaline Casts None/lpf (NONE) Urine Granular Casts None seen (NONE SEEN) Urine Waxy Casts None seen (NONE SEEN) Urine Red Blood Cell Casts None seen (NONE SEEN) Urine White Blood Cell Casts None seen (NONE SEEN) Urine Mucus Present (None Seen) Urine Trichomonas None seen (NONE SEEN) Urine Yeast None (NONE SEEN) Urinalysis Comment None Urine Culture Reflexed Indicated Neutrophils (%) (Auto) 54.5% (40-74) Lymphocytes (%) (Auto) 35.4% (14-46) Monocytes (%) (Auto) 8.3% (4-12) Eosinophils (%) (Auto) 1.1% (0-5) Basophils (%) (Auto) 0.4% (0-3) Phosphorus Level 2.5mg/dL (2.5-4.9) Total Bilirubin 0.3mg/dL (0.0-1.2) Aspartate Amino Transf (AST/SGOT) 17U/L (0-50) Alanine Aminotransferase (ALT/SGPT) 16U/L (0-44) Alkaline Phosphatase 57U/L (25-160) Total Protein 4.8g/dL (6.4-8.4) Albumin 2.5g/dL (3.4-5.0) Test 12/13/16 05:33 12/15/16 06:00 12/19/16 05:30 12/20/16 14:30 Magnesium Level 1.7mg/dL (1.6-2.6) White Blood Count 6.8th/mm3 (3.8-10.1) Red Blood Count 3.43mil/mm3 (4.40-5.80) Hemoglobin 9.1g/dL (13.8-17.2) Hematocrit 29.9% (41.0-50.0) Mean Corpuscular Volume 87.2fL (81-100) Mean Corpuscular Hemoglobin 26.5pg (27.0-35.0) Mean Corpuscular Hemoglobin Concent 30.4% (32.0-37.0) Red Cell Distribution Width 17.1% (12.3-15.4) Platelet Count 264bil/L (150-400) Sodium Level 144mEq/L (134-144) Potassium Level 4.5mEq/L (3.5-5.2) Chloride Level 104mEq/L (97-108) Carbon Dioxide Level 26mmol/L (18-29) Blood Urea Nitrogen 46mg/dL (8-27) Creatinine 1.43mg/dL (0.76-1.27) Estimat Glomerular Filtration Rate 53mL/min (>59) Glucose Level 93mg/dL (60-99) Calcium Level 9.0mg/dL (8.5-10.1) Vitamin B12 Level 593pg/mL (211-946) Folate > 19.9ng/mL (>3.0) Rapid Plasma Reagin Non reactive (Non Reactive) Test 12/26/16 05:30 Prothrombin Time 26.1sec (8.1-12.5) Prothromb Time International Ratio 2.40ratio Exam General: Alert, Oriented X3, Cooperative, No Acute Distress Lungs: Clear to Auscultation, Normal Air Movement Lower Extremities: Bilateral: Extremity warm Lower Extremity Pulses: Palpable: Left Dorsalis Pedis Left Posterior Tibal Right Dorsalis Pedis Right Posterior Tibal Podiatry WOUND : Wound Location/Description Left proximal anterior leg ulceration without exposed bone full-thickness to subcutaneous tissue. The majority of this ulceration is hyper granular in nature with a mild amount of fibrotic slough there is no surrounding erythema and no signs of acute infection. This ulceration measures 2.5 cm x 3 cm x 0.2 cm in depth Right proximal anterior leg ulceration with exposed tibialis anterior tendon which has significantly decreased and exposure since previous evaluation. The majority of this ulceration is hyper granular in nature with a mild amount of fibrotic slough. There is no surrounding erythema and no signs of acute infection. This ulceration measures 4 cm x 3.8 cm x 0.2 cm in depth at its deepest Right anterior ankle ulceration full-thickness to subcutaneous tissue with exposed tibialis anterior tendon there is no exposed bone. No surrounding erythema and no malodor no signs of acute infection. The most medial and lateral aspect of this ulceration is hyper granular in nature there is a mild amount of surrounding fibrotic slough. The tibialis anterior tendon has portions of necrosis proximally and distally following previous debridement. No purulent drainage noted no sign of acute infection. This ulceration measures 9.7 cm x 4.8 cm x 1 cm in depth at its deepest portion centrally with the majority of the wound being superficial Right posterior heel ulceration full-thickness to subcutaneous tissue this wound is 100% granular there is no surrounding erythema and no signs of acute infection this ulceration measures 2.8 cm x 3 cm x 0.2 cm in depth Surgical Cast or Splint: None Assessment & Plan Impression Stable bilateral lower extremity ulcerations without signs of acute infection Problems: Plan Mr. Gilliam appears to be doing quite well today. Dressings were removed today and his right anterior ankle ulceration was sharply debrided with a #10 blade to remove small portions of necrotic tendon and all fibrotic and nonviable soft tissue. Healthy bleeding tissue was noted to all wound bases today. Wound dressings will be applied today with simple moist to dry sterile gauze dressing bilaterally to all ulcerations. This will be changed again in 48-72 hours and we will likely revert to previous wound care recommendations. There is no sign of acute infection today this patient is stable for discharge to outpatient wound care per podiatry standpoint no immediate surgical needs however I have discussed with the patient previously that he would benefit from potentially having another wound graft performed in the future. I will continue to follow this patient weekly while he is admitted VTE Prophylaxis: Sub-Q Heparin (Unfractionated) Rosas Crisostomo DPM Dec 26, 2016 10:17
[2016-12-26 13:04] VITALS: BP 130/77; PULSE 95; RESP 18; O2SAT 98
--- NOTE | 2016-12-26 13:43 | PCM.PHAPRO ---
Progress WARFARIN DOSING PER PHARMACY INR remains at 2.40 P: Will give warfarin 6 mg PO Maryanne Pastor PharmD Dec 26, 2016 13:43
--- NOTE | 2016-12-26 15:55 | NUR ---
Social Work Continued Discharge Planning: SW experiencing difficulty in finding placement for patient as no AFH obtained at this time. [facility] rep Rylee Goss, following for placement of an AFH.SW contacted and left voice mail message for rep to determine placement updates. SW to follow up with UR specialist for swing bed wait list status. SW to follow. PLAN: Difficult discharge placement. SW following. [facility] following for AFH placement. No accepting facility [facility]
--- NOTE | 2016-12-26 17:19 | NUR ---
Pain/Activity Pain: Pt did have dressing change performed by WC this shift, pt 'oo' and 'ah' ing with movement; tends to keep knees bent rather than straightening them out but states, "I can hardly bend them" - think he means straighten them out. Offered pt Tylenol - pt states, "that doesn't do anything really," but encouraged pt to take dose informing him that he had stated previously that it was effective. Pt accepting and sleeping on reassessment. Activity: Pt encouraged to turn in bed as he tends to favor one side. Offered pt to be OOB for dinner, pt stating no, 'too much trouble' and that it was more of a hassle with his legs at this time. Encouraged pt to stretch his legs and perform bed exercises - pt started talking about PT and that he had ordered PT equipment... No issues re: care - accepting of care. Care continues.
--- NOTE | 2016-12-26 18:58 | PCM.PNMED ---
Subjective Date of Service Dec 26, 2016 Subjective No complaints of chest pain, dyspnea, nausea or vomiting. He feels like his leg wraps that he has no idea why they are there are bit tight. Exam Vital Signs Vital Sign - Last Date Time Temp Pulse Resp B/P Pulse Ox O2 Delivery O2 Flow Rate FiO2 12/26/16 13:04 36.8 95 18 130/77 98 Room Air Intake and Output 12/25/16 12/25/16 12/26/16 Cumulative From/Thru 15:00 23:00 07:00 11/23/16 12:19 - 12/26/16 05:18 Intake Total 1436 ml 826 ml 42578 ml Output Total 1225 ml 1025 ml 04660 ml Balance 211 ml -199 ml 77601 ml Intake Oral 1436 ml 826 ml 09895 ml IV Total 52774 ml Output Urine Total 1225 ml 1025 ml 14803 ml Urine/Stool Mix 100 ml Emesis 250 ml Estimated Blood Loss 20 ml # Voids 95 # Bowel Movements 2 1 101 Exam Gen.- A+ responsive sitting in bed, no apparent distress. Eyes- open conjunctiva clear, pupils equal nonicteric ENT- ears normal, nose normal Neck- supple/trach midline CVS-normal rate Lungs-respirations regular and nonlabored GI-flat Musc- moving 4 no obvious deformity Neuro- cranial nerves II through XII intact to gross examination, nonfocal Skin- warm and dry, no rashes/lesions/wounds noted, appear to be Unna boots wrapping up to mid calf bilaterally Psych- pleasant and appropriate, Assessment & Plan 61-year-old male from [facility] obtunded 11/25, has been treated for UTI, narcotics minimized in patient's mental status is failed to improve. Seems to be a market decline from prior level of function according to his sister. 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 Will get MRI (not feasible pt has pacer), carotid Dopplers and echocardiogram 12/26. severe PVD w/ hx of BLE ulcers s/p debridement, s/p grafts in , followed by plastic surgery at [place]. Last seen 11/16, recommended amputation. As per sister, pt refused it. Unclear interval progression since till this admission - appreciate podiatry consult. will f/u w/ recs - dressing per podiatry - discussed with Podiatry on 12/15/16 who will f/u pt on weekly basis while in hospital, / debirdement/redressed chronic metabolic encephalopathy/likely multi-infarct dementia, Acute POA, suspected secondary to opioid given for leg pain, reported rapid improvement after Narcan. waxes and wanes per medical staff manager. - CT HEAD negative for acute findings. no MRI due to pacer - no reported seizure/focal neurologic deficit, improved with intermittent delirium. - per sister, baseline pt was AAOx3 - Appreciate psychiatry consultation. We will check vitamin B12 and folate and RPR as they recommended. These did return normal. -Will further investigate cause of patient's reported functional cognitive decline but suspect multi-infarct dementia given vascular diseases patient is a vasculopath. MRI (not feasible pt has pacer), will get carotid Dopplers and echocardiogram 12/26. ? underlying psychiatric disorder - psych consulted. will f/u w/ recs - See above. Does not appear to be any obvious psychiatric disorder. [place] a possible Korsakoff's but patient has no history of EtOH abuse. acute pseudomonas UTI. not poa. - Leukocytosis, resolved 12/03/2016 - Cipro started 11/30 after initial Ceftriaxone and stopped Cipro on 12/15/16 to finish 14 day course - Currently resolved uncontrolled HTN on admit now +/- cont- SBP 130-155 12/26 - c/w +/- on amlodipine 5 mg by mouth daily - Losartan and diuretics stopped due to WISAM (resolved 12/26) a-fib on Coumadin - c/w Coumadin and metoprolol - f/u daily INR (currently sub-therapeutic) - started heparin SC (12/02/16) for DVT prophylaxis while INR subtherapeutic. - Currently off of subcutaneous heparin and is currently therapeutic with INR and is managed by pharmacy. microcytic/hypochromic anemia, unclear onset, likely ACD, h/h stable, - transfuse target >7, close obs for GIB given systemic AC history of CAD, s/p PPM, not active - meds as noted above GERD - continue PPI Prophylaxis: DVT patient on full strength warfarin therapeutic, SCDs contraindicated, GI on PPI Dispo: Full code from SNF -pt was rejected for skilled nursing SNF by insurance, [facility] seems like best option for patient at this point, appreciate SW input. Medically complex patient at high risk for complications VTE Prophylaxis: Sub-Q Heparin (Unfractionated) VTE Mechanical Devices: Venous Foot Pump Resuscitation Status: CPR: Attempt Resuscitation Valentino Anna MD Dec 26, 2016 18:58
--- NOTE | 2016-12-26 21:14 | DRSVH ---
PROCEDURE: US BILATERAL DUPLEX DOPPLER IMAGING OF THE CAROTIDS ([id number]) INDICATIONS: Evaluate stroke follow up TECHNIQUE: Color and pulse Doppler interrogation was performed of both carotid systems, with image documentation and velocity measurements. COMPARISON: None. FINDINGS: All stenosis calculations are based on NASCET criteria. Right side: Common carotid artery peak systolic velocity: 107 cm/sec. Internal carotid artery peak systolic velocity: 93 cm/sec. Internal carotid artery end diastolic velocity: 30 cm/sec. External carotid artery peak systolic velocity: 208 cm/sec. ICA/CCA peak systolic ratio: 0.9. Calixto scale imaging description: Mild to moderate calcific and soft plaque Percent internal carotid artery stenosis: Less than 50% stenosis. Vertebral artery: Flow direction is antegrade. Left side: Brachial blood pressure: 130/77 mm Hg. Common carotid artery peak systolic velocity: 101 cm/sec. Internal carotid artery peak systolic velocity: 106 cm/sec. Internal carotid artery end diastolic velocity: 32 cm/sec. External carotid artery peak systolic velocity: 153 cm/sec. ICA/CCA peak systolic ratio: 1.1. Calixto scale imaging description: Moderate calcific and soft plaque Percent internal carotid artery stenosis: Less than 50% stenosis. Vertebral artery: Flow direction is antegrade. IMPRESSION: Moderate calcific and soft plaque bilaterally, but less than 50% stenosis is seen within the proximal internal carotid arteries bilaterally. Dictated by: Jordan Pratt M.D. on 12/26/2016 at 21:09 Approved by: Jordan Pratt M.D. on 12/26/2016 at 21:12
[2016-12-26 22:00] VITALS: BP 138/83; PULSE 92; RESP 18; O2SAT 99
--- NOTE | 2016-12-27 04:52 | NUR ---
Activity Pt reporting 8/10 pain to legs bilaterally. Given Tylenol 975 mg PO. Pt appears to be resting, eyes closed. Redness to sacrum continues to brandyn, mepilex intact and encouraging turns. Pt had soft formed medium stool this shift.
[2016-12-27 05:26] VITALS: BP 154/88; PULSE 84; RESP 16; O2SAT 100
[2016-12-27 06:38] LABS: BASOPHILS % (AUTO) 0.2 % (0-3); EOSINOPHILS % (AUTO) 1.6 % (0-5); MONOCYTES % (AUTO) 7.4 % (4-12); Mean Corpuscular Hemoglobin 27.9 pg (27.0-35.0); Mean Corpuscular Volume 89.8 fL (81-100); NEUTROPHILS % (AUTO) 51.1 % (40-74); Platelet Count 309 bil/L (150-400)
[2016-12-27 06:46] LABS: INR 2.3 ratio
[2016-12-27] MEDS: Pantoprazole 40 mg ER24 Tablet PO SCH (07:44)
--- NOTE | 2016-12-27 13:50 | PCM.PHAPRO ---
Progress WARFARIN DOSING PER PHARMACY 3-Feb 4-Feb 5-Feb 6-b 7-b 2.43 2.41 2.46 2.40 2.30 6MG 6MG 6 MG 6 MG - INR is beginning to drop today - Will give one dose of warfarin 7.5 mg PO Maryanne Pastor PharmD Dec 27, 2016 13:50
--- NOTE | 2016-12-27 14:13 | DRSVH ---
Formerly [facility] [address] [place] [address] Echocardiogram Report Name: NICOL HURT FStudy Date: 12/27/2016 Height: 66 in Hospital Exam Location: [facility] Weight: 130 lb Gender: Male BSA: 1.7 m2 : 1955 Age: 61 yrs BP: 154/88 mmHg Reason For Study: Stroke History: CAD, PACEMAKER Ordering Physician: Performed By: Shweta Weaver [facility] Interpretation Summary The left ventricle is not well visualized but left ventricular systolic function is probably normal and the ejection fraction grossly appears to be in the 60-70% range. There are no obvious focal wall motion abnormalities noted but poor endocardial definition reduces the sensitivity for the detection of such. Left ventricular wall thickness is mildly increased, producing a probable small left ventricular cavity. Assessment of diastolic parameters indicates a relaxation abnormality of the left ventricle, consistent with normal filling pressures. The right ventricle grossly appears normal in size with probable normal systolic function. Pulmonary artery pressures cannot be estimated because of the lack of a measurable TR jet velocity but the IVC suggests a low right atrial pressure of 3 mm Hg. The atria are not well visualized but grossly appear normal in size. There is no obvious significant valvular heart disease. The aortic arch is at the upper limits of normal in size. Procedure: A two-dimensional transthoracic echocardiogram with color flow and Doppler was performed. The study quality was technically difficult. There is no prior echocardiogram noted for this patient. Definity contrast was not used due to no IV access. The patient was in normal sinus rhythm during the exam. The patient had a bundle branch block rhythm during the exam. Left Ventricle: The left ventricle is not well visualized. Left ventricular wall thickness is mildly increased. The left ventricular cavity is small. A false chord is noted (normal variant). Left ventricular systolic function is probably normal. The left ventricular ejection fraction is grossly normal. There are no obvious focal wall motion abnormalities noted but poor endocardial definition reduces the sensitivity for the detection of such. Assessment of diastolic parameters indicates a relaxation abnormality of the left ventricle, consistent with normal filling pressures. Right Ventricle: There is a pacemaker lead in the right ventricle. The right ventricle grossly appears normal in size with probable normal systolic function. Atria: The left atrium is not well visualized. The left atrium grossly appears normal in size. The right atrium grossly appears normal in size. There is no Doppler evidence for an interatrial shunt. Mitral Valve: The mitral valve leaflets appear mildly thickened, but open well. The mitral valve leaflets are mildly calcified. There is no mitral regurgitation. Aortic Valve: The aortic valve is not well visualized. The aortic valve is mildly calcified. The aortic valve opens well. There is no hemodynamically significant valvular aortic stenosis. No aortic regurgitation is present. Tricuspid Valve: The tricuspid valve is not well visualized, but is grossly normal. There is a trace or physiologic amount of tricuspid regurgitation. Pulmonary artery pressures cannot be estimated because of the lack of a measurable TR jet velocity. Pulmonic Valve: The pulmonic valve is not well visualized. There is no significant valvular heart disease. Great Vessels: The aortic root is normal size. The ascending aorta could not be visualized. The aortic arch is at the upper limits of normal in size. The pulmonary is not well visualized. The IVC is of normal diameter and collapses greater than 50% with a sniff. This suggests a low right atrial pressure of 3 mm Hg. Pericardium/ Pleura There is no pericardial effusion. MMode/2D Measurements & Calculations LVIDd: 3.2 cm RA long axis Ao root diam LVIDs: 2.4 cm LA A2 area: 20.2 cm FS: 24.9 % LA A4 area: 16.0 cm RA area Ao Arch Diam (Prox EPSS: 0.41 cm LA length (vol) Trans): 3.0 cm IVSd: 1.2 cm : 11.9 cm LVPWd: 0.88 cm LA vol: 54.9 ml RA vol LA vol index : 28.7 ml RA : 33.0 ml/m2 : 17.2 mm2 LV nails. diameter/BSA LV sys. diameter/BSA RVD1 (basal) (cm/m^2): 1.9 (cm/m^2): 1.5 Doppler Measurements & Calculations Ao V2 max MV E max bill MV E/A: 0.61 PA V2 max : 210.0 cm/sec : 55.1 cm/sec Med Peak E' Bill : 99.4 cm/sec Ao max PG MV A max bill PA mean PG : 17.6 mmHg : 90.7 cm/sec E/E' med: 14.4 Ao mean PG MV P1/2t: 95.3 msec Lat Peak E' Bill PA Accel Time : 10.1 mmHg : 0.08 sec LVOT Max Bill E/E' lat: 5.1 : 130.9 cm/sec E/e' average: 9.8 sev ratio: 0.66 MV A dur: 0.10 sec MV dec time MV P1/2t max bill Ao V2 mean LV V1 max PG : 0.33 sec : 149.6 cm/sec MVA(P1/2t): 2.3 cm2 Ao V2 VTI: 33.2 cm LV V1 VTI : 21.9 cm PA V2 mean : 67.5 cm/sec Reading Physician:02:12 PM
[2016-12-27 14:16] VITALS: BP 119/75; PULSE 92; RESP 16; O2SAT 97
[2016-12-27] MEDS ORDERED: Warfarin 5 MG, Warfarin 2.5 MG PO ONE ×2 (17:00)
--- NOTE | 2016-12-27 18:18 | PCM.PNMED ---
Subjective Date of Service Dec 27, 2016 Subjective No new complaints of chest pain, dyspnea or nausea or vomiting Exam Vital Signs Vital Sign - Last Date Time Temp Pulse Resp B/P Pulse Ox O2 Delivery O2 Flow Rate FiO2 12/27/16 14:16 36.6 92 16 119/75 97 Room Air Intake and Output 12/26/16 12/26/16 12/27/16 Cumulative From/Thru 15:00 23:00 07:00 11/23/16 12:19 - 12/27/16 05:26 Intake Total 1036 ml 800 ml 50432 ml Output Total 700 ml 1050 ml 58059 ml Balance 336 ml -250 ml 32652 ml Intake Oral 1036 ml 800 ml 84261 ml IV Total 04083 ml Output Urine Total 700 ml 1050 ml 20461 ml Urine/Stool Mix 100 ml Emesis 250 ml Estimated Blood Loss 20 ml # Voids 95 # Bowel Movements 1 1 103 Exam Gen.-Sleeping no apparent distress Eyes-eyes close, no drainage ENT- ears normal, nose normal Neck- supple/trach midline CVS-normal rate Lungs-respirations regular and nonlabored GI-flat Musc- moving 4 no obvious deformity Neuro- cranial nerves II through XII intact to gross examination, nonfocal Skin- warm and dry, no rashes/lesions/wounds noted, appear to be Unna boots wrapping up to mid calf bilaterally Psych- pleasant and appropriate, Lab and Diagnostics Pseudomonas grew in urine 11/27 and was treated completed 12/15 all other micro- negative Result Diagram: 12/27/16 0602 12/27/16 0602 X-Rays, CTs and MRIs Carotid Doppler Moderate calcific and soft plaque bilaterally, but less than 50% stenosis is seen within the proximal internal carotid arteries bilaterally. Dictated by: Jordan Pratt M.D. on 12/26/2016 at 21:09 CT brain no significant abnormalities 11/23/16 12-lead ECG 11/23/16, sinus bradycardia with PACs, rate was 47, QTC 400 ms personally/ concurrently reviewed by Shoshana 12/27 Cardiac Echo Impressions Echo 12/27/16 The left ventricle is not well visualized but left ventricular systolic function is probably normal and the ejection fraction grossly appears to be in the 60-70% range. There are no obvious focal wall motion abnormalities noted but poor endocardial definition reduces the sensitivity for the detection of such. Left ventricular wall thickness is mildly increased, producing a probable small left ventricular cavity. Assessment of diastolic parameters indicates a relaxation abnormality of the left ventricle, consistent with normal filling pressures. The right ventricle grossly appears normal in size with probable normal systolic function. Pulmonary artery pressures cannot be estimated because of the lack of a measurable TR jet velocity but the IVC suggests a low right atrial pressure of 3 mm Hg. The atria are not well visualized but grossly appear normal in size. There is no obvious significant valvular heart disease. The aortic arch is at the upper limits of normal in size. Assessment & Plan 61-year-old male from [facility] obtunded 11/25, has been treated for UTI, narcotics minimized in patient's mental status is failed to improve. Seems to be a market decline from prior level of function according to his sister. 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 Will get MRI (not feasible pt has pacer), carotid Dopplers and echocardiogram 12/26. 12/27 patient a placement issue. We need to pursue guardianship he is not competent. Need to evaluate how best to document/declared incompetence of this patient to manage personal affairs. severe PVD w/ hx of BLE ulcers s/p debridement, s/p grafts in , followed by plastic surgery at [place]. Last seen 11/16, recommended amputation. As per sister, pt refused it. Unclear interval progression since till this admission - Podiatry 12/15/16 following pt on weekly basis while in hospital, last debridement/redressed 12/26 metabolic encephalopathy/likely multi-infarct dementia, initial/acute 2/[address] HEAD negative for acute findings 11/23/16. no MRI due to pacer, b12/ folate/rpr WNL 12/20/16, - no reported seizure/focal neurologic deficit, improved with intermittent delirium. Will check EEG. Consider trial of steroids for autoimmune encephalopathy such as Rupesh 12/27 - per sister, baseline pt was AAOx3 prior to admission - Appreciate psychiatry consultation 12/20. -MOCA 10/19 per speech 11/25, another SAIRA or MOCA could be repeated, does not seem that the patient has competency. Recommend pursuing guardianship. microcytic/hypochromic anemia, unclear onset, likely ACD, h/h stable, Hg 9.7 12/27/16, iron low 11/24, b12/folate wnl 11/26 repeat iron studies 12/28, hemoccult stools. WISAM/CKD3- Cr 2.56 12/07, 1.28 12/27 ?underlying psychiatric disorder- psych consulted 12/20. Does not appear to be any obvious psychiatric disorder. [place] a possible Korsakoff's but patient has no history of EtOH abuse. pseudomonas UTI. not poa.- Leukocytosis, resolved 12/03/2016. Cipro started 11/30 after initial Ceftriaxone and stopped Cipro -12/15/16 completed 14 days. Resolved uncontrolled HTN on admit now +/- cont- SBP 130-155 12/26- c/w +/- on amlodipine 5 mg by mouth daily - Losartan and diuretics stopped due to WISAM (resolved 12/26) a-fib on Coumadin- - c/w Coumadin and metoprolol. Rate controlled INR therapeutic and Coumadin being managed per pharmacy hxCAD, s/p PPM, not active- meds as noted above GERD - continue PPI Prophylaxis: DVT patient on full strength warfarin therapeutic, SCDs contraindicated, GI on PPI Dispo: Full code from SNF -pt was [facility] for [facility] by insurance, [facility] like [facility] for patient at this point, appreciate SW input. Medically complex patient at high risk for complications VTE Prophylaxis: Sub-Q Heparin (Unfractionated) VTE Mechanical Devices: Venous Foot Pump Resuscitation Status: CPR: Attempt Resuscitation Valentino Anna MD Dec 27, 2016 18:17
[2016-12-27 20:55] VITALS: BP 150/87; PULSE 86; RESP 18; O2SAT 98
--- NOTE | 2016-12-28 03:55 | NUR ---
Behavior/Pain/Activity Patient calm and appropriate this shift. Compliant with care. No s/sx of pain or discomfort and denies when asked. FELDT score= 0. Patient refuses Q2hour turns, but does move around somewhat in bed independently.
[2016-12-28 05:10] VITALS: BP 165/90; PULSE 81; RESP 20; O2SAT 98
[2016-12-28] MEDS: Pantoprazole 40 mg ER24 Tablet PO SCH (05:17)
[2016-12-28 07:47] LABS: INR 2.28 ratio
[2016-12-28 07:54] LABS: Mean Corpuscular Hemoglobin 28.1 pg (27.0-35.0); Mean Corpuscular Volume 89.4 fL (81-100)
[2016-12-28 08:07] LABS: Unsaturated Iron Binding 189.8 ug/dL
[2016-12-28 09:17] VITALS: BP 150/86; PULSE 78
--- NOTE | 2016-12-28 11:10 | NUR ---
NUTRITION FOLLOW UP: ASSESS: 61 YO male admitted with UTI, acute encephalopathy related to WISAM / dehydration. Pt. with severe PVD w/ hx of BLE ulcers s/p debridement of wounds, podiatry following. Pt continues to have good PO intake. PMHx: Severe PVD, atrial fibrillation, CKD stage 3, HTN, CAD, hypothyroidism, GERD, HLD, cardiac pacemaker, atherosclerosis of left leg, anemia. DIET: Heart healthy, ensure all trays, magic cup Lunch and dinner tray. PO 75-100% of meals LABS: Reviewed. BUN 39, Cr 1.31, Alb 3.2. MEDICATIONS: Reviewed. GI: BM x 2 (12/27) SKIN INTEGRITY: R anterior leg and ankle ulcer, R heel ulcer, and L anterior leg ulcer. ANTHROPOMETRICS: Current Wt: 58.8 kg. Admit wt: 69 kg. However, pt bed was zeroed and pt was weighed in a bed sling on 12/02 and wt was 54.3 kg so likely current wt is more accurate than admit wt. IBW: 64.55 kg. RE-ESTIMATED NEEDS BASED OF NEW WTS: (WOUNDS, BMI, STAGE III CKD): Calories: 8876-0337 kcal (30-40 kcal / kg BW of 54.3 kg.) Protein: 55-80 g (1.0-1.5 g/kg BW of 54.3 kg) NUTRITION DIAGNOSIS: 1) Increased nutrient needs related to increased demand for nutrients per disease process as evidenced by current skin issues. ---PERSISTS INTERVENTION: 1) Will continue to send Ensure on all trays. 2) Will change magic cup on L and D tray to Shawn on breakfast and dinner tray. MONITOR/EVALUATE: PO intake, labs, wounds, GI/nutrition status. Follow per low nutrition risk guidelines.
--- NOTE | 2016-12-28 11:47 | PCM.PHAPRO ---
Progress WARFARIN DOSING PER PHARMACY INR is 2.28 today Will give one dose of warfarin 7.5 mg PO [facility] will continue to monitor INR/CBC/signs and symptoms of bleeding Maryanne Mclain PharmD Dec 28, 2016 11:47
[2016-12-28 12:42] VITALS: BP 159/85; PULSE 98; RESP 20; O2SAT 99
--- NOTE | 2016-12-28 15:09 | PCM.PNMED ---
Subjective Date of Service Dec 28, 2016 Subjective Patient sleeping, no new complaints of chest pain, dyspnea, nausea or vomiting Exam Vital Signs Vital Sign - Last Date Time Temp Pulse Resp B/P Pulse Ox O2 Delivery O2 Flow Rate FiO2 12/28/16 12:42 36.7 98 20 159/85 99 Room Air Intake and Output 12/27/16 12/27/16 12/28/16 Cumulative From/Thru 15:00 23:00 07:00 11/23/16 12:19 - 12/28/16 05:07 Intake Total 2096 ml 03315 ml Output Total 1245 ml 23728 ml Balance 851 ml 95618 ml Intake Oral 2096 ml 21992 ml IV Total 01078 ml Output Urine Total 1245 ml 59420 ml Urine/Stool Mix 100 ml Emesis 250 ml Estimated Blood Loss 20 ml # Voids 95 # Bowel Movements 1 104 Exam Gen.-Sleeping no apparent distress Eyes-eyes close, no drainage ENT- ears normal, nose normal Neck- supple/trach midline CVS-normal rate Lungs-respirations regular and nonlabored GI-flat Musc- moving 4 no obvious deformity Neuro- cranial nerves II through XII intact to gross examination, nonfocal Skin- warm and dry, no rashes/lesions/wounds noted, appear to be Unna boots wrapping up to mid calf bilaterally Psych- pleasant and appropriate, Lab and Diagnostics Result Diagram: 12/28/16 0716 12/28/16 0716 X-Rays, CTs and MRIs Carotid Doppler Moderate calcific and soft plaque bilaterally, but less than 50% stenosis is seen within the proximal internal carotid arteries bilaterally. Dictated by: Jordan Pratt M.D. on 12/26/2016 at 21:09 CT brain no significant abnormalities 11/23/16 12-lead ECG 11/23/16, sinus bradycardia with PACs, rate was 47, QTC 400 ms personally/ concurrently reviewed by Shoshana 12/27 Cardiac Echo Impressions Echo 12/27/16 The left ventricle is not well visualized but left ventricular systolic function is probably normal and the ejection fraction grossly appears to be in the 60-70% range. There are no obvious focal wall motion abnormalities noted but poor endocardial definition reduces the sensitivity for the detection of such. Left ventricular wall thickness is mildly increased, producing a probable small left ventricular cavity. Assessment of diastolic parameters indicates a relaxation abnormality of the left ventricle, consistent with normal filling pressures. The right ventricle grossly appears normal in size with probable normal systolic function. Pulmonary artery pressures cannot be estimated because of the lack of a measurable TR jet velocity but the IVC suggests a low right atrial pressure of 3 mm Hg. The atria are not well visualized but grossly appear normal in size. There is no obvious significant valvular heart disease. The aortic arch is at the upper limits of normal in size. Assessment & Plan 61-year-old male from [facility] obtunded 11/25, has been treated for UTI, narcotics minimized in patient's mental status is failed to improve. Seems to be a market decline from prior level of function according to his sister. 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 Will get MRI (not feasible pt has pacer), carotid Dopplers and echocardiogram 12/26. 12/27 patient a placement issue. We need to pursue guardianship he is not competent. Need to evaluate how best to document/declared incompetence of this patient to manage personal affairs. 12/28 at this time the patient's care as snf. He cannot care for himself. Perhaps there was anoxic brain injury around the time of admission. The only other option I can think of is high dose steroids to treat an autoimmune metabolic encephalopathy however this patient wakes up and seems a bit too lucid for that to be the case but we may be reaching a place where there is no harm and simply try Solu-Medrol 1 g daily for 3 days to see if that improves his cognitive function and the effects would very obvious very quickly if this was appropriate and I think there is very little downside. I would institute this today however I am going off service and therefore will not start on the day I go off service. severe PVD w/ hx of BLE ulcers s/p debridement, s/p grafts in , followed by plastic surgery at [facility]. Last seen 11/16, recommended amputation. As per sister, pt refused it. Unclear interval progression since till this admission - Podiatry 12/15/16 following pt on weekly basis while in hospital, last debridement/redressed 12/26 metabolic encephalopathy/likely multi-infarct dementia, initial/acute 2/[address] HEAD negative for acute findings 11/23/16. no MRI due to pacer, nH4 19 11/23 b12/folate/rpr WNL 12/20/16, - no reported seizure/focal neurologic deficit, improved with intermittent delirium. Will check EEG. Consider trial of steroids for autoimmune encephalopathy such as Rupesh 12/27 - per sister, baseline pt was AAOx3 prior to admission - Appreciate psychiatry consultation 12/20. -MOCA 10/19 per speech 11/25, another SAIRA or MOCA could be repeated, does not seem that the patient has competency. Recommend pursuing guardianship. microcytic/hypochromic anemia, unclear onset, likely ACD, h/h stable, Hg 9.7 12/27, 10.3 12/28, iron low 11/24, b12/folate wnl 11/26 iron studies low normal, retic somewhat up 12/28, hemoccult stools pending. WISAM/CKD3- Cr 2.56 12/07, 1.28 12/27, Cr 1.31 12/28 ?underlying psychiatric disorder- psych consulted 12/20. Does not appear to be any obvious psychiatric disorder. [place] a possible Korsakoff's but patient has no history of EtOH abuse. pseudomonas UTI. not poa.- Leukocytosis, resolved 12/03/2016. Cipro started 11/30 after initial Ceftriaxone and stopped Cipro -12/15/16 completed 14 days. Resolved uncontrolled HTN on admit now +/- cont- SBP 130-155 12/26- c/w +/- on amlodipine 5 mg by mouth daily - Losartan and diuretics stopped due to WISAM (resolved 12/26) a-fib on Coumadin- - c/w Coumadin and metoprolol. 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 Medically complex patient at high risk for complications VTE Prophylaxis: Sub-Q Heparin (Unfractionated) VTE Mechanical Devices: Venous Foot Pump Resuscitation Status: CPR: Attempt Resuscitation Valentino Anna MD Dec 28, 2016 15:09
--- NOTE | 2016-12-28 16:25 | NUR ---
Wound Dressing Change Pt. complained of pain during wound dressing change with wound care. Pretreatment with pain relief medication may improve Pt. response to treatment. Pt. is in bed in lowered position. Call light is in reach and he was instructed to use call light. Lights on in room.
[2016-12-28] MEDS ORDERED: Warfarin 5 MG, Warfarin 2.5 MG PO ONE ×2 (17:00)
[2016-12-28 17:08] VITALS: BP 152/77; PULSE 91; RESP 20; O2SAT 98
--- NOTE | 2016-12-28 17:17 | NUR ---
Wound Pts dressings taken down at both legs, wounds cleaned with saline. left leg ant ulcer 10 cm x 2.5 cm. lat calf 3 cm x 1.5 cm right leg ant distal 12 cm x5 cm ant proximal 7 cm x 3 cm. Left leg redressed with hydrogel adaptic, foam, kerlix and anival wrap. Right leg redressed with hydrogel adaptic, foam, kerlix and surgilast. Pt tolerated well,Will plan to reassess on 12/30/16.
--- NOTE | 2016-12-28 17:52 | NUR ---
Pain/Activity Pt has not had any c/o pain during this shift. Pt is Q2 turns but able to readjust himself. Right heel floated in boot. Mepilex on sacrum C/D/I. Bilateral calf anival bandages C/D/I. Pt has had no s/s of choking. Care continues.
[2016-12-28 19:24] VITALS: BP 152/70; PULSE 94; RESP 18; O2SAT 99
--- NOTE | 2016-12-29 04:26 | NUR ---
Behavior/Pain/Activity Pt pleasant and cooperative with care. No s/sx of c/o pain or discomfort. Refuses Q2hour turns, but moves around in bed by himself somewhat.
[2016-12-29 04:27] VITALS: BP 160/67; PULSE 61; RESP 18; O2SAT 93
[2016-12-29] MEDS: Pantoprazole 40 mg ER24 Tablet PO SCH (05:31)
[2016-12-29 06:08] LABS: INR 2.36 ratio
[2016-12-29 09:03] VITALS: BP 160/96; PULSE 92; RESP 16; O2SAT 99
--- NOTE | 2016-12-29 10:15 | PCM.PHAPRO ---
Progress SALUD DOSING PER PHARMACY INR: 2.36 Will give one dose of warfarin 7.5 mg PO [facility] will continue to monitor INR/CBC/signs and symptoms of bleeding Maryanne Mclain PharmD Dec 29, 2016 10:14
--- NOTE | 2016-12-29 15:47 | PCM.PNMED ---
Subjective Date of Service Dec 29, 2016 Subjective Patient was known to me from previous admission, multiple encounters Patient refused to communicate with me Exam Vital Signs Vital Sign - Last Date Time Temp Pulse Resp B/P Pulse Ox O2 Delivery O2 Flow Rate FiO2 12/29/16 09:03 92 16 160/96 99 Room Air 12/29/16 04:27 36.5 Intake and Output 12/28/16 12/28/16 12/29/16 Cumulative From/Thru 15:00 23:00 07:00 11/23/16 12:19 - 12/29/16 05:21 Intake Total 360 ml 1160 ml 600 ml 48575 ml Output Total 1465 ml 1150 ml 820 ml 36684 ml Balance -1105 ml 10 ml -220 ml 73486 ml Intake Oral 360 ml 1160 ml 600 ml 38720 ml IV Total 0 ml 89601 ml Output Urine Total 1465 ml 1150 ml 820 ml 41421 ml Urine/Stool Mix 100 ml Emesis 250 ml Estimated Blood Loss 20 ml # Voids 5 100 # Bowel Movements 0 0 2 106 Exam Unable to exam, as patient refused IVs and Medications Medications Reviewed: Medications were reviewed in detail Lab and Diagnostics Result Diagram: 12/28/16 0716 12/28/16 0716 X-Rays, CTs and MRIs Carotid Doppler Moderate calcific and soft plaque bilaterally, but less than 50% stenosis is seen within the proximal internal carotid arteries bilaterally. Dictated by: Jordan Pratt M.D. on 12/26/2016 at 21:09 CT brain no significant abnormalities 11/23/16 12-lead ECG 11/23/16, sinus bradycardia with PACs, rate was 47, QTC 400 ms personally/ concurrently reviewed by Shoshana 12/27 Cardiac Echo Impressions Echo 12/27/16 The left ventricle is not well visualized but left ventricular systolic function is probably normal and the ejection fraction grossly appears to be in the 60-70% range. There are no obvious focal wall motion abnormalities noted but poor endocardial definition reduces the sensitivity for the detection of such. Left ventricular wall thickness is mildly increased, producing a probable small left ventricular cavity. Assessment of diastolic parameters indicates a relaxation abnormality of the left ventricle, consistent with normal filling pressures. The right ventricle grossly appears normal in size with probable normal systolic function. Pulmonary artery pressures cannot be estimated because of the lack of a measurable TR jet velocity but the IVC suggests a low right atrial pressure of 3 mm Hg. The atria are not well visualized but grossly appear normal in size. There is no obvious significant valvular heart disease. The aortic arch is at the upper limits of normal in size. Assessment & Plan 61-year-old male from [facility] obtunded 11/25, has been treated for UTI, narcotics minimized in patient's mental status is failed to improve. Seems to be a market decline from prior level of function according to his sister. 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 Will get MRI (not feasible pt has pacer), carotid Dopplers and echocardiogram 12/26. Patient is medically stable. awaiting dispo, long term or sisters's house for the time being, appreciate SW help acute, active metabolic encephalopathy/likely multi-infarct dementia, initial/acute 12/[address] HEAD negative for acute findings 11/23/16. no MRI due to pacer, nH4 19 11/23 b12/folate/rpr WNL 12/20/16, - per sister, baseline pt was AAOx3 prior to admission - Appreciate psychiatry consultation 12/20. -MOCA 10/19 per speech 11/25, another SAIRA or MOCA could be repeated, does not seem that the patient has competency. Recommend pursuing guardianship. resolved, stable severe PVD w/ hx of BLE ulcers s/p debridement, s/p grafts in , followed by plastic surgery at [place]. Last seen 11/16, recommended amputation. As per sister, pt refused it. Unclear interval progression since till this admission - Podiatry 12/15/16 following pt on weekly basis while in hospital, last debridement/redressed 12/26 microcytic/hypochromic anemia, unclear onset, likely ACD, h/h stable, Hg 9.7 12/27, 10.3 12/28, iron low 11/24, b12/folate wnl 11/26 iron studies low normal, retic somewhat up 12/28, hemoccult stools pending. WISAM/CKD3- Cr 2.56 12/07, 1.28 12/27, Cr 1.31 12/28 ?underlying psychiatric disorder- psych consulted 12/20. Does not appear to be any obvious psychiatric disorder. [place] a possible Korsakoff's but patient has no history of EtOH abuse. pseudomonas UTI. not poa.- Leukocytosis, resolved 12/03/2016. Cipro started 11/30 after initial Ceftriaxone and stopped Cipro -12/15/16 completed 14 days. Resolved uncontrolled HTN on admit now +/- cont- SBP 130-155 12/26- c/w +/- on amlodipine 5 mg by mouth daily - Losartan and diuretics stopped due to WISAM (resolved 12/26) a-fib on Coumadin- - c/w Coumadin and metoprolol. 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
--- NOTE | 2016-12-29 16:45 | NUR ---
ACTIVITY Patient denies pain. Tolerating PO liquids and his diet well. Denies nausea. No emesis noted. Denies SOB. Mepilex foam in his buttocks is CDI. Dressing on his feet are CDI. RLE in a heel lift boot. Patient was noted to be able to turn independently. Refuse Q 2 turns and to get OOB. Patient stated that he feels tired at this time and just wants to rest. His sister came X 2 this shift and was able to speak to SS. Care continues.
[2016-12-29] MEDS ORDERED: Warfarin 5 MG, Warfarin 2.5 MG PO ONE ×2 (17:00)
[2016-12-29 18:38] VITALS: BP 136/74; PULSE 97; RESP 16; O2SAT 97
[2016-12-29 20:22] VITALS: BP 136/74; PULSE 89; RESP 18; O2SAT 98
--- NOTE | 2016-12-30 02:15 | NUR ---
Behavior Patient friendly and cooperative with care. Sister in at beginning of shift, brought patient subway and puddings. Patient taking all medications without any issue. Denies any pain or discomfort, states he just "feels tired." Dressings to BL lower extremities are C/D/I. Will continue Q1hour rounding.
[2016-12-30 04:37] VITALS: BP 145/77; PULSE 89; RESP 20; O2SAT 98
[2016-12-30 06:08] LABS: INR 2.13 ratio
[2016-12-30] MEDS: Pantoprazole 40 mg ER24 Tablet PO SCH (06:31)
--- NOTE | 2016-12-30 08:53 | PCM.PHAPRO ---
Progress -Dec 30-Dec INR 2.36 2.13 0.08 -0.23 DOSE 7.5 MG 7.5 MG Baldo Espinoza Dec 30, 2016 08:53
--- NOTE | 2016-12-30 09:18 | PCM.PNMED ---
Subjective Date of Service Dec 30, 2016 Subjective Patient will still aggressive toward me, refused to communicate, refused examination "I have two doctors taking care of me" "I don't need you, get out" Exam Vital Signs Vital Sign - Last Date Time Temp Pulse Resp B/P Pulse Ox O2 Delivery O2 Flow Rate FiO2 12/30/16 04:37 36.9 89 20 145/77 98 Room Air Intake and Output 12/29/16 12/29/16 12/30/16 Cumulative From/Thru 15:00 23:00 07:00 11/23/16 12:19 - 12/30/16 05:20 Intake Total 774 ml 775 ml 21400 ml Output Total 675 ml 1145 ml 55966 ml Balance 99 ml -370 ml 70591 ml Intake Oral 774 ml 775 ml 15848 ml IV Total 20695 ml Output Urine Total 675 ml 1145 ml 17959 ml Urine/Stool Mix 100 ml Emesis 250 ml Estimated Blood Loss 20 ml # Voids 100 # Bowel Movements 1 1 108 Exam Unable to cooperate IVs and Medications Medications Reviewed: Medications were reviewed in detail Lab and Diagnostics Result Diagram: 12/28/16 0716 12/28/16 0716 X-Rays, CTs and MRIs Carotid Doppler Moderate calcific and soft plaque bilaterally, but less than 50% stenosis is seen within the proximal internal carotid arteries bilaterally. Dictated by: Jordan Pratt M.D. on 12/26/2016 at 21:09 CT brain no significant abnormalities 11/23/16 12-lead ECG 11/23/16, sinus bradycardia with PACs, rate was 47, QTC 400 ms personally/ concurrently reviewed by Shoshana 12/27 Cardiac Echo Impressions Echo 12/27/16 The left ventricle is not well visualized but left ventricular systolic function is probably normal and the ejection fraction grossly appears to be in the 60-70% range. There are no obvious focal wall motion abnormalities noted but poor endocardial definition reduces the sensitivity for the detection of such. Left ventricular wall thickness is mildly increased, producing a probable small left ventricular cavity. Assessment of diastolic parameters indicates a relaxation abnormality of the left ventricle, consistent with normal filling pressures. The right ventricle grossly appears normal in size with probable normal systolic function. Pulmonary artery pressures cannot be estimated because of the lack of a measurable TR jet velocity but the IVC suggests a low right atrial pressure of 3 mm Hg. The atria are not well visualized but grossly appear normal in size. There is no obvious significant valvular heart disease. The aortic arch is at the upper limits of normal in size. Assessment & Plan 61-year-old male from [facility] obtunded 11/25, has been treated for UTI, narcotics minimized in patient's mental status is failed to improve. Seems to be a market decline from prior level of function according to his sister. 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 Will get MRI (not feasible pt has pacer), carotid Dopplers and echocardiogram 12/26. Patient is medically stable. awaiting dispo, halfway or sisters's house for the time being, appreciate SW help acute, active metabolic encephalopathy/likely multi-infarct dementia, initial/acute 12/[address] HEAD negative for acute findings 11/23/16. no MRI due to pacer, nH4 19 11/23 b12/folate/rpr WNL 12/20/16, - per sister, baseline pt was AAOx3 prior to admission - Appreciate psychiatry consultation 12/20. -MOCA 10/19 per speech 11/25, another SAIRA or MOCA could be repeated, does not seem that the patient has competency. Recommend pursuing guardianship. resolved, stable severe PVD w/ hx of BLE ulcers s/p debridement, s/p grafts in , followed by plastic surgery at [place]. Last seen 11/16, recommended amputation. As per sister, pt refused it. Unclear interval progression since till this admission - Podiatry 12/15/16 following pt on weekly basis while in hospital, last debridement/redressed 12/26 microcytic/hypochromic anemia, unclear onset, likely ACD, h/h stable, Hg 9.7 12/27, 10.3 12/28, iron low 11/24, b12/folate wnl 11/26 iron studies low normal, retic somewhat up 12/28, hemoccult stools pending. WISAM/CKD3- Cr 2.56 12/07, 1.28 12/27, Cr 1.31 12/28 ?underlying psychiatric disorder- psych consulted 12/20. Does not appear to be any obvious psychiatric disorder. [place] a possible Korsakoff's but patient has no history of EtOH abuse. pseudomonas UTI. not poa.- Leukocytosis, resolved 12/03/2016. Cipro started 11/30 after initial Ceftriaxone and stopped Cipro -12/15/16 completed 14 days. Resolved uncontrolled HTN on admit now +/- cont- SBP 130-155 12/26- c/w +/- on amlodipine 5 mg by mouth daily - Losartan and diuretics stopped due to WISAM (resolved 12/26) a-fib on Coumadin- - c/w Coumadin and metoprolol. 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
[2016-12-30 09:32] VITALS: BP 154/73; PULSE 92; RESP 16; O2SAT 100
--- NOTE | 2016-12-30 13:00 | NUR ---
MD NOTIFICATION Dr. Crisostomo and [facility] was in to change patients BLE dressing. Per [facility] patient has a L hip abscess and is recommending I/D and surgery consult. Dr. Cook was made aware and I had Tigre Serrano from [facility] talk to MD.
--- NOTE | 2016-12-30 15:28 | NUR ---
Social Work Continued Discharge Planning: SW spoke with patient and sisters at bedside to discuss discharge plan. Patient sisters arrived from [place] today to discuss discharge arrangements. SW, UR specialist, podiatry and attending met with patient and family at bedside and discussed clinical status as well as competency of patient. Patient family aware that patient is demented and not competent to make decisions on his behalf. Podiatry recommendations for wound care follow up at SNF or C at discharge. Wound care following for dressing changes during current hospitalization. Patient cleared for discharge from attending standpoint. Patient sisters discussed concerns with changes in mental status. Attending addressed concerns. SW discussed need to obtain guardianship for patient by family or by hospital to take over guardianship for patient. Patient daughters to discuss with one another tomorrow and consult with social media analyst to determine whether family to be guardians for patient or if hospital to obtain guardianship. Response to be given in 24hrs. Patient and family not wanting to relinquish all expenses for [facility] placement. SW suggested HHC options at friend Fracisco's home, and discharge to sisters care if family no longer wanting to seek AF[facility] placement. Family denied at this time and to reconsider options. [facility] denied patient SNF placement. Per [employer] school admissions representative Rylee, [phone]/61, no accepting facility. Patient daily rate is 88.10. Patient denied at [facility], [place] and [facility]. Patient discharged from PT services due to lack of participation. SW to follow up with patient family tomorrow to obtain decision on guardianship. PLAN:Discharge plan in progress pending placement Marina CHIANG
[2016-12-30 16:53] VITALS: BP 136/75; PULSE 134; RESP 16; O2SAT 99
[2016-12-30] MEDS: Warfarin 5 MG, Warfarin 2.5 MG PO ONE ×4 (17:05→17:08)
[2016-12-30 17:18] VITALS: BP 141/85; PULSE 129; RESP 16; O2SAT 99
[2016-12-30] MEDS ORDERED: MeTOProlol 1 mg/mL 5 mL Inj IV SCH (17:50)
--- NOTE | 2016-12-30 17:58 | NUR ---
Wound Care Dressings at left and right lower legs are changed today, wounds are unchanged dimensionally from last dressing change. Continues to be small areas of exposed tendon at the right lower leg, heel ulcer is stable and granulating, pt tolerating heel relief boot. After wounds were cleaned they were redressed with hydrogel, adaptic and Mepilex foam, wrapped toes to knee with Kerlix cling and then left leg was wrapped with anival wrap and right leg was covered with surgilast. This dressing will be changed by wound care on Tuesday 01/02. Addendum: 12/30/16 at 1813 by NICOL MONTGOMERY Pt noted to have an abscess at his left hip, draining purulent drainage, area is fluctuant. Recommend surgical consult, hospitalist dr Cook notified.
[2016-12-30 17:59] VITALS: PULSE 107
--- NOTE | 2016-12-30 18:00 | NUR ---
MD NOTIFICATION Patient's HR-120-130's, irregular. SBP-140's. Patient denies chest pain. HX: Afib. Dr. Cook made aware. New orders for tele/labs and medication received. Will continue to monitor. Addendum: 12/30/16 at 1921 by DAO MCKENNA RN TELE/ACTIVITY Per telecommunications technician patient is on sinus rhythm; HR-110's at this time. Tylenol 650 mg PO administered for complaints of pain. Tolerating liquids PO and her diet well. Denies nausea. No emesis noted. Denies SOB. Patient was noted to be turning independently in bed but refused to get OOB. Dressing is CDI in his BLE.
[2016-12-30 18:18] LABS: Magnesium 2.1 mg/dL (1.6-2.6)
[2016-12-30 22:50] VITALS: BP 150/69; PULSE 79; RESP 18; O2SAT 99
[2016-12-31] VITALS (8 sets, daily range): BP systolic 124–155; BP diastolic 58–79; PULSE 60–106; RESP 16–20; O2SAT 95–99
--- NOTE | 2016-12-31 02:00 | NUR ---
interaction patient appropriately interacting with family members (sisters). communicates with using the call rausch. appropriate with using the urinal. incontinent x1 given emotional support. care ongoing.
[2016-12-31 05:41] LABS: INR 2.15 ratio
--- NOTE | 2016-12-31 07:33 | PCM.PHAPRO ---
Progress DATE Dec 30Dec 31 INR 2.36 2.13 2.15 CHANGE 0.08 -0.23 0.02 DOSE 7.5 MG 7.5 MG 7.5 MG Baldo Espinoza Dec 31, 2016 07:33
[2016-12-31] MEDS: Pantoprazole 40 mg ER24 Tablet PO SCH (07:48)
--- NOTE | 2016-12-31 12:25 | PCM.PNMED ---
Subjective Date of Service Dec 31, 2016 Subjective wound care reported abscess at his left hip, draining purulent drainage, area is fluctuant. awaiting surgery consult pt was still aggressive, not wanted to communicate with me denied chest pain, palpitation, pt had episode of afib rvr, rate up to 130s, HD stable, asymptomatic in the evening, started metoprolol 25 q8h, then rate's been controlled, stat CMP unremarkable, normal K/Mg Exam Vital Signs Vital Sign - Last Date Time Temp Pulse Resp B/P Pulse Ox O2 Delivery O2 Flow Rate FiO2 12/31/16 08:38 76 12/31/16 07:47 124/72 12/31/16 05:35 36.7 16 97 Room Air Intake and Output 12/30/16 12/30/16 12/31/16 Cumulative From/Thru 15:00 23:00 07:00 11/23/16 12:19 - 12/31/16 06:08 Intake Total 714 ml 800 ml 64833 ml Output Total 850 ml 540 ml 41373 ml Balance -136 ml 260 ml 65527 ml Intake Oral 714 ml 800 ml 80753 ml IV Total 44769 ml Output Urine Total 850 ml 540 ml 93037 ml Urine/Stool Mix 100 ml Emesis 250 ml Estimated Blood Loss 20 ml # Voids 100 # Bowel Movements 1 109 Exam Cachectic, middle aged male, laying down on beds, not cooperative. no JVD, MMM, no LAD RRR, nl s1, s2 no mrg CTAB, no w,c S,ND,NT,normoactive BS+ bilateral legs-sterilely dressed, Lt hip-dressed IVs and Medications Medications Reviewed: Medications were reviewed in detail Lab and Diagnostics Result Diagram: 12/28/16 0716 12/30/16 1740 X-Rays, CTs and MRIs Carotid Doppler Moderate calcific and soft plaque bilaterally, but less than 50% stenosis is seen within the proximal internal carotid arteries bilaterally. Dictated by: Jordan Pratt M.D. on 12/26/2016 at 21:09 CT brain no significant abnormalities 11/23/16 12-lead ECG 11/23/16, sinus bradycardia with PACs, rate was 47, QTC 400 ms personally/ concurrently reviewed by Shoshana 12/27 Cardiac Echo Impressions Echo 12/27/16 The left ventricle is not well visualized but left ventricular systolic function is probably normal and the ejection fraction grossly appears to be in the 60-70% range. There are no obvious focal wall motion abnormalities noted but poor endocardial definition reduces the sensitivity for the detection of such. Left ventricular wall thickness is mildly increased, producing a probable small left ventricular cavity. Assessment of diastolic parameters indicates a relaxation abnormality of the left ventricle, consistent with normal filling pressures. The right ventricle grossly appears normal in size with probable normal systolic function. Pulmonary artery pressures cannot be estimated because of the lack of a measurable TR jet velocity but the IVC suggests a low right atrial pressure of 3 mm Hg. The atria are not well visualized but grossly appear normal in size. There is no obvious significant valvular heart disease. The aortic arch is at the upper limits of normal in size. Assessment & Plan 61-year-old male from [facility] obtunded 11/25, has been treated for UTI, narcotics minimized in patient's mental status is failed to improve. Seems to be a market decline from prior level of function according to his sister. 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 Will get MRI (not feasible pt has pacer), carotid Dopplers and echocardiogram 12/26. Patient is medically stable. awaiting dispo, fci or sisters's or guardianship, appreciate SW help acute, active metabolic encephalopathy/likely multi-infarct dementia, initial/acute 2/[address] HEAD negative for acute findings 11/23/16. no MRI due to pacer, nH4 19 11/23 b12/folate/rpr WNL 12/20/16, - per sister, baseline pt was AAOx3 prior to admission - Appreciate psychiatry consultation 12/20. -MOCA 10/19 per speech 11/25, another SAIRA or MOCA could be repeated, does not seem that the patient has competency. Recommend pursuing guardianship. #left hip abscess, with pleural discharge fluctuance, presumed pressure sore, likely POA, -consulted as per wound care condition, likely require I&D. #a-fib on Coumadin, episode of RVR 12/30, HD stable, - c/w Coumadin INR therapeutic and Coumadin being managed per pharmacy -resumed metoprolol 25mg q8h, titrate to target rate<110 resolved, stable severe PVD w/ hx of BLE ulcers s/p debridement, s/p grafts in , followed by plastic surgery at [facility]. Last seen 11/16, recommended amputation. As per sister, pt refused it. Unclear interval progression since till this admission - Podiatry 12/15/16 following pt on weekly basis while in hospital, last debridement/redressed 12/26 -daily assessment and treatment per wound care service microcytic/hypochromic anemia, unclear onset, likely ACD, h/h stable, Hg 9.7 12/27, 10.3 12/28, iron low 11/24, b12/folate wnl 11/26 iron studies low normal, retic somewhat up 12/28, hemoccult stools pending. WISAM/CKD3- Cr 2.56 12/07, 1.28 12/27, Cr 1.31 12/28 ?underlying psychiatric disorder- psych consulted 12/20. Does not appear to be any obvious psychiatric disorder. [place] a possible Korsakoff's but patient has no history of EtOH abuse. pseudomonas UTI. not poa.- Leukocytosis, resolved 12/03/2016. Cipro started 11/30 after initial Ceftriaxone and stopped Cipro -12/15/16 completed 14 days. Resolved uncontrolled HTN on admit now +/- cont- SBP 130-155 12/26- c/w +/- on amlodipine 5 mg by mouth daily - Losartan and diuretics stopped due to WISAM (resolved 12/26) hxCAD, s/p PPM, not active- meds as noted above GERD - continue PPI Prophylaxis: DVT patient on full strength warfarin therapeutic, SCDs contraindicated, GI on PPI Dispo: Full code from SNF -pt was rejected for assisted SNF by insurance, plan above Medically complex patient at high risk for complications VTE Prophylaxis: Sub-Q Heparin (Unfractionated) Resuscitation Status: CPR: Attempt Resuscitation Time spent 35 minutes Abelardo Cook MD Dec 31, 2016 12:25
--- NOTE | 2016-12-31 13:55 | NUR ---
Social Work-continued d/c planning: Data& assessment:EMR Reviewed. Pt is on day 38 of hospitalization for alerted mental status per H&P. SW followed up with pt's sisters today at bedside. Family was supposed to come to a decision today about if they wanted to pursue guardianship or not. When SW entered the room, pt's sister had a lot of questions and concerns that they wanted to be answered. Sister's explained pt used to have different insurance, but then he was switched over to Medicaid. SW explained that they would need to call insurance company to find out what happened. Sisters also had questions for MD, which SW asked MD to follow up with them to discuss. SW further discussed that pt's insurance at this time has denied SNF placement. Sister have concerns about pt going to an [facility] and want him in a SNF in [place]. SW explained that [facility] has denied SNF placement and SNF's only have limited number of Medicaid beds. Family states they cannot take care of pt at home at this time. SW explained that right now pt is not able to make decisions for himself and that they would be decision makers by proxy, but for legal/ financial this would have to go through Guardianship. Sisters state they need to reach out to contract attorney to find out more information and this will not happen until Monday. SW explained even if Hospital pursues guardianship for pt,it would not be a free thing and pt would have to pay for this. Sisters state an understanding. SW will continue to follow. Plan:SW to follow up again with pt's family regarding guardianship. Family unwilling to make a decision at this time. SW will continue to follow. MARIIA Varela
--- NOTE | 2016-12-31 13:57 | NUR ---
Activity/Wound Pt up to bedside chair SBA FWW. Pt transferred to chair with some pain in his right foot. Dressing on heel and calf was soiled with some sanguinous drainage. Bandage reinforced with Kerlix. Elevated foot on pillow and floated heel. Will continue to monitor for bleeding. Addendum: 12/31/16 at 1833 by SACHA HOWARD RN Re-enforced dressing on right heel is C/D/I and floating on pillow.
[2016-12-31] MEDS ORDERED: Warfarin 5 MG, Warfarin 2.5 MG PO ONE ×2 (17:00)
--- NOTE | 2016-12-31 19:00 | NUR ---
Wound/Boot Pt refused to let staff place boot back into his foot despite education. Floated heels on pillows. Q1 safety checks and Q2 turns for skin safety. Will continue to encourage pt to use the boot. Care continues.
[2017-01-01] VITALS (9 sets, daily range): BP systolic 115–160; BP diastolic 71–85; PULSE 71–85; RESP 16–18; O2SAT 97–100
[2017-01-01] MEDS: Pantoprazole 40 mg ER24 Tablet PO SCH (05:55)
--- NOTE | 2017-01-01 06:28 | NUR ---
Pain pt able to sleep most of night, c/o bilat leg pain at 6/10 in early AM, Tylenol given, effective. Dressing on legs, sacrum and L hip CDI.
[2017-01-01 07:57] LABS: INR 2.27 ratio
--- NOTE | 2017-01-01 08:46 | PCM.PHAPRO ---
Progress Date of Service: Jan 01, 2017 ANTICOAGULATION MANAGEMENT BY PHARMACY -INDICATION: AFIB -HOME DOSE: 4 MG -CONCURRENT ANTICOAGULATION: NONE -COAG TRENDS: Dec 30-Dec 31-Jan 01-Dec 2.36 2.13 2.15 2.27 0.08 -0.23 0.02 ~ 7.5 MG 7.5 MG 7.5 MG 7.5 MG PLAN: Will give one dose of warfarin 7.5 mg PO tonight Pharmacy will continue to monitor INR/CBC/signs and symptoms of bleeding Pharmacy appreciates consult and will continue to monitor. THANKS! Bettie Clark PharmD Jan 01, 2017 08:46
--- NOTE | 2017-01-01 11:09 | NUR ---
Transfer of Care Pt transferred to room 2018. Report given to barbara Mckay notified of transfer. Addendum: 01/01/17 at 1112 by SACHA HOWARD RN Disregard note. Wrong pt.
--- NOTE | 2017-01-01 12:35 | PCM.PNMED ---
Subjective Date of Service Jan 01, 2017 Subjective no overnight event Exam Vital Signs Vital Sign - Last Date Time Temp Pulse Resp B/P Pulse Ox O2 Delivery O2 Flow Rate FiO2 01/01/17 10:06 76 01/01/17 08:22 158/81 01/01/17 05:12 36.7 16 97 Room Air Intake and Output 12/31/16 12/31/16 01/01/17 Cumulative From/Thru 15:00 23:00 07:00 11/23/16 12:19 - 01/01/17 06:08 Intake Total 450 ml 200 ml 400 ml 25773 ml Output Total 725 ml 100 ml 970 ml 81749 ml Balance -275 ml 100 ml -570 ml 31048 ml Intake Oral 450 ml 200 ml 400 ml 24460 ml IV Total 50641 ml Output Urine Total 725 ml 100 ml 970 ml 56346 ml Urine/Stool Mix 100 ml Emesis 250 ml Estimated Blood Loss 20 ml # Voids 100 # Bowel Movements 0 109 Exam Cachectic, middle aged male, laying down on beds, not cooperative. no JVD, MMM, no LAD RRR, nl s1, s2 no mrg CTAB, no w,c S,ND,NT,normoactive BS+ bilateral legs-sterilely dressed, Lt hip-dressed IVs and Medications Medications Reviewed: Medications were reviewed in detail Lab and Diagnostics Result Diagram: 12/28/16 0716 12/30/16 1740 X-Rays, CTs and MRIs Carotid Doppler Moderate calcific and soft plaque bilaterally, but less than 50% stenosis is seen within the proximal internal carotid arteries bilaterally. Dictated by: Jordan Pratt M.D. on 12/26/2016 at 21:09 CT brain no significant abnormalities 11/23/16 12-lead ECG 11/23/16, sinus bradycardia with PACs, rate was 47, QTC 400 ms personally/ concurrently reviewed by Shoshana 12/27 Cardiac Echo Impressions Echo 12/27/16 The left ventricle is not well visualized but left ventricular systolic function is probably normal and the ejection fraction grossly appears to be in the 60-70% range. There are no obvious focal wall motion abnormalities noted but poor endocardial definition reduces the sensitivity for the detection of such. Left ventricular wall thickness is mildly increased, producing a probable small left ventricular cavity. Assessment of diastolic parameters indicates a relaxation abnormality of the left ventricle, consistent with normal filling pressures. The right ventricle grossly appears normal in size with probable normal systolic function. Pulmonary artery pressures cannot be estimated because of the lack of a measurable TR jet velocity but the IVC suggests a low right atrial pressure of 3 mm Hg. The atria are not well visualized but grossly appear normal in size. There is no obvious significant valvular heart disease. The aortic arch is at the upper limits of normal in size. Assessment & Plan 61-year-old male from [facility] obtunded 11/25, has been treated for UTI, narcotics minimized in patient's mental status is failed to improve. Seems to be a market decline from prior level of function according to his sister. 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 Will get MRI (not feasible pt has pacer), carotid Dopplers and echocardiogram 12/26. Patient is medically stable. awaiting dispo, fdc or sisters' or guardianship, appreciate SW help. Plan is to get involved PT again today as pt has been refusing multiple times. pt doesn't seemed to have capacity and this seems to be close to his baseline although sister thinks he is more confused. acute, active metabolic encephalopathy/likely multi-infarct dementia, initial/acute / to meds. CT HEAD negative for acute findings 11/23/16. no MRI due to pacer, nH4 19 11/23 b12/folate/rpr WNL 12/20/16, - per sister, baseline pt was AAOx3 prior to admission - Appreciate psychiatry consultation 12/20. -MOCA 10/19 per speech 11/25, another SAIRA or MOCA could be repeated, does not seem that the patient has competency. Recommend pursuing guardianship. #left hip abscess, with pleural discharge fluctuance, presumed pressure sore, likely POA, -consulted as per wound care condition, no need for surgical debridement per , follow up offical rec. #a-fib on Coumadin, episode of RVR 12/30, HD stable, - c/w Coumadin INR therapeutic an d Coumadin being managed per pharmacy -resumed metoprolol 25mg q8h, titrate to target rate<110 resolved, stable severe PVD w/ hx of BLE ulcers s/p debridement, s/p grafts in , followed by plastic surgery at [facility]. Last seen 11/16, recommended amputation. As per sister, pt refused it. Unclear interval progression since till this admission - Podiatry 12/15/16 following pt on weekly basis while in hospital, last debridement/redressed 12/26 -daily assessment and treatment per wound care service microcytic/hypochromic anemia, unclear onset, likely ACD, h/h stable, Hg 9.7 12/27, 10.3 12/28, iron low 11/24, b12/folate wnl 11/26 iron studies low normal, retic somewhat up 12/28, hemoccult stools pending. WISAM/CKD3- Cr 2.56 12/07, 1.28 12/27, Cr 1.31 12/28 ?underlying psychiatric disorder- psych consulted 12/20. Does not appear to be any obvious psychiatric disorder. [place] a possible Korsakoff's but patient has no history of EtOH abuse. pseudomonas UTI. not poa.- Leukocytosis, resolved 12/03/2016. Cipro started 11/30 after initial Ceftriaxone and stopped Cipro -12/15/16 completed 14 days. Resolved uncontrolled HTN on admit now +/- cont- SBP 130-155 12/26- c/w +/- on amlodipine 5 mg by mouth daily - Losartan and diuretics stopped due to WISAM (resolved 12/26) hxCAD, s/p PPM, not active- meds as noted above GERD - continue PPI Prophylaxis: DVT patient on full strength warfarin therapeutic, SCDs contraindicated, GI on PPI Dispo: Full code from SNF -pt was rejected for [facility] by insurance, plan above Medically complex patient at high risk for complications VTE Prophylaxis: Sub-Q Heparin (Unfractionated) Resuscitation Status: CPR: Attempt Resuscitation Time spent 35min Abelardo Cook MD Jan 01, 2017 12:27
--- NOTE | 2017-01-01 13:15 | NUR ---
Evaluation completed. Please go to "Notes" then click on "Assessments and Notes" (bottom left corner of screen). Then select appropriate discipline tab on top of screen.
--- NOTE | 2017-01-01 15:01 | CONS ---
[address] [address] CONSULTATION REPORT PATIENT: NICOL HURT : 1955 MR#: [id number] ADMIT: 11/23/2016 JOB ID: [id number] DATE OF SERVICE: 01/01/2017 CHIEF COMPLAINT: Left hip wound. HISTORY OF PRESENT ILLNESS: This is a 61-year-old male with a left hip wound; this consultation is requested by Abelardo Cook MD. This patient was admitted on November 23, 2016, with decreased level of consciousness, presumed due to metabolic encephalopathy and multi-infarct dementia. He has lower extremity wounds that have been followed by the podiatry service. The wound care team has been consulting with regards to this, and on Monday, noted that his left hip appeared to be having purulent drainage. Dr. Cook was notified and he asked me to examine this region of the patient's body and determine if it needed any procedural treatment. The patient has been afebrile and has a normal white blood cell count, last checked four days ago. PAST MEDICAL HISTORY: 1. Metabolic encephalopathy/multi-infarct dementia. 2. History of Pseudomonas UTI. 3. Peripheral vascular disease. 4. Atrial fibrillation on Coumadin. 5. Microcytic hypochromic anemia. 6. History of coronary artery disease. 7. GERD. PAST SURGICAL HISTORY: Pacemaker insertion, lower extremity skin grafting. MEDICATIONS: Reviewed and include Coumadin. ALLERGIES: ATORVASTATIN. SOCIAL HISTORY: The patient was living at [facility], Prior to admission on November 23. FAMILY HISTORY: Unable to assess due to the patient's underlying altered mental status. REVIEW OF SYSTEMS: Could not be completed due to underlying altered mental status. PHYSICAL EXAMINATION: Temperature 37.0, heart rate 78, blood pressure 146/58, respiratory rate of 20, saturation 95% on room air. General: Awake, cooperative, appears confused. Head: Normocephalic. Neck: Supple. Cardiac: Regular rate and rhythm, no murmurs, rubs, or gallops. Respiratory: Clear to auscultation bilaterally. Abdomen: Soft. Musculoskeletal: The left hip has a Mepilex dressing on it. This was removed. There is mild erythema but no sign of purulence. No fluctuance. Additionally, the Mepilex on the sacrum was removed, and there is no sign of a wound at that location. The right hip was also examined, and there is no wound at that location. LABS: White blood cell count on December 28 was 7.8, hematocrit 32.8, platelets 326. Comprehensive metabolic panel on December 30 was normal, with the exception of BUN of 35. INR today is 2.27. ASSESSMENT: A 61-year-old man who had purulent drainage from the left hip wound when he was examined on Monday, which has now resolved. I suspect that the spontaneous drainage helped to resolve the issue as there is no sign of a fluctuant abscess cavity at this time. RECOMMENDATIONS: Continue Mepilex dressing to that site as you are. No procedural intervention is necessary. Please page if additional questions arise.
[2017-01-01] MEDS ORDERED: Warfarin 5 MG, Warfarin 2.5 MG PO ONE ×2 (17:00)
--- NOTE | 2017-01-01 18:08 | NUR ---
Pain/Dressing Pt c/o 05/29 pain after PT. Tylenol given. Pt stated that the Tylenol helped. Changed Mepilex on sacrum and hip. Remains C/D/I. Quinten bandage on left leg C/D/I. Right leg dressing that is reinforced also is C/D/I. Floated heels on pillows. Q2 turns. Care continues.
[2017-01-02] VITALS (7 sets, daily range): BP systolic 104–169; BP diastolic 68–92; PULSE 63–81; RESP 16–18; O2SAT 98–100
--- NOTE | 2017-01-02 03:37 | NUR ---
Activity Patient states that pain is at a tolerable level. Patient alert and oriented x3. Patient complained of wearing a brief. Discussed changing into a pull up brief to be a little more comfortable. VSS. Per media monitor, SR 73 with PVC's. Patient resting, call light within reach. Care continues.
[2017-01-02 06:32] LABS: INR 2.32 ratio
[2017-01-02 06:34] LABS: BASOPHILS % (AUTO) 0.3 % (0-3); EOSINOPHILS % (AUTO) 1.5 % (0-5); MONOCYTES % (AUTO) 10.1 % (4-12); Mean Corpuscular Hemoglobin 28.4 pg (27.0-35.0); Mean Corpuscular Volume 91.4 fL (81-100); NEUTROPHILS % (AUTO) 57.3 % (40-74); Platelet Count 354 bil/L (150-400)
[2017-01-02] MEDS: Pantoprazole 40 mg ER24 Tablet PO SCH (06:43)
--- NOTE | 2017-01-02 06:45 | PCM.PHAPRO ---
Progress Warfarin Management by Pharmacy: -Inr has been therapeutic and stable. Will give warfarin 7mg tonight and follow Magui Franco [facility] Jan 02, 2017 06:45
[2017-01-02 07:07] LABS: Magnesium 2.1 mg/dL (1.6-2.6); Phosphorus 3.4 mg/dL (2.5-4.9)
--- NOTE | 2017-01-02 14:11 | PCM.PNMED ---
Subjective Date of Service Jan 02, 2017 Subjective No new complaints or events. Awaiting placement. alert and oriented 3. Understands why he is in the hospital and underlying medical issues. Cognition seems to have improved from what was stated previously. Exam Vital Signs Vital Sign - Last Date Time Temp Pulse Resp B/P Pulse Ox O2 Delivery O2 Flow Rate FiO2 01/02/17 11:11 77 01/02/17 10:42 Room Air 01/02/17 08:10 36.8 18 164/92 98 Intake and Output 01/01/17 01/01/17 01/02/17 Cumulative From/Thru 15:00 23:00 07:00 11/23/16 12:19 - 01/02/17 04:33 Intake Total 636 ml 75045 ml Output Total 600 ml 55838 ml Balance 36 ml 00132 ml Intake Oral 636 ml 90711 ml IV Total 65334 ml Output Urine Total 600 ml 15987 ml Urine/Stool Mix 100 ml Emesis 250 ml Estimated Blood Loss 20 ml # Voids 100 # Bowel Movements 1 110 Exam Cachectic, middle aged male, laying down on beds, cooperative. oriented x3 no JVD, MMM, no LAD RRR, nl s1, s2 no mrg CTAB, no w,c S,ND,NT,normoactive BS+ bilateral legs-sterilely dressed, Lt hip-dressed IVs and Medications Medications Reviewed: Medications were reviewed in detail Lab and Diagnostics Result Diagram: 01/02/17 0535 01/02/17 0535 X-Rays, CTs and MRIs Carotid Doppler Moderate calcific and soft plaque bilaterally, but less than 50% stenosis is seen within the proximal internal carotid arteries bilaterally. Dictated by: Jordan Pratt M.D. on 12/26/2016 at 21:09 CT brain no significant abnormalities 11/23/16 12-lead ECG 11/23/16, sinus bradycardia with PACs, rate was 47, QTC 400 ms personally/ concurrently reviewed by Shoshana 12/27 Cardiac Echo Impressions Echo 12/27/16 The left ventricle is not well visualized but left ventricular systolic function is probably normal and the ejection fraction grossly appears to be in the 60-70% range. There are no obvious focal wall motion abnormalities noted but poor endocardial definition reduces the sensitivity for the detection of such. Left ventricular wall thickness is mildly increased, producing a probable small left ventricular cavity. Assessment of diastolic parameters indicates a relaxation abnormality of the left ventricle, consistent with normal filling pressures. The right ventricle grossly appears normal in size with probable normal systolic function. Pulmonary artery pressures cannot be estimated because of the lack of a measurable TR jet velocity but the IVC suggests a low right atrial pressure of 3 mm Hg. The atria are not well visualized but grossly appear normal in size. There is no obvious significant valvular heart disease. The aortic arch is at the upper limits of normal in size. Assessment & Plan 61-year-old male from [facility] obtunded 11/25, has been treated for UTI, narcotics minimized in patient's mental status is failed to improve. Seems to be a market decline from prior level of function according to his sister. 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 Will get MRI (not feasible pt has pacer), carotid Dopplers and echocardiogram 12/26. Patient is medically stable. awaiting dispo, retirement or sisters' or guardianship, appreciate SW help. Plan is to get involved PT again today as pt has been refusing multiple times. Cognition seems to have improved. will ask psychiatry to reevaluate decision capacity. acute, active # metabolic/structural encephalopathy/likely due to multi-infarct dementia, initial/acute 2/ to meds. CT HEAD negative for acute findings 11/23/16. no MRI due to pacer, nH4 19 11/23 b12/folate/rpr WNL 12/20/16, - per sister, baseline pt was AAOx3 prior to admission - Appreciate psychiatry consultation 12/20. Will ask for reevaluation -ordred memantine for suspected multi-infarct dementia as recommended by psychiatry on prior eval but patient refused #left hip wound , presumed pressure sore, likely POA, -consulted as per wound care condition, no need for surgical debridement per , #a-fib on Coumadin, episode of RVR 12/30, HD stable, - c/w Coumadin INR therapeutic and Coumadin being managed per pharmacy -resumed metoprolol 25mg q8h, titrate to target rate<110 resolved, stable # severe PVD w/ hx of BLE ulcers s/p debridement, s/p grafts in , followed by plastic surgery at [facility]. Last seen 11/16, recommended amputation. As per sister, pt refused it. Unclear interval progression since till this admission - Podiatry 12/15/16 following pt on weekly basis while in hospital, last debridement/redressed 12/26 -daily assessment and treatment per wound care service # microcytic/hypochromic anemia, unclear onset, likely ACD, h/h stable, Hg 9.7 , 10.3 12/28, iron low 11/24, b12/folate wnl 11/26 iron studies low normal, retic somewhat up 12/28, # CKD3- Cr 2.56 12/07, 1.28 12/27, Cr 1.31 12/28 # underlying psychiatric disorder- psych consulted 12/20. Does not appear to be any obvious psychiatric disorder. [place] a possible Korsakoff's but patient has no history of EtOH abuse. # pseudomonas UTI. not poa.- Leukocytosis, resolved 12/03/2016. Cipro started after initial Ceftriaxone and stopped Cipro -12/15/16 completed 14 days. Resolved # HTN ,on amlodipine 5 mg by mouth daily - Losartan and diuretics stopped due to WISAM (resolved 12/26) #hxCAD,history of PPM, not active- meds as noted above # GERD - continue PPI Prophylaxis: DVT patient on full strength warfarin therapeutic, SCDs contraindicated, GI on PPI Dispo: -pt was rejected for [facility] SNF by insurance, plan above full code VTE Prophylaxis: Sub-Q Heparin (Unfractionated) VTE Mechanical Devices: Venous Foot Pump Resuscitation Status: CPR: Attempt Resuscitation Medardo Sanchez MD Jan 02, 2017 14:11 Medically complex patient at high risk for complications VTE Prophylaxis: Sub-Q Heparin (Unfractionated) VTE Mechanical Devices: Venous Foot Pump Resuscitation Status: CPR: Attempt Resuscitation Medardo Sanchez MD Jan 02, 2017 14:11
--- NOTE | 2017-01-02 14:45 | NUR ---
Social Work-continued d/c planning: Data:EMR Reviewed. Pt is on day 40 of hospitalization for AMS per H&P. DIONICIO attempted to follow up with pt's sister at bedside, no one in room. UA informed SW that sister's left, but provided UA with phone number to reach Michael [phone]. DIONICIO called phone umber and left message, awaiting a return call. During morning rounds, MD has decided to order psychiatry again to see pt to determine decisional capacity. PT was re-ordered is recommending SNF. DIONICIO asked Specialist Rain to call [facility] facilities to determine if there are any beds. Wound care also involved in case. Pending decision from psychiatry will determine if guardianship is needed or not. DIONICIO will continue to follow. Assessment:Pt who will require placement. Plan: DIONICIO has left message for pt's sister to further discuss plan. MD to order psychiatry to re-evaluate pt for decision capacity. NICK Specialist Rain to call [facility] facilities to determine if there are any beds at SNF. DIONICIO will continue to follow. MARIIA Varela Addendum: 01/02/17 at 1627 by LUIS ENRIQUE VALDES DIONICIO met with pt's two sisters. DIONICIO explained that SNF's will be re-looked at due to pt now participating in PT. DIONICIO explained psychiatry is going to re-evaluate for decisional capacity. Sister did reach out to insurance attorney and are working on getting information regarding guardianship. Sisters also plan on calling pt's insurance. DIONICIO explained that if no SNF can take pt then either AFH will need to be explored( which sisters do not want) or home with HH and caregiving. SW will continue to follow. MARIIA Varela
--- NOTE | 2017-01-02 16:07 | NUR ---
Called [facility] and left message regarding Robb contract. Mamie at [facility] : No Robb Contract, [facility] left message regarding Robb contract. [facility] in [place] carries Robb contract and would like referral faxed to [phone] Attn: Magui. [facility] in [place] does not carry Robb contract. [facility] carries contract but does not have any medicaid beds available. Mamie at [facility] in [place] does not carry a Robb contract. [facility] does have a Robb contract and would like the referral faxed to [phone]. [facility] in [place] has no medicaid beds available. [facility] does not have Robb contract. [facility] has no medicaid beds available. Will send referral back to [facility] and [facility] for review. [facility] is still not accepting new [facility] and [facility] beds available. 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
--- NOTE | 2017-01-02 17:45 | NUR ---
Medication Pt declined taking Namenda stating that "he did not have memory loss." Educated pt about the benefits of taking the medication but pt still declined.
[2017-01-03] VITALS (8 sets, daily range): BP systolic 122–161; BP diastolic 75–80; PULSE 66–83; RESP 16–20; O2SAT 98–100
--- NOTE | 2017-01-03 05:53 | NUR ---
Activity Pt remains in bed this shift and is calm and cooperative for cares. Leg pain managed with APAP. Dinner of fried chicken provided by family, pt dines with visitors as well. CSM intact to BLE, dry skin visible. Pt states no SOB, chest pain, or dizziness. IV patent. Care continues
[2017-01-03] MEDS: Pantoprazole 40 mg ER24 Tablet PO SCH (06:30)
[2017-01-03 06:59] LABS: INR 2.7 ratio
--- NOTE | 2017-01-03 09:10 | PCM.PNPOD ---
Subjective Date of Service: Jan 02, 2017 Date of Service: Jan 02, 2017 Visit Information: Reason for Visit Altered Mental Status,Severe Dehydration Surgery/Surgery Date Post-Op Day # Date of Admission: Nov 23, 2016 at 14:10 Hospital Day # Subjective: 61-year-old male with bilateral lower extremity ulcerations is evaluated at bedside resting comfortably in no acute distress. Patient denies any new issues or complaints today. This patient is evaluated in conjunction with the wound care service at this time who is performing dressing changes every 48-72 hours. The patient recently has benefited from the presence of his siblings who are aiding in the future medical decision making. Postop General: No Complaints Objective Vital Sign - Last Date Time Temp Pulse Resp B/P Pulse Ox O2 Delivery O2 Flow Rate FiO2 01/03/17 04:50 36.5 67 20 161/78 98 Room Air Intake and Output 01/02/17 01/02/17 01/03/17 Cumulative From/Thru 15:00 23:00 07:00 11/23/16 12:19 - 01/03/17 06:01 Intake Total 400 ml 1057 ml 526 ml 92650 ml Output Total 1400 ml 700 ml 2200 ml 17031 ml Balance -1000 ml 357 ml -1674 ml 92704 ml Intake Oral 400 ml 1057 ml 526 ml 91446 ml IV Total 0 ml 03311 ml Output Urine Total 1400 ml 700 ml 2200 ml 27689 ml Urine/Stool Mix 100 ml Emesis 250 ml Estimated Blood Loss 20 ml # Voids 100 # Bowel Movements 1 1 1 113 Result Diagram: 01/02/17 0535 01/02/17 0535 Lab Test 11/23/16 12:44 11/23/16 12:50 11/23/16 13:26 11/24/16 06:55 Activated Partial Thromboplast Time 32.0sec (22.8-33.0) Ammonia 19ug/dL (18-53) Troponin T 0.025ug/L (0.0-0.011) Alcohol, Quantitative < 10mg/dL (0-10) Lactic Acid Level 0.9mmol/L (0.4-2.0) Urine Opiates Screen Positive Urine Methadone Screen Negative Urine Barbiturates Screen Negative Urine Amphetamines Screen Negative Urine Benzodiazepines Screen Negative Urine Cocaine Metabolite Screen Negative Urine Cannabinoids Screen Negative Transferrin 122mg/dL (.) Transferrin % Saturation 18 (.) Ferritin 475ng/mL (30-400) Thyroid Stimulating Hormone (TSH) 1.190uIU/mL (0.450-4.500) Free Thyroxine 1.38ng/dL (0.82-1.77) Test 11/26/16 06:11 12/03/16 06:29 12/07/16 12:51 12/20/16 14:30 Prealbumin 13mg/dL (20-40) Procalcitonin 0.11ng/mL (See Comment) Urine Color Straw (YELLOW) Urine Appearance Hazy (CLEAR,HAZY) Urine pH 6.0 (5.0-8.0) Urine Specific [place] 1.015 (1.003-1.035) Urine Protein 100mg/dL (NEG,TRACE) Urine Glucose (UA) Negativemg/dL (NEGATIVE) Urine Ketones Negativemg/dL (NEGATIVE) Urine Occult Blood Moderate (NEGATIVE) Urine Nitrite Negative (NEGATIVE) Urine Bilirubin Negative (NEGATIVE) Urine Urobilinogen Normalmg/dL (NORMAL) Urine Leukocyte Esterase Negative (NEGATIVE) Urine RBC 11-50/hpf (0-2) Urine WBC 11-50/hpf (0-5) Urine Epithelial Cells Occasional/hpf (NONE-MOD) Urine Crystals Oxalic acid crystals (NONE Urine Bacteria Few/hpf (NONE-FEW) Urine Hyaline Casts None/lpf (NONE) Urine Granular Casts None seen (NONE SEEN) Urine Waxy Casts None seen (NONE SEEN) Urine Red Blood Cell Casts None seen (NONE SEEN) Urine White Blood Cell Casts None seen (NONE SEEN) Urine Mucus Present (None Seen) Urine Trichomonas None seen (NONE SEEN) Urine Yeast None (NONE SEEN) Urinalysis Comment None Urine Culture Reflexed Indicated Vitamin B12 Level 593pg/mL (211-946) Folate > 19.9ng/mL (>3.0) Rapid Plasma Reagin Non reactive (Non Reactive) Test 12/28/16 07:16 01/02/17 05:35 01/03/17 05:50 Reticulocyte Count,Calculated 2.7% (0.6-2.6) Iron Level 49ug/dL (35-150) Total Iron Binding Capacity 239ug/dL (250-450) Percent Iron Saturation 21%sat (15-50) Unsaturated Iron Binding 189.8ug/dL White Blood Count 10.0th/mm3 (3.8-10.1) Red Blood Count 3.38mil/mm3 (4.40-5.80) Hemoglobin 9.6g/dL (13.8-17.2) Hematocrit 30.9% (41.0-50.0) Mean Corpuscular Volume 91.4fL (81-100) Mean Corpuscular Hemoglobin 28.4pg (27.0-35.0) Mean Corpuscular Hemoglobin Concent 31.1% (32.0-37.0) Red Cell Distribution Width 17.2% (12.3-15.4) Platelet Count 354bil/L (150-400) Neutrophils (%) (Auto) 57.3% (40-74) Lymphocytes (%) (Auto) 30.1% (14-46) Monocytes (%) (Auto) 10.1% (4-12) Eosinophils (%) (Auto) 1.5% (0-5) Basophils (%) (Auto) 0.3% (0-3) Sodium Level 138mEq/L (134-144) Potassium Level 4.4mEq/L (3.5-5.2) Chloride Level 100mEq/L (97-108) Carbon Dioxide Level 24mmol/L (18-29) Blood Urea Nitrogen 42mg/dL (8-27) Creatinine 1.24mg/dL (0.76-1.27) Estimat Glomerular Filtration Rate 63mL/min (>59) Glucose Level 94mg/dL (60-99) Calcium Level 9.0mg/dL (8.5-10.1) Phosphorus Level 3.4mg/dL (2.5-4.9) Magnesium Level 2.1mg/dL (1.6-2.6) Total Bilirubin 0.3mg/dL (0.0-1.2) Aspartate Amino Transf (AST/SGOT) 16U/L (0-50) Alanine Aminotransferase (ALT/SGPT) 21U/L (0-44) Alkaline Phosphatase 65U/L (25-160) Total Protein 5.9g/dL (6.4-8.4) Albumin 3.3g/dL (3.4-5.0) Prothrombin Time 29.5sec (8.1-12.5) Prothromb Time International Ratio 2.70ratio Exam Physical Exam Mild pain to palpation of the right posterior heel General: Alert, Oriented X3, Cooperative, No Acute Distress Lungs: Clear to Auscultation, Normal Air Movement Lower Extremities: Bilateral: Extremity warm Lower Extremity Pulses: Palpable: Left Dorsalis Pedis Left Posterior Tibal Right Dorsalis Pedis Right Posterior Tibal Postop Sensory Motor: Distal Motor Intact, Motor 5/5, Decreased Sensation Podiatry WOUND : Wound Location/Description Right anterior tibial ulceration full-thickness to subcutaneous tissue with exposed to be Gruber anterior tendon however this tendon appears to be much less exposed than on prior evaluation. The majority of this ulceration is hyper granular in nature however a mild amount of fibrotic slough is also noted there is no surrounding erythema and there is mild maceration noted to the skin bridge which separates the proximal and distal ulcerations Right anterior ankle ulceration full-thickness to subcutaneous tissue with exposed tibialis anterior tendon this wound bed consisted of mostly hypertrophic granular tissue with some mild fibrotic slough there is no exposed bone and there is no malodor there is no sign of acute infection there is a moderate amount of serosanguineous drainage present and a minimal amount of michelle -ulcerative maceration tissue Right posterior heel ulceration improved from previous evaluation this wound is 80% granular and 20% fibrotic slough there is no surrounding erythema and no signs of acute infection there is no surrounding maceration tissue there is a minimal amount of serosanguineous drainage. Left anterior proximal leg ulceration full-thickness to subcutaneous tissue without exposed bone or tendon there is no malodor or signs of acute infection this will consist of hyper granular tissue there is no surrounding erythema minimal serosanguineous drainage is noted Surgical Cast or Splint: None Assessment & Plan Impression Slowly Improving bilateral lower extremity ulcerations Problems: Plan Detailed evaluation was performed today and discussion with the patient's family occurred at bedside. At this time the patient is continuing to improve however there is some maceration the 2 anterior leg ulcerations of the right lower extremity which may result in connection of these wounds. At this time there is no further need for surgical intervention and we will continue with conservative therapy. I have suggested a Betadine moist to dry gauze dressing today to help eliminate some of the local maceration tissue. In the future this patient may potentially benefit from additional skin grafting however this can be performed on an outpatient basis. At this time this patient continues to remain stable for transition to outpatient care there is no sign of infection or need for antibiotics in regards to his lower extremity ulcerations. These dressings are to be changed every 48-72 hours by the wound care service. I will continue to follow this patient every 1-2 weeks while admitted VTE Prophylaxis: Sub-Q Heparin (Unfractionated) Rosas Crisostomo DPM Jan 03, 2017 09:10
--- NOTE | 2017-01-03 09:17 | PCM.PHAPRO ---
Progress Warfarin Management: -inr remains stable with a slight increase to 2.7 today. will give a slightly reduced dose of warfarin 5mg this evening and follow Magui Franco [facility] Jan 03, 2017 09:17
--- NOTE | 2017-01-03 09:50 | NUR ---
MIREYA Kelly at [facility], she is willing to look at pt and get back to me. faxed facesheet and gave access.
--- NOTE | 2017-01-03 13:44 | NUR ---
Faxed referral to [facility] in [place]. [facility] Updated MERCHANDISE MARKER
--- NOTE | 2017-01-03 14:07 | PCM.PNPSY ---
Subjective Date of Service Jan 03, 2017 Subjective I spent 60 minutes both reviewing his treatment course and evaluating Tigre. I reviewed the treatment plan with the patient and discussed options available including the potential risks, benefits and side effects. Tigre reports that he understands his medical condition and needs for medication and close follow-up with his doctor. He denies medication side effects. Patient was able to identify his medications and what they were used to treat. He appeared to understand the need for medications by the questions he asked during our discussion. Current Medications Current Medications Lactobacillus Acidophilus 2 tablet PCHS PO Last administered on 01/03/17 09:01 ; Admin Dose 2 TABLET; Start 01/02/17 at 18:00 Memantine 5 mg DAILY PO Last administered on 01/03/17 08:59; Admin Dose 5 MG; Start 01/02/17 at 10:40 Warfarin Sodium/ Warfarin Sodium 7 mg DAILY@17 PO Last administered on 17:41; Admin Dose 7 MG; Start 01/02/17 at 17:00; Stop 01/02/17 at 17:01; Status DC Warfarin Sodium/ Warfarin Sodium 7.5 mg DAILY@17 ONCE PO Last administered on 17:30; Admin Dose 7.5 MG; Start 01/01/17 at 17:00; Stop 01/01/17 at 17: 01; Status DC Mental Status Exam Vital Signs Vital Signs Date Time Temp Pulse Resp B/P Pulse Ox O2 Delivery O2 Flow Rate FiO2 01/03/17 13:31 Room Air 01/03/17 13:28 36.4 71 16 136/75 100 Room Air 01/03/17 10:11 70 01/03/17 10:03 36.5 74 16 122/76 100 Room Air Appearance: Neat/well groomed Attitude: Cooperative Behavior: No unusual behavior Affect: Well Modulated/Appropriate Mood: Euthymic Thought Process/Associations: Other (concrete, black and white, has a very difficult time with even simple abstractions) Speech Production: Normal Speech Rate: Normal Thought Content: Appropriate Danger to Self/Suicidal Ideati: None Danger to Others: None Consciousness: Alert Orientation: Person, Place, Date, Situation Memory: Grossly Intact Estimate Intellectual Function: Above Average Basis for IQ estimate: Awareness current events, Word use/vocabulary, Educational history, Employment history Attention/Concentration & Cogn: Grossly Intact Insight: Good Judgement: Limited Result Diagram: 01/02/17 0535 01/02/17 0535 Mental Health Plan The patient is a 61-year-old male with multiple medical issues who presented with cognitive impairment and a waxing and waning level of consciousness. He was exhibiting confabulation and although significantly improved now he does appear to have some form of neurocognitive disorder. His head CT suspect for a vascular form of neurocognitive disorder, particularly in the presence of the recent symptoms. He may benefit from amantadine. In terms of competence the patient scored a 24 out of 30 on his Mini-Mental status exam. He was able to identify the different medical conditions that were being treated by his team. He was able to identify his medications and what they were treated for. 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 During my evaluation he demonstrated that he has regained his decisional capacity. [place] I: Neurocognitive disorder, major, vascular, provisional. [place] II: Deferred. [place] III: See past medical history. [place] IV: Unclear. [place] V: Global Assessment of Functioning 45 Medications Treatments Recommendations: Patient currently competent to participate and to make decisions regarding his medical care He continues to have impairment in his thought processing. Given his past history and past baseline his thought processing now is quite concrete. He he may benefit from a trial of memantine for vascular major neurocognitive disorder, Clifford Mckenna MD Jan 03, 2017 14:07
--- NOTE | 2017-01-03 16:11 | PCM.PNMED ---
Subjective Date of Service Jan 03, 2017 Subjective no new complaints,able to participate on discussion of his treatment plan.he says he wants to go to SNF for rehabilitation Exam Vital Signs Vital Sign - Last Date Time Temp Pulse Resp B/P Pulse Ox O2 Delivery O2 Flow Rate FiO2 01/03/17 13:31 Room Air 01/03/17 13:28 36.4 71 16 136/75 100 Intake and Output 01/02/17 01/02/17 01/03/17 Cumulative From/Thru 14:59 22:59 06:59 11/23/16 12:19 - 01/03/17 06:01 Intake Total 400 ml 1057 ml 526 ml 85511 ml Output Total 1400 ml 700 ml 2200 ml 66691 ml Balance -1000 ml 357 ml -1674 ml 22213 ml Intake Oral 400 ml 1057 ml 526 ml 57349 ml IV Total 0 ml 28905 ml Output Urine Total 1400 ml 700 ml 2200 ml 55538 ml Urine/Stool Mix 100 ml Emesis 250 ml Estimated Blood Loss 20 ml # Voids 100 # Bowel Movements 1 1 1 113 Exam Cachectic, middle aged male, laying down on beds, cooperative. oriented x3 no JVD, MMM, no LAD RRR, nl s1, s2 no mrg CTAB, no w,c S,ND,NT,normoactive BS+ bilateral leg ulcers, dressed, Lt hip-dressed IVs and Medications Medications Reviewed: Medications were reviewed in detail Lab and Diagnostics Result Diagram: 01/02/17 0535 01/02/17 0535 X-Rays, CTs and MRIs Carotid Doppler Moderate calcific and soft plaque bilaterally, but less than 50% stenosis is seen within the proximal internal carotid arteries bilaterally. Dictated by: Jordan Pratt M.D. on 12/26/2016 at 21:09 CT brain no significant abnormalities 11/23/16 12-lead ECG 11/23/16, sinus bradycardia with PACs, rate was 47, QTC 400 ms personally/ concurrently reviewed by Shoshana 12/27 Cardiac Echo Impressions Echo 12/27/16 The left ventricle is not well visualized but left ventricular systolic function is probably normal and the ejection fraction grossly appears to be in the 60-70% range. There are no obvious focal wall motion abnormalities noted but poor endocardial definition reduces the sensitivity for the detection of such. Left ventricular wall thickness is mildly increased, producing a probable small left ventricular cavity. Assessment of diastolic parameters indicates a relaxation abnormality of the left ventricle, consistent with normal filling pressures. The right ventricle grossly appears normal in size with probable normal systolic function. Pulmonary artery pressures cannot be estimated because of the lack of a measurable TR jet velocity but the IVC suggests a low right atrial pressure of 3 mm Hg. The atria are not well visualized but grossly appear normal in size. There is no obvious significant valvular heart disease. The aortic arch is at the upper limits of normal in size. Assessment & Plan 61-year-old male from [facility] obtunded 11/25, has been treated for UTI, narcotics minimized in patient's mental status is failed to improve. Seems to be a market decline from prior level of function according to his sister. 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 Patient is medically stable. awaiting disposition, Cognition seems to have improved. psychiatry reevaluated and deemed decisional acute, active # metabolic/structural encephalopathy/likely due to multi-infarct dementia, - CT HEAD negative for acute findings 11/23/16. no MRI due to pacer, nH3 19 11/23 b12/folate/rpr WNL 12/20/16, - per sister, baseline pt was AAOx3 prior to admission - cognition improving -ordered memantine for suspected multi-infarct dementia as recommended by psychiatry on prior eval but patient refused #left hip wound , presumed pressure sore, likely POA, -consulted as per wound care condition, no need for surgical debridement per , #a-fib on Coumadin, episode of RVR 12/30, HD stable, - c/w Coumadin INR therapeutic and Coumadin being managed per pharmacy -resumed metoprolol 25mg q8h, titrate to target rate<110 resolved, stable # severe PVD w/ hx of BLE ulcers s/p debridement, s/p grafts in , followed by plastic surgery at [place]. Last seen 11/16, recommended amputation. As per sister, pt refused it. Unclear interval progression since till this admission - Podiatry following pt on weekly basis while in hospital, last debridement 12/26/redressed 01/03 -daily assessment and treatment per wound care service # microcytic/hypochromic anemia, unclear onset, likely ACD, h/h stable, Hg 9.7 , 10.3 12/28, iron low 11/24, b12/folate wnl 11/26 iron studies low normal, retic somewhat up 12/28, # CKD3- Cr 2.56 12/07, 1.28 12/27, Cr 1.31 12/28 # underlying psychiatric disorder- psych consulted 12/20. Does not appear to be any obvious psychiatric disorder. [place] a possible Korsakoff's but patient has no history of EtOH abuse. # pseudomonas UTI. not poa.- Leukocytosis, resolved 12/03/2016. Cipro started after initial Ceftriaxone and stopped Cipro -12/15/16 completed 14 days. Resolved # HTN ,on amlodipine 5 mg by mouth daily - Losartan and diuretics stopped due to WISAM (resolved 12/26) #hxCAD,history of PPM, not active- meds as noted above # GERD - continue PPI Prophylaxis: DVT patient on full strength warfarin therapeutic, SCDs contraindicated, GI on PPI Dispo: -awaitng placement full code VTE Prophylaxis: Sub-Q Heparin (Unfractionated) VTE Mechanical Devices: Venous Foot Pump Resuscitation Status: CPR: Attempt Resuscitation Medardo Sanchez MD Jan 03, 2017 16:11
--- NOTE | 2017-01-03 18:12 | NUR ---
activity Pt up with PT, walked across room a couple times, left room with family in wheel chair to go around halls. Sat in chair for a while. Tylenol administered for pain. pt stated it was helpful.
[2017-01-04 00:19] VITALS: BP 144/82; PULSE 73; RESP 22; O2SAT 100
[2017-01-04 05:20] VITALS: BP 127/68; PULSE 66; RESP 20; O2SAT 94
--- NOTE | 2017-01-04 06:22 | NUR ---
Saline locked, A&O x 2 , tylenol for 05/29 pain x 2 , seems to have decent appetite, . Tele 90's to 100's , SR.
[2017-01-04 06:31] LABS: INR 2.78 ratio
[2017-01-04] MEDS: Pantoprazole 40 mg ER24 Tablet PO SCH (06:46)
--- NOTE | 2017-01-04 06:51 | PCM.PHAPRO ---
Progress Warfarin Management by Pharmacy: -Inr remains stable at 2.78. Will continue with warfarin 5mg this evening. Magui Franco [facility] Jan 04, 2017 06:51
[2017-01-04 09:02] VITALS: BP 137/72; PULSE 69; RESP 16; O2SAT 97
[2017-01-04 10:33] VITALS: PULSE 67
--- NOTE | 2017-01-04 11:22 | NUR ---
Spoke with Russell at [facility] and let him know we are looking to have patient reconsidered by Robb, faxed updated notes to [facility] and Russell will start working on new Robb authorization today. Updated [employer]ADE [employer]ER
--- NOTE | 2017-01-04 12:47 | NUR ---
NUTRITION FOLLOW UP: ASSESS: 61 YO male admitted with UTI, acute encephalopathy related to WISAM / dehydration. Pt. with severe PVD w/ hx of BLE ulcers s/p debridement of wounds, podiatry following w/ conservative management - wounds slowly improving. Mentation is improving. PO somewhat variable but adequate. PMHx: Severe PVD, atrial fibrillation, CKD stage 3, HTN, CAD, hypothyroidism, GERD, HLD, cardiac pacemaker, atherosclerosis of left leg, anemia. DIET: Heart healthy, ensure all trays, Shawn on breakfast and dinner tray. PO 25-100% of meals LABS: Reviewed. BUN 42. MEDICATIONS: Reviewed. Lopressor, Coumadin GI: BM x 3 (01/03) SKIN INTEGRITY: R anterior leg and ankle ulcer, R heel ulcer, and L anterior leg ulcer. ANTHROPOMETRICS: Current Wt: 58.8 kg. Admit wt: 69 kg. However, pt bed was zeroed and pt was weighed in a bed sling on 12/02 and wt was 54.3 kg so likely current wt is more accurate than admit wt. IBW: 64.55 kg. RE-ESTIMATED NEEDS BASED OF NEW WTS: (WOUNDS, BMI, STAGE III CKD): Calories: 2923-8229 kcal (30-40 kcal / kg BW of 54.3 kg.) Protein: 55-80 g (1.0-1.5 g/kg BW of 54.3 kg) NUTRITION DIAGNOSIS: 1) Increased nutrient needs related to increased demand for nutrients per disease process as evidenced by current skin issues. ---PERSISTS INTERVENTION: 1) Will continue to send Ensure on all trays. 2) Will continue Shawn on breakfast and dinner tray. MONITOR/EVALUATE: PO intake, labs, wounds, GI/nutrition status. Follow per low nutrition risk guidelines.
[2017-01-04 13:17] VITALS: BP 126/77; PULSE 78; RESP 16; O2SAT 100
--- NOTE | 2017-01-04 15:01 | PCM.PNMED ---
Subjective Date of Service Jan 04, 2017 Subjective No new complaints or events. Awaiting placement Exam Vital Signs Vital Sign - Last Date Time Temp Pulse Resp B/P Pulse Ox O2 Delivery O2 Flow Rate FiO2 01/04/17 13:17 36.6 78 16 126/77 100 Room Air Intake and Output 01/03/17 01/03/17 01/04/17 Cumulative From/Thru 14:59 22:59 06:59 11/23/16 12:19 - 01/04/17 05:37 Intake Total 1364 ml 30494 ml Output Total 975 ml 67803 ml Balance 389 ml 96979 ml Intake Oral 1364 ml 21582 ml IV Total 89427 ml Output Urine Total 975 ml 74149 ml Urine/Stool Mix 100 ml Emesis 250 ml Estimated Blood Loss 20 ml # Voids 100 # Bowel Movements 2 115 Exam Cachectic, middle aged male, laying down on beds, cooperative. oriented x3 no JVD, MMM, no LAD RRR, nl s1, s2 no mrg CTAB, no w,c S,ND,NT,normoactive BS+ bilateral leg ulcers, dressed, Lt hip-dressed IVs and Medications Medications Reviewed: Medications were reviewed in detail Lab and Diagnostics Result Diagram: 01/02/17 0535 01/02/17 0535 X-Rays, CTs and MRIs Carotid Doppler Moderate calcific and soft plaque bilaterally, but less than 50% stenosis is seen within the proximal internal carotid arteries bilaterally. Dictated by: Jordan Pratt M.D. on 12/26/2016 at 21:09 CT brain no significant abnormalities 11/23/16 12-lead ECG 11/23/16, sinus bradycardia with PACs, rate was 47, QTC 400 ms personally/ concurrently reviewed by Shoshana 12/27 Cardiac Echo Impressions Echo 12/27/16 The left ventricle is not well visualized but left ventricular systolic function is probably normal and the ejection fraction grossly appears to be in the 60-70% range. There are no obvious focal wall motion abnormalities noted but poor endocardial definition reduces the sensitivity for the detection of such. Left ventricular wall thickness is mildly increased, producing a probable small left ventricular cavity. Assessment of diastolic parameters indicates a relaxation abnormality of the left ventricle, consistent with normal filling pressures. The right ventricle grossly appears normal in size with probable normal systolic function. Pulmonary artery pressures cannot be estimated because of the lack of a measurable TR jet velocity but the IVC suggests a low right atrial pressure of 3 mm Hg. The atria are not well visualized but grossly appear normal in size. There is no obvious significant valvular heart disease. The aortic arch is at the upper limits of normal in size. Assessment & Plan 61-year-old male from [facility] obtunded 11/25, has been treated for UTI, narcotics minimized in patient's mental status is failed to improve. Seems to be a market decline from prior level of function according to his sister. 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 Patient is medically stable. awaiting disposition, Cognition seems to have improved. psychiatry reevaluated and deemed decisional acute, active # metabolic/structural encephalopathy/likely due to multi-infarct dementia, - CT HEAD negative for acute findings 11/23/16. no MRI due to pacer, nH3 19 11/23 b12/folate/rpr WNL 12/20/16, - cognition improving -ordered memantine for suspected multi-infarct dementia as recommended by psychiatry but patient refused #left hip wound , presumed pressure sore, likely POA, -consulted as per wound care condition, no need for surgical debridement per , #a-fib on Coumadin, episode of RVR 12/30, HD stable, - c/w Coumadin INR therapeutic and Coumadin being managed per pharmacy -resumed metoprolol 25mg q8h, titrate to target rate<110 resolved, stable # severe PVD w/ hx of BLE ulcers s/p debridement, s/p grafts in , followed by plastic surgery at [place]. Last seen 11/16, recommended amputation. As per sister, pt refused it. Unclear interval progression since till this admission. - Podiatry following pt on weekly basis while in hospital, last debridement 12/26/redressed 01/03 -daily assessment and treatment per wound care service # microcytic/hypochromic anemia, likely ACD, h/h stable, Hg 9.7 12/27, 10.3 12/28, iron low 11/24, b12/folate wnl 11/26 iron studies low normal, # CKD3- Cr 2.56 12/07, now stabilized at 1.24 # pseudomonas UTI. not poa.- Leukocytosis, resolved 12/03/2016. Cipro started after initial Ceftriaxone and stopped Cipro -12/15/16 completed 14 days. Resolved # HTN ,on amlodipine 5 mg by mouth daily - Losartan and diuretics stopped due to WISAM ,BP ok now with out these meds,will continue to hold # hxCAD,history of PPM, not active- meds as noted above # GERD - continue PPI Prophylaxis: DVT patient on full strength warfarin therapeutic, SCDs contraindicated, GI on PPI Dispo: -awaitng placement .PT recommended SNF,SW working to get a SNF for him full code VTE Prophylaxis: Sub-Q Heparin (Unfractionated) VTE Mechanical Devices: Venous Foot Pump Resuscitation Status: CPR: Attempt Resuscitation Medardo Sanchez MD Jan 04, 2017 15:01
--- NOTE | 2017-01-04 15:37 | NUR ---
Social Work-continued d/c planning: Data:EMR reviewed. Pt is on day 42 of hospitalization for alerted mental status per H&P. SW updated by UR specialist that all faciliteis that have been explored have denied pt[facility] and working on Robb authorization. SW reviewed psychiatry notes and pt has been deemed competent to make medical decisions. SW followed up with pt's sisters. SW explained psychiatry has deemed pt decisional for medical decisions. SW explained that all facilities have been explored and [facility] is the only facility that is willing to consider pt. Sisters state concerns about pt returning to this facility at discharge. SW explained at this time there are no other facilities that have accepted pt and if they decline having [facility] then pt will have to return home with HH services. PT continues to recommend SNF. WOund care involved. Pt's sister state an understanding. SW will continue to follow. Assessment:Pt would benefit from placement. Plan:[facility] has accepted pt and has started Robb Authorization. Pt's sisters unsure if they want pt to return to this facility. SW explained that this is on the only facility that has accepted pt, if they decline this option then pt will have to return home with HH services. Pt's sister state an understanding. SW will continue to follow. MARIIA Varela
[2017-01-04] MEDS ORDERED: oxyCODONE-Acetamin 5-325 mg Tablet PO PRN (16:30)
--- NOTE | 2017-01-04 16:32 | NUR ---
Wound Patient seen at bedside for wound care left and right lower extremity wounds. Drainage seems to be decreasing but wounds remain unchanged in dimensions, Granulation tissue is hyper and folding over intact skin edges at the right LE wound, right heel wound continues to be very painful for this patient, may benefit from radiographic study. Silver nitrate applied to hypergranular tissue at right leg after cleaning of wounds with gauze and saline. Wounds redressed with Vaseline gauze and 4 layer wrap on right. Left leg ulcers were covered with mepilex dressings then wrapped with gauze and kerlix and coban. Wounds are stable but generating hypergranulation tissue will see if silver nitrate and compression are helpful.Will contact podiatry about pain control during dressing changes, pt may benefit from antianxiety medication prior to dressing change.
--- NOTE | 2017-01-04 18:03 | NUR ---
Pain Pt reports pain at 7-9/10 Tylenol administered when available. Spoke to hospitalist who ordered Percocet if needed q6h 1 tab Pt hesitant to take narcotics due to recent events at SNF. Advised pt it was available if he needed it. Bed down and locked, call light w/in reach.
[2017-01-04 20:25] VITALS: BP 130/75; PULSE 75; RESP 16; O2SAT 99
--- NOTE | 2017-01-05 04:07 | NUR ---
Pain Pt. was in severe pain after debridement procedure today. Pt. rates pain 7/10. Lani PO ordered by Michael WILDER, as pt. was at his 24 hr. limit with acetaminophen, and still in 7/10 pain. Lani PO given. Pt. states "it helped take the edge off the pain a little bit". Will continue to monitor.
[2017-01-05] MEDS: Pantoprazole 40 mg ER24 Tablet PO SCH (05:45)
[2017-01-05 06:45] VITALS: BP 138/84; PULSE 71; RESP 16; O2SAT 99
[2017-01-05 07:06] LABS: INR 2.34 ratio
--- NOTE | 2017-01-05 10:19 | PCM.PHAPRO ---
Progress Warfarin Management by Pharmacy: -inr remains therapeutic at 2.34. will give an increased dose of warfarin 7mg this evening Magui Franco [facility] Jan 05, 2017 10:19
--- NOTE | 2017-01-05 14:39 | PCM.PNMED ---
Subjective Date of Service Jan 05, 2017 Subjective No new complaints or events. Awaiting placement Exam Vital Signs Vital Sign - Last Date Time Temp Pulse Resp B/P Pulse Ox O2 Delivery O2 Flow Rate FiO2 01/05/17 13:59 Room Air 01/05/17 06:45 36.5 71 16 138/84 99 Intake and Output 01/04/17 01/04/17 01/05/17 Cumulative From/Thru 15:00 23:00 07:00 11/23/16 12:19 - 01/05/17 06:57 Intake Total 800 ml 2383 ml 84968 ml Output Total 500 ml 1400 ml 77121 ml Balance 300 ml 983 ml 13792 ml Intake Oral 800 ml 2383 ml 47361 ml IV Total 40458 ml Output Urine Total 500 ml 1400 ml 70897 ml Urine/Stool Mix 100 ml Emesis 250 ml Estimated Blood Loss 20 ml # Voids 2 102 # Bowel Movements 0 1 116 Exam Cachectic, middle aged male, laying down on beds, cooperative. oriented x3 no JVD, MMM, no LAD Irregular HR, nl s1, s2 no mrg CTAB, no w,c S,ND,NT,normoactive BS+ bilateral leg ulcers, dressed, Lt hip-dressed IVs and Medications Medications Reviewed: Medications were reviewed in detail Lab and Diagnostics Result Diagram: 01/02/17 0535 01/02/17 0535 X-Rays, CTs and MRIs Carotid Doppler Moderate calcific and soft plaque bilaterally, but less than 50% stenosis is seen within the proximal internal carotid arteries bilaterally. Dictated by: Jordan Pratt M.D. on 12/26/2016 at 21:09 CT brain no significant abnormalities 11/23/16 12-lead ECG 11/23/16, sinus bradycardia with PACs, rate was 47, QTC 400 ms personally/ concurrently reviewed by Shoshana 12/27 Cardiac Echo Impressions Echo 12/27/16 The left ventricle is not well visualized but left ventricular systolic function is probably normal and the ejection fraction grossly appears to be in the 60-70% range. There are no obvious focal wall motion abnormalities noted but poor endocardial definition reduces the sensitivity for the detection of such. Left ventricular wall thickness is mildly increased, producing a probable small left ventricular cavity. Assessment of diastolic parameters indicates a relaxation abnormality of the left ventricle, consistent with normal filling pressures. The right ventricle grossly appears normal in size with probable normal systolic function. Pulmonary artery pressures cannot be estimated because of the lack of a measurable TR jet velocity but the IVC suggests a low right atrial pressure of 3 mm Hg. The atria are not well visualized but grossly appear normal in size. There is no obvious significant valvular heart disease. The aortic arch is at the upper limits of normal in size. Assessment & Plan 61-year-old male from [facility] obtunded 11/25, has been treated for UTI, narcotics minimized in patient's mental status is failed to improve. Seems to be a market decline from prior level of function according to his sister. 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 Patient is medically stable. awaiting disposition, Cognition seems to have improved. psychiatry reevaluated and deemed decisional acute, active # metabolic/structural encephalopathy/likely due to multi-infarct dementia, - CT HEAD negative for acute findings 11/23/16. no MRI due to pacer, nH3 19 11/23 b12/folate/rpr WNL 12/20/16, - cognition improving -ordered memantine for suspected multi-infarct dementia as recommended by psychiatry but patient refused #left hip wound , presumed pressure sore, likely POA, -consulted as per wound care condition, no need for surgical debridement per , #a-fib on Coumadin, episode of RVR 12/30, HD stable, - c/w Coumadin INR therapeutic and Coumadin being managed per pharmacy -on metoprolol 25mg q8h, will switch to XR 50mg daily.home dose 100 bid resolved, stable # severe PVD w/ hx of BLE ulcers s/p debridement, s/p grafts in , followed by plastic surgery at [place]. Last seen 11/16, recommended amputation. As per sister, pt refused it. - Podiatry following pt on weekly basis while in hospital, last debridement 12/26/redressed 01/03 -daily assessment and treatment per wound care service # microcytic/hypochromic anemia, likely ACD, h/h stable, Hg 9.7 12/27, 10.3 12/28, iron low 11/24, b12/folate wnl 11/26 iron studies low normal, # CKD3- Cr 2.56 12/07, now stabilized at 1.24 # pseudomonas UTI. not poa.- Leukocytosis, resolved 12/03/2016. Cipro started after initial Ceftriaxone and stopped Cipro -12/15/16 completed 14 days. Resolved # HTN ,on amlodipine 5 mg by mouth daily - Losartan and diuretics stopped due to WISAM ,BP ok now with out these meds,will continue to hold # hxCAD,history of PPM, not active- meds as noted above # GERD - continue PPI Prophylaxis: DVT patient on full strength warfarin therapeutic, SCDs contraindicated, GI on PPI Dispo: -awaitng placement .PT recommended SNF,SW working to get a SNF for him full code VTE Prophylaxis: Sub-Q Heparin (Unfractionated) VTE Mechanical Devices: Venous Foot Pump Resuscitation Status: CPR: Attempt Resuscitation Medardo Sanchez MD Jan 05, 2017 14:38
[2017-01-05 14:46] VITALS: BP 160/88; PULSE 78; RESP 18; O2SAT 99
[2017-01-05] MEDS: MeTOProlol XL 50 mg ER24 Tablet PO SCH (16:49)
[2017-01-05 16:54] VITALS: BP 134/79; PULSE 79; RESP 16; O2SAT 98
--- NOTE | 2017-01-05 18:20 | NUR ---
Shift update Pt remained in bed this shift. Px to BLLE controlled with tylenol, dressings CDI. +CMS. Podiatry here and trimmed toenails. New order rec'd for xanax 0.5mg to be given prior to wound care./dressing changes-per Pt request for his anxiety
[2017-01-05] MEDS ORDERED: ALPRAZolam 0.5 mg Tablet PO PRN (19:30)
[2017-01-05 21:07] VITALS: BP 170/82; PULSE 72; RESP 16; O2SAT 100
--- NOTE | 2017-01-06 03:29 | NUR ---
Pain/ Update Pt. rated pain 7/10 in legs. PO Tylenol given. Pt. is still declining regular turning except during times when using bed tay. Heels floated on pillows. Will continue to monitor.
[2017-01-06 04:13] VITALS: BP 153/66; PULSE 68; RESP 16; O2SAT 98
[2017-01-06] MEDS: Pantoprazole 40 mg ER24 Tablet PO SCH (06:01)
[2017-01-06 07:29] LABS: INR 2.15 ratio
[2017-01-06] MEDS: MeTOProlol XL 50 mg ER24 Tablet PO SCH (08:42)
--- NOTE | 2017-01-06 11:08 | NUR ---
Spoke with Karina at [facility] and they do have authorization from Robb and are able to admit patient today. Karina also spoke with ORE CHARGER and let her know.
--- NOTE | 2017-01-06 11:57 | PCM.DIMED ---
Discharge Instructions Date of Service Jan 06, 2017 Dates of Hospitalization Nov 23, 2016 at 14:10 Discharge Diagnosis Discharge Diagnosis # metabolic/structural encephalopathy due to multi-infarct dementia, worsened by UTI ,now improved # multiple bilateral leg ulcerations ,chronic,poa #a-fib on Coumadin, # severe PVD w/ hx of BLE ulcers s/p debridement, s/p grafts in , # microcytic/hypochromic anemia, likely ACD, # CKD3- # pseudomonas UTI. not poa.-Resolved # HTN , # hxCAD,history of PPM, not active- # GERD - Diet Low fat, Low Sodium, Heart Healthy Activity Limited until seen by PCP, Other (continue physical therapy at intermediate facility.) Call your provider Fever or Chills, Shortness of breath, Bleeding, Chest pain, Vomitting, Excessive diarrhea, Weakness (unilateral) Patient Instructions You were hospitalized to due to altered mental status.We suspect he might have multi-infarct dementia which was worsened by Pseudomonas UTI. Completed treatment for UTI. Your mental status has improved. You also have bilateral lower extremity ulcerations due to peripheral vascular disease. Please get your bilateral leg dressing changed every other day at the intermediate facility. Please follow-up with plastic surgery at [place].Please follow-up with podiatry Rosas Alvarez in 1 week. Follow-up plan Please follow-up with PCP in 1 week. Please follow-up with plastic surgery at [place] 2-3 weeks.Please follow-up with podiatry Rosas Alvarez in 1 week. Follow-up Provider: [facility] Follow-up with PCP in: 1 week Provider: Rosas Crisostomo DPM Follow-up in: 1 week Medardo Sanchez MD Jan 06, 2017 11:57
[2017-01-06] MEDS ORDERED: ALPR0.5T8 PO (12:06)
[2017-01-06] MEDS ORDERED: AMLO5TAB2 PO (12:06)
[2017-01-06] MEDS ORDERED: OXYC5TAB72 PO (12:06)
[2017-01-06] MEDS ORDERED: METO-272 PO (12:06)
[2017-01-06] MEDS ORDERED: NAM10 PO (12:06)
[2017-01-06 13:33] VITALS: BP 157/74; PULSE 70; RESP 16
[2017-01-06] MEDS ORDERED: ALPRAZolam 0.25 mg Tablet ONE (13:49)
--- NOTE | 2017-01-06 15:57 | NUR ---
Wound Care discharge note Recommend SNF placement for continued nursing wound care and rehab. Pts dressings taken down at both legs, wounds cleaned with saline. left leg ant ulcer 10 cm x 2.5 cm. lat calf 3 cm x 1.5 cm right leg ant distal 12 cm x5 cm ant proximal 7 cm x 3 cm. Right Heel 3 cm x 3 cm. Left leg redressed with Vaseline gauze, kerlix and coban wrap. Right leg redressed with Vaseline gauze, abd pad to ant nunn wounds, foam to heel wound then 3 layer compression dressing applied loosely.Pt tolerated well,Will plan to see patient in follow up at wound center on 01/11/17. SNF to change dressings Q 48 hrs.
--- NOTE | 2017-01-06 16:15 | NUR ---
Social Work Note D/A: Assisted in meeting with pt and his two supportive sisters. Answered all questions related to the current state of his insurance. Pt and family understand that he is ready for discharge. After discussion with the patient, Woundcare RN and the patients hospitalist pt agrees to transfer to [facility] in order to rapidly progress with therapies for an eventual d/c home with Home Health and [facility]. T/c to Karina at [facility] to discuss pts plan of care to include conservative patient mgmt. efforts. Pt to d/c at 1pm tomorrow via w/c arranged by [facility]. PLAN: Pt and family agreeable to plan to d/c to [facility] tomorrow. Pt to d/c tomorrow at 1pm via w/c lali. L/M with Rylee Goss that pt will be discharging to [facility] and will need [facility] caregiver at discharge from facility. GIOVANA CariasSW
--- NOTE | 2017-01-06 16:59 | PCM.PNMED ---
Subjective Date of Service Jan 06, 2017 Subjective No new events. LC at accepted patient. Spoke with his 2 sisters at bedside, patient does want to this specific fdc facility. Patient and sisters to discuss and decide whether to go to [facility] or home with HH tomorrow morning. Exam Vital Signs Vital Sign - Last Date Time Temp Pulse Resp B/P Pulse Ox O2 Delivery O2 Flow Rate FiO2 01/06/17 13:33 36.5 70 16 157/74 Room Air 01/06/17 04:13 98 Intake and Output 01/05/17 01/05/17 01/06/17 Cumulative From/Thru 15:00 23:00 07:00 11/23/16 12:19 - 01/06/17 06:18 Intake Total 400 ml 1391 ml 536 ml 77598 ml Output Total 825 ml 1325 ml 1200 ml 17896 ml Balance -425 ml 66 ml -664 ml 43911 ml Intake Oral 400 ml 1391 ml 536 ml 83352 ml IV Total 81924 ml Output Urine Total 825 ml 1325 ml 1200 ml 78660 ml Urine/Stool Mix 100 ml Emesis 250 ml Estimated Blood Loss 20 ml # Voids 102 # Bowel Movements 0 1 0 117 Exam Cachectic, middle aged male, laying down on beds, cooperative. oriented x3 no JVD, MMM, no LAD Irregular HR, nl s1, s2 no mrg CTAB, no w,c S,ND,NT,normoactive BS+ bilateral leg ulcers, dressed, Lt hip-dressed IVs and Medications Medications Reviewed: Medications were reviewed in detail Lab and Diagnostics Result Diagram: 01/02/17 0535 01/02/17 0535 X-Rays, CTs and MRIs Carotid Doppler Moderate calcific and soft plaque bilaterally, but less than 50% stenosis is seen within the proximal internal carotid arteries bilaterally. Dictated by: Jordan Pratt M.D. on 12/26/2016 at 21:09 CT brain no significant abnormalities 11/23/16 12-lead ECG 11/23/16, sinus bradycardia with PACs, rate was 47, QTC 400 ms personally/ concurrently reviewed by Shoshana 12/27 Cardiac Echo Impressions Echo 12/27/16 The left ventricle is not well visualized but left ventricular systolic function is probably normal and the ejection fraction grossly appears to be in the 60-70% range. There are no obvious focal wall motion abnormalities noted but poor endocardial definition reduces the sensitivity for the detection of such. Left ventricular wall thickness is mildly increased, producing a probable small left ventricular cavity. Assessment of diastolic parameters indicates a relaxation abnormality of the left ventricle, consistent with normal filling pressures. The right ventricle grossly appears normal in size with probable normal systolic function. Pulmonary artery pressures cannot be estimated because of the lack of a measurable TR jet velocity but the IVC suggests a low right atrial pressure of 3 mm Hg. The atria are not well visualized but grossly appear normal in size. There is no obvious significant valvular heart disease. The aortic arch is at the upper limits of normal in size. Assessment & Plan 61-year-old male from [facility] obtunded 11/25, has been treated for UTI, narcotics minimized in patient's mental status is failed to improve. Seems to be a market decline from prior level of function according to his sister. 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 Patient is medically stable. awaiting disposition, Cognition seems to have improved. psychiatry reevaluated and deemed decisional acute, active # metabolic/structural encephalopathy/likely due to multi-infarct dementia, - CT HEAD negative for acute findings 11/23/16. no MRI due to pacer, nH3 19 11/23 b12/folate/rpr WNL 12/20/16, - cognition improving -ordered memantine for suspected multi-infarct dementia as recommended by psychiatry but patient refused #left hip wound , presumed pressure sore, likely POA, -consulted as per wound care condition, no need for surgical debridement per , #a-fib on Coumadin, episode of RVR 12/30, HD stable, - c/w Coumadin INR therapeutic and Coumadin being managed per pharmacy -on metoprolol 25mg q8h, will switch to XR 50mg daily.home dose 100 bid resolved, stable # severe PVD w/ hx of BLE ulcers s/p debridement, s/p grafts in , followed by plastic surgery at [facility]. Last seen 11/16, recommended amputation. As per sister, pt refused it. - Podiatry following pt on weekly basis while in hospital, last debridement 12/26/redressed 01/03 -daily assessment and treatment per wound care service # microcytic/hypochromic anemia, likely ACD, h/h stable, Hg 9.7 12/27, 10.3 /8, iron low 11/24, b12/folate wnl 11/26 iron studies low normal, # CKD3- Cr 2.56 12/07, now stabilized at 1.24 # pseudomonas UTI. not poa.- Leukocytosis, resolved 12/03/2016. Cipro started after initial Ceftriaxone and stopped Cipro -12/15/16 completed 14 days. Resolved # HTN ,on amlodipine 5 mg by mouth daily - Losartan and diuretics stopped due to WISAM ,BP ok now with out these meds,will continue to hold # hxCAD,history of PPM, not active- meds as noted above # GERD - continue PPI Prophylaxis: DVT patient on full strength warfarin therapeutic, SCDs contraindicated, GI on PPI Dispo: - [facility]CC at accepted patient. Spoke with his 2 sisters at bedside, patient does want to go to this specific fdc facility. He came from this facility and he had filed a complaint to the state. Patient and sisters to discuss and decide whether to go to [facility] or home with HH tomorrow morning. full code VTE Prophylaxis: Sub-Q Heparin (Unfractionated) VTE Mechanical Devices: Venous Foot Pump Resuscitation Status: CPR: Attempt Resuscitation Medardo Sanchez MD Jan 06, 2017 16:59
--- NOTE | 2017-01-06 17:53 | NUR ---
Social Work coordinated transport for 1pm tomorrow via [facility] rep Karina. DIONICIO to follow Maki
--- NOTE | 2017-01-06 18:02 | NUR ---
Pain Patient continues to have some pain to the lower legs. Patient states that ordered Tylenol is adequate to cover pain most of the time. Patient alert and oriented. Care is ongoing.
[2017-01-06 20:25] VITALS: BP 137/70; PULSE 83; RESP 16; O2SAT 96
--- NOTE | 2017-01-07 04:15 | NUR ---
Pain/ Update/ BM Pt. reported pain 06/29. PO Tylenol given. Pt. is still declining regular turns. Heels floated. Pt. also had a moderate formed BM during this shift. Will continue to monitor.
[2017-01-07 04:46] VITALS: BP 146/80; PULSE 72; RESP 18; O2SAT 98
[2017-01-07] MEDS: Pantoprazole 40 mg ER24 Tablet PO SCH (05:53)
[2017-01-07 07:22] LABS: INR 2.24 ratio
[2017-01-07] MEDS: MeTOProlol XL 50 mg ER24 Tablet PO SCH (08:11)
--- NOTE | 2017-01-07 12:02 | NUR ---
Social work note - Discharge [employer] met with pt - pt's sister also in the room. Pt understands that he is being d/c today to [facility] - [facility] [facility] [facility] spoke with Criselda at [facility] who states that transportation is set for 1300 today. Chart Copied and faxed - No other needs identified. Plan: To [facility] (A) Miriam. BEATRIZ Dwyer
--- NOTE | 2017-01-07 13:35 | NUR ---
Discharge to [facility] Orders for discharge to [facility] were received. The patient and family were made aware of the plan to discharge and were agreeable to go. Patient was dressed in his own clothing and his asymptomatic IV was removed intact. The patient's belongings were gathered by family members. At the time of discharge the patient was alert and oriented, with no complaints of nausea, intolerable pain or other difficulties. All patient dressings clean, dry and intact. The patient ambulated into a wheelchair and was wheeled to the main entrance by transport staff of the [facility]. Patient instructions, scrips and other information gathered and delivered by social work. Report called to receiving nurse Arvizu at [facility].
--- NOTE | 2017-01-07 14:01 | PCM.DC.MED ---
Discharge Summary Date of Service Jan 07, 2017 Dates of Hospitalization Date of Hospital Admission Nov 23, 2016 at 14:10 Date of Discharge: Jan 07, 2017 Providers: Admitting Physician: Valentino Anna MD Primary Care Physician: Betty Attending Physician: Valentino Anna MD Diagnosis at Time of Discharge Diagnosis at Time of Discharge # metabolic/structural encephalopathy due to multi-infarct dementia, worsened by UTI ,now improved # multiple bilateral leg ulcerations ,chronic,poa #a-fib on Coumadin, # severe PVD w/ hx of BLE ulcers s/p debridement, s/p grafts in , # microcytic/hypochromic anemia, likely ACD, # CKD3- # pseudomonas UTI. not poa.-Resolved # HTN , # hxCAD,history of PPM, not active- # GERD - Consultations ID Dr Arredondo podiatry Dr Crisostomo psychiatry [place] Procedures XRay, CTs & MRIs Carotid Doppler Moderate calcific and soft plaque bilaterally, but less than 50% stenosis is seen within the proximal internal carotid arteries bilaterally. Dictated by: Jordan Pratt M.D. on 12/26/2016 at 21:09 CT brain no significant abnormalities 11/23/16 ECG 12 Lead 11/23/16, sinus bradycardia with PACs, rate was 47, QTC 400 ms personally/ concurrently reviewed by Shoshana 12/27 Cardiac Echo Impression Echo 12/27/16 The left ventricle is not well visualized but left ventricular systolic function is probably normal and the ejection fraction grossly appears to be in the 60-70% range. There are no obvious focal wall motion abnormalities noted but poor endocardial definition reduces the sensitivity for the detection of such. Left ventricular wall thickness is mildly increased, producing a probable small left ventricular cavity. Assessment of diastolic parameters indicates a relaxation abnormality of the left ventricle, consistent with normal filling pressures. The right ventricle grossly appears normal in size with probable normal systolic function. Pulmonary artery pressures cannot be estimated because of the lack of a measurable TR jet velocity but the IVC suggests a low right atrial pressure of 3 mm Hg. The atria are not well visualized but grossly appear normal in size. There is no obvious significant valvular heart disease. The aortic arch is at the upper limits of normal in size. Brief History as per HPI performed by Dr Anna on 11/23/16 Patient is a 61 year old male with a cardiac pacemaker and history of atrial fibrillation on Warfarin, chronic kidney disease, coronary artery disease, hypertension, and hyperlipidemia who presents to the ED via EMS from [facility] with altered mental status onset today. Per senior care staff, the patient is usually able to transfer from the bed on his own and interact with staff. However, today he was unable to transfer and had decreased level of consciousness. Patient did not respond on EMS arrival. There is no staff from the facility or paperwork explaining why the patient presents to the ED. The patient is unable to provide any history due to his altered mental status. Hospital Course 61-year-old male from [facility] obtunded 11/25, has been treated for UTI, narcotics minimized in patient's mental status is failed to improve. Seems to be a market decline from prior level of function according to his sister. suspect multi-infarct dementia. acute, active # metabolic/structural encephalopathy/likely due to multi-infarct dementia, worsened by Pseudomonas UTI. Resolved - CT HEAD negative for acute findings 11/23/16. no MRI due to pacer, nH3 19 11/23 b12/folate/rpr WNL 12/20/16, - cognition improving -ordered memantine for suspected multi-infarct dementia as recommended by psychiatry but patient refuses -Mental status at baseline as per sisters at bedside -I have stopped his oxycodone and MS Contin. Does not seem patient requires opiates. Overmedication with opiods may have contributed to initial mental status # severe PVD with bilateral lower extremity ulcers s/p debridement, - s/p grafts in , followed by plastic surgery at [facility]. Last seen 11/16, recommended amputation. As per sister, pt refused it. - Podiatry following pt on weekly basis , last debridement 12/26/ redressed 01/03 -daily assessment and treatment per wound care service -Needs to change dressing every other day. Needs follow-up with podiatry every 1-2 weeks. -May eventually need for plastic surgery for skin graft # a-fib on Coumadin, episode of RVR 12/30, HD stable, - c/w Coumadin -Continue with metoprolol XR 50mg daily.prior home dose 100 bid # microcytic/hypochromic anemia, likely ACD, h/h stable, Hg 9.7 2/7, 10.3 28, iron low 11/24, b12/folate wnl 11/26 iron studies low normal, # CKD3- Cr 2.56 12/07, now stabilized at 1.24 # pseudomonas UTI. not poa.- , resolved 12/03/2016. Cipro started 11/30 after initial Ceftriaxone and stopped Cipro -12/15/16 completed 14 days. Resolved # HTN ,on amlodipine 5 mg by mouth daily - c/w Losartan # hxCAD,history of PPM, not active- meds as noted above # GERD - continue PPI Dispo: - Discharged to [facility] Condition on discharge stable Patient had prolonged hospitalization awaiting disposition, initially due to cognition impairment. Cognition improved. psychiatry reevaluated and deemed decisional. Discharge to SNF eventually. Exam Vital Signs (Last) Date Time Temp Pulse Resp B/P Pulse Ox O2 Delivery O2 Flow Rate FiO2 01/07/17 04:46 36.6 72 18 146/80 98 01/06/17 20:25 Room Air Exam Cachectic, middle aged male, laying down on beds, cooperative. oriented x3 no JVD, MMM, no LAD Irregular HR, nl s1, s2 no mrg CTAB, no w,c S,ND,NT,normoactive BS+ bilateral leg ulcers, dressed, Lt hip-dressed Test 11/23/16 12:44 11/23/16 12:50 11/23/16 13:26 11/24/16 06:55 Activated Partial Thromboplast Time 32.0sec (22.8-33.0) Ammonia 19ug/dL (18-53) Troponin T 0.025ug/L (0.0-0.011) Alcohol, Quantitative < 10mg/dL (0-10) Lactic Acid Level 0.9mmol/L (0.4-2.0) Urine Opiates Screen Positive Urine Methadone Screen Negative Urine Barbiturates Screen Negative Urine Amphetamines Screen Negative Urine Benzodiazepines Screen Negative Urine Cocaine Metabolite Screen Negative Urine Cannabinoids Screen Negative Transferrin 122mg/dL (.) Transferrin % Saturation 18 (.) Ferritin 475ng/mL (30-400) Thyroid Stimulating Hormone (TSH) 1.190uIU/mL (0.450-4.500) Free Thyroxine 1.38ng/dL (0.82-1.77) Test 11/26/16 06:11 12/03/16 06:29 12/07/16 12:51 12/20/16 14:30 Prealbumin 13mg/dL (20-40) Procalcitonin 0.11ng/mL (See Comment) Urine Color Straw (YELLOW) Urine Appearance Hazy (CLEAR,HAZY) Urine pH 6.0 (5.0-8.0) Urine Specific Jackson 1.015 (1.003-1.035) Urine Protein 100mg/dL (NEG,TRACE) Urine Glucose (UA) Negativemg/dL (NEGATIVE) Urine Ketones Negativemg/dL (NEGATIVE) Urine Occult Blood Moderate (NEGATIVE) Urine Nitrite Negative (NEGATIVE) Urine Bilirubin Negative (NEGATIVE) Urine Urobilinogen Normalmg/dL (NORMAL) Urine Leukocyte Esterase Negative (NEGATIVE) Urine RBC 11-50/hpf (0-2) Urine WBC 11-50/hpf (0-5) Urine Epithelial Cells Occasional/hpf (NONE-MOD) Urine Crystals Oxalic acid crystals (NONE Urine Bacteria Few/hpf (NONE-FEW) Urine Hyaline Casts None/lpf (NONE) Urine Granular Casts None seen (NONE SEEN) Urine Waxy Casts None seen (NONE SEEN) Urine Red Blood Cell Casts None seen (NONE SEEN) Urine White Blood Cell Casts None seen (NONE SEEN) Urine Mucus Present (None Seen) Urine Trichomonas None seen (NONE SEEN) Urine Yeast None (NONE SEEN) Urinalysis Comment None Urine Culture Reflexed Indicated Vitamin B12 Level 593pg/mL (211-946) Folate > 19.9ng/mL (>3.0) Rapid Plasma Reagin Non reactive (Non Reactive) Test 12/28/16 07:16 01/02/17 05:35 01/07/17 06:00 Reticulocyte Count,Calculated 2.7% (0.6-2.6) Iron Level 49ug/dL (35-150) Total Iron Binding Capacity 239ug/dL (250-450) Percent Iron Saturation 21%sat (15-50) Unsaturated Iron Binding 189.8ug/dL White Blood Count 10.0th/mm3 (3.8-10.1) Red Blood Count 3.38mil/mm3 (4.40-5.80) Hemoglobin 9.6g/dL (13.8-17.2) Hematocrit 30.9% (41.0-50.0) Mean Corpuscular Volume 91.4fL (81-100) Mean Corpuscular Hemoglobin 28.4pg (27.0-35.0) Mean Corpuscular Hemoglobin Concent 31.1% (32.0-37.0) Red Cell Distribution Width 17.2% (12.3-15.4) Platelet Count 354bil/L (150-400) Neutrophils (%) (Auto) 57.3% (40-74) Lymphocytes (%) (Auto) 30.1% (14-46) Monocytes (%) (Auto) 10.1% (4-12) Eosinophils (%) (Auto) 1.5% (0-5) Basophils (%) (Auto) 0.3% (0-3) Sodium Level 138mEq/L (134-144) Potassium Level 4.4mEq/L (3.5-5.2) Chloride Level 100mEq/L (97-108) Carbon Dioxide Level 24mmol/L (18-29) Blood Urea Nitrogen 42mg/dL (8-27) Creatinine 1.24mg/dL (0.76-1.27) Estimat Glomerular Filtration Rate 63mL/min (>59) Glucose Level 94mg/dL (60-99) Calcium Level 9.0mg/dL (8.5-10.1) Phosphorus Level 3.4mg/dL (2.5-4.9) Magnesium Level 2.1mg/dL (1.6-2.6) Total Bilirubin 0.3mg/dL (0.0-1.2) Aspartate Amino Transf (AST/SGOT) 16U/L (0-50) Alanine Aminotransferase (ALT/SGPT) 21U/L (0-44) Alkaline Phosphatase 65U/L (25-160) Total Protein 5.9g/dL (6.4-8.4) Albumin 3.3g/dL (3.4-5.0) Prothrombin Time 24.4sec (8.1-12.5) Prothromb Time International Ratio 2.24ratio Discharge Medications Discharge Medications Amlodipine (Amlodipine) 5 Mg Tablet 5 MG PO DAILY Prescribed by: IRIS VALDEZ MD Ascorbate Calcium (Vitamin C) 500 Mg Tablet 500 MG PO DAILYWM (Reported) Cholecalciferol (Vitamin D3) (Vitamin D) 1,000 Unit Tablet 5,000 UNIT PO DAILY ( Reported) Ferrous Sulfate (Iron) 325 Mg Tablet 325 MG PO DAILYWM (Reported) Folic Acid (Folic Acid) 1 Mg Tablet 1 MG PO DAILY (Reported) Levothyroxine (Levothyroxine) 50 Mcg Tablet 50 MCG PO DAILY (Reported) Losartan Potassium (Losartan Potassium) 25 Mg Tablet 25 MG PO DAILY (Reported) Memantine (Namenda) 10 Mg Tablet 5 MG PO DAILY Prescribed by: IRIS VALDEZ MD Metoprolol Succinate ER (Metoprolol Succinate ER) 50 Mg Tab.er.24h 50 MG PO DAILY Prescribed by: IRIS VALDEZ MD Multivitamin with Minerals (Totalday Multiple) 1 Each Tablet.er 1 EACH PO DAILY (Reported) Omeprazole (Omeprazole) 20 Mg Capsule.dr 20 MG PO DAILY (Reported) Pravastatin (Pravastatin) 40 Mg Tablet 40 MG PO HS (Reported) Warfarin Sodium (Coumadin) 4 Mg Tablet 4 MG PO DAILY (Reported) As needed Acetaminophen (Acetaminophen) 325 Mg Tablet 650 MG PO QID PRN PRN For Pain ( Reported) Albuterol Sulfate (Ventolin HFA Inhaler) 200 Puff/18 Gm Inhaler 2 PUFF INH QID PRN PRN For Wheezing (Reported) Alprazolam (Alprazolam) 0.5 Mg Tablet 0.5 MG PO DAILY PRN PRN DRESSING CHANGES Prescribed by: IRIS VALDEZ MD Bisacodyl (Dulcolax Rectal) 10 Mg Supp.rect 10 MG RC ONCE PRN PRN For Constipation (Reported) Magnesium Hydroxide (Milk of Magnesia) 400 Mg/5 Ml Oral.susp 30 ML PO ONCE PRN PRN For Constipation (Reported) Na Phos,M-B/Na Phos,Di-Ba (Fleet Enema) 133 Ml Enema 133 ML RC ONCE PRN PRN For Constipation (Reported) Nicotine 14 mg/24 hr Patch (Nicotine 14 mg/24 hr Patch) 1 Each Patch.td24 1 PATCH TRANSDERM DAILY PRN PRN smoking cessasion (Reported) Ondansetron (Zofran) 4 Mg Tablet 4 MG PO TID PRN PRN For Nausea (Reported) Polyethylene Glycol 3350 (Miralax) 17 Gm Powd.pack 17 GM PO DAILY PRN PRN For Constipation (Reported) oxyCODONE (oxyCODONE) 5 Mg Tablet 5 MG PO Q4H PRN PRN For Moderate Pain Prescribed by: IRIS VALDEZ MD Followup Plan Disposition: [facility] Follow-up plan Please follow-up with PCP in 1 week. Please follow-up with plastic surgery at [facility] 2-3 weeks.Please follow-up with podiatry Rosas Alvarez in 1 week. Discharge Diet: Low fat, Low Sodium, Heart Healthy Discharge Activity: Limited until seen by PCP, Other [facility] Patient Instructions You were hospitalized to due to altered mental status.We suspect he might have multi-infarct dementia which was worsened by Pseudomonas UTI. Completed treatment for UTI. Your mental status has improved. You also have bilateral lower extremity ulcerations due to peripheral vascular disease. Please get your bilateral leg dressing changed every other day at the [facility]. Please follow-up with plastic surgery at [facility].Please follow-up with podiatry Rosas Alvarez in 1 week. Follow-up Provider: [facility] Follow-up with PCP in: 1 week Provider: Rosas Crisostomo DPM Follow-up in: 1 week Time spent 45 minutes coordinating discharge copies to: [facility]; Rosas Crisostomo DPM, Melaku MD Jan 07, 2017 14:01
== END 2017-01-07 13:12 | DRG 52 ==
LOC: SED 12:19 → EDBD 12:19 → CCU 14:10 → OBSVTOIN 14:10 → OSC 15:14
PROVIDERS: ADMIT Hospitalist; ATTEND Hospitalist
PROC: 0JBQ0ZZ Excision of Right Foot Subcutaneous Tissue and Fascia, Open Approach (ICD-10-PCS; 2016-11-29)
PROC: 0JBP0ZZ Excision of Left Lower Leg Subcutaneous Tissue and Fascia, Open Approach (ICD-10-PCS; 2016-11-29)
PROC: 0JBN0ZZ Excision of Right Lower Leg Subcutaneous Tissue and Fascia, Open Approach (ICD-10-PCS; principal; 2016-11-29 18:00)
DX: G93.41 Metabolic encephalopathy (principal); F11.20 Opioid dependence, uncomplicated; F01.51 Vascular dementia, unspecified severity, with behavioral disturbance; N17.9 Acute kidney failure, unspecified; N18.3 Chronic kidney disease, stage 3 (moderate); N39.0 Urinary tract infection, site not specified; T86.821 Skin graft (allograft) (autograft) failure; L97.824 Non-pressure chronic ulcer of other part of left lower leg with necrosis of bone; L97.812 Non-pressure chronic ulcer of other part of right lower leg with fat layer exposed; L97.312 Non-pressure chronic ulcer of right ankle with fat layer exposed; I12.9 Hypertensive chronic kidney disease with stage 1 through stage 4 chronic kidney disease, or unspecified chronic kidney disease; K21.9 Gastro-esophageal reflux disease without esophagitis; Z95.0 Presence of cardiac pacemaker; I48.91 Unspecified atrial fibrillation; Z79.01 Long term (current) use of anticoagulants; I25.10 Atherosclerotic heart disease of native coronary artery without angina pectoris; E78.5 Hyperlipidemia, unspecified; E03.9 Hypothyroidism, unspecified; G89.29 Other chronic pain; L89.610 Pressure ulcer of right heel, unstageable; B96.5 Pseudomonas (aeruginosa) (mallei) (pseudomallei) as the cause of diseases classified elsewhere; I70.248 Atherosclerosis of native arteries of left leg with ulceration of other part of lower leg; I70.238 Atherosclerosis of native arteries of right leg with ulceration of other part of lower leg; I70.233 Atherosclerosis of native arteries of right leg with ulceration of ankle